=== PATIENT | male | born 1955 | race Caucasian/White ===

== ENCOUNTER 2020-09-08 13:48 | Inpatient (IN) | payer BC, MEDICARE, SELFPAY ==
[2020-09-08] VITALS (8 sets, daily range): BP systolic 134–180; BP diastolic 68–86; PULSE 94–118; RESP 20–22; TEMP 36.4–37; O2SAT 89–92; BMI 37.9
--- NOTE | ~2020-09-08 | CT_ITS ---
EXAMINATION: CTA chest PE protocol DATE: 09/08/2020 15:40 INDICATION: COVID positive presenting with worsening dyspnea and elevated d-dimer. TECHNIQUE: Computed tomography (CT) pulmonary angiogram of the chest was performed with 100 mL Omnipa que-350 intravenous contrast. Additional 3D reconstructions utilizing coronal maximum intensity proje ction (MIP) were performed. Automated exposure control and iterative reconstruction technique were em ployed. The dose-length product was 1908.88 mGy-cm. COMPARISON: None FINDINGS: Excellent contrast opacification of the pulmonary arteries. There is mild streak artifact from dense contrast in the superior vena cava and right atrium. Moderate scattered respiratory motion artifact w hich is most prominent at the lung bases. Overall this mildly decreases sensitivity in the segmental pulmonary arteries and rendered images assessment and many of the smaller subsegmental pulmonary oscar chen nondiagnostic. No evident pulmonary embolism. Scattered bilateral patchy regions of consolidatio n and groundglass opacity throughout both lungs most consistent with COVID pneumonia. There are few s cattered calcified pulmonary nodules along with calcified mediastinal and left hilar lymph nodes cons istent with old granulomatous disease. No pleural effusion or pneumothorax. Heart size is normal. No pericardial effusion. Atherosclerotic coronary artery calcification. Thoracic aorta is normal in christopehr thomas with no dissection. No pathologically enlarged thoracic lymphadenopathy. The visualized upper abd omen is unremarkable. Moderate thoracic spondylosis with multiple Schmorl's nodes in the mid to lower thoracic spine. IMPRESSION: 1. No pulmonary embolism with sensitivity mildly decreased in the segmental pulmonary arteries and no ndiagnostic in many of the smaller subsegmental pulmonary arteries due primarily to respiratory motio n artifact. 2. Extensive bilateral patchy lung disease with appearance most consistent with COVID pneumonia. Reviewed, dictated and finalized at location A. IMPRESSION: 1. No pulmonary embolism with sensitivity mildly decreased in the segmental pul monary arteries and nondiagnostic in many of the smaller subsegmental pulmonary arteries due primarily to respiratory motion artifact. 2. Extensive bilateral patchy lung disease with appearance most consistent with COVID pneumonia.
--- NOTE | 2020-09-08 13:58 | ECG_ITS ---
Measurements Intervals [place] Rate: P: UT: QRS: QRSD: T: QT: QTc: Interpretive Statements SINUS TACHYCARDIA DELAYED PRECORDIAL R/S TRANSITION BASELINE WANDER- I, II, III, AVR, AVF, V1, V4-V6 ABNORMAL ECG Electronically Signed On 09-08-2020 15:15:37 CDT by Brent Pickett D.O.
--- NOTE | 2020-09-08 14:11 | ED.GENADULT ---
HPI - General Adult General Chief complaint: Shortness of Breath/Dyspnea Stated complaint: covid short of breath Source: patient Mode of arrival: ambulatory Limitations: no limitations History of Present Illness HPI narrative: Simone is a 65M with a PMH of DVT, obesity and CAD that came to the emergency department with worsening SOB. He was diagnosed with COVID on August 31. He has had fatigue since then and worsening SOB for a few days. No CP, nausea, vomiting, or lightheadedness reported. Related Data Home Medications Medication Instructions Recorded Confirmed apixaban [Eliquis] 2.5 mg PO DAILY 09/08/20 09/08/20 cyclobenzaprine 10 mg PO PRN 09/08/20 09/08/20 finasteride 5 mg PO DAILY 09/08/20 09/08/20 losartan 100 mg PO DAILY 09/08/20 09/08/20 simvastatin 40 mg PO DAILY 09/08/20 09/08/20 venlafaxine 75 mg PO DAILY 09/08/20 09/08/20 Allergies Allergy/AdvReac Type Severity Reaction Status Date / Time acetaminophen Allergy Severe RESP. Verified 09/08/20 14:43 DIFFICULTY codeine Allergy Severe RESP. Verified 09/08/20 14:43 DIFFICULTY Review of Systems Constitutional: Constitutional: Denies chills, Reports fatigue, Denies fever(s) and Reports weakness Eyes: Eyes: Reports no additional eye complaints ENT: Reports system reviewed and no additional complaints, except as documented Cardiovascular: Cardiovascular: Reports as per HPI Respiratory: Respiratory: Reports as per HPI Gastrointestinal: Gastrointestinal: Reports no additional gastrointestinal complaints Genitourinary: Genitourinary: Reports no additional male genitourinary complaints Musculoskeletal: Musculoskeletal: Reports no additional musculoskeletal complaints Integumentary/Breasts: Skin/Breast: Reports system reviewed and no additional complaints, except as docu Neurologic: Reports system reviewed and no additional complaints, except as documented Psychiatric: Psychiatric: Reports no additional psychiatric complaints Endocrine: Endocrine: Reports no additional endocrine complaints Hematologic/Lymphatic: Hematologic/Lymphatic: Reports no additional hematologic/lymphatic complaints Allergic/Immunologic: Allergic/Immunologic: Reports no additional allergic/immunologic complaints [facility] Social History Social History Gender identity (if verbalized by the patient): Male Exam Const: General: alert and ill appearing Nutritional Appearance: obese Orientation/consciousness: patient oriented x3 Limitations: No altered mental status Other: In mild to moderate distress HENMT: Head: normal to inspection Other: atraumatic Eyes: Conjunctivae: conjunctivae normal Pupils: Equal, round and reactive pupils present Neck: Neck: normal visual inspection Chest: Chest palpation & inspection: normal inspection of the chest Resp: Effort & Inspection: labored, tachypneic and uses accessory muscles Auscultation: clear to auscultation bilaterally Cardio: Rate: tachycardic Rhythm: regular rhythm Heart sounds: no murmurs GI: Inspection: non-distended GI Palp: Yes Soft to palpation, No Tenderness to palpation present (GI) and No Guarding due to palpation present (GI) Skin: General skin exam: normal color Rashes: no rashes Neuro: General: patient oriented x3 and moves all extremities Extrem: General: normal to inspection Psych: Appearance: grossly normal Mental Status: mental status grossly normal Course Course Emergency Course: Upon entering the ER his oxygen saturation was in the low 80's. It came up to the low 90's with 5L via NC. EXAMINATION: CTA chest PE protocol DATE: 09/08/2020 15:40 INDICATION: COVID positive presenting with worsening dyspnea and elevated d-dimer. TECHNIQUE: Computed tomography (CT) pulmonary angiogram of the chest was performed with 100 mL Omnipaque-350 intravenous contrast. Additional 3D reconstructions utilizing coronal maximum intensity projection (M
[2020-09-08 14:27] LABS: Basophils Absolute Auto 0.03 K/mm3 (0.00-0.10); Basophils Percent Auto 0.3 % (0.0-1.0); Eosinophils Absolute Auto 0.03 K/mm3 (0.02-0.50); Eosinophils Percent Auto 0.3 % (1.0-6.0); Hematocrit 40.9 % (37.0-46.0); Hemoglobin 13.8 g/dL (12.4-15.3); Immature Granulocyte Absolute 0.13 K/mm3 (0.00-0.00); Immature Granulocyte Percent A 1.4 % (0.0-0.0); Lymphocytes Absolute Auto 0.98 K/mm3 (1.10-4.50); Lymphocytes Percent Auto 10.4 % (18.0-42.0); Mean Corpuscular HGB Conc 33.7 g/dL (32.0-36.0); Mean Corpuscular Hemoglobin 30.8 pg (27.0-31.0); Mean Corpuscular Volume 91.3 fL (78.0-102.0); Mean Platelet Volume 11.2 fl (8.7-11.0); Monocytes Absolute Auto 0.83 K/mm3 (0.10-0.90); Monocytes Percent Auto 8.8 % (2.0-11.0); Neutrophils Absolute Auto 7.4 K/mm3 (1.7-7.2); Neutrophils Percent Auto 78.8 % (50.0-70.0); Platelet Count Result 279 K/mm3 (150-420); Red Blood Count 4.48 M/mm3 (4.70-6.10); Red Cell Distribution Width 12.4 % (11.6-14.4); White Blood Count 9.4 K/mm3 (4.8-10.8)
[2020-09-08 14:40] LABS: Base Excess ABG 2.2 mmol/L (0-2); Device NASAL CANNULA; Modified Allen's Test Pass; Oxygen Content ABG 18.7 %vol (16.0-22.0); Oxygen Saturation ABG 93.8 % (95-97); PCO2 ABG 29.8 mmHg (35-45); PO2 ABG 68.6 mmHg (75-85); Site Drawn RIGHT RADIAL; Total Hemoglobin 14.3 g/dL; pH ABG 7.52 (7.35-7.45)
[2020-09-08] MEDS: DEXAMETHASONE 2 MG TABLET 6 MG PO (14:51)
[2020-09-08 14:52] LABS: Alanine Aminotransferase 193 U/L (16-63); Albumin Level 2.7 g/dL (3.4-5.0); Alkaline Phosphatase 253 U/L (46-116); Anion Gap 11 mmol/L (8-16); Aspartate Amino Transferase 119 U/L (15-37); Bilirubin,Total 1.7 mg/dL (0.00-1.00); Blood Urea Nitrogen 20 mg/dL (7-18); Calcium 8.9 mg/dL (8.5-10.1); Carbon Dioxide 27 mmol/L (21-32); Chloride 100 mmol/L (98-108); Estimated CRCL calculation 80 ml/min; Estimated Glomerular Filt Rate > 60; Glucose 129 mg/dL (70-99); NT Pro B Type Natriuretic Pept 270 pg/mL (0-125); Osmolality Calculated 290 mOsm/kg (285-295); Potassium 3.7 mmol/L (3.5-5.1); Sodium 138 mmol/L (136-145); Total Protein 7.5 g/dL (6.4-8.2); Troponin I 9.1 ng/L (0.00-60.4)
[2020-09-08 15:11] LABS: CRP 23.1 mg/dL (0.0-0.9)
[2020-09-08] MEDS: REMDESIVIR 200 MG/NS 250 ML 200 MG/250 ML BAG 250 MG IVPB (15:45)
--- NOTE | 2020-09-08 18:35 | ADMGEN ---
This patient, Arsh Guerrero, was admitted to 2nd Floor Room 210-2. Patient to hospital policies and general routines including ID bracelet, bed and alarms, visiting hours, pain management, procedures, bathroom and other care routines, personal items, smoking policy, room service/diet, and visiting hours. Information on how to activate the Rapid Response Team has been discussed. Patient are encouraged to report perceived risks to care and to ask questions if they do not understand what they are told or what they should do. placed in droplet d/t dx covid positive. st on tele with spo2 @ 5 l is 88-90%. sits on side of bed and eats supper. claims he has just been feeling tired and laying around is starting to feel week and sob.
[2020-09-09] VITALS (11 sets, daily range): BP systolic 129–155; BP diastolic 50–89; PULSE 75–107; RESP 18–24; TEMP 35.8–36.4; O2SAT 89–96
[2020-09-09] MEDS: SIMVASTATIN 10 MG TABLET 40 MG PO (08:04)
[2020-09-09] MEDS: VENLAFAXINE HCL XR 75 MG CAP.ER.24H PO (08:05)
[2020-09-09] MEDS: LOSARTAN POTASSIUM 50 MG TABLET 100 MG PO (08:05)
[2020-09-09] MEDS: APIXABAN 2.5 MG TABLET PO (08:05)
[2020-09-09] MEDS: FINASTERIDE 5 MG TABLET PO (08:05)
[2020-09-09] MEDS: guaiFENesin/DEXTROMETHORPHAN 5 ML UDC 10 ML PO (08:51)
--- NOTE | 2020-09-09 11:28 | PM.IMHP ---
H&P: HPI History of Present Illness Date/Time: 09/09/20 11:28 Arsh Guerrero is a 65 year old male who comes in with SOB for a couple days which had been worsening. Pt was tested Positive for COVID on August 31, 2020. Chief Complaint: COVID Positive, SOB Review of Systems Constitutional: Constitutional: Reports no additional constitutional complaints, Denies chills, Denies fever(s), Reports malaise and Reports weakness Cardiovascular: Cardiovascular: Reports no additional cardiovascular complaints, Denies chest pain and Denies chest pain at rest Respiratory: Respiratory: Reports no additional respiratory complaints, Reports cough and Reports dyspnea on exertion Gastrointestinal: Gastrointestinal: Reports no additional gastrointestinal complaints and Denies abdominal pain Musculoskeletal: Musculoskeletal: Reports no additional musculoskeletal complaints Neurologic: Reports system reviewed and no additional complaints, except as documented, Denies dizziness and Denies headache(s) Psychiatric: Psychiatric: Reports no additional psychiatric complaints [facility] Past Medical History Medical History (Updated 09/09/20 @ 11:47 by BHASKAR Villeda) BPH (benign prostatic hyperplasia) CAD (coronary artery disease) History of DVT (deep vein thrombosis) Hyperlipidemia Hypertension Mood disorder Surgical History Surgical History (Updated 09/09/20 @ 12:19 by BHASKAR Villeda) Hx of cardiac cath Family History Family History (Updated 09/09/20 @ 12:22 by BHASKAR Villeda) Mother Breast cancer Alzheimer disease Father Throat cancer Malignant neoplasm of prostate Bone cancer Lymph node cancer Social History Social History (Updated 09/09/20 @ 12:22 by BHASKAR Villeda) Smoking status: Never smoker Alcohol intake: former Substance use: never Substance use type: does not use Gender identity (if verbalized by the patient): Male Sexual Orientation (if Verbalized by the Patient): Straight or Heterosexual Spiritual care concerns: No Meds Home Medications and Allergies Home Medications Medication Instructions Recorded Confirmed Type apixaban [Eliquis] 2.5 mg PO DAILY 09/08/20 09/08/20 History cyclobenzaprine 10 mg PO PRN 09/08/20 09/08/20 History finasteride 5 mg PO DAILY 09/08/20 09/08/20 History losartan 100 mg PO DAILY 09/08/20 09/08/20 History simvastatin 40 mg PO DAILY 09/08/20 09/08/20 History venlafaxine 75 mg PO DAILY 09/08/20 09/08/20 History Allergies Allergy/AdvReac Type Severity Reaction Status Date / Time acetaminophen Allergy Severe RESP. Verified 09/08/20 14:43 DIFFICULTY codeine Allergy Severe RESP. Verified 09/08/20 14:43 DIFFICULTY Vital Signs Vital Signs - 24 hr 09/08/20 14:05 09/08/20 14:10 09/08/20 15:45 Temperature 98.6 F Pulse Rate 114 H 105 H Respiratory Rate 20 20 Blood Pressure 151/86 H 169/80 H Pulse Oximetry 89 L 89 L 90 09/08/20 16:00 09/08/20 17:00 09/08/20 17:30 Temperature Pulse Rate 101 H 94 118 H Respiratory Rate 20 20 Blood Pressure 134/83 180/79 H Pulse Oximetry 92 92 09/08/20 18:27 09/08/20 20:00 09/09/20 00:00 Temperature 97.6 F 96.4 F L Pulse Rate 118 H 94 75 Respiratory Rate 22 H 20 Blood Pressure 144/68 H 129/50 L Pulse Oximetry 90 91 90 09/09/20 04:00 09/09/20 08:00 09/09/20 08:20 Temperature 97.6 F 97.4 F L Pulse Rate 95 100 101 H Respiratory Rate 20 22 H Blood Pressure 147/89 H 155/85 H Pulse Oximetry 90 89 L Exam Const: General: cooperative, comfortable, no acute distress, alert, awake and tired appearing Nutritional Appearance: obese HENMT: Head: normal to inspection and normocephalic Ears: hearing grossly normal bilaterally Neck: Neck: normal visual inspection, no lymphadenopathy and no JVD Resp: Effort & Inspection: not able to speak in complete sentences, labored, no nasal flaring, no retractions and tachypneic Auscultation: clear to auscultation bilatera
[2020-09-09] MEDS: guaiFENesin/DEXTROMETHORPHAN 5 ML UDC PO ×2 (12:07→18:36)
[2020-09-09] MEDS: REMDESIVIR 100 MG/NS 250 ML 100 MG/250 ML BAG 250 MG IVPB (15:45)
--- NOTE | 2020-09-09 18:36 | PC.NURSE ---
Patient given cough syrup for dry non-productive cough. Patient resting in bed with hob elevated, hi martha therapy cont. Call light and belongings at side.
--- NOTE | 2020-09-09 20:36 | PC.NURSE ---
Patient requested to use bathroom. Provided bedside commode due to hi-flow O2 use. transferred with SBA only. Denied dizziness or SOB. No result.
[2020-09-10] VITALS (7 sets, daily range): BP systolic 135–153; BP diastolic 55–77; PULSE 80–98; RESP 18–20; TEMP 36.1–36.8; O2SAT 90–94
--- NOTE | 2020-09-10 03:03 | PC.NURSE ---
Patient removed high flow O2-stated he couldn't stand it anymore. Place on simple nasal cannula at 5 liters.
[2020-09-10] MEDS: SIMVASTATIN 10 MG TABLET 40 MG PO (08:19)
[2020-09-10] MEDS: LOSARTAN POTASSIUM 50 MG TABLET 100 MG PO (08:19)
[2020-09-10] MEDS: FINASTERIDE 5 MG TABLET PO (08:19)
[2020-09-10] MEDS: VENLAFAXINE HCL XR 75 MG CAP.ER.24H PO (08:20)
[2020-09-10] MEDS: APIXABAN 2.5 MG TABLET PO (08:20)
[2020-09-10] MEDS: guaiFENesin/DEXTROMETHORPHAN 5 ML UDC PO (09:13)
--- NOTE | 2020-09-10 09:20 | PM.IMPN ---
Progress Note: A&P Assessment and Plan (1) 2019 novel coronavirus–infected pneumonia (NCIP)#8211;infected pneumonia (NCI): Code(s): U07.1 - COVID-19; J12.82 - Pneumonia due to coronavirus disease 2019 <Breezy WallaceNICOLE-C - Last Filed: 09/10/20 13:12> Status: Acute <Breezy WallaceNICOLE-C - Last Filed: 09/10/20 13:12> Assessment and Plan: Started on Dexamethasone 6 mg QD, Remdesivir, continue Eliquis for DVT prophylaxis, Supplemental oxygen for SpO2 > 90%, currently at 92%, Cardiac monitoring with SpO2 monitoring, Robitussin DM added for Pt's cough, Neuro checks, VS Q4H; 1430 hours: Pt SpO2 was dropping to upper 80s, ordered for HFNC at 50FiO2 for SpO2 > 90%, Pt now at 92-93%. 09/10/2020 Unable to tolerate HFNC throughout the night, currently 90% with 5L NC but on occasion drops to upper 80s, Pt encouraged to wear HFNC <Breezy WallaceNICOLE-C - Last Filed: 09/10/20 13:12> (2) History of DVT (deep vein thrombosis): Code(s): Z86.718 - Personal history of other venous thrombosis and embolism <Breezy WallaceNICOLE-C - Last Filed: 09/10/20 13:12> Status: Acute <Breezy PhilippeNICOLE mukherjee-C - Last Filed: 09/10/20 13:12> Assessment and Plan: Continue Eliquis <Breezy PhilippeNICOLE mukherjee-C - Last Filed: 09/10/20 13:12> (3) Hypertension: Code(s): I10 - Essential (primary) hypertension <Breezy PhilippeNICOLE mukherjee-C - Last Filed: 09/10/20 13:12> Status: Acute <Breezy PhilippeNICOLE mukherjee-C - Last Filed: 09/10/20 13:12> Assessment and Plan: Continue Losartan <Breezy PhilippeNICOLE mukherjee-C - Last Filed: 09/10/20 13:12> (4) Hyperlipidemia: Code(s): E78.5 - Hyperlipidemia, unspecified <Breezy Wallace GLAZE HANDLER-C - Last Filed: 09/10/20 13:12> Status: Acute <Breezy Wallace GLAZE HANDLER-C - Last Filed: 09/10/20 13:12> Assessment and Plan: Continue Simvastatin <Breezy Wallace GLAZE HANDLER-C - Last Filed: 09/10/20 13:12> (5) CAD (coronary artery disease): Code(s): I25.10 - Atherosclerotic heart disease of [place] coronary artery without angina pectoris <Breezy Wallace GLAZE HANDLER-C - Last Filed: 09/10/20 13:12> Status: Acute <Breezy Wallace GLAZE HANDLER-C - Last Filed: 09/10/20 13:12> Assessment and Plan: Continue Simastatin <Breezy Wallace GLAZE HANDLER-C - Last Filed: 09/10/20 13:12> (6) Mood disorder: Code(s): F39 - Unspecified mood [affective] disorder <Breezy Wallace GLAZE HANDLER-C - Last Filed: 09/10/20 13:12> Status: Acute <Breezy Wallace GLAZE HANDLER-C - Last Filed: 09/10/20 13:12> Assessment and Plan: Continue Venlafaxine <Breezy Wallace GLAZE HANDLER-C - Last Filed: 09/10/20 13:12> (7) BPH (benign prostatic hyperplasia): Code(s): N40.0 - Benign prostatic hyperplasia without lower urinary tract symptoms <Berezy Wallace GLAZE HANDLER-C - Last Filed: 09/10/20 13:12> Status: Acute <Breezy Wallace GLAZE HANDLER-C - Last Filed: 09/10/20 13:12> Assessment and Plan: Continue Finasteride <Breezy Wallace GLAZE HANDLER-C - Last Filed: 09/10/20 13:12> Subjective Date/time seen: 09/10/20 09:20 Pt states his breathing is better today. However, he was not able to keep his high flow NC on throughout the night stating it felt like he was drowning from all the humidity. Pt also states that he has a cough and when he eats or drinks it tickles his throat and causes him to cough. He does have Robitussin DM and he was reminded of this. Pt denies CP, abdominal pain, SOB at this time, fevers and chills. Pt did have questions as to how long he would be in the hospital. The duration of medications was explained as well as the need to monitor him closely with respect to his oxygen demand and being on IV medications. <BHASKAR Villeda - Last Filed: 09/10/20 13:12> Review of Systems Review of Systems: All systems reviewed & are unremarkable except as noted in HPI and below <BHASKAR Villeda - Last Filed: 0
[2020-09-10] MEDS: ALBUTEROL SULFATE (*SP) INHALER 2 PUFF INHALATION ×3 (10:37→19:40)
[2020-09-10] MEDS: DEXAMETHASONE SOD PHOS INJ 4 MG/ML VIAL 6 MG IV PUSH (11:43)
[2020-09-10] MEDS: REMDESIVIR 100 MG/NS 250 ML 100 MG/250 ML BAG 250 MG IVPB (14:37)
[2020-09-11] VITALS (9 sets, daily range): BP systolic 134–149; BP diastolic 55–84; PULSE 64–91; RESP 16–20; TEMP 36.1–36.8; O2SAT 91–94
[2020-09-11] MEDS: guaiFENesin/DEXTROMETHORPHAN 5 ML UDC PO (04:43)
[2020-09-11 05:39] LABS: Hematocrit 40.6 % (37.0-46.0); Hemoglobin 13.1 g/dL (12.4-15.3); Mean Corpuscular HGB Conc 32.3 g/dL (32.0-36.0); Mean Corpuscular Hemoglobin 30.1 pg (27.0-31.0); Mean Corpuscular Volume 93.3 fL (78.0-102.0); Mean Platelet Volume 11.1 fl (8.7-11.0); Platelet Count Result 327 K/mm3 (150-420); Red Blood Count 4.35 M/mm3 (4.70-6.10); Red Cell Distribution Width 12.3 % (11.6-14.4); White Blood Count 10.4 K/mm3 (4.8-10.8)
[2020-09-11 05:50] LABS: Alanine Aminotransferase 234 U/L (16-63); Anion Gap 9 mmol/L (8-16); Blood Urea Nitrogen 20 mg/dL (7-18); Calcium 8.7 mg/dL (8.5-10.1); Carbon Dioxide 27 mmol/L (21-32); Chloride 106 mmol/L (98-108); Estimated CRCL calculation 91 ml/min; Estimated Glomerular Filt Rate > 60; Glucose 113 mg/dL (70-99); INR 1.1; Osmolality Calculated 297 mOsm/kg (285-295); Prothrombin Time 11.2 Seconds (9.50-12.10); Sodium 142 mmol/L (136-145)
[2020-09-11] MEDS: ALBUTEROL SULFATE (*SP) INHALER 2 PUFF INHALATION ×4 (05:50→20:31)
[2020-09-11] MEDS: SIMVASTATIN 10 MG TABLET 40 MG PO (08:24)
[2020-09-11] MEDS: APIXABAN 2.5 MG TABLET PO (08:24)
[2020-09-11] MEDS: LOSARTAN POTASSIUM 50 MG TABLET 100 MG PO (08:24)
[2020-09-11] MEDS: FINASTERIDE 5 MG TABLET PO (08:24)
[2020-09-11] MEDS: VENLAFAXINE HCL XR 75 MG CAP.ER.24H PO (08:24)
--- NOTE | 2020-09-11 08:46 | PM.IMPN ---
Progress Note: A&P Assessment and Plan (1) 2019 novel coronavirus–infected pneumonia (NCIP)#8211;infected pneumonia (NCIP): Code(s): U07.1 - COVID-19; J12.82 - Pneumonia due to coronavirus disease 2019 Status: Acute Assessment and Plan: Started on Dexamethasone 6 mg QD, Remdesivir, continue Eliquis for DVT prophylaxis, Supplemental oxygen for SpO2 > 90%, currently at 92%, Cardiac monitoring with SpO2 monitoring, Robitussin DM added for Pt's cough, Neuro checks, VS Q4H; 1430 hours: Pt SpO2 was dropping to upper 80s, ordered for HFNC at 50FiO2 for SpO2 > 90%, Pt now at 92-93%. 09/10/2020 Unable to tolerate HFNC throughout the night, currently 90% with 5L NC but on occasion drops to upper 80s, Pt encouraged to wear HFNC 09/11/2020 Pt SpO2 is currently 93% on 3L NC, lung sound similar to yesterday, no cough (2) Paroxysmal SVT (supraventricular tachycardia): Code(s): I47.1 - Supraventricular tachycardia Status: Acute Assessment and Plan: 09/11/2020 Pt had a rhythm change on telemetry, EKG was obtained but did not capture the changes seen on telemetry showing SR with short TN interval, about 15 minutes later telemetry captured a 7.7 second SVT at 180 BPM, Pt was asymptomatic, no other changes in VS, I called Dr. Buck, journalists and other writers, as requested by the mandeep TONY, it was not recommended to transfer this Pt however some lab work was recommended by Dr. Buck to include Electrolytes (which were normal this AM), Magnesium, and T4 since TSH was 0.2 on admission. Discussed results with Dr. Schmitt and will continue to observe the Pt and monitor Lab workup. (3) History of DVT (deep vein thrombosis): Code(s): Z86.718 - Personal history of other venous thrombosis and embolism Status: Acute Assessment and Plan: Continue Eliquis (4) Hypertension: Code(s): I10 - Essential (primary) hypertension Status: Acute Assessment and Plan: Continue Losartan (5) Hyperlipidemia: Code(s): E78.5 - Hyperlipidemia, unspecified Status: Acute Assessment and Plan: Continue Simvastatin (6) CAD (coronary artery disease): Code(s): I25.10 - Atherosclerotic heart disease of [place] coronary artery without angina pectoris Status: Acute Assessment and Plan: Continue Simastatin (7) Mood disorder: Code(s): F39 - Unspecified mood [affective] disorder Status: Acute Assessment and Plan: Continue Venlafaxine (8) BPH (benign prostatic hyperplasia): Code(s): N40.0 - Benign prostatic hyperplasia without lower urinary tract symptoms Status: Acute Assessment and Plan: Continue Finasteride Subjective Date/time seen: 09/11/20 08:46 Pt had taken his supplemental oxygen off this AM. I placed him back on the SpO2 monitor and this showed 87%. I reminded the Pt that he still has increased oxygen demand and needs to wear his NC. Pt states his breathing is good. He states he is going home Sunday however he and I spoke about how his condition would guide when he would go home not when the Remdesivir was finished. Pt will need a 6 minute walk test prior to DC home. This AM he is on 3 L NC with SpO2 of 93%. Pt denies CP, SOB, abdominal issues, increased WOB. Review of Systems Constitutional: Constitutional: Reports no additional constitutional complaints, Denies body ache(s), Denies chills, Denies fever(s) and Denies headache(s) Cardiovascular: Cardiovascular: Reports no additional cardiovascular complaints, Denies chest pain and Denies chest pain at rest Respiratory: Respiratory: Reports no additional respiratory complaints and Denies dyspnea Gastrointestinal: Gastrointestinal: Reports no additional gastrointestinal complaints and Denies abdominal pain Musculoskeletal: Musculoskeletal: Reports no additional musculoskeletal complaints Neurologic: Reports system reviewed and no additional complaints, except as documented, Denies vertigo and D
--- NOTE | 2020-09-11 10:51 | ECG_ITS ---
Measurements Intervals [place] Rate: 75 P: 27 [place]: 85 QRS: 5 QRSD: 86 T: 51 QT: 386 QTc: 431 Interpretive Statements SINUS RHYTHM WITH SHORT [place] INTERVAL NON-CONDUCTED SUPRAVENTRICULAR BIGEMINY EARLY PRECORDIAL R/S TRANSITION BASELINE ARTIFACT- I, II, III, AVL, AVR, AVL,A VF, V3 ABNORMAL ECG Electronically Signed On 09-12-2020 10:23:10 CDT by Brent Pickett D.O.
[2020-09-11 12:55] LABS: Magnesium 2.5 mg/dL (1.8-2.4)
[2020-09-11 12:57] LABS: Alanine Aminotransferase 254 U/L (16-63); Albumin Level 2.7 g/dL (3.4-5.0); Alkaline Phosphatase 247 U/L (46-116); Aspartate Amino Transferase 108 U/L (15-37); Bilirubin Direct 0.3 mg/dL (0-0.2); Bilirubin,Total 0.7 mg/dL (0.00-1.00); CRP 8.5 mg/dL (0.0-0.9); Lactate Dehydrogenase 247 U/L (85-227); Total Protein 7.6 g/dL (6.4-8.2)
[2020-09-11 12:58] LABS: Free T4 Free Thyroxine 1.45 ng/dL (0.76-1.46)
[2020-09-11 12:59] LABS: Troponin I 5.2 ng/L (0.00-60.4)
[2020-09-11] MEDS: REMDESIVIR 100 MG/NS 250 ML 100 MG/250 ML BAG 250 MG IVPB (14:44)
--- NOTE | 2020-09-11 23:34 | PC.NURSE ---
Patient has removed oxygen, states no SOB at this time, continuous pulse ox noted 92-94%
[2020-09-12] VITALS (8 sets, daily range): BP systolic 125–167; BP diastolic 72–84; PULSE 59–110; RESP 18–20; TEMP 35.7–36.7; O2SAT 92–96
--- NOTE | 2020-09-12 01:33 | PC.NURSE ---
Resting quietly, no needs voiced, telemetry SR
--- NOTE | 2020-09-12 02:52 | PC.NURSE ---
O2 saturation dipped to 87 % sustained, oxygen re applied at 2 L NC and noted sats 92-94%
--- NOTE | 2020-09-12 04:45 | PC.NURSE ---
Resting quietly, no distress, oxygen remains at 2 L NC at this time, sats 93%,
[2020-09-12] MEDS: ALBUTEROL SULFATE (*SP) INHALER 2 PUFF INHALATION ×4 (05:43→20:30)
[2020-09-12 05:56] LABS: Hematocrit 41.8 % (37.0-46.0); Hemoglobin 13.5 g/dL (12.4-15.3); Mean Corpuscular HGB Conc 32.3 g/dL (32.0-36.0); Mean Corpuscular Hemoglobin 30.7 pg (27.0-31.0); Platelet Count Result 344 K/mm3 (150-420); Red Cell Distribution Width 12.5 % (11.6-14.4); White Blood Count 8.4 K/mm3 (4.8-10.8)
[2020-09-12 06:07] LABS: Anion Gap 8 mmol/L (8-16); Blood Urea Nitrogen 20 mg/dL (7-18); Calcium 8.5 mg/dL (8.5-10.1); Carbon Dioxide 28 mmol/L (21-32); Chloride 105 mmol/L (98-108); Estimated CRCL calculation 78 ml/min; Estimated Glomerular Filt Rate > 60; Glucose 105 mg/dL (70-99); Magnesium 2.5 mg/dL (1.8-2.4); Osmolality Calculated 294 mOsm/kg (285-295); Potassium 4.3 mmol/L (3.5-5.1); Sodium 141 mmol/L (136-145)
[2020-09-12 06:10] LABS: INR 1.1; Prothrombin Time 11.3 Seconds (9.50-12.10)
[2020-09-12 06:20] LABS: Alanine Aminotransferase 211 U/L (16-63)
--- NOTE | 2020-09-12 07:50 | PC.NURSE ---
Pt. sitting in chair this morning, watching TV, No c/o at this time. Reports breathing easier, Noted 2L NC O2 in place. Pt. up in room per self c call light in reach. Lungs noted diminished bilat. Pt. awaiting breakfast.
[2020-09-12] MEDS: VENLAFAXINE HCL XR 75 MG CAP.ER.24H PO (08:28)
[2020-09-12] MEDS: APIXABAN 2.5 MG TABLET PO (08:28)
[2020-09-12] MEDS: FINASTERIDE 5 MG TABLET PO (08:28)
[2020-09-12] MEDS: SIMVASTATIN 10 MG TABLET 40 MG PO (08:29)
[2020-09-12] MEDS: LOSARTAN POTASSIUM 50 MG TABLET 100 MG PO (08:29)
--- NOTE | 2020-09-12 10:15 | PM.IMPN ---
Progress Note: A&P Assessment and Plan (1) 2019 novel coronavirus–infected pneumonia (NCIP)#8211;infected pneumonia (NCIP): Code(s): U07.1 - COVID-19; J12.82 - Pneumonia due to coronavirus disease 2019 Status: Acute Assessment and Plan: Started on Dexamethasone 6 mg QD, Remdesivir, continue Eliquis for DVT prophylaxis, Supplemental oxygen for SpO2 > 90%, currently at 92%, Cardiac monitoring with SpO2 monitoring, Robitussin DM added for Pt's cough, Neuro checks, VS Q4H; 1430 hours: Pt SpO2 was dropping to upper 80s, ordered for HFNC at 50FiO2 for SpO2 > 90%, Pt now at 92-93%. 09/10/2020 Unable to tolerate HFNC throughout the night, currently 90% with 5L NC but on occasion drops to upper 80s, Pt encouraged to wear HFNC 09/11/2020 Pt SpO2 is currently 93% on 3L NC, lung sound similar to yesterday, no cough 09/12/2020 92% with 2L NC, improved lung sounds today, inadvertently ordered a 1 time dose of Decadron without the continuation for 9 more days, This was fixed today, (2) Paroxysmal SVT (supraventricular tachycardia): Code(s): I47.1 - Supraventricular tachycardia Status: Acute Assessment and Plan: 09/11/2020 Pt had a rhythm change on telemetry, EKG was obtained but did not capture the changes seen on telemetry showing SR with short UT interval, about 15 minutes later telemetry captured a 7.7 second SVT at 180 BPM, Pt was asymptomatic, no other changes in VS, I called Dr. Buck, instrument mechanic, as requested by the mandeep TONY, it was not recommended to transfer this Pt however some lab work was recommended by Dr. Buck to include Electrolytes (which were normal this AM), Magnesium, and T4 since TSH was 0.2 on admission. Discussed results with Dr. Schmitt and will continue to observe the Pt and monitor Lab workup. 09/12/2020 No reported episodes of SVT throughout the night, Pt has not had CP, continue with cardiac monitoring and SpO2 monitoring (3) History of DVT (deep vein thrombosis): Code(s): Z86.718 - Personal history of other venous thrombosis and embolism Status: Acute Assessment and Plan: Continue Eliquis (4) Hypertension: Code(s): I10 - Essential (primary) hypertension Status: Acute Assessment and Plan: Continue Losartan (5) Hyperlipidemia: Code(s): E78.5 - Hyperlipidemia, unspecified Status: Acute Assessment and Plan: Continue Simvastatin (6) CAD (coronary artery disease): Code(s): I25.10 - Atherosclerotic heart disease of [place] coronary artery without angina pectoris Status: Acute Assessment and Plan: Continue Simastatin (7) Mood disorder: Code(s): F39 - Unspecified mood [affective] disorder Status: Acute Assessment and Plan: Continue Venlafaxine (8) BPH (benign prostatic hyperplasia): Code(s): N40.0 - Benign prostatic hyperplasia without lower urinary tract symptoms Status: Acute Assessment and Plan: Continue Finasteride Subjective Date/time seen: 09/12/20 10:15 Pt states his breathing is good. He takes his O2 off at night and his SpO2 did decrease. Now his SpO2 is 93% with 2L/min and no SOB. Pt states he walks to the restroom and feels that he does good with this and no SOB. Pt denies any chest pain, abdominal pain. Informed Pt of 6 minute walk test tomorrow and he understood. Review of Systems Review of Systems: All systems reviewed & are unremarkable except as noted in HPI and below Exam Const: General: cooperative, comfortable, no acute distress, alert, awake and Physically active Nutritional Appearance: obese morbidly obese HENMT: Head: normal to inspection and normocephalic Ears: hearing grossly normal bilaterally Neck: Neck: normal visual inspection, trachea midline and no JVD Resp: Effort & Inspection: normal respiratory effort Auscultation: diminished lung sounds (throughout, no rales auscultated today) Cardio: Rate: regular rate Heart sounds: S1 normal
[2020-09-12] MEDS: DEXAMETHASONE SOD PHOS INJ 4 MG/ML VIAL 6 MG IV PUSH (10:16)
[2020-09-12] MEDS: REMDESIVIR 100 MG/NS 250 ML 100 MG/250 ML BAG 250 MG IVPB (14:45)
[2020-09-13] VITALS (9 sets, daily range): BP systolic 130–145; BP diastolic 63–77; PULSE 69–126; RESP 18–20; TEMP 36.2–36.3; O2SAT 87–96
[2020-09-13 05:31] LABS: Hematocrit 40.3 % (37.0-46.0); Hemoglobin 13.2 g/dL (12.4-15.3); Mean Corpuscular HGB Conc 32.8 g/dL (32.0-36.0); Mean Corpuscular Hemoglobin 30.8 pg (27.0-31.0); Mean Corpuscular Volume 94.2 fL (78.0-102.0); Mean Platelet Volume 10.8 fl (8.7-11.0); Platelet Count Result 299 K/mm3 (150-420); Red Blood Count 4.28 M/mm3 (4.70-6.10); Red Cell Distribution Width 12.2 % (11.6-14.4)
[2020-09-13 05:42] LABS: Blood Urea Nitrogen 21 mg/dL (7-18); Calcium 8.6 mg/dL (8.5-10.1); Carbon Dioxide 27 mmol/L (21-32); Estimated CRCL calculation 82 ml/min; Estimated Glomerular Filt Rate > 60; Glucose 105 mg/dL (70-99)
[2020-09-13 05:44] LABS: INR 1.1; Prothrombin Time 11.4 Seconds (9.50-12.10)
[2020-09-13 05:51] LABS: Alanine Aminotransferase 185 U/L (16-63)
[2020-09-13] MEDS: ALBUTEROL SULFATE (*SP) INHALER 2 PUFF INHALATION ×3 (05:51→15:35)
[2020-09-13 05:56] LABS: Anion Gap 8 mmol/L (8-16); Chloride 105 mmol/L (98-108); Osmolality Calculated 293 mOsm/kg (285-295); Potassium 4.7 mmol/L (3.5-5.1); Sodium 140 mmol/L (136-145)
[2020-09-13] MEDS: guaiFENesin/DEXTROMETHORPHAN 5 ML UDC PO (08:05)
[2020-09-13] MEDS: VENLAFAXINE HCL XR 75 MG CAP.ER.24H PO (09:02)
[2020-09-13] MEDS: DEXAMETHASONE SOD PHOS INJ 4 MG/ML VIAL 6 MG IV PUSH (09:03)
[2020-09-13] MEDS: LOSARTAN POTASSIUM 50 MG TABLET 100 MG PO (09:04)
[2020-09-13] MEDS: SIMVASTATIN 10 MG TABLET 40 MG PO (09:04)
[2020-09-13] MEDS: APIXABAN 2.5 MG TABLET PO (09:04)
[2020-09-13] MEDS: FINASTERIDE 5 MG TABLET PO (09:05)
--- NOTE | 2020-09-13 10:34 | PM.DS ---
DS: Admitting Diagnosis Admitting Diagnosis Admitting Diagnosis: COVID positive, SOB DS: Discharge Diagnosis Discharge Diagnosis (1) 2019 novel coronavirus–infected pneumonia (NCIP)#8211;infected pneumonia (NCIP): Code(s): U07.1 - COVID-19; J12.82 - Pneumonia due to coronavirus disease 2019 Status: Acute Assessment and Plan: Started on Dexamethasone 6 mg QD, Remdesivir, continue Eliquis for DVT prophylaxis, Supplemental oxygen for SpO2 > 90%, currently at 92%, Cardiac monitoring with SpO2 monitoring, Robitussin DM added for Pt's cough, Neuro checks, VS Q4H; 1430 hours: Pt SpO2 was dropping to upper 80s, ordered for HFNC at 50FiO2 for SpO2 > 90%, Pt now at 92-93%. 09/10/2020 Unable to tolerate HFNC throughout the night, currently 90% with 5L NC but on occasion drops to upper 80s, Pt encouraged to wear HFNC 09/11/2020 Pt SpO2 is currently 93% on 3L NC, lung sound similar to yesterday, no cough 09/12/2020 92% with 2L NC, improved lung sounds today, inadvertently ordered a 1 time dose of Decadron without the continuation for 9 more days, This was fixed today 09/13/2020 Lung sounds improved today, 6 minute walk test for Home O2 complete, Pt will need 2 L/min at rest and 3 L/min while up and walking, will continue Decadron for 5 more days PO, informed that Home oxygen is on its way to the Pt's home. (2) Paroxysmal SVT (supraventricular tachycardia): Code(s): I47.1 - Supraventricular tachycardia Status: Acute Assessment and Plan: 09/11/2020 Pt had a rhythm change on telemetry, EKG was obtained but did not capture the changes seen on telemetry showing SR with short MN interval, about 15 minutes later telemetry captured a 7.7 second SVT at 180 BPM, Pt was asymptomatic, no other changes in VS, I called Dr. Buck, potato chip fryer, as requested by the mandeep TONY, it was not recommended to transfer this Pt however some lab work was recommended by Dr. Buck to include Electrolytes (which were normal this AM), Magnesium, and T4 since TSH was 0.2 on admission. Discussed results with Dr. Schmitt and will continue to observe the Pt and monitor Lab workup. 09/12/2020 No reported episodes of SVT throughout the night, Pt has not had CP, continue with cardiac monitoring and SpO2 monitoring 09/13/2020 No reported episodes of SVT from staff, Pt without CP or SOB, Pt will need to f/u with PCP and cardiology (3) History of DVT (deep vein thrombosis): Code(s): Z86.718 - Personal history of other venous thrombosis and embolism Status: Acute Assessment and Plan: Continue Eliquis (4) Hypertension: Code(s): I10 - Essential (primary) hypertension Status: Acute Assessment and Plan: Continue Losartan (5) Hyperlipidemia: Code(s): E78.5 - Hyperlipidemia, unspecified Status: Acute Assessment and Plan: Continue Simvastatin (6) CAD (coronary artery disease): Code(s): I25.10 - Atherosclerotic heart disease of [place] coronary artery without angina pectoris Status: Acute Assessment and Plan: Continue Simastatin (7) Mood disorder: Code(s): F39 - Unspecified mood [affective] disorder Status: Acute Assessment and Plan: Continue Venlafaxine (8) BPH (benign prostatic hyperplasia): Code(s): N40.0 - Benign prostatic hyperplasia without lower urinary tract symptoms Status: Acute Assessment and Plan: Continue Finasteride DS: Summary Hospital Course Hospital Course: Pt has done well with treatment, lung function improved, Pt wants to return home, He has been advised if SOB starts up again to return to the hospital Time Spent with Patient Time attestation: Total time spent providing and/or coordinating discharge services: < 30 minutes Exam Const: General: cooperative, comfortable, no acute distress, alert, awake and Physically active Nutritional Appearance: obese morbidly obese Neck: Neck: normal visual inspection, full ROM and no JVD
--- NOTE | 2020-09-13 11:27 | HOMEO2EVAL ---
Evaluation was performed at [facility] [place] Home Oxygen Evaluation RC: Home Oxygen (O2) Evaluation Start: 09/13/20 07:46 Freq: ONCE Status: Active Protocol: RPE Activity Type Activity Date Activity User E-Sign Co-Sign Detail Recorded Client Recorded Date Recorded By Document 09/13/20 09:45 JON [id number] 09/13/20 11:27 JON Document 09/13/20 09:47 JON [id number] 09/13/20 11:27 JON Document 09/13/20 09:50 JON [id number] 09/13/20 11:27 JON Document 09/13/20 09:52 JON [id number] 09/13/20 11:27 JON 09/13/20 09/13/20 09/13/20 09:45 09:47 09:50 Home O2 Evaluation Test Phase Resting Resting Exercise Oxygen Delivery Room Air Nasal Cannula Nasal Cannula Oxygen Flow Rate (L/min) 2 2 Pulse Oximetry (90-100 %) 87 L 92 88 L Pulse Rate (60-100 beats/min) 110 H 112 H 126 H Activity Tolerance Good Rating of Perceived Dyspnea (PD) +2 Mild, Some +3 Moderate Difficulty, Difficulty, But Noticeable to Can Continue the Observer Rate of Perceived Exertion (PE) 11 Fairly light 12 Ambulation Distance (feet) 50 Home Oxygen Evaluation Comments Desats on room Will begin ambulated in air at rest to exercise/ room on 2lpm n/ 87%.Will re- ambulation in c with desat to apply 2lpm n/c room due to + 88%. will as is currently COVID results increase to using as 3lpm inpatient. Treatment Charges O2 Evaluation - Inpatient 09/13/20 09:52 Home O2 Evaluation Test Phase Exercise Oxygen Delivery Nasal Cannula Oxygen Flow Rate (L/min) 3 Pulse Oximetry (90-100 %) 92 Pulse Rate (60-100 beats/min) 126 H Activity Tolerance Good Rating of Perceived Dyspnea (PD) +3 Moderate Difficulty, But Can Continue Rate of Perceived Exertion (PE) 13 Somewhat Hard Ambulation Distance (feet) 50 Home Oxygen Evaluation Comments ambulating in room. total 100 ft. Sp02 92% on n/c 3lpm. denies SOB. Dry NPC after. RR20 Treatment Charges
--- NOTE | 2020-09-13 18:29 | PC.NURSE ---
Patient up in chair. Nurse assisted patient into wheelchair. Belongings, beavers, portable O2 tank delivered by [employer] sent with patient. Patient alert and oriented, answers questions readily. Skin warm and dry, no resp distress observed. here to pick patient up.
--- NOTE | 2020-09-15 09:35 | PC.NURSE ---
Invalid phone number for discharge call back.
== END 2020-09-13 18:25 | disposition home or self-care (01) | DRG 177 ==
LOC: CHSED 16:29 → CHS2ND 17:10
PROVIDERS: Nurse Practitioner Family; Admitting Provider Family Medicine; Emergency Provider Family Medicine; PCP Family Medicine; Visit Provider Family Medicine
DX: U07.1 COVID-19 (principal); J12.82 Pneumonia due to coronavirus disease 2019; I25.10 Atherosclerotic heart disease of native coronary artery without angina pectoris; I10 Essential (primary) hypertension; E66.9 Obesity, unspecified; E78.5 Hyperlipidemia, unspecified; N40.0 Benign prostatic hyperplasia without lower urinary tract symptoms; Z79.01 Long term (current) use of anticoagulants; Z86.718 Personal history of other venous thrombosis and embolism; I47.1 Supraventricular tachycardia; F39 Unspecified mood [affective] disorder
CPT/HCPCS: 36415; 36600; 71275; 80048; 80053; 80076; 82565; 82805; 83615; 83735; 83880; 84439; 84443; 84460; 84484; 85025; 85027; 85610; 86140; 86850; 86900; 86901; 93005; 94618; 96365; 99285; A9270; J1100; J8540; Q9967

== ENCOUNTER 2020-11-05 10:04 | Outpatient (CLI) | payer BC, SELFPAY ==
--- NOTE | ~2020-11-05 | XR_ITS ---
EXAMINATION: XR abdomen/kub 1V INDICATION: Left ureteral stone TECHNIQUE: Supine views of the abdomen were obtained on 2 radiographs. COMPARISON: No recent examination is available for comparison. FINDINGS: There is a questionable 5 mm stone in the distal left ureter. No additional urolithiasis is seen. There is severe lumbar spondylosis. The bowel gas pattern is normal. IMPRESSION: 1. Possible 5 mm stone in the distal left ureter. Reviewed, dictated and finalized at location A.
== END 2020-11-05 10:05 | disposition home or self-care (01) ==
PROVIDERS: PCP Family Medicine; Visit Provider Nurse Practitioner Adult Health
DX: N20.1 Calculus of ureter (principal)
CPT/HCPCS: 74018

== ENCOUNTER 2020-11-09 01:11 | Day surgery (SDC) | payer BC, SELFPAY ==
[2020-11-08 15:58] VITALS: BMI 37.6
[2020-11-09] VITALS (8 sets, daily range): BP systolic 118–164; BP diastolic 65–98; PULSE 70–91; RESP 12–20; TEMP 36.2–36.8; O2SAT 93–98
--- NOTE | ~2020-11-09 | XR_ITS ---
EXAMINATION: XR retrograde pyelo w/stent LT DATE: 11/09/2020 12:06 INDICATION: Left ureteral stone. TECHNIQUE: 7 intraoperative fluoroscopic views of the abdomen and pelvis were obtained. I was not pre sent. Fluoroscopy exposure time was 16 seconds. COMPARISON: Abdomen radiographs 11/05/2020 FINDINGS: The left-sided retrograde pyelogram is unremarkable. The final images demonstrate a left in ternal ureteral stent in expected position. IMPRESSION: 1. Left internal ureteral stent in expected position. Reviewed, dictated and finalized at location A.
--- NOTE | 2020-11-09 10:31 | WPDHPUPDATE1 ---
History and Physical Update Update Date/Time: 11/09/20 10:31 History and Physical has been reviewed, including an updated exam of the patient. There are NO changes in the patient's condition. Risks, benefits, and alternatives have been discussed and questions answered. Patient agrees to proceed with procedure. Proceed with cystoscopy, left retrograde pyelogram, left ureteroscopy with stone extraction, possible holmium laser, stent placement
--- NOTE | 2020-11-09 11:21 | P.PNAN_ITS ---
Anes - Initial Pre Proc Eval Procedure: Operation Date: 11/09/20 12:15 Proposed Procedures p Cystoscopy, Left Ureteroscopy, Left Retrograde Pyelogram, Left Stone Extraction, Possible Left Stent Placement, - Harrison Roman MD s Possible Holmium Laser Procedure - Harrison Roman MD Date/Time: 11/09/20 11:21 Surgeon: Harrison Roman MD Pre Op Diagnosis: left ureteral stone Patient Data Age: 65 Gender: M Height: 1.8 m Weight: 122.5 kg Allergies Allergy/AdvReac Type Severity Reaction Status Date / Time acetaminophen Allergy Severe RESP. Verified 11/09/20 11:14 DIFFICULTY codeine Allergy Severe RESP. Verified 11/09/20 11:14 DIFFICULTY Home Medications Medication Instructions Recorded Confirmed Type Eliquis 2.5 mg PO BID 09/08/20 11/08/20 History cyclobenzaprine 10 mg PO PRN 09/08/20 11/08/20 History finasteride 5 mg PO DAILY 09/08/20 11/08/20 History losartan 50 mg PO DAILY 09/08/20 11/08/20 History simvastatin 40 mg PO DAILY 09/08/20 11/08/20 History venlafaxine 75 mg PO DAILY 09/08/20 11/08/20 History Patient hx anesthesia problems: none Family hx anesthesia problems: none [facility] Past Medical History Medical History (Updated 09/11/20 @ 12:34 by BHASKAR Villeda) BPH (benign prostatic hyperplasia) CAD (coronary artery disease) History of DVT (deep vein thrombosis) Hyperlipidemia Hypertension Mood disorder Surgical History Surgical History (Updated 09/09/20 @ 12:19 by BHASKAR Villeda) Hx of cardiac cath Family History Family History (Updated 09/09/20 @ 12:22 by BHASKAR Villeda) Mother Breast cancer Alzheimer disease Father Throat cancer Malignant neoplasm of prostate Bone cancer Lymph node cancer Social History Social History (Updated 09/09/20 @ 12:22 by BHASKAR Villeda) Smoking status: Never smoker Alcohol intake: former Substance use: never Substance use type: does not use Gender identity (if verbalized by the patient): Male Spiritual care concerns: No Anes - Eval Final PreProcedure Day of Procedure 11/09/20 11:21 Patient weight: obese Heart: regular rate and rhythm Lungs: clear to auscultation Airway: Mallampati scale class III Neurological: alert and oriented and dysarthria Last oral intake: >/= 8 hours ASA classification: III Emergent: no Anesthetic plan: proceed Anesthesia type and monitoring: general LMA and standard monitoring Informed Consent: The patient's anesthetic plan and its attendant risks and benefits were discussed with the patient/family/POA. Questions were solicited and answers provided to the satisfaction of the patient/family/POA.
[2020-11-09] MEDS: LACTATED RINGERS 1,000 ML 30 ML IV CONT (11:30)
[2020-11-09] MEDS: ceFAZolin 3 GM/D5W 100 ML 100 ML IVPB (11:35)
[2020-11-09] MEDS: LIDOCAINE HCL 2% GEL UROJET 10 ML PKG MUCOUS MEM (11:55)
--- NOTE | 2020-11-09 12:03 | P.OP_ITS ---
Procedure Note - Detailed Date of Procedure 11/09/20 Pre-op Diagnosis left ureteral stone Post-op Diagnosis same Procedure Performed Cystoscopy, left retrograde pyelogram, left ureteroscopy, left stent placement, extraction of recently passed stone Surgeon Harrison Roman MD Anesthesia general Description of Procedure Patient is taken the operative suite and correctly identified. Once anesthesia was obtained was placed in dorsal lithotomy position and prepped and draped usual sterile fashion. Twenty-two Turkish scope inserted the bladder there is no tumors noted. Small calcifications noted in the bladder which we then retrieved and sent for analysis. There was quite a bit of erythema around the left ureteral orifice. A guidewire was inserted into the orifice. We dilated with an 8/10 dilator. Rigid ureteral scope was inserted there was quite a bit of edema in the left intramural ureter no stone was visualized all the way up to the UPJ area. It is apparent that the patient just recently passed a stone. Given the amount of swelling we did go ahead and do a pyelogram to confirm placement of the stent. 4.8 Turkish contour stent was then placed with the proximal end coiled in the renal pelvis and the distal in the bladder. Bladder was drained 2% viscous lidocaine was inserted into the urethra patient was taken recovery stable condition. Patient will follow up in a week's time for stent removal. Drains Yes Packing No Pathology yes Complications No immediate complications Condition stable Disposition PACU
== END 2020-11-09 13:49 | disposition home or self-care (01) ==
PROVIDERS: PCP Family Medicine; Visit Provider Urology
PROC: (CPT 52352; principal; 2020-11-09 12:15)
DX: N20.1 Calculus of ureter (principal); Z79.01 Long term (current) use of anticoagulants; N40.0 Benign prostatic hyperplasia without lower urinary tract symptoms; I25.10 Atherosclerotic heart disease of native coronary artery without angina pectoris; Z86.718 Personal history of other venous thrombosis and embolism; I10 Essential (primary) hypertension; E78.5 Hyperlipidemia, unspecified; F39 Unspecified mood [affective] disorder; E66.9 Obesity, unspecified; Z68.39 Body mass index [BMI] 39.0-39.9, adult; Z79.82 Long term (current) use of aspirin
CPT/HCPCS: 52332; 74420; 82365; 88300; A9270; C1769; C2617; J0690; J1100; J2250; J2405; J2704; J3010; J7120; Q9966

== ENCOUNTER 2020-11-09 09:37 | Outpatient (CLI) | payer BC, SELFPAY ==
[2020-11-09 10:28] LABS: EDCOVIDSCREEN Negative (Negative)
== END 2020-11-09 09:38 | disposition home or self-care (01) ==
PROVIDERS: PCP Family Medicine; Visit Provider Urology
DX: Z01.812 Encounter for preprocedural laboratory examination (principal); Z20.822 Contact with and (suspected) exposure to COVID-19
CPT/HCPCS: 87426; C9803

== ENCOUNTER 2021-04-03 11:07 | Emergency (ER) | payer BC, SELFPAY ==
--- NOTE | ~2021-04-03 | XR_ITS ---
EXAMINATION: XR chest 2V EXAM DATE: 04/03/2021 13:11 INDICATION: Cough for 3 days. TECHNIQUE: Frontal and lateral projections of the chest obtained and reviewed. There is no prior deejay dy for comparison. FINDINGS: The lungs are clear. There are no pleural effusions. The cardiomediastinal silhouette is within normal limits. There is no pneumothorax suspected. The bones and soft tissues are unremarkab le. IMPRESSION: No acute cardiopulmonary findings. Reviewed, dictated and finalized at location A. MBLY SUPERVISOR
[2021-04-03 11:10] VITALS: BP 161/84; PULSE 87; RESP 18; TEMP 36.4; O2SAT 93
--- NOTE | 2021-04-03 11:23 | ED.URI ---
HPI - URI/Sore Throat General Chief Complaint: Upper Respiratory Infection Stated Complaint: bad cold Source: patient and RN notes reviewed Mode of arrival: ambulatory Limitations: no limitations History of Present Illness HPI Narrative: patient has been having a cough and sinus congestion for 3-4 days. He said he was working and some coworkers thought he was wheezing when he was exerting himself. He had COVID twice last year but has not been vaccinated. He denies any other symptoms at this time. He has no history of COPD or asthma Pertinent past history: sinusitis Severity: moderate Exacerbating factors: exertion Relieving factors: nothing Associated symptoms: nasal congestion Treatments prior to arrival: none Related Data Home Medications Medication Instructions Recorded Confirmed Eliquis 2.5 mg PO BID 09/08/20 04/03/21 cyclobenzaprine 10 mg PO PRN 09/08/20 04/03/21 finasteride 5 mg PO DAILY 09/08/20 04/03/21 losartan 50 mg PO DAILY 09/08/20 04/03/21 simvastatin 40 mg PO DAILY 09/08/20 04/03/21 venlafaxine 75 mg PO DAILY 09/08/20 04/03/21 Allergies Allergy/AdvReac Type Severity Reaction Status Date / Time acetaminophen Allergy Severe RESP. Verified 11/09/20 11:14 DIFFICULTY codeine Allergy Severe RESP. Verified 11/09/20 11:14 DIFFICULTY Review of Systems Review of Systems: All systems reviewed & are unremarkable except as noted in HPI and below Constitutional: Constitutional: Denies chills and Denies fever(s) Respiratory: Respiratory: Reports cough and Reports wheezing Gastrointestinal: Gastrointestinal: Denies nausea and Denies vomiting PMF Past Medical History Medical History BPH (benign prostatic hyperplasia) CAD (coronary artery disease) History of DVT (deep vein thrombosis) Hyperlipidemia Hypertension Mood disorder Surgical History Surgical History Hx of cardiac cath Family History Family History Mother Breast cancer Alzheimer disease Father Throat cancer Malignant neoplasm of prostate Bone cancer Lymph node cancer Social History Social History Smoking status: Never smoker Alcohol intake: former Substance use: never Substance use type: does not use Gender identity (if verbalized by the patient): Male Sexual Orientation (if Verbalized by the Patient): Straight or Heterosexual Spiritual care concerns: No Exam Const: General: healthy appearing, no acute distress and alert Nutritional Appearance: well nourished and obese morbidly obese Orientation/consciousness: patient oriented x3 HENMT: Head: normal to inspection Ears: external ears normal Eyes: Conjunctivae: conjunctivae normal Pupils: Equal, round and reactive pupils present EOM: EOMs intact bilaterally Neck: Neck: normal visual inspection and no lymphadenopathy Resp: Effort & Inspection: normal respiratory effort Auscultation: wheezes expiratory wheezes and right upper (only once) Cardio: Rate: regular rate Rhythm: regular rhythm GI: GI Palp: Yes Soft to palpation, Yes Tenderness to palpation present (GI) and No Guarding due to palpation present (GI) Auscultation: normal bowel sounds Back/Spine/Pelvis: Cervical Spine: cervical ROM normal Thoracic/Lumbar Spine: thoraco-lumbar ROM normal Skin: General skin exam: normal color Rashes: no rashes Neuro: General: patient oriented x3, moves all extremities, no meningeal signs, no focal motor deficits and CN's II-XI intact bilaterally Speech: normal speech Gait exam (Neuro): Normal gait present Extrem: General: normal to inspection and no clubbing, cyanosis or edema Psych: Appearance: grossly normal and well kempt Mental Status: mental status grossly normal Affect: normal affect Attitude: cooperative Thought content: Yes Brandy
[2021-04-03 12:18] LABS: Influenza A QL RT-PCR Negative (Negative); Influenza B QL RT-PCR Negative (Negative); SARS-CoV-2 RNA PCR Negative (Negative)
[2021-04-03 12:19] VITALS: BP 161/84; PULSE 87; RESP 18; TEMP 36.4; O2SAT 93
[2021-04-03 13:44] VITALS: BP 161/97; PULSE 104; RESP 20; TEMP 37.1; O2SAT 96
--- NOTE | 2021-04-03 13:56 | PC.NURSE ---
positive RSV. pt notified. at discharge pt stated has 3 grandchildren at home with RSV. swab collected tests for rsv also.
== END 2021-04-03 13:45 | disposition home or self-care (01) ==
PROVIDERS: Emergency Provider Emergency Medicine; PCP Family Medicine
DX: J00 Acute nasopharyngitis [common cold] (principal); Z20.822 Contact with and (suspected) exposure to COVID-19
CPT/HCPCS: 71046; 87502; 99282; 99283; C9803; U0003; U0005

== ENCOUNTER 2021-10-16 07:22 | Emergency (ER) | payer BC, SELFPAY ==
[2021-10-16 07:25] VITALS: BP 144/88; PULSE 93; RESP 20; TEMP 36.4; O2SAT 96
--- NOTE | 2021-10-16 07:44 | ED.GENADULT ---
HPI - General Adult General Chief complaint: Upper Respiratory Infection Stated complaint: sore throat and ears are hurting Time Seen by Provider: 10/16/21 07:25 History of Present Illness HPI narrative: This is a 66-year-old male with a history of hypertension and DVT on Eliquis presented to ED with sore throat and ear pain. Patient said it will come up at approximately 2:00 a.m. this morning. He has a sore throat pain with swallowing. He denies inability to swallow secretions. He denies any feeling of throat closure.He also has a frontal sinus headache and some ear fullness with pain. He denies fever chills. He denies nausea vomiting diarrhea. He denies chest pain, difficulty breathing, abdominal pain, urinary symptoms or diarrhea. Patient is looking for symptom relief today. He is not vaccinated against COVID-19. He has no sick contacts at home. Related Data Home Medications Medication Instructions Recorded Confirmed apixaban 2.5 mg tablet (Eliquis) 2.5 mg PO BID 09/08/20 10/16/21 finasteride 5 mg tablet 5 mg PO DAILY 09/08/20 10/16/21 losartan 100 mg tablet 50 mg PO DAILY 09/08/20 10/16/21 simvastatin 40 mg tablet 40 mg PO DAILY 09/08/20 10/16/21 venlafaxine 75 mg tablet 75 mg PO DAILY 09/08/20 10/16/21 Allergies Allergy/AdvReac Type Severity Reaction Status Date / Time acetaminophen Allergy Severe RESP. Verified 10/16/21 07:36 DIFFICULTY codeine Allergy Severe RESP. Verified 10/16/21 07:36 DIFFICULTY Review of Systems Constitutional: Constitutional: Denies fever(s) Eyes: Eyes: Reports no additional eye complaints ENT: Reports dysphagia and Reports sore throat Cardiovascular: Cardiovascular: Denies chest pain Respiratory: Respiratory: Denies chest congestion, Reports cough and Denies dyspnea Gastrointestinal: Gastrointestinal: Denies abdominal pain Genitourinary: Genitourinary: Denies hematuria Musculoskeletal: Musculoskeletal: Denies back pain Integumentary/Breasts: Skin/Breast: Denies rash Neurologic: Denies confusion Psychiatric: Psychiatric: Denies anxiety Endocrine: Endocrine: Denies excessive sweating Hematologic/Lymphatic: Hematologic/Lymphatic: Denies easy bleeding Allergic/Immunologic: Allergic/Immunologic: Denies lip swelling PMFSH Past Medical History Medical History BPH (benign prostatic hyperplasia) CAD (coronary artery disease) History of DVT (deep vein thrombosis) Hyperlipidemia Hypertension Mood disorder Surgical History Surgical History Hx of cardiac cath Family History Family History Mother Breast cancer Alzheimer disease Father Throat cancer Malignant neoplasm of prostate Bone cancer Lymph node cancer Social History Social History Smoking status: Never smoker Alcohol intake: former Substance use: never Substance use type: does not use Gender identity (if verbalized by the patient): Male Sexual Orientation (if Verbalized by the Patient): Straight or Heterosexual Spiritual care concerns: No Exam Const: General: healthy appearing, no acute distress and alert Nutritional Appearance: well nourished and obese Orientation/consciousness: patient oriented x3 Limitations: no limitations HENMT: Head: normal to inspection Ears: TM abnormal with fluid behind the TM; not erythematous General nose exam: Normal external nose present Face and sinus: sinus tenderness Mouth: Yes Abnormal oral and palatal mucosa present erythematous; Negative for pustules, ulceration, vesicles and petechiae Eyes: Conjunctivae: conjunctivae normal Neck: Neck: normal visual inspection Chest: Chest palpation & inspection: normal inspection of the chest Resp: Effort & Inspection: normal respiratory effort, not labored, no retractions a
[2021-10-16] MEDS: ACETAMINOPHEN 500 MG TABLET 1000 MG PO (07:54)
[2021-10-16] MEDS: DEXAMETHASONE 2 MG TABLET 12 MG PO (08:12)
[2021-10-16] MEDS: LORATADINE/PSEUDOEPHEDRINE (*CRX) 10/240 MG TABLET ER 24 HR 1 TAB PO (08:13)
[2021-10-16 08:19] LABS: SARS-CoV-2 Ag Negative (Negative)
[2021-10-16 08:32] VITALS: BP 145/75; PULSE 87; RESP 18; O2SAT 97
== END 2021-10-16 08:30 | disposition home or self-care (01) ==
PROVIDERS: Emergency Provider Emergency Medicine; PCP Family Medicine
DX: J06.9 Acute upper respiratory infection, unspecified (principal); Z20.822 Contact with and (suspected) exposure to COVID-19
CPT/HCPCS: 87081; 87426; 87880; 99283; A9270; C9803; J8540

== ENCOUNTER 2021-12-14 08:44 | Outpatient (CLI) | payer BC, SELFPAY | END 2021-12-14 08:45 | disposition home or self-care (01) | LOC: CHSAUDIO 08:47 | PROVIDERS: PCP Family Medicine; Visit Provider Physician Assistant | DX: H91.93 Unspecified hearing loss, bilateral (principal) | CPT/HCPCS: 92557; 92567 ==

== ENCOUNTER 2022-06-15 06:31 | Emergency (ER) | payer BC, SELFPAY ==
[2022-06-15 06:33] VITALS: BP 155/99; PULSE 88; RESP 20; TEMP 36.5; O2SAT 100
--- NOTE | 2022-06-15 06:37 | ED.GENADULT ---
HPI - General Adult General Chief complaint: Unspecified Stated complaint: Sore Throat Related Data Home Medications Medication Instructions Recorded Confirmed apixaban 2.5 mg tablet (Eliquis) 2.5 mg PO BID 09/08/20 11/16/21 finasteride 5 mg tablet 5 mg PO DAILY 09/08/20 11/16/21 losartan 100 mg tablet 50 mg PO DAILY 09/08/20 11/16/21 simvastatin 40 mg tablet 40 mg PO DAILY 09/08/20 11/16/21 venlafaxine 75 mg tablet 75 mg PO DAILY 09/08/20 11/16/21 amlodipine 10 mg tablet (Norvasc) 10 mg PO DAILY 11/16/21 11/16/21 aspirin 81 mg tablet,delayed 81 mg PO DAILY 11/16/21 11/16/21 release (Adult Aspirin Regimen) tamsulosin 0.4 mg capsule (Flomax) 0.4 mg PO DAILY 11/16/21 11/16/21 Allergies Allergy/AdvReac Type Severity Reaction Status Date / Time acetaminophen Allergy Severe RESP. Verified 06/15/22 06:36 DIFFICULTY codeine Allergy Severe RESP. Verified 06/15/22 06:36 DIFFICULTY PMFSH Past Medical History Medical History BPH (benign prostatic hyperplasia) CAD (coronary artery disease) History of DVT (deep vein thrombosis) Hyperlipidemia Hypertension Mood disorder Surgical History Surgical History Hx of cardiac cath Family History Family History Mother Breast cancer Alzheimer disease Father Throat cancer Malignant neoplasm of prostate Bone cancer Lymph node cancer Social History Social History Smoking status: Never smoker Alcohol intake: former Substance use: never Substance use type: does not use Living arrangements: with family Gender identity (if verbalized by the patient): Male Sexual Orientation (if Verbalized by the Patient): Straight or Heterosexual Spiritual care concerns: No Discharge Plan Discharge Prescriptions: No Action venlafaxine 75 mg tablet 75 mg PO DAILY simvastatin 40 mg tablet 40 mg PO DAILY losartan 100 mg tablet 50 mg PO DAILY finasteride 5 mg tablet 5 mg PO DAILY Eliquis 2.5 mg tablet 2.5 mg PO BID loratadine-pseudoephedrine [Claritin-D 24 Hour] 10-240 mg tablet extended release 24 hr 1 tablet PO DAILY PRN (Reason: cold symptoms) Qty: 14 0RF fluticasone propionate [Flonase Allergy Relief] 50 mcg/actuation spray,suspension 1 spray intranasal DAILY Qty: 16 0RF Rx Instructions: administer into each nostril aspirin [Adult Aspirin Regimen] 81 mg tablet,delayed release (DR/EC) 81 mg PO DAILY amlodipine [Norvasc] 10 mg tablet 10 mg PO DAILY tamsulosin [Flomax] 0.4 mg capsule 0.4 mg PO DAILY Follow-up/Referrals: Doug,MD Crescencio [Primary Care Provider] -
--- NOTE | 2022-06-15 06:46 | ED.URI ---
HPI - URI/Sore Throat General Chief Complaint: Unspecified <Mateus Evans MD - Last Filed: 06/28/22 16:23> Stated Complaint: Sore Throat <Mateus Evans MD - Last Filed: 06/28/22 16:23> Time Seen by Provider: 06/15/22 07:12 <Mateus Evans MD - Last Filed: 06/28/22 16:23> Source: patient <Mateus Evans MD - Last Filed: 06/28/22 16:23> Mode of arrival: ambulatory <Mateus Evans MD - Last Filed: 06/28/22 16:23> Limitations: no limitations <Mateus Evans MD - Last Filed: 06/28/22 16:23> History of Present Illness HPI Narrative: 66-year-old male hypertension, dyslipidemia, DVT on Eliquis, paroxysmal SVT, BPH, WIN not on anticoagulation presents to the ER with acute onset -- sore throat -- choking sensation with inability to swallow. His speech appeared to be different and is was not able to understand what he was saying. The patient then took some [place] and lemonade following which his choking decreased. no shortness of breath. No stridor. No fever or chills. No nasal congestion. <Mateus Evans MD - Last Filed: 06/28/22 16:23> MD elicited complaint: sore throat <Mateus Evans MD - Last Filed: 06/28/22 16:23> Pertinent past history: other ( Obstructive sleep apnea) <Mateus Evans MD - Last Filed: 06/28/22 16:23> Onset (ago): hour(s) ( started an hour ago.) <Mateus Evans MD - Last Filed: 06/28/22 16:23> Consistency: constant <Mateus Evans MD - Last Filed: 06/28/22 16:23> Severity: mild <Mateus Evans MD - Last Filed: 06/28/22 16:23> Able to tolerate fluids by mouth: Yes <Mateus Evans MD - Last Filed: 06/28/22 16:23> Exacerbating factors: nothing <Mateus Evans MD - Last Filed: 06/28/22 16:23> Relieving factors: nothing <Mateus Evans MD - Last Filed: 06/28/22 16:23> Related Data Home Medications: Home Medications Medication Instructions Recorded Confirmed apixaban 2.5 mg tablet (Eliquis) 2.5 mg PO BID 09/08/20 06/15/22 finasteride 5 mg tablet 5 mg PO DAILY 09/08/20 06/15/22 losartan 100 mg tablet 50 mg PO DAILY 09/08/20 06/15/22 simvastatin 40 mg tablet 40 mg PO DAILY 09/08/20 06/15/22 venlafaxine 75 mg tablet 75 mg PO DAILY 09/08/20 06/15/22 amlodipine 10 mg tablet (Norvasc) 10 mg PO DAILY 11/16/21 06/15/22 aspirin 81 mg tablet,delayed 81 mg PO DAILY 11/16/21 06/15/22 release (Adult Aspirin Regimen) tamsulosin 0.4 mg capsule (Flomax) 0.4 mg PO DAILY 11/16/21 06/15/22 <Mateus Evans MD - Last Filed: 06/28/22 16:23> Allergies/Adverse Reactions: Allergies Allergy/AdvReac Type Severity Reaction Status Date / Time acetaminophen Allergy Severe RESP. Verified 06/15/22 06:36 DIFFICULTY codeine Allergy Severe RESP. Verified 06/15/22 06:36 DIFFICULTY <Mateus Evans MD - Last Filed: 06/28/22 16:23> Review of Systems Review of Systems: All systems reviewed & are unremarkable except as noted in HPI and below <Mateus Evans MD - Last Filed: 06/28/22 16:23> Constitutional: Constitutional: Reports as per HPI and Reports no additional constitutional complaints <Mateus Evans MD - Last Filed: 06/28/22 16:23> Eyes: Eyes: Reports as per HPI and Reports no additional eye complaints <Mateus Evans MD - Last Filed: 06/28/22 16:23> ENT: Reports system reviewed and no additional complaints, except as documented, Reports as per HPI, Reports sore throat and Reports throat swelling <Mateus Evans MD - Last Filed: 06/28/22 16:23> Cardiovascular: Cardiovascular: Reports as per HPI and Reports no additional cardiovascular complaints <Mateus Evans MD - Last Filed: 06/28/22 16:23> Respiratory: Respiratory: Reports as per HPI and Reports no additional respiratory complaints <Mateus Evans MD - Last Filed: 06/28/22 16:23> Gastrointestinal: Gastrointestinal: Reports as per HPI and Reports no addit
[2022-06-15 07:35] LABS: RSV RNA, RT-PCR Negative (Negative)
[2022-06-15 07:40] VITALS: BP 156/76; PULSE 76; RESP 18; TEMP 36.7; O2SAT 97
[2022-06-15] MEDS: methylPREDNISolone ACETATE 40 MG/ML VIAL 80 MG IM (07:43)
[2022-06-15 07:48] LABS: Strep Group A RT-PCR NOT DETECTED (Negative)
[2022-06-15] MEDS: cefTRIAXone 1 GM, LIDOCAINE HCL 1% LOCAL INJ 2.1 ML IM (08:02)
== END 2022-06-15 08:08 | disposition home or self-care (01) ==
PROVIDERS: Internal Medicine Critical Care Medicine; Emergency Provider Emergency Medicine; PCP Family Medicine
DX: K12.2 Cellulitis and abscess of mouth (principal); I10 Essential (primary) hypertension; E78.5 Hyperlipidemia, unspecified; I25.10 Atherosclerotic heart disease of native coronary artery without angina pectoris; Z79.01 Long term (current) use of anticoagulants; Z86.718 Personal history of other venous thrombosis and embolism
CPT/HCPCS: 87634; 87651; 96372; 99284; J0696; J1030

== ENCOUNTER 2024-01-20 00:22 | Emergency (ER) | payer MEDICARE, MEDICAID, SELFPAY ==
--- NOTE | ~2024-01-20 | XR_ITS ---
Left Hand Technique: PA, oblique, and lateral views were obtained. Clinical History: Status post fall Findings: No acute fracture or dislocation is seen. Osseous alignment is anatomic. There is mild dege nerative change at the first CMC joint and the DIP joints. Soft tissues are unremarkable. Impression: Degenerative changes, as above. Reviewed, dictated and finalized at location . Impression: Degenerative changes, as above.
--- NOTE | ~2024-01-20 | XR_ITS ---
Left wrist Technique: PA, oblique, lateral, and ulnar deviation views were obtained. Clinical History: Pain Findings: No acute fracture or dislocation is seen. Small chronic triquetral fracture fragment noted. Osseous alignment is anatomic. There is minimal degenerative change of the first CMC joint and trisc aphe joint. Soft tissues are unremarkable. Impression: Minimal degenerative changes, as above. Small chronic triquetral fracture noted dorsally. Reviewed, dictated and finalized at location M. Impression: Minimal degenerative changes, as above. Small chronic triquetral fracture noted dorsally.
[2024-01-20 00:23] VITALS: BP 169/77; PULSE 98; RESP 19; TEMP 36.3; O2SAT 99
[2024-01-20] MEDS: HYDROcodone/acetaminophen (*CRX) 10-325 MG TABLET 1 TAB PO (01:27)
--- NOTE | 2024-01-20 01:44 | ED.GENADULT ---
HPI - General Adult General Chief complaint: Extremity Injury, Upper Stated complaint: wrist pain Time Seen by Provider: 01/20/24 00:59 History of Present Illness HPI narrative: patient was at home this evening when he suffered a fall from standing after tripping on a chair onto his outstretched left hand. He presents with pain in his left hand and wrist. He is adamant that it was a mechanical fall and that he tripped on a chair. He remembers events both before and after the fall. He denies feeling weak or faint having anything like syncope or seizure prior to the event. He denies any other injuries in the event denies any other pain besides that his left wrist. Related Data Home Medications Medication Instructions Recorded Confirmed apixaban 2.5 mg tablet (Eliquis) 2.5 mg PO BID 09/08/20 06/15/22 finasteride 5 mg tablet 5 mg PO DAILY 09/08/20 06/15/22 losartan 100 mg tablet 50 mg PO DAILY 09/08/20 06/15/22 simvastatin 40 mg tablet 40 mg PO DAILY 09/08/20 06/15/22 venlafaxine 75 mg tablet 75 mg PO DAILY 09/08/20 06/15/22 amlodipine 10 mg tablet (Norvasc) 10 mg PO DAILY 11/16/21 06/15/22 aspirin 81 mg tablet,delayed 81 mg PO DAILY 11/16/21 06/15/22 release (Adult Aspirin Regimen) tamsulosin 0.4 mg capsule (Flomax) 0.4 mg PO DAILY 11/16/21 06/15/22 Allergies Allergy/AdvReac Type Severity Reaction Status Date / Time acetaminophen Allergy Severe RESP. Verified 06/15/22 06:36 DIFFICULTY codeine Allergy Severe RESP. Verified 06/15/22 06:36 DIFFICULTY PMFSH Past Medical History Medical History BPH (benign prostatic hyperplasia) CAD (coronary artery disease) History of DVT (deep vein thrombosis) Hyperlipidemia Hypertension Mood disorder Surgical History Surgical History Hx of cardiac cath Family History Family History Mother Breast cancer Alzheimer disease Father Throat cancer Malignant neoplasm of prostate Bone cancer Lymph node cancer Social History Social History Smoking status: Never smoker Alcohol intake: former Substance use: never Substance use type: does not use Living arrangements: with family Gender identity (if verbalized by the patient): Male Sexual Orientation (if Verbalized by the Patient): Straight or Heterosexual Spiritual care concerns: No Exam Narrative: left wrist shows swelling the base of the left thumb. No obvious deformity. No erythema. The area is quite tender to the touch. Range of motion is limited by pain. Does not have pain over the anatomic snuffbox however. Strength is also limited by pain. Distal circulation grossly intact. GEN: Awake, alert, and appropriate to situation. Well appearing, well nourished, nontoxic, NAD. HEENT: No rhinorrhea noted, mucous membranes moist. No scleral icterus or conjunctival injection. CV: Normal rate, regular rhythm, S1S2 no M/G/R. 2+ distal pulses all extremities. No peripheral edema noted. PULM: Non-labored respiration. Clear to auscultation bilaterally. No wheezes, rales, rhonchi. GI: Abdomen soft, non -tender to palpation. No rigidity, distention or guarding.? NEURO: Normal speech. No lateralizing or focal deficits noted. Head, neck, back, chest, abdomen, pelvis, extremities all grossly atraumatic without any sign of injury or deformity. Course Vital Signs Vital signs: Vital Signs Temperature 36.3 C L 01/20/24 00:23 Pulse Rate 98 01/20/24 00:23 Respiratory Rate 19 01/20/24 00:23 Blood Pressure 169/77 H 01/20/24 00:23 Pulse Oximetry 99 01/20/24 00:23 Temperature 36.3 C L 01/20/24 00:23 Pulse Rate 98 01/20/24 00:23 Respiratory Rate 19 01/20/24 00:23 Blood Pressure 169/77 H 01/20/24 00:23 Pulse Oximetry 99 01/20/24 00:23 [facility]
[2024-01-20 02:00] VITALS: BP 151/74; PULSE 98; RESP 18; O2SAT 95
== END 2024-01-20 02:00 | disposition home or self-care (01) ==
PROVIDERS: Emergency Provider Family Medicine; PCP Family Medicine
DX: S63.502A Unspecified sprain of left wrist, initial encounter (principal); S66.912A Strain of unspecified muscle, fascia and tendon at wrist and hand level, left hand, initial encounter; I25.10 Atherosclerotic heart disease of native coronary artery without angina pectoris; E78.5 Hyperlipidemia, unspecified; I10 Essential (primary) hypertension; Z86.718 Personal history of other venous thrombosis and embolism; W18.09XA Striking against other object with subsequent fall, initial encounter
CPT/HCPCS: 29125; 73110; 73130; 99283; A9270

== ENCOUNTER 2024-03-15 12:06 | Emergency (ER) | payer MEDICARE, MEDICAID, SELFPAY ==
[2024-03-15 12:07] VITALS: BP 144/88; PULSE 102; RESP 20; TEMP 36.3; O2SAT 94
--- NOTE | 2024-03-15 12:08 | ED_ITS ---
HPI - URI/Sore Throat General Chief Complaint: Upper Respiratory Infection Stated Complaint: sore throat Time Seen by Provider: 03/15/24 12:08 Source: patient Mode of arrival: ambulatory Limitations: no limitations History of Present Illness HPI Narrative: 68-year-old male with a history hypertension, dyslipidemia nonocclusive coronary artery disease, DVT on Eliquis presents to the ED with a 1 day history of -- sore throat -- odynophagia no fever or chills no nasal congestion or ear pain no chest pain or shortness of breath MD elicited complaint: sore throat Onset (ago): day(s) ( 1 day) Consistency: constant Severity: moderate Able to tolerate fluids by mouth: Yes Exacerbating factors: nothing Relieving factors: nothing Associated symptoms: denies other symptoms and sore throat Treatments prior to arrival: none Related Data Home Medications ?Medication ?Instructions ?Recorded ?Confirmed ?Last Taken ?Type apixaban 2.5 mg tablet (Eliquis) 2.5 mg PO BID 09/08/20 03/15/24 Unknown History finasteride 5 mg tablet 5 mg PO DAILY 09/08/20 03/15/24 Unknown History losartan 100 mg tablet 50 mg PO DAILY 09/08/20 03/15/24 Unknown History simvastatin 40 mg tablet 40 mg PO DAILY 09/08/20 03/15/24 Unknown History venlafaxine 75 mg tablet 75 mg PO DAILY 09/08/20 03/15/24 11/09/20 History amlodipine 10 mg tablet (Norvasc) 10 mg PO DAILY 11/16/21 03/15/24 Unknown History aspirin 81 mg tablet,delayed 81 mg PO DAILY 11/16/21 03/15/24 Unknown History release (Adult Aspirin Regimen) tamsulosin 0.4 mg capsule (Flomax) 0.4 mg PO DAILY 11/16/21 03/15/24 Unknown History Allergies Allergy/AdvReac Type Severity Reaction Status Date / Time acetaminophen Allergy Severe RESP. Verified 03/15/24 12:07 DIFFICULTY codeine Allergy Severe RESP. Verified 03/15/24 12:07 DIFFICULTY Review of Systems Review of Systems: All systems reviewed & are unremarkable except as noted in HPI and below Constitutional: Constitutional: Reports as per HPI and Reports no additional constitutional complaints Eyes: Eyes: Reports as per HPI and Reports no additional eye complaints ENT: Reports system reviewed and no additional complaints, except as documented, Reports as per HPI and Reports sore throat Cardiovascular: Cardiovascular: Reports as per HPI and Reports no additional cardiovascular complaints Respiratory: Respiratory: Reports as per HPI and Reports no additional respiratory complaints Gastrointestinal: Gastrointestinal: Reports as per HPI and Reports no additional gastrointestinal complaints Genitourinary: Genitourinary: Reports no additional male genitourinary complaints and Reports as per HPI Musculoskeletal: Musculoskeletal: Reports no additional musculoskeletal complaints and Reports as per HPI Integumentary/Breasts: Skin/Breast: Reports system reviewed and no additional complaints, except as docu and Reports as per HPI Neurologic: Reports system reviewed and no additional complaints, except as documented and Reports as per HPI Psychiatric: Psychiatric: Reports no additional psychiatric complaints and Reports as per HPI Endocrine: Endocrine: Reports no additional endocrine complaints and Reports as per HPI Hematologic/Lymphatic: Hematologic/Lymphatic: Reports no additional hematologic/lymphatic complaints and Reports as per HPI Allergic/Immunologic: Allergic/Immunologic: Reports no additional allergic/immunologic complaints and Reports as per HPI PMFSH Past Medical History Medical History BPH (benign prostatic hyperplasia) Mood disorder CAD (coronary artery disease) Hyperlipidemia Hypertension History of DVT (deep vein thrombosis) Surgical History Surgical History Hx of cardiac cath Family History Family History Mother Breast cancer Alzheimer disease Father Throat cancer Malignant neoplasm of prostate Bone cancer Lymph node cancer Social History Social History Smoking status: Never smoker Alcohol intake: former Substance use: never Substance use type: does not use Living arrangements: with family Gender identity (if verbalized by the patient): Male Sexual Orientation (if Verbalized by the Patient): Straight or Heterosexual Spiritual care concerns: No Exam Narrative: blood pressure 144/88. Afebrile oxygen saturation of 94% on room air Const: General: no acute distress Nutritional Appearance: well nourished Orientation/consciousness: patient oriented x3 Limitations: no limitations HENMT: Head: normal to inspection Ears: external ears normal and TM's normal bilaterally Face/Nose/Sinus: Normal external nose present Face and sinus: normal facial exam Mouth: Yes Normal oral and palatal mucosa present Throat: posterior oropharynx normal ( pharyngeal erythema/ Enlargement. Enlargement of the uvula) Eyes: Conjunctivae: conjunctivae normal Pupils: Equal, round and reactive pupils present EOM: EOMs intact bilaterally Direct Ophthalmoscopy: no photophobia Neck: Neck: normal visual inspection and lymphadenopathy Other: tender bilateral upper cervical lymphadenopathy Chest: Chest palpation & inspection: normal inspection of the chest Resp: Effort & Inspection: normal respiratory effort Auscultation: clear to auscultation bilaterally Cardio: Rate: regular rate Rhythm: regular rhythm GI: GI Palp: Yes Soft to palpation Auscultation: normal bowel sounds Other: no tenderness/rigidity/rebound. : General: Yes no CVA tenderness Back/Spine/Pelvis: Back: no CVA tenderness Skin: General skin exam: normal color Rashes: no rashes Wounds: no wounds Neuro: General: patient oriented x3, moves all extremities, no meningeal signs, no focal motor deficits and CN's II-XI intact bilaterally Cranial nerves: Yes Nystagmus not present Speech: normal speech Gait exam (Neuro): Normal gait present Extrem: General: normal to inspection and no clubbing, cyanosis or edema Psych: Mental Status: mental status grossly normal Affect: normal affect Attitude: cooperative Course Course Emergency Course: Pharyngeal erythema with swelling / uvular enlargement-- will gives a dose of Solu-Medrol 40 mg to decrease the inflammation in the pharynx. The patient is noted to have a crowded oropharynx. Will check for influenza/ RSV / COVID/strep Tested negative for influenza/ RSV / COVID/strep will treat with Augmentin Vital Signs Vital signs: Vital Signs Temperature 36.3 C L 03/15/24 12:07 Pulse Rate 102 H 03/15/24 12:07 Respiratory Rate 20 03/15/24 12:07 Blood Pressure 144/88 H 03/15/24 12:07 Pulse Oximetry 94 03/15/24 12:07 Oxygen Delivery Room Air 03/15/24 12:07 Temperature 36.3 C L 03/15/24 12:07 Pulse Rate 102 H 03/15/24 12:07 Respiratory Rate 20 03/15/24 12:07 Blood Pressure 144/88 H 03/15/24 12:07 Pulse Oximetry 94 03/15/24 12:07 Oxygen Delivery Room Air 03/15/24 12:07 MDM - URI/Sore Throat MDM Narrative Medical decision making narrative: pharyngitis uvulitis Differential Diagnosis Differential diagnosis: Likely upper respiratory infection and viral infection Lab Data Attestation: I reviewed the patient's lab results. Labs: Lab Results 03/15/24 Range/Units 12:23 Influenza A (RT-PCR) Negative (Negative) Influenza B (RT-PCR) Negative (Negative) RSV (RT-PCR) Negative (Negative) SARS-CoV-2 RNA (RT-PCR) Negative (Negative) Group A Strep (PCR) Not detected (Negative) Discharge Plan Discharge Clinical Impression: Uvulitis Pharyngitis Qualifiers: Pharyngitis/tonsillitis etiology: other specified organisms Qualified Code(s): J02.8 - Acute pharyngitis due to other specified organisms Patient Disposition: Home, Self-Care Condition: Stable Instructions: Antibiotic Form, Pharyngitis (ED), Uvulitis (ED) Patient Language: [place] Prescriptions: New amoxicillin-pot clavulanate 875-125 mg tablet 1 tablet PO Q12H Qty: 14 0RF No Action venlafaxine 75 mg tablet 75 mg PO DAILY simvastatin 40 mg tablet 40 mg PO DAILY losartan 100 mg tablet 50 mg PO DAILY finasteride 5 mg tablet 5 mg PO DAILY Eliquis 2.5 mg tablet 2.5 mg PO BID Claritin-D 24 Hour 10-240 mg tablet extended release 24 hr 1 tablet PO DAILY PRN (Reason: cold symptoms) Qty: 14 0RF fluticasone propionate [Flonase Allergy Relief] 50 mcg/actuation spray,suspension 1 spray intranasal DAILY Qty: 16 0RF Rx Instructions: administer into each nostril amoxicillin-pot clavulanate [Augmentin] 500-125 mg tablet 1 tablet PO TID Qty: 20 0RF prednisone 20 mg tablet 20 mg PO DAILY 5 Days Qty: 5 0RF aspirin [Adult Aspirin Regimen] 81 mg tablet,delayed release (DR/EC) 81 mg PO DAILY amlodipine [Norvasc] 10 mg tablet 10 mg PO DAILY tamsulosin [Flomax] 0.4 mg capsule 0.4 mg PO DAILY Follow-up/Referrals: Doug,MD Crescencio [Primary Care Provider] - Time of Disposition: 13:22
--- NOTE | 2024-03-15 12:15 | PC.NURSE ---
COVID PCR test administered & sent to lab w/ Strep test
[2024-03-15] MEDS: methylPREDNISolone SOD SUCC 125 MG VIAL 40 MG IM (12:40)
[2024-03-15 12:48] LABS: Strep Group A RT-PCR NOT DETECTED (Negative)
[2024-03-15 13:05] LABS: SARS-CoV-2 RNA PCR Negative (Negative)
[2024-03-15 13:06] LABS: Influenza A QL RT-PCR Negative (Negative); Influenza B QL RT-PCR Negative (Negative); RSV RNA, RT-PCR Negative (Negative)
[2024-03-15 13:29] VITALS: BP 148/90; PULSE 72; RESP 20; TEMP 36.4; O2SAT 95
--- OUTSIDE RECORDS SUMMARY | 2024-03-19 13:06 | XMS_ITS | Encounter Summary ---
Author Organization [facility] Address Formerly [facility] [place] [address] [place] [address] Care Team Providers Care Compliance Reviewer Name Role Phone Fercho Simon MD Unavailable Crescencio Camacho MD Primary Care Provider [phone] Reason for Referral * Imaging (Emergency) - Closed Specialty Diagnoses / Procedures Referred By Contac t Referred To Contact RADIOLOGY Diagnoses Closed nondisplaced fracture of distal pole of scaphoid bone of left wrist, initial encounter Procedures CT WRIST LT WO CON Cory Meng FNP-BC [address] [place] [address] Phone: tel: fax: Referral ID Status Reason Start Date Expiration Date Visits Re quested Visits Authorized [id number] Closed 01/29/2024 01/28/2025 1 1 Reason for Visit * Imaging (Emergency) - Closed Specialty Diagnoses / Procedures Referred By Contlynne t Referred To Contact RADIOLOGY Diagnoses Closed nondisplaced fracture of distal pole of scaphoid bone of left wrist, initial encounter Procedures CT WRIST LT WO CON Cory Meng FNP-BC [address] [place] [address] Phone: tel: fax: Referral ID Status Reason Start Date Expiration Date Visits Re quested Visits Authorized [id number] Closed 01/29/2024 01/28/2025 1 1 Encounter Details Date Type Department Care Team (Late st Contact Info) Description 01/29/2024 12:38 PM CDT - 01/29/2024 11:59 PM CDT Hospital Encounter [facility] [address] [place] [address] YusraEmily fountainjacinda Win, [facility] [address] [place] [address] Discharge Disposition: Home or Self Care (Routine Discharge) Social History Tobacco Use Types Packs/Day Years Used Date Smoking Tobacco: Never Smokeless Tobacco: Never Alcohol Use Standard Drinks/Week Comments No 0 (1 standard drink = 0.6 oz pur e alcohol) Sex and Gender Information Value Date Recorded Sex Assigned at Not on file Legal Sex Male 8:01 PM CDT Gender Identity Not on file Sexual Orientation Not on file Occupation Industry Job Start Date Job End Date Retired Not on file Not on file Not on file documented as of this encounter Medications at Time of Discharge aspirin 81 MG tablet Take 1 tablet by mouth daily. 05/28/2009 ELIQUIS 2.5 MG tablet TAKE 1 TABLET BY MOUTH TWICE A DAY 180 tablet 3 10/14/2020 HYDROcodone-acetamin ophen 5-325 MG tablet Take 1 tablet by mouth every 6 (six) hours as needed. 11/05/2020 HYDROcodone-acetamin ophen 5-325 MG tabletIndications:Ac ji Pain < 7 Day Supply Take 1 tablet by mouth every 6 (six) hours as needed for Pain. Indications: Acute Pain < 7 Day Supply 20 tablet 05/21/2021 losartan 50 MG tablet Take 1 tablet by mouth daily. 06/04/2015 methylPREDNISolone, LOU, (MEDROL) 4 MG tabletIndications:Os teoarthritis of left index finger,Osteoarthriti s of left middle finger Follow package directions 1 each 06/22/2021 methylPREDNISolone, LOU, (MEDROL) 4 MG tabletIndications:Pr imary osteoarthritis of first carpometacarpal joint of left hand Follow package directions 1 each 05/18/2022 simvastatin 40 MG tablet Take 1 tablet by mouth daily. 06/04/2015 tamsulosin 0.4 MG Cap Take 1 capsule (0.4 mg total) by mouth daily. 15 capsule 10/17/2020 venlafaxine 24 hr 75 MG 24 hr capsule Take 1 tablet by mouth daily. 06/04/2015 documented as of this encounter Plan of Treatment Not on file documented as of this encounter Procedures Procedure Name Priority Date/Time Associated Diagnosis Comments CT WRIST LT WO CON STAT 01/29/2024 1: 08 PM CDT Closed nondisplaced fracture of distal pole of scaphoid bone of left wrist, initial encounter documented in this encounter Results * CT WRIST LT WO CON (01/29/2024 1:08 PM CDT) Anatomical Region Laterality Modality Wrist Computed Tomogra phy 01/29/2024 1:24 PM CDT Impressions 01/29/2024 1:49 PM CDT IMPRESSION: 1. ??No CT evidence of scaphoid fracture. 2. ??Arthritic changes of the first carpometacarpal joint. Ordered By: CORY MENG Interpreted By: Kevin Redd MD, 01/29/2024 1:24 PM Narrative 01/29/2024 1:49 PM CDT [address] [place] [address] Examination: CT WRIST LT WO CON Exam time: 01/29/2024 1:02 PM Clinical history: Evaluate for scaphoid fracture. Comparison: Radiographs same day 01/29/2024. Technique: Axial, coronal and sagittal CT images of the left wrist were obtained without contrast. Findings: No CT evidence of scaphoid fracture. No other distinct underlying fractures are noted. Carpal alignment is preserved. The scapholunate interval is intact. The lunotriquetral interval is normal. No destructive bone lesion is identified. Arthritic changes of the first carpometacarpal joint noted with area of qklx-wy-tkph articulation. No soft tissue abnormality is identified. Vascular calcifications are present. Procedure Note Kevin Redd MD - 01/29/[address] [place] [address] Examination: CT WRIST LT WO CON Exam time: 01/29/2024 1:02 PM Clinical history: Evaluate for scaphoid fracture. Comparison: Radiographs same day 01/29/2024. Technique: Axial, coronal and sagittal CT images of the left wrist wereobtained without contrast. Findings: No CT evidence of scaphoid fracture. No other distinct underlyingfractures are noted. Carpal alignment is preserved. The scapholunateinterval is intact. The lunotriquetral interval is normal. No destructivebone lesion is identified. Arthritic changes of the first carpometacarpaljoint noted with area of delo-vs-wcek articulation. No soft tissueabnormality is identified. Vascular calcifications are present. IMPRESSION: 1. No CT evidence of scaphoid fracture. 2. Arthritic changes of the first carpometacarpal joint. Ordered By: CORY MENG Interpreted By: Kevin Redd MD, 01/29/2024 1:24 PM Cory Meng SALES AND MERCHANDISING ASSOCIATE-BC CT Final Resu lt documented in this encounter Visit Diagnoses Diagnosis Closed nondisplaced fracture of distal pole of scaphoid bone of left wrist, initial encounter documented in this encounter Care Teams Compliance Reviewer Relationship Specialty Start Date End Date Crescencio Camacho MD [address] [place] [phone] PCP - General FAMILY PRACTICE 08/25/16 Fercho Simon MD Vascular/Gas Fitter Helper INTERNAL MEDICINE 11/01/15 documented as of this encounter
--- OUTSIDE RECORDS SUMMARY | 2024-03-19 13:06 | XMS_ITS | Encounter Summary ---
Author Organization [facility] Address [facility] [place] [address] [place] [address] Care Team Providers Care Surveyor Geophysical Prospecting Name Role Phone Fercho Simon MD Unavailable Crescencio Camacho MD Primary Care Provider Reason for Referral * Imaging (Emergency) - Closed Specialty Diagnoses / Procedures Referred By Contlynne horne Referred To Contact RADIOLOGY Diagnoses Closed nondisplaced fracture of distal pole of scaphoid bone of left wrist, initial encounter Procedures CT WRIST LT WO CON Cory Meng FNP-BC [address] [place] [address] Phone: tel: fax: Referral ID Status Reason Start Date Expiration Date Visits Re quested Visits Authorized [id number] Closed 01/29/2024 01/28/2025 1 1 Reason for Visit * Reason Comments Wrist Pain LEFT Encounter Details Date Type Department Care Team (Late st Contact Info) Description 01/29/2024 10:30 AM CDT Office Visit [facility] [address], [facility] [address] [place] [address] Cory Meng FNP-BC [address] [place] [address] Wrist Pain (LEFT) Social History Tobacco Use Types Packs/Day Years [...] on file documented as of this encounter Last Filed Vital Signs Vital Sign Reading Time Taken Comments Blood Pressure - - Pulse - - Temperature - - Respiratory Rate - - Oxygen Saturation - - Inhaled Oxygen Concentration - - Weight 129.7 kg (286 lb) 01/29/2024 9:58 AM CDT Height 180.3 cm (5' 11 ) 01/29/2024 9:58 AM CDT Body Mass Index 39.89 01/29/2024 9:58 AM CDT documented in this encounter Progress Notes * Arabella Vega MA - 01/29/2024 10:30 AM CDT Arsh is a 68-year-old male who presents for Wrist Pain (LEFT) Patient in clinic today for LEFT wrist pain. Patient reports a fall at home last week. Patient wentto [facility] Patient reports pain anterior aspect LEFT wrist. Patient reports swelling and numbness of LEFT wrist. He states he is unable to lift anything heavy. He is having pain at night. He was wearing a wrist splint given to him by [facility] and he saw Dr. Camacho last Sunday and was told to stop wearing it. He is not taking medication for pain. He uses ice PRN. Patient is RIGHT handdominant. Patient is retired. 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 ELIQUIS 2.5 MG tablet TAKE 1 TABLET BY MOUTH TWICE A DAY HYDROcodone-acetaminophen 5-325 MG tablet Take 1 tablet by mouth every 6 (six) hours as needed. HYDROcodone-acetaminophen 5-325 MG tablet Take 1 tablet by mouth every 6 (six) hours as needed for Pain. Indications: Acute Pain < 7 Day Supply losartan 50 MG tablet Take 1 tablet by mouth daily. methylPREDNISolone, LOU, (MEDROL) 4 MG tablet Follow package directions methylPREDNISolone, LOU, (MEDROL) 4 MG tablet Follow package directions simvastatin 40 MG tablet Take 1 tablet by mouth daily. tamsulosin 0.4 MG Cap Take 1 capsule (0.4 mg total) by mouth daily. venlafaxine 24 hr 75 MG 24 hr capsule Take 1 tablet by mouth daily. Past Surgical History: Procedure Laterality Date CORONARY ARTERY BYPASS GRAFT HEART CATH 05/28/2009 Left coronary angiography. Right coronary angiography.Left heart catheterization with ventriculography. REPAIR HEART WOUND Allergies Codeine [x] Total Bcst-lp-Dcxr Assessment Time: 0-15 minutes Additional Contributory Factors NONE * Cory Meng, CALENDER ROLL OPERATOR-BC - 01/29/2024 10:30 AM CDT Images from the original note were not included. Chief Complaint: Wrist Pain (LEFT) History of Present Illness: Arsh Guerrero is a 68-year-old male who presents to the office for Wrist Pain (LEFT) Patient in clinic today for LEFT wrist pain. Patient reports a fall at home last week. Patient wentto [facility] Patient reports pain anterior aspect LEFT wrist. Patient reports swelling and numbness of LEFT wrist. He states he is unable to lift anything heavy. He is having pain at night. He was wearing a wrist splint given to him by [facility] and he saw Dr. Camacho last Sunday and was told to stop wearing it. He is not taking medication for pain. He uses ice PRN. Patient is RIGHT handdominant. Patient is retired. ROS: See HPI for pertinent positives Problem List: Patient Active Problem List Diagnosis DVT (deep venous thrombosis) ([facility]/HCC [facility]) Hx of CABG CAD (coronary artery disease) Localized edema History of DVT (deep vein thrombosis) Essential hypertension Hyperlipidemia, unspecified hyperlipidemia type Lower extremity edema jail current use of anticoagulant therapy Monitoring for anticoagulant use Artemio lipomatous neoplm of skin, subcu of head, face and neck Left shoulder pain Lump of skin of back Rupture of biceps tendon Primary osteoarthritis of left hip 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 Right coronary angiography.Left heart catheterization with ventriculography. REPAIR HEART WOUND Family History Problem Relation Name Age of Onset Cancer Mother Hypertension Mother Cancer Father Arthritis Maternal Grandmother No Known Problems Maternal Grandfather No Known Problems Paternal Grandmother No Known Problems Paternal Grandfather No Known Problems Sister No Known Problems Brother No Known Problems Maternal Aunt No Known Problems Maternal Uncle No Known Problems Paternal Aunt No Known Problems Paternal Uncle No Known Problems Sister No Known Problems Sister Cancer Brother No Known Problems Maternal Aunt Coronary artery disease Neg Hx Family Status Relation Name Status Mother Father MGM MGF PGM PGF Sister Alive Brother Alive MAunt MUncle PAunt PUncle Sister Alive Sister Alive Brother Alive MAunt Neg Hx (Not Specified) No partnership data on file Social History Socioeconomic History Marital status: Number of children: 4 Occupational History Occupation: Retired Tobacco Use Smoking status: Never Smokeless tobacco: Never Vaping Use Vaping status: Never Used Substance and Sexual Activity Alcohol use: No Drug use: No Other Topics Concern Exercise No Special Diet No Caffeine Concern No Service No Blood Transfusions Yes Occupational Exposure No Hobby Hazards No Sleep Concern No Stress Concern No Weight Concern No Back Care No Bike Helmet No Seat Belt Yes Self-Exams Yes Medications: Current Outpatient Medications: aspirin 81 MG tablet, Take 1 tablet by mouth daily., Disp: , Rfl: ELIQUIS 2.5 MG tablet, TAKE 1 TABLET BY MOUTH TWICE A DAY, Disp: 180 tablet, Rfl: 3 HYDROcodone-acetaminophen 5-325 MG tablet, Take 1 tablet by mouth every 6 (six) hours as needed., Disp: , Rfl: HYDROcodone-acetaminophen 5-325 MG tablet, Take 1 tablet by mouth every 6 (six) hours as needed forPain. Indications: Acute Pain < 7 Day Supply, Disp: 20 tablet, Rfl: 0 losartan 50 MG tablet, Take 1 tablet by mouth daily., Disp: , Rfl: methylPREDNISolone, LOU, (MEDROL) 4 MG tablet, Follow package directions, Disp: 1 each, Rfl: 0 methylPREDNISolone, LOU, (MEDROL) 4 MG tablet, Follow package directions, Disp: 1 each, Rfl: 0 simvastatin 40 MG tablet, Take 1 tablet by mouth daily., Disp: , Rfl: tamsulosin 0.4 MG Cap, Take 1 capsule (0.4 mg total) by mouth daily., Disp: 15 capsule, Rfl: 0 venlafaxine 24 hr 75 MG 24 hr capsule, Take 1 tablet by mouth daily., Disp: , Rfl: Allergies: Review of patient's allergies indicates: Allergen Reactions Codeine Shortness of Breath Objective: There were no vitals filed for this visit. Vitals Height: 180.3 cm (5' 11 ) Weight: 129.7 kg (286 lb) BMI (Calculated): (!) 39.91 Physical exam: Constitutional: Alert and in no acute distress. Neurological: The patient was oriented to person, place, and time. Eyes: The sclera and conjunctiva were normal ENT: Hearing was normal. Neck: The appearance of the neck was normal. Cardiovascular: Normal pulses. Pulmonary: No respiratory distress. Skin: No injuries or skin lesion. Musculoskeletal: EXAM of LEFT wrist today reveals tenderness over the snuff box with palpation, mild swelling, no redness or warmth, stiff range of motion, pain with thumb range of motion, good capillary refill, unable to perform thumb to 5th finger opposition, palpable radial pulse. Diagnostic Imaging: XRAY of LEFT wrist today reviewed and revealed moderate 1st CMC osteoarthritis which has significantly increased since last year. There is a slight irregularity at the scaphoid on imaging today but no signs of triquetral fracture present that was noted on imaging on 01-20-2024. Labs: ESR Date Value Ref Range Status 01/09/2024 18 (H) 0 - 15 MM/HR Final C-REACTIVE PROTEIN Date Value Ref Range Status 01/09/2024 0.19 <0.30 mg/dL Final No results found for: MRSPCR No data to display Cell Count W Diff Body Fluid: No results found for: SOURCEFLD , FLWC , FLRBC , SEGSFLD , LYMPHSFL , MONOFL Assessment: Encounter Diagnose(s) ICD-10-CM SNOMED CT(R) 1. Closed nondisplaced fracture of distal pole of scaphoid bone of left wrist, initial encounter S62.015A CLOSED FRACTURE OF SCAPHOID BONE OF WRIST XR WRIST LT 1V CT WRIST LT WO CON 2. Primary osteoarthritis of first carpometacarpal joint of left hand M18.12 OSTEOARTHROSIS OF THE CARPOMETACARPAL JOINT OF THE THUMB Plan: Reviewed imaging with patient in the office today. He is continuing to have pain primarily located over the scaphoid on examination. He does have underlying osteoarthritis but given the swelling, tenderness and injury I have recommended proceeding with a CT scan to ensure no scaphoid fracture is present. He was fitted and applied with a thumb spica brace in the office today and tolerated well. Hewill wear the brace throughout the day but may remove for showers and dressing. We will send him over to have the CT scan and once the results have been obtained I will reach out to him and discuss options. ADDENDUM: Patient's CT scan was completed and I did reach out to the patient and discussed with patient that no fracture was present. He will continue with the thumb spica brace and he was agreeable to follow up tomorrow to receive a 1st CMC joint injection. Follow up: Return in about 1 day (around 01/30/2024) for Injection (LEFT 1st CMC joint). JORGE DANIEL documented in this encounter Plan of Treatment Not on file documented as of this encounter Results * CT WRIST LT WO CON (01/29/2024 1:08 PM CDT) Anatomical Region Laterality Modality Wrist Computed Tomogra phy 01/29/2024 1:24 PM CDT Impressions 01/29/2024 1:49 PM CDT IMPRESSION: 1. ??No CT evidence of scaphoid fracture. 2. ??Arthritic changes of the first carpometacarpal joint. Ordered By: CORY MENG Interpreted By: Kevin Redd MD, 01/29/2024 1:24 PM Narrative 01/29/2024 1:[address] PM [address] [place] [address] Examination: CT WRIST LT WO CON Exam [...] first carpometacarpal joint noted with area of lnqg-eg-kyep articulation. No soft tissue abnormality is identified. Vascular calcifications are present. Procedure Note Kevin Redd MD - 01/29/[address] [place] [address] Examination: CT WRIST LT WO CON Exam [...] the first carpometacarpaljoint noted with area of hytk-ld-qurm articulation. No soft tissueabnormality is identified. Vascular calcifications are present. IMPRESSION: 1. No CT evidence of scaphoid fracture. 2. Arthritic changes of the first carpometacarpal joint. Ordered By: CORY MENG Interpreted By: Kevin Redd MD, 01/29/2024 1:24 PM Cory Meng CALENDER ROLL OPERATOR-BC CT Final Resu lt * XR WRIST LT 1V (01/29/2024 10:52 AM CDT) Anatomical Region Laterality Modality Wrist Radiographic Kristina ging 01/29/2024 10:5 6 AM CDT Impressions 01/29/2024 10:58 AM CDT IMPRESSION: No acute osseous abnormality identified on this single view of the left wrist. If there is further clinical concern for osseous or soft tissue injury consider assessment with MRI. Ordered By: CORY MENG Interpreted By: Kevin Redd MD, 01/29/2024 10:56 AM Narrative 01/29/2024 10:58 AM CDT [address] [place] [address] Examination: XR WRIST LT 1V Exam time: 01/29/2024 10:48 AM Clinical history: Left wrist pain. Comparison: Radiographs same day January 29, 2024. Technique: PA navicular view of the left wrist. Findings: No widening of the scapholunate interval. Carpal alignment appears preserved. No distinct acute fracture or dislocation. No destructive bone lesion. Vascular calcifications noted. Arthritic changes of the first carpometacarpal joint. Procedure Note Kevin Redd MD - 01/29/[address] [place] [address] Examination: XR WRIST LT 1V Exam time: 01/29/2024 10:48 AM Clinical history: Left wrist pain. Comparison: Radiographs same day January 29, 2024. Technique: PA navicular view of the left wrist. Findings: No widening of the scapholunate interval. Carpal alignment appearspreserved. No distinct acute fracture or dislocation. No destructive bonelesion. Vascular calcifications noted. Arthritic changes of the firstcarpometacarpal joint. IMPRESSION: No acute osseous abnormality identified on this single view of the leftwrist. If there is further clinical concern for osseous or soft tissueinjury consider assessment with MRI. Ordered By: CORY M JUANITO Interpreted By: Kevin Redd MD, 01/29/2024 10:56 AM us Cory Meng CALENDER ROLL OPERATOR-BC GENERAL IMAGING Final Resu lt documented in this encounter Visit Diagnoses Diagnosis Closed nondisplaced fracture of distal pole of scaphoid bone of left wrist, initial encounter- Primary Primary osteoarthritis of first carpometacarpal joint of left hand Primary localized osteoarthrosis, hand Closed nondisplaced fracture of distal pole of scaphoid bone of left wrist, initial encounter documented in this encounter Care Teams Surveyor Geophysical Prospecting Relationship Specialty Start Date End Date Crescencio Camacho MD [address] [place] [phone] PCP - General FAMILY PRACTICE 08/25/16 Fercho Simon MD Vascular/Dividend Deposit Entry Clerk INTERNAL MEDICINE 11/01/15 documented as of this encounter
--- OUTSIDE RECORDS SUMMARY | 2024-03-19 13:06 | XMS_ITS | Encounter Summary ---
Author Organization [facility] Address [facility] [facility] [place] [address] [place] [address] Care Team Providers Care Position Clerk Name Role Phone Fercho Simon MD Unavailable Crescencio Camacho MD Primary Care Provider Reason for Visit * Reason Comments Thumb Pain LEFT Injection Encounter Details Date Type Department Care Team (Late st Contact Info) Description 01/30/2024 8:30 AM CDT Office Visit [facility] [address] [place] [address] Claire Meng, [facility] [address] [facility] [place] [address] Thumb Pain (LEFT); Injection Social History Tobacco Use Types Packs/Day Years [...] - - Weight 129.7 kg (286 lb) 01/30/2024 8:32 AM CDT Height 180.3 cm (5' 11 ) 01/30/2024 8:32 AM CDT Body Mass Index 39.89 01/30/2024 8:32 AM CDT documented in this encounter Progress Notes * Arabella Vega MA - 01/30/2024 8:30 AM CDT Arsh is a 68-year-old male who presents for Thumb Pain (LEFT) Patient here in clinic today for LEFT thumb pain and injection LEFT 1st CMC joint. He states the brace given in office yesterday is helping. He states no change from 01/29/2024 visit. No additional nursing task documentation needed. Vitals: 01/30/24 0832 Weight: 129.7 kg (286 lb) Height: 1.803 [...] REPAIR HEART WOUND Allergies Codeine [x] Total Ucmj-ll-Frmo Assessment Time: 0-15 minutes Additional Contributory Factors NONE * Claire Meng BOGGER OPERATOR-BC - 01/30/2024 8:30 AM CDT Images from the original note were not included. Chief Complaint: Thumb Pain (LEFT) History of Present Illness: Arsh Guerrero is a 68-year-old male who presents to the office for Thumb Pain (LEFT) Patient here in clinic today for LEFT thumb pain and injection LEFT 1st CMC joint. He states the brace given in office yesterday is helping. He states no change from 01/29/2024 visit. ROS: See HPI for pertinent positives Problem List: Patient Active Problem List Diagnosis DVT (deep venous thrombosis) ([facility]) Hx of CABG CAD (coronary artery disease) Localized edema History of DVT (deep vein thrombosis) Essential hypertension Hyperlipidemia, unspecified hyperlipidemia type Lower extremity edema half-way current use of anticoagulant therapy Monitoring for [...] of first carpometacarpal joint of left hand History: Past Medical History: Diagnosis Date Benign hypertension Bulging lumbar disc CAD (coronary artery disease) CABG COVID-19 2020 DVT (deep venous thrombosis) ([facility]) Right femoral vein and left popliteal Hx [...] was oriented to person, place, and time. Skin: No injuries or skin lesion. Musculoskeletal: EXAM of LEFT thumb today is relatively unchanged just slightly less tender than yesterday. Diagnostic Imaging: CT scan from yesterday demonstrated no acute or healing bony injury or dislocation appreciated but continued severe CMC osteoarthritis as seen on plain films. Labs: ESR Date Value Ref Range Status [...] Assessment: Encounter Diagnose(s) ICD-10-CM SNOMED CT(R) 1. Primary osteoarthritis of first carpometacarpal joint of left hand M18.12 OSTEOARTHROSIS OF THE CARPOMETACARPAL JOINT OF THE THUMB methylPREDNISolone acetate (DEPO-Medrol) injection 40 mg lidocaine (XYLOCAINE) 1 % injection SOLN 0.5 mL Procedure: Procedure: Injection of the 1st CMC joint on the left. Indications for the procedure include Osteoarthritis and Joint Pain. The procedure's were discussed with the patient. Verbal consent was obtained prior to the procedure. Procedure Note: Arsh was prepped and draped in the usual sterile fashion using alcohol and usingbetadine. Anesthesia: Ethyl chloride spray was used as a topical anesthetic. A 25 gauge and 1.5 Inch needle was used to inject 0.5 mL lidocaine 1% and 1 mL methylprednisolone 40 mg/mL. Dressing: A bandage was applied. Post-Procedure: the patient tolerated the procedure well. Complications: there were no complications. Follow-up: in the office prn. Plan: Patient has been wearing a brace and seeing some improvement with his symptoms but not complete resolution. I have recommended proceeding with a 1st CMC joint injection that was given in the office today and tolerated well. Activity as tolerated. He is aware that he may have injections every 3 months as needed for pain. He will follow up as needed. I did encourage him to wear the brace at night in hopes to provide him some relief with his osteoarthritis pain. Follow up: Return if symptoms worsen or fail to improve. JORGE DANIEL documented in this encounter Plan of Treatment Not on file documented as of this encounter Visit Diagnoses Diagnosis Primary osteoarthritis of first carpometacarpal joint of left hand- Primary Primary localized osteoarthrosis, hand documented in this encounter Administered Medications Inactive Administered Medications - up to 3 most recent administrations Medication Order MAR Action Action Date Dose Rate Site lidocaine (XYLOCAINE) 1 % injection SOLN 0.5 mL 0.5 mL, Other, Once, 1 dose, On Sun01/30/24 at 0900Indications:Primary osteoarthritis of first carpometacarpal joint of left hand Given 01/30/2024 8:34 AM CDT 0.5 mLs Other methylPREDNISolone acetate (DEPO-Medrol) injection 40 mg 40 mg, Intramuscular, Once, 1 dose, On Sun01/30/24 at 0900, Shake WellIndications:Primary osteoarthritis of first carpometacarpal joint of left hand Given 01/30/2024 8:34 AM CDT 40 mg Other documented in this encounter Care Teams Position Clerk Relationship Specialty Start Date End Date Crescencio Camacho MD [address] [place] [phone] PCP - General FAMILY PRACTICE 08/25/16 Fercho Simon MD Vascular/Diesel Motor Mechanic INTERNAL MEDICINE 11/01/15 documented as of this encounter
--- OUTSIDE RECORDS SUMMARY | 2024-03-19 13:06 | XMS_ITS | Encounter Summary ---
Author Organization [facility] Address [address] [facility] [address] [place] [address] Care Team Providers Care Mount Loader Name Role Phone Fercho Simon MD Unavailable Crescencio Camacho MD Primary Care Provider Encounter Details Date Type Department Care Team (Latest Contact Info) Description 01/09/2024 10:13 AM CDT - 01/09/2024 10:15 AM CDT Hospital Encounter [facility] [address] [place] [address] Crescencio Camacho MD [address] [place] [phone] Discharge Disposition: Home or Self Care (Routine [...] Take 1 tablet by mouth daily. 06/04/2015 traMADol 50 MG tablet Take 50 mg by mouth every 6 (six) hours as needed. 11/09/2020 01/29/20 24 documented as of this encounter Plan of Treatment Not on file documented as of this encounter Procedures Procedure Name Priority Date/Time Associated Diagnosis Comments ANTINUCLEAR ANTIBODY WI RFX Routine 01/09/2024 10:40 AM CDT Arthritis RHEUMATOID FACTOR, QUANT Routine 01/09/2024 10:40 AM CDT Arthritis CYCLIC CITRULLINATED PEPTIDE (CCP)ANTIBODY(IGG) Routine 01/09/2024 10:40 AM CDT Arthritis SED RATE, ERYTHROCYTE (ESR) Routine 01/09/2024 10:40 AM CDT Arthritis COMPREHENSIVE METABOLIC PANEL Routine 01/09/2024 10:40 AM CDT Arthritis C-REACTIVE PROTEIN Routine 01/09/2024 10 :40 AM CDT Arthritis CBC W/DIFF AUTOMATED Routine 01/09/2024 10:40 AM CDT Arthritis Hyperlipemia, mixed documented in this encounter Results * (ABNORMAL) CBC W/DIFF AUTOMATED (01/09/2024 10:40 AM CDT) WBC 7.21 4.00 - 10.80 x10'3/uL 01/09/2024 10:52 AM CDT [facility] RBC 4.73 4.50 - 6.10 x10'6/uL 01/09/2024 10:52 AM CDT [facility] HGB 14.5 13.0 - 18.0 G/DL 01/09/2024 10:52 AM CDT [facility] HCT 43.5 37.0 - 52.0 % 01/09/2024 10:52 AM CDT [facility] MCV 92.0 78.0 - 100.0 FL 01/09/2024 10:52 AM CDT [facility] MCH 30.7 27.0 - 31.0 PG 01/09/2024 10:52 AM CDT [facility] MCHC 33.3 33.0 - 36.0 G/DL 01/09/2024 10:52 AM CDT [facility] RDW 13.1 11.5 - 14.5 % 01/09/2024 10:52 AM CDT [facility] PLT 227 150 - 350 x10'3/uL 01/09/2024 10:52 AM CDT [facility] MPV 10.2 7.4 - 10.4 FL 01/09/2024 10:52 AM CDT [facility] CBC COMMENT NORMAL REFERENCE RANGE NOT ESTABLISHED FOR THE PROPORTIONAL LEUKOCYTE DIFFERENTIAL. 01/09/2024 10:52 AM CDT [facility] NEUTROPHILS % 61.9 % 01/09/2024 10:52 AM CDT [facility] LYMPHOCYTES % 29.5 % 01/09/2024 10:52 AM CDT [facility] MONOCYTES % 5.8 % 01/09/2024 10:52 AM CDT [facility] EOSINOPHILS % 1.1 % 01/09/2024 10:52 AM CDT [facility] BASOPHILS % 0.7 % 01/09/2024 10:52 AM CDT [facility] IMMATURE GRANS % 1.0 % 01/09/20 10:52 AM CDT [facility] NRBC % 0.0 % 01/09/2024 10:52 AM CDT [facility] ABS. NEUTROPHILS 4.46 1.60 - 8.30 x10'3/uL 01/09/2024 10:52 AM CDT [facility] ABS. LYMPHOCYTES 2.13 0.80 - 4.70 x10'3/uL 01/09/2024 10:52 AM CDT [facility] ABS. MONOCYTES 0.42 0.00 - 1.50 x10'3/uL 01/09/2024 10:52 AM CDT [facility] ABS. EOSINOPHILS 0.08 0.00 - 0.40 x10'3/uL 01/09/2024 10:52 AM CDT [facility] ABS. BASOPHILS 0.05 0.00 - 0.20 x10'3/uL 01/09/2024 10:52 AM CDT [facility] ABS. IMMATURE GRANULOCYTES 0.07(H) 0.00 - 0.03 x10'3/uL 01/09/2024 10:52 AM CDT [facility] ABS. NUCLEATED RBC'S 0.00 0.00 - 0.01 x10'3/uL 01/09/2024 10:52 AM CDT [facility] 01/09/2024 10:4 0 AM CDT us Crescencio Camacho MD LABORATORY Final Resul t [facility] [address] [place] [address], * (ABNORMAL) COMPREHENSIVE METABOLIC PANEL (01/09/2024 10:40 AM CDT) Pathologist [facility] SODIUM S/P/B 142 136 - 145 MMOL/L 01/09/2024 11:02 AM [facility] POTASSIUM S/P/B 4.1 3.5 - 5.1 MMOL/L 01/09/2024 11:02 AM [facility] CHLORIDE S/P/B 105 98 - 107 MMOL/L 01/09/2024 11:02 AM [facility] CO2 29.3 21.0 - 32.0 MMOL/L 01/09/2024 11:02 AM [facility] GLUCOSE 103(H) 70 - 99 MG/DL 01/09/2024 11:02 AM [facility] Comment: FASTING GLUCOSE 100 TO 125 MG/DL IS CONSISTENT WITH IMPAIRED FASTING GLUCOSE. FASTING GLUCOSE >125 MG/DL IS CONSISTENT WITH DIABETES. RANDOM GLUCOSE >200 MG/DL WITH HYPERGLYCEMIC SYMPTOMS IS CONSISTENT WITH DIABETES. PER ADA GUIDELINES BUN 12 6 - 24 MG/DL 01/09/2024 11:02 AM [facility] CREATININE S/P/B 1.02 0.70 - 1.30 MG/DL 01/09/2024 11:02 AM [facility] CALCIUM S/P/B 8.7 8.4 - 10.5 MG/DL 01/09/2024 11:02 AM [facility] BILIRUBIN TOTAL S/P/B 0.8 0.2 - 1.0 MG/DL 01/09/2024 11:02 AM [facility] Comment: THIS ASSAY IS NOT RECOMMENDED FOR PATIENTS UNDERGOING TREATMENT WITH ELTROMBOPAG DUE TO THE POTENTIAL FOR FALSELY ELEVATED RESULTS. ALKALINE PHOSPHATASE S/P/B 171(H) 45 - 115 U/L 01/09/2024 11:02 AM [facility] AST 18 15 - 37 U/L 01/09/2024 11:02 AM [facility] ALT 39 16 - 63 U/L 01/09/2024 11:02 AM [facility] TOTAL PROTEIN S/P/B 7.4 6.4 - 8.2 G/DL 01/09/2024 11:02 AM [facility] ALBUMIN S/P/B 4.0 3.4 - 5.0 G/DL 01/09/2024 11:02 AM CDT [facility] ANION GAP 7.7 5.0 - 15.0 MMOL/L 01/09/2024 11:02 AM CDT [facility] OSMOLALITY (CALC) 294 MOSM/KG 024 11:02 AM CDT [facility] Comment:REFERENCE RANGE NOT ESTABLISHED GFR ESTIMATE 79(L) >89 ML/MIN/1. 73 M2 01/09/2024 11:02 AM CDT [facility] GFR NOTES GFR REFERENCE S: 01/09/2024 11:02 AM T [facility] Comment: THE ESTIMATED GFR IS CALCULATED USING THE 2020 CKD-EPI EQUATION. THE FOLLOWING CATEGORIES FOR GRADING RENAL FUNCTION ARE RECOMMENDED BY THE INTERNATIONAL SOCIETY OF NEPHROLOGY (KDIGO 2012 CLINICAL PRACTICE GUIDELINE). G1,NORMAL OR HIGH: >89 ml/min/1.73 m2 G2,MILDLY DECREASED: 60-89 ml/min/1.73 m2 G3A,MILDLY TO MODERATELY DECREASED: 45-59 ml/min/1.73 m2 G3B,MODERATELY TO SEVERELY DECREASED: 30-44 ml/min/1.73 m2 G4,SEVERELY DECREASED: 15-29 ml/min/1.73 m2 G5,KIDNEY FAILURE: <15 ml/min/1.73 m2 01/09/2024 10:4 0 AM CDT Crescencio Camacho MD LABORATORY Final Resul t [facility] [address] [place] [address], * RHEUMATOID FACTOR, QUANT (01/09/2024 10:40 AM CDT) RHEUMATOID FACTOR <10 <15 IU/ML 01/10/2024 12:57 PM CDT [facility] 01/09/2024 10:4 0 AM CDT us Crescencio Camacho MD LABORATORY Final Resul t Performing Organization Address [facility] Co de Phone Number [facility] [address] [place] [address], [phone] * (ABNORMAL) SED RATE, ERYTHROCYTE (ESR) (01/09/2024 10:40 AM CDT) ESR 18(H) 0 - 15 MM/HR 01/09/2024 10:59 AM CDT [facility] 01/09/2024 10:4 0 AM CDT Crescencio Camacho MD LABORATORY Final Resul t Performing Organization Address [facility] de Phone Number [facility] [address] [place] [id number], * C-REACTIVE PROTEIN (01/09/2024 10:40 AM CDT) C-REACTIVE PROTEIN 0.19 <0.30 mg/dL 01/09/2024 11:02 AM CDT [facility] 01/09/2024 10:4 0 AM CDT Crescencio Camacho MD LABORATORY Final Resul t Performing Organization Address [facility] de Phone Number [facility] [address] [place] [address], * CYCLIC CITRULLINATED PEPTIDE (CCP)ANTIBODY(IGG) (01/09/2024 10:40 AM CDT) CITRULLINE PEPTIDE ANTIBODY <16 <20 Units 01/11/2024 9:26 PM CDT FAD ? IO ONIEL SEE Comment: Negative: ? <20 Weak Positive: ?20 - 39 Moderate Positive: ?40 - 59 Strong Positive: ?>59 Test Performed by Nanci Guerra, [employer] [facility], [address] [place], [place] Rosendo Rocha M.D., Ph.D., Director of Laboratories , [place] [id number] 01/09/2024 10:4 0 AM CDT Crescencio Camacho MD LABORATORY Final Resul t Performing Organization Address City/[facility]/ZIP Co de Phone Number [employer] [address] [address], [place] [phone] * ANTINUCLEAR ANTIBODY WI RFX (01/09/2024 10:40 AM CDT) MARIELLE 0.3 01/14/2024 12:40 PM CDT [facility] Comment: NEGATIVE: <0.7 RATIO MARIELLE PROFILE AND TITER NOT PERFORMED THE MARIELLE SCREEN TESTS FOR THE FOLLOWING ANTIBODIES BY EIA: SSA1 (RO), SSB1 (LA), HERNÁNDEZ, SCL70, JO1, CENTROMERE, FABRIC CUTTER HISTONE MUST BE ORDERED SEPARATELY DNA (DS) ANTIBODY 6.3 IU/ML 024 12:40 PM CDT [facility] Comment: NEGATIVE: <10 IU/mL EQUIVOCAL: 10 to 15 IU/mL POSITIVE: >15 IU/mL THIS QUANTITATIVE ASSAY IS CALIBRATED TO THE [employer]'S WO/80 STANDARD. THE LEVEL OF dsDNA AUTOANTIBODY GERERALLY CORRELATES WITH THE LEVEL OF DISEASE ACTIVITY IN SYSTEMIC LUPUS ERYTHMATOSUS 01/09/2024 10:4 0 AM CDT Crescencio Camacho MD LABORATORY Final Resul t [facility] [address] [place] [address], [place] [phone] documented in this encounter Visit Diagnoses Diagnosis Arthritis Arthropathy, unspecified, site unspecified Hyperlipemia, mixed Mixed hyperlipidemia documented in this encounter Care Teams Mount Loader Relationship Specialty Start Date End Date Crescencio Camacho MD [address] [place] [phone] PCP - General FAMILY PRACTICE 08/25/16 Fercho Simon MD Vascular/Direct Care Worker INTERNAL MEDICINE 11/01/15 documented as of this encounter
--- OUTSIDE RECORDS SUMMARY | 2024-03-19 13:06 | XMS_ITS | Encounter Summary ---
Author Organization [facility] Address [facility] [place] [address] [place] [address] Care Team Providers Care Field Attendant Name Role Phone Fercho Simon MD Unavailable Crescencio Camacho MD Primary Care Provider Encounter Details Date Type Department Care Team (Late st Contact Info) Description 01/09/2024 Orders Only [facility] [address] [place] [address] Crescencio Camacho MD [address] [place] [phone] Social History Tobacco Use Types Packs/Day Years [...] on file documented as of this encounter Plan of Treatment Not on file documented as of this encounter Results * (ABNORMAL) CBC W/DIFF AUTOMATED (01/09/2024 10:40 AM CDT) WBC 7.21 4.00 - 10.80 x10'3/uL 01/09/2024 10:52 AM CDT [facility] RBC 4.73 4.50 - 6.10 x10'6/uL 01/09/2024 10:52 AM CDT [facility] HGB 14.5 13.0 - 18.0 G/DL 01/09/2024 10:52 AM CDT [facility] HCT 43.5 37.0 - 52.0 % 01/09/2024 10:52 AM CDT [facility] MCV 92.0 78.0 - 100.0 FL 01/09/2024 10:52 AM CDT [facility] MCH 30.7 27.0 - 31.0 PG 01/09/2024 10:52 AM CDT [facility] MCHC 33.3 33.0 - 36.0 G/DL 01/09/2024 10:52 AM CDT [facility] RDW 13.1 11.5 - 14.5 % 01/09/2024 10:52 AM CDT [facility] PLT 227 150 - 350 x10'3/uL 01/09/2024 10:52 AM CDT [facility] MPV 10.2 7.4 - 10.4 FL 01/09/2024 10:52 AM CDT [facility] CBC COMMENT NORMAL REFERENCE RANGE NOT ESTABLISHED FOR THE PROPORTIONAL LEUKOCYTE DIFFERENTIAL. 01/09/2024 10:52 AM CDT [facility] NEUTROPHILS % 61.9 % 01/09/2024 10:52 AM CDT [facility] LYMPHOCYTES % 29.5 % 01/09/2024 10:52 AM CDT [facility] MONOCYTES % 5.8 % 01/09/2024 10:52 AM CDT [facility] EOSINOPHILS % 1.1 % 01/09/2024 10:52 AM CDT [facility] BASOPHILS % 0.7 % 01/09/2024 10:52 AM CDT [facility] IMMATURE GRANS % 1.0 % 01/09/20 10:52 AM CDT [facility] NRBC % 0.0 % 01/09/2024 10:52 AM CDT [facility] ABS. NEUTROPHILS 4.46 1.60 - 8.30 x10'3/uL 01/09/2024 10:52 AM CDT [facility] ABS. LYMPHOCYTES 2.13 0.80 - 4.70 x10'3/uL 01/09/2024 10:52 AM CDT [facility] ABS. MONOCYTES 0.42 0.00 - 1.50 x10'3/uL 01/09/2024 10:52 AM CDT [facility] ABS. EOSINOPHILS 0.08 0.00 - 0.40 x10'3/uL 01/09/2024 10:52 AM CDT [facility] ABS. BASOPHILS 0.05 0.00 - 0.20 x10'3/uL 01/09/2024 10:52 AM CDT [facility] ABS. IMMATURE GRANULOCYTES 0.07(H) 0.00 - 0.03 x10'3/uL 01/09/2024 10:52 AM CDT [facility] ABS. NUCLEATED RBC'S 0.00 0.00 - 0.01 x10'3/uL 01/09/2024 10:52 AM CDT [facility] 01/09/2024 10:4 0 AM CDT us Crescencio Camacho MD LABORATORY Final Resul t [facility] [address] [place] [address], * (ABNORMAL) COMPREHENSIVE METABOLIC PANEL (01/09/2024 10:40 AM CDT) SODIUM S/P/B 142 136 - 145 MMOL/L 01/09/2024 11:02 AM CDT [facility] POTASSIUM S/P/B 4.1 3.5 - 5.1 MMOL/L 01/09/2024 11:02 AM CDT [facility] CHLORIDE S/P/B 105 98 - 107 MMOL/L 01/09/2024 11:02 AM CDT [facility] CO2 29.3 21.0 - 32.0 MMOL/L 01/09/2024 11:02 AM [facility] GLUCOSE 103(H) 70 - 99 MG/DL 01/09/2024 11:02 AM [facility] Comment: FASTING GLUCOSE 100 TO 125 MG/DL IS CONSISTENT WITH IMPAIRED FASTING GLUCOSE. FASTING GLUCOSE >125 MG/DL IS CONSISTENT WITH DIABETES. RANDOM GLUCOSE >200 MG/DL WITH HYPERGLYCEMIC SYMPTOMS IS CONSISTENT WITH DIABETES. PER ADA GUIDELINES BUN 12 6 - 24 MG/DL 01/09/2024 11:02 AM [facility] CREATININE S/P/B 1.02 0.70 - 1.30 MG/DL 01/09/2024 11:02 AM [facility] CALCIUM S/P/B 8.7 8.4 - 10.5 MG/DL 01/09/2024 11:02 AM [facility] BILIRUBIN TOTAL S/P/B 0.8 0.2 - 1.0 MG/DL 01/09/2024 11:02 AM [facility] Comment: THIS ASSAY IS NOT RECOMMENDED FOR PATIENTS UNDERGOING TREATMENT WITH ELTROMBOPAG DUE TO THE POTENTIAL FOR FALSELY ELEVATED RESULTS. ALKALINE PHOSPHATASE S/P/B 171(H) 45 - 115 U/L 01/09/2024 11:02 AM [facility] AST 18 15 - 37 U/L 01/09/2024 11:02 AM [facility] ALT 39 16 - 63 U/L 01/09/2024 11:02 AM [facility] TOTAL PROTEIN S/P/B 7.4 6.4 - 8.2 G/DL 01/09/2024 11:02 AM [facility] ALBUMIN S/P/B 4.0 3.4 - 5.0 G/DL 01/09/2024 11:02 AM [facility] ANION GAP 7.7 5.0 - 15.0 MMOL/L 01/09/2024 11:02 AM [facility] OSMOLALITY (CALC) 294 MOSM/KG 024 11:02 AM [facility] Comment:REFERENCE RANGE NOT ESTABLISHED GFR ESTIMATE 79(L) >89 ML/MIN/1. 73 M2 01/09/2024 11:02 AM CDT [facility] GFR NOTES GFR REFERENCE S: 01/09/2024 11:02 AM CDT [facility] Comment: THE ESTIMATED GFR IS CALCULATED [...] LABORATORY Final Resul t Performing Organization Address City/[facility]/ZIP Co de Phone Number [facility] [address] [place] [address], * RHEUMATOID FACTOR, QUANT (01/09/2024 10:40 AM CDT) RHEUMATOID FACTOR <10 <15 IU/ML 01/10/2024 12:57 PM CDT [facility] 01/09/2024 10:4 0 AM CDT Crescencio Camacho MD LABORATORY Final Resul t [facility] [address] [place] [address], [place] [phone] [id number] * (ABNORMAL) SED RATE, ERYTHROCYTE (ESR) (01/09/2024 10:40 AM CDT) ESR 18(H) 0 - 15 MM/HR 01/09/2024 10:59 AM CDT [facility] 01/09/2024 10:4 0 AM CDT Crescencio Camacho MD LABORATORY Final Resul t Performing Organization Address [facility] de Phone Number [facility] [address] [place] [address], * C-REACTIVE PROTEIN (01/09/2024 10:40 AM CDT) C-REACTIVE PROTEIN 0.19 <0.30 mg/dL 01/09/2024 11:02 AM CDT [facility] 01/09/2024 10:4 0 AM CDT Crescencio Camacho MD LABORATORY Final Resul t Performing Organization Address [facility] de Phone Number [facility] [address] [place] [address], * CYCLIC CITRULLINATED PEPTIDE (CCP)ANTIBODY(IGG) (01/09/2024 10:40 AM CDT) CITRULLINE PEPTIDE ANTIBODY <16 <20 Units 01/11/2024 9:26 PM CDT [facility] Comment: Negative: ? <20 Weak Positive: ?20 - 39 Moderate Positive: ?40 - 59 Strong Positive: ?>59 Test Performed by Nanci Guerra, Sherpany Flavia [facility], [address] [place] [address] Rosendo Rocha M.D., Ph.D., Director of Laboratories , [facility] [id number] 01/09/2024 10:4 0 AM CDT Crescencio Camacho MD LABORATORY Final Resul t Performing Organization Address [facility]/State/ZIP Co de Phone Number [facility] [address] [place] [address], [place] [phone] * ANTINUCLEAR ANTIBODY WI RFX (01/09/2024 10:40 AM CDT) MARIELLE 0.3 01/14/2024 12:40 PM CDT [facility] Comment: NEGATIVE: <0.7 RATIO MARIELLE PROFILE AND TITER NOT PERFORMED THE MARIELLE SCREEN TESTS FOR THE FOLLOWING ANTIBODIES BY EIA: SSA1 (RO), SSB1 (LA), HERNÁNDEZ, SCL70, JO1, CENTROMERE, DISABILITY ATTORNEY HISTONE MUST BE ORDERED SEPARATELY DNA (DS) ANTIBODY 6.3 IU/ML 024 12:40 PM CDT [facility] Comment: NEGATIVE: <10 IU/mL EQUIVOCAL: 10 to 15 IU/mL POSITIVE: >15 IU/mL THIS QUANTITATIVE ASSAY IS CALIBRATED TO THE [employer]'S WO/80 STANDARD. THE LEVEL OF dsDNA AUTOANTIBODY GERERALLY CORRELATES WITH THE LEVEL OF DISEASE ACTIVITY IN SYSTEMIC LUPUS ERYTHMATOSUS 01/09/2024 10:4 0 AM CDT us Crescencio Camacho MD LABORATORY Final Resul t [facility] [address] [place] [address], [place] [phone] documented in this encounter Visit Diagnoses Diagnosis Arthritis- Primary Arthropathy, unspecified, site unspecified Hyperlipemia, mixed Mixed hyperlipidemia documented in this encounter Care Teams Field Attendant Relationship Specialty Start Date End Date Crescencio Camacho MD [address] [place] [phone] PCP - General FAMILY PRACTICE 08/25/16 Fercho Simon MD Vascular/Boat Builder And Repairer INTERNAL MEDICINE 11/01/15 documented as of this encounter
--- OUTSIDE RECORDS SUMMARY | 2024-03-19 13:06 | XMS_ITS | Encounter Summary ---
Author Organization [facility] Address [facility] [place] [address] [place] [address] Care Team Providers Care Heater Mechanic Name Role Phone Fercho Simon MD Unavailable Crescencio Ware MD Primary Care Provider Encounter Details Date Type Department Care Team (Latest Contact Info) Description 01/09/2024 10:16 AM CDT - 01/09/2024 11:59 PM CDT Hospital Encounter [facility] [address] [place] [address] Crescencio Ware MD [address] [place] [phone] Discharge Disposition: Home or Self Care [...] needed. 11/05/2020 HYDROcodone-acetamin ophen 5-325 MG tabletIndications:Ac pechanga Pain < 7 Day Supply Take 1 [...] Procedure Name Priority Date/Time Associated Diagnosis Comments XR WRIST JOHN M3V Routine 01/09/2024 10:5 4 AM CDT Arthritis XR HAND JOHN 3V Routine 01/09/2024 10:54 AM CDT Arthritis documented in this encounter Results * XR HAND JOHN 3V (01/09/2024 10:54 AM CDT) Anatomical Region Laterality Modality Hand Radiographic Kristina ging 01/10/2024 3:56 PM CDT Impressions 01/10/2024 3:58 PM CDT IMPRESSION: No acute findings. Stable mild osteoarthritis. Ordered By: CRESCENCIO WARE Interpreted By: Tereso Childers MD, 01/10/2024 3:56 PM Narrative 01/10/2024 3:[address] [place] [address] Examination: Right and left hand. Exam time: 1030 hours. Clinical history: Bilateral pain, right greater than left. No known injury. Comparison: Left hand, 05/18/2022, right hand, 08/24/2020. Technique: Three views each. Findings: Minor deformity of the distal right fifth metacarpal is again evident, suggesting old healed fracture. No acute fracture or dislocation is identified. There are stable mild osteoarthritic changes, greater on the left. There are no findings to suggest an inflammatory arthritis. No other significant bone or joint abnormality is noted. Atherosclerotic calcification is noted. The soft tissues are otherwise unremarkable. Procedure Note Tereso Childers MD - 01/10/[address] [place] [address] Examination: Right and left hand. Exam time: 1030 hours. Clinical history: Bilateral pain, right greater than left. No knowninjury. Comparison: Left hand, 05/18/2022, right hand, 08/24/2020. Technique: Three views each. Findings: Minor deformity of the distal right fifth metacarpal is againevident, suggesting old healed fracture. No acute fracture or dislocationis identified. There are stable mild osteoarthritic changes, greater onthe left. There are no findings to suggest an inflammatory arthritis. Noother significant bone or joint abnormality is noted. Atheroscleroticcalcification is noted. The soft tissues are otherwise unremarkable. IMPRESSION: No acute findings. Stable mild osteoarthritis. Ordered By: CRESCENCIO WARE Interpreted By: Tereso Childers MD, 01/10/2024 3:56 PM us Crescencio Ware MD GENERAL IMAGING Final Resul t * XR WRIST JOHN M3V (01/09/2024 10:54 AM CDT) Anatomical Region Laterality Modality Wrist Radiographic Kristina ging 01/10/2024 3:53 PM CDT Impressions 01/10/2024 3:53 PM CDT IMPRESSION: No acute or significant findings. Ordered By: CRESCENCIO WARE Interpreted By: Tereso Childers MD, 01/10/2024 3:53 PM Narrative 01/10/2024 3:[address] [place] [address] Examination: Right and left wrist. Exam time: 1031 hours. Clinical history: Bilateral pain, right greater than left. No known injury. Comparison: None. Technique: Three views each. Findings: No fracture, dislocation or other acute bony abnormality is identified. No other significant bone or joint abnormality is noted.Atherosclerotic calcification is noted. The soft tissues are otherwise unremarkable. Procedure Note Tereso Childers MD - 01/10/[address] [place] [address] Examination: Right and left wrist. Exam time: 1031 hours. Clinical history: Bilateral pain, right greater than left. No knowninjury. Comparison: None. Technique: Three views each. Findings: No fracture, dislocation or other acute bony abnormality isidentified. No other significant bone or joint abnormality isnoted.Atherosclerotic calcification is noted. The soft tissues areotherwise unremarkable. IMPRESSION: No acute or significant findings. Ordered By: CRESCENCIO WARE Interpreted By: Tereso Childers MD, 01/10/2024 3:53 PM Crescencio Ware MD GENERAL IMAGING Final Resul t documented in this encounter Visit Diagnoses Diagnosis Arthritis Arthropathy, unspecified, site unspecified documented in this encounter Care Teams Heater Mechanic Relationship Specialty Start Date End Date Crescencio Ware MD [address] [place] [phone] PCP - General FAMILY PRACTICE 08/25/16 Fercho Simon MD Vascular/Whiting Machine Operator INTERNAL MEDICINE 11/01/15 documented as of this encounter
--- OUTSIDE RECORDS SUMMARY | 2024-03-19 13:06 | XMS_ITS | Encounter Summary ---
Author Organization [facility] Address [facility] [place] [address] [place] [address] Care Team Providers Care Photo Technologist Name Role Phone Fercho Simon MD Unavailable Crescencio Camacho MD Primary Care Provider Encounter Details Date Type Department Care Team (Late st Contact Info) Description 01/29/2024 9:52 AM CDT - 01/29/2024 12:37 PM T Hospital Encounter [facility] [address] [place] [address] Cory Meng, [facility]- [address] [facility] [place] [address] Discharge Disposition: Home or Self Care (Routine [...] needed. 11/05/2020 HYDROcodone-acetamin ophen 5-325 MG tabletIndications:Ac [facility] ge[place] Pain < 7 Day Supply Take 1 [...] Priority Date/Time Associated Diagnosis Comments XR WRIST LT 1V Routine 01/29/2024 10:52 AM CDT Left wrist pain XR WRIST LT MIN 3V Routine 01/29/2024 10 :00 AM CDT Left wrist pain documented in this encounter Results * XR WRIST LT 1V (01/29/2024 10:52 [...] 10:56 AM Narrative 01/29/2024 10:58 AM CDT [address] [place] [address] Examination: XR WRIST LT 1V Exam time: [...] Procedure Note Kevin Redd MD - 01/29/[address] [place] [address] Examination: XR WRIST LT 1V Exam time: [...] By: Kevin Redd MD, 01/29/2024 10:56 AM Cory Meng ENTRY LEVEL AUTOMOTIVE TECHNICIAN-BC GENERAL IMAGING Final Resu lt * XR WRIST LT MIN 3V (01/29/2024 10:00 AM CDT) Anatomical Region Laterality Modality Wrist Radiographic Kristina ging 01/29/2024 10:3 1 AM CDT Impressions 01/29/2024 10:34 AM CDT IMPRESSION: 1. ??No acute osseous abnormality identified. 2. ??Degenerative changes of the first carpometacarpal joint. Ordered By: CORY MENG Interpreted By: Kevin Redd MD, 01/29/2024 10:31 AM Narrative 01/29/2024 10:34 AM CDT [address] [place] [address] Examination: XR WRIST LT MIN 3V Exam time: 01/29/2024 10:00 AM Clinical history: Left wrist pain. History of fall one week ago. Comparison: Radiographs January 20, 2024. Technique: 3 views of the left wrist. Findings: No acute fracture or dislocation. Carpal alignment is preserved. Degenerative arthritic changes of the first carpometacarpal joint. No destructive bone lesions are seen. Vascular calcifications noted. Procedure Note Kevin Redd MD - 01/29/[address] [place] [address] Examination: XR WRIST LT MIN 3V Exam time: 01/29/2024 10:00 AM Clinical history: Left wrist pain. History of fall one week ago. Comparison: Radiographs January 20, 2024. Technique: 3 views of the left wrist. Findings: No acute fracture or dislocation. Carpal alignment is preserved.Degenerative arthritic changes of the first carpometacarpal joint. Nodestructive bone lesions are seen. Vascular calcifications noted. IMPRESSION: 1. No acute osseous abnormality identified. 2. Degenerative changes of the first carpometacarpal joint. Ordered By: CORY MENG Interpreted By: Kevin Redd MD, 01/29/2024 10:31 AM us Cory Meng ENTRY LEVEL AUTOMOTIVE TECHNICIAN-BC GENERAL IMAGING Final Resu lt documented in this encounter Visit Diagnoses Diagnosis Left wrist pain Pain in joint, forearm documented in this encounter Care Teams Photo Technologist Relationship Specialty Start Date End Date Crescencio Camacho MD [address] [place] [phone] PCP - General FAMILY PRACTICE 08/25/16 Fercho Simon MD Vascular/Toilet And Laundry Soap Supervisor INTERNAL MEDICINE 11/01/15 documented as of this encounter
--- OUTSIDE RECORDS SUMMARY | 2024-03-19 13:06 | XMS_ITS | Clinical Summary ---
Author Organization [facility] Address Formerly [facility], [id number] [place] [address] [place] [address] Care Team Providers Care Founder And Ceo Name Role Phone Fercho Simon MD Unavailable Crescencio Ware MD Primary Care Provider [phone] Allergies Active Allergy Reactions Criticality Noted Date Comments Codeine Shortness of Breath High 10/18/2015 Medications aspirin 81 MG tablet Take 1 tablet by mouth daily. 05/28/19 10 Active venlafaxine 24 hr 75 MG 24 hr capsule Take 1 tablet by mouth daily. 06/04/19 16 Active losartan 50 MG tablet Take 1 tablet by mouth daily. 06/04/19 16 Active simvastatin 40 MG tablet Take 1 tablet by mouth daily. 06/04/19 16 Active ELIQUIS 2.5 MG tablet TAKE 1 TABLET BY MOUTH TWICE A DAY 180 tablet 3 10/15/19 21 Active tamsulosin 0.4 MG Cap Take 1 capsule (0.4 mg total) by mouth daily. 15 capsule 10/18/19 21 Active HYDROcodone-acetami nophen 5-325 MG tablet Take 1 tablet by mouth every 6 (six) hours as needed. 11/06/19 21 Active HYDROcodone-acetami nophen 5-325 MG tabletIndications:A cute Pain < 7 Day Supply Take 1 tablet by mouth every 6 (six) hours as needed for Pain. 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 10/07/2020 Enchondroma of right humerus 10/07/2020 Osteoarthritis of left index finger 03/18/2020 Osteoarthritis of left middle finger 03/18/2020 Primary osteoarthritis of left hip 11/07/2019 Monitoring for anticoagulant use 04/08/2018 roasterman current use of anticoagulant therapy 0 05/08/2017 Artemio lipomatous neoplm of skin, subcu of head, fa ce and neck 04/10/2017 Lump of skin of back 01/02/2017 History of DVT (deep vein thrombosis) 10/17/2016 Essential hypertension 10/17/2016 Hyperlipidemia, unspecified hyperlipidemia type 10/17/2016 Localized edema 04/13/2016 Rupture of biceps tendon 01/18/2016 Left shoulder pain 01/17/2016 DVT (deep venous thrombosis) ([facility]) Overview (10/18/2015): Right femoral vein and left popliteal Hx of CABG CAD (coronary artery disease) Lower extremity edema Encounters Date Type Department Care Team Description 01/30/2024 8:30 AM CDT Office Visit [address] [address] Cory Meng FNP-BC Thumb Pain (LEFT); Injection 01/29/2024 12:38 PM CDT - 01/29/2024 11:59 PM CDT Hospital Encounter [facility] [address] [facility] [address] Cory Meng FNP-BC Discharge Disposition: Home or Self Care (Routine Discharge) 01/29/2024 10:30 AM CDT Office Visit [address] [address] Cory Meng FNP-BC Wrist Pain (LEFT) 01/29/2024 9:52 AM CDT - 01/29/2024 12:37 PM CDT Hospital Encounter [facility] [address] [place] [address] Cory Meng FNP-BC Discharge Disposition: Home or Self Care (Routine Discharge) 01/29/2024 Travel 01/29/2024 Orders Only [facility] [address] [address] Cory Meng FNP-BC 01/24/2024 Telephone [facility] [address] [address] Cory Meng FNP-BC Appointment Request 01/09/2024 10:16 AM CDT - 01/09/2024 11:59 PM CDT Hospital Encounter [facility] [address] [place] [address] Crescencio Ware MD Discharge Disposition: Home or Self Care (Routine Discharge) 01/09/2024 10:13 AM CDT - 01/09/2024 10:15 AM CDT Hospital Encounter [facility] [address] [place] [address] Crescencio Ware MD Discharge Disposition: Home or Self Care (Routine Discharge) 01/09/2024 Orders Only [facility] [address] [place] [address] Crescencio Ware MD 01/09/2024 Travel from Last 3 Months Family History Medical History Relation Comments No Known Problems Brother 1 Cancer Brother 2 Cancer Father No Known Problems Maternal Aunt 1 No Known Problems Maternal Aunt 2 No Known Problems Maternal Grandfather Arthritis Maternal Grandmother No Known Problems Maternal Uncle Cancer Mother Hypertension Mother No Known Problems Paternal Aunt No Known Problems Paternal Grandfather No Known Problems Paternal Grandmother No Known Problems Paternal Uncle No Known Problems Sister 1 No Known Problems Sister 2 No Known Problems Sister 3 Coronary artery disease Neg Hx Relation Status Comments Brother 1 Alive Brother 2 Alive Father Maternal Aunt 1 Maternal Aunt 2 Maternal Grandfather Maternal Grandmother Maternal Uncle Mother Paternal Aunt Paternal Grandfather Paternal Grandmother Paternal Uncle Sister 1 Alive Sister 2 Alive Sister 3 Alive Social History Tobacco Use Types Packs/Day Years [...] file Not on file Not on file Last Filed Vital Signs Vital Sign Reading Time Taken Comments Blood Pressure 160/87 05/21/2021 3:27 AM CAVALRY SCOUT Pulse 85 05/21/2021 3:27 AM CAVALRY SCOUT Temperature 36.2 ??C (97.1 ??F) 05/21/2021 3:27 AM CS T Respiratory Rate 20 05/21/2021 3:27 AM CAVALRY SCOUT Oxygen Saturation 98% 05/21/2021 3:27 AM CAVALRY SCOUT Inhaled Oxygen Concentration - - Weight 129.7 kg (286 lb) 01/30/2024 8:32 AM CDT Height 180.3 cm (5' 11 ) 01/30/2024 8:32 AM CDT Body Mass Index 39.89 01/30/2024 8:32 AM CDT Plan of Treatment Health Maintenance Due Date Last Done Comments ASCVD LDL 1955 ASCVD Statin 1955 Colorectal Cancer Screening Colonoscopy (10 Years) 1955 Pneumococcal Vaccine: 65+ Ye ars (1 of 2 - PCV) 08/28/1959 Hepatitis C 08/28/1971 DTaP, Tdap and Td Vaccines ( 1 - Tdap) 1972 Zoster Vaccines (1 of 2) 08/28/2003 RSV Immunization or 60+ Years (1 - Risk 60-74 years 1-dose series) 2013 Annual Medicare Wellness Visit 2018 COVID-19 Vaccine (1 - 2023-2 5 season) 2023 Influenza Adult (#1) 2024 12/09/2019 Meningococcal Vaccine Aged Out No kishor mitch eligible based on patient's age to complete this topic RSV Immunizations Under 20 Months Aged Out No longer eligible based on patient's age to complete this topic Procedures Procedure Name Priority Date/Time Associated Diagnosis Comments CT WRIST LT WO CON STAT 01/29/2024 1: 08 PM CDT Closed nondisplaced fracture of distal pole of scaphoid bone of left wrist, initial encounter XR WRIST LT 1V Routine 01/29/2024 10:52 AM CDT Left wrist pain XR WRIST LT MIN 3V Routine 01/29/2024 10 :00 AM CDT Left wrist pain XR HAND JOHN 3V Routine 01/09/2024 10:54 AM CDT Arthritis XR WRIST JOHN M3V Routine 01/09/2024 10:5 4 AM CDT Arthritis CBC W/DIFF AUTOMATED Routine 01/09/2024 10:40 AM CDT Arthritis Hyperlipemia, mixed COMPREHENSIVE METABOLIC PANEL Routine 01/09/2024 10:40 AM CDT Arthritis RHEUMATOID FACTOR, QUANT Routine 01/09/2024 10:40 AM CDT Arthritis SED RATE, ERYTHROCYTE (ESR) Routine 01/09/2024 10:40 AM CDT Arthritis C-REACTIVE PROTEIN Routine 01/09/2024 10 :40 AM CDT Arthritis CYCLIC CITRULLINATED PEPTIDE (CCP)ANTIBODY(IGG) Routine 01/09/2024 10:40 AM CDT Arthritis ANTINUCLEAR ANTIBODY WI RFX Routine 01/09/2024 10:40 AM CDT Arthritis from Last 3 Months Results * CT WRIST LT WO CON (01/29/2024 1:08 PM CDT) Anatomical Region Laterality Modality Wrist Computed Tomogra phy 01/29/2024 1:24 PM CDT Impressions 01/29/2024 1:49 PM CDT IMPRESSION: 1. ??No CT evidence of scaphoid fracture. 2. ??Arthritic changes of the first carpometacarpal joint. Ordered By: CORY MENG Interpreted By: Kevin Redd MD, 01/29/2024 1:24 PM Narrative 01/29/2024 1:[address] PM [address]T [address] [place] [address] Examination: CT WRIST LT WO CON Exam [...] first carpometacarpal joint noted with area of gubp-[id number] articulation. No soft tissue abnormality is identified. Vascular calcifications are present. Procedure Note Kevin Redd MD - 01/29/[address] [place] [address] Examination: CT WRIST LT WO CON Exam [...] the first carpometacarpaljoint noted with area of qikx-xf-bpvw articulation. No soft tissueabnormality is identified. Vascular calcifications are present. IMPRESSION: 1. No CT evidence of scaphoid fracture. 2. Arthritic changes of the first carpometacarpal joint. Ordered By: CORY MENG Interpreted By: Kevin Redd MD, 01/29/2024 1:24 PM Cory Meng GASTROENTEROLOGIST-BC CT Final Resu lt * XR WRIST [...] 10:56 AM Narrative 01/29/2024 10:58 AM CDT [address] [place] [address] Examination: XR WRIST LT 1V Exam time: [...] Procedure Note Kevin Redd MD - 01/29/[address] [place] [address] Examination: XR WRIST LT 1V Exam time: [...] Redd MD, 01/29/2024 10:56 AM Cory Meng GASTROENTEROLOGIST-BC GENERAL IMAGING Final Resu lt * XR [...] 10:31 AM Narrative 01/29/2024 10:34 AM CDT [address] [place] [address] Examination: XR WRIST LT MIN 3V Exam [...] Procedure Note Kevin Redd MD - 01/29/[address] [place] [address] Examination: XR WRIST LT MIN 3V Exam [...] MD, 01/29/2024 10:31 AM us Cory Meng GASTROENTEROLOGIST-BC GENERAL IMAGING Final Resu lt * XR WRIST JOHN M3V (01/09/2024 10:54 AM CDT) Anatomical Region Laterality Modality Wrist Radiographic Kristina ging 01/10/2024 3:53 PM CDT Impressions 01/10/2024 3:53 PM CDT IMPRESSION: No acute or significant findings. Ordered By: CRESCENCIO WARE Interpreted By: Tereso Childers MD, 01/10/2024 3:53 PM Narrative 01/10/2024 3:53 PM CDT [address] [place] [address] Examination: Right and left wrist. Exam time: 1031 hours. Clinical history: Bilateral pain, right greater than left. No known injury. Comparison: None. Technique: Three views each. Findings: No fracture, dislocation or other acute bony abnormality is identified. No other significant bone or joint abnormality is noted.Atherosclerotic calcification is noted. The soft tissues are otherwise unremarkable. Procedure Note Tereso Childers MD - 01/10/[address] [place] [address] Examination: Right and left wrist. Exam time: [...] By: Tereso Childers MD, 01/10/2024 3:53 PM us Crescencio Ware MD GENERAL IMAGING Final Resul t * XR HAND JOHN 3V (01/09/2024 10:54 AM CDT) Anatomical Region Laterality Modality Hand Radiographic Kristina ging 01/10/2024 3:56 PM CDT Impressions 01/10/2024 3:58 PM CDT IMPRESSION: No acute findings. Stable mild osteoarthritis. Ordered By: CRESCENCIO WARE Interpreted By: Tereso Childers MD, 01/10/2024 3:56 PM Narrative 01/10/2024 3:58 PM CDT [address] [place] [address] Examination: Right and left hand. Exam time: [...] Procedure Note Tereso Childers MD - 01/10/[address] [place] [address] Examination: Right and left hand. Exam time: [...] By: Tereso Childers MD, 01/10/2024 3:56 PM Crescencio Ware MD GENERAL IMAGING Final Resul t * ANTINUCLEAR ANTIBODY WI RFX (01/09/2024 10:40 AM CDT) MARIELLE 0.3 01/14/2024 12:40 PM CDT [facility] Comment: NEGATIVE: <0.7 RATIO MARIELLE PROFILE AND TITER NOT PERFORMED THE MARIELLE SCREEN TESTS FOR THE FOLLOWING ANTIBODIES BY EIA: SSA1 (RO), SSB1 (LA), HERNÁNDEZ, SCL70, JO1, CENTROMERE, IVORY POLISHER HISTONE MUST BE ORDERED SEPARATELY DNA (DS) ANTIBODY 6.3 IU/ML 024 12:40 PM CDT [facility] Comment: NEGATIVE: <10 IU/mL EQUIVOCAL: 10 to 15 IU/mL POSITIVE: >15 IU/mL THIS QUANTITATIVE ASSAY IS CALIBRATED TO THE [employer]'S WO/80 STANDARD. THE LEVEL OF dsDNA AUTOANTIBODY GERERALLY CORRELATES WITH THE LEVEL OF DISEASE ACTIVITY IN SYSTEMIC LUPUS ERYTHMATOSUS 01/09/2024 10:4 0 AM CDT Crescencio Ware MD LABORATORY Final Resul t [facility] [address] [place] [address], [id number] * RHEUMATOID FACTOR, QUANT (01/09/2024 10:40 AM CDT) RHEUMATOID FACTOR <10 <15 IU/ML 01/10/2024 12:57 PM CDT [facility] 01/09/2024 10:4 0 AM CDT Crescencio Ware MD LABORATORY Final Resul t Performing Organization Address City/State/[facility] Co de Phone Number [facility] [address] [place] [address], [place] [phone] * CYCLIC CITRULLINATED PEPTIDE (CCP)ANTIBODY(IGG) (01/09/2024 10:40 AM CDT) CITRULLINE PEPTIDE ANTIBODY <16 <20 Units 01/11/2024 9:26 PM CDT [employer] ANISHA SEE Comment: Negative: ? <20 Weak Positive: ?20 - 39 Moderate Positive: ?40 - 59 Strong Positive: ?>59 Test Performed by [facility], [employer] [facility], [address] [place] [address] Rosendo Rocha M.D., Ph.D., Director of Laboratories , [facility] [id number] 01/09/2024 10:4 0 AM CDT Crescencio Ware MD LABORATORY Final Resul t Performing Organization Address [facility] de Phone Number [employer] [address] [address], [place] [phone] * (ABNORMAL) SED RATE, ERYTHROCYTE (ESR) (01/09/2024 10:40 AM CDT) ESR 18(H) 0 - 15 MM/HR 01/09/2024 10:59 AM CDT [facility] 01/09/2024 10:4 0 AM CDT Crescencio Ware MD LABORATORY Final Resul t Performing Organization Address City/[facility]/ZIP Co de Phone Number [facility] [address] [place] [address], [place] [phone] * (ABNORMAL) COMPREHENSIVE METABOLIC PANEL (01/09/2024 10:40 AM CDT) [facility] Signature SODIUM S/P/B 142 136 - 145 MMOL/L 01/09/2024 11:02 AM T [facility] POTASSIUM S/P/B 4.1 3.5 - 5.1 MMOL/L 01/09/2024 11:02 AM T [facility] CHLORIDE S/P/B 105 98 - 107 MMOL/L 01/09/2024 11:02 AM T [facility] CO2 29.3 21.0 - 32.0 MMOL/L 01/09/2024 11:02 AM [facility] GLUCOSE 103(H) 70 - 99 MG/DL 01/09/2024 11:02 AM [facility] Comment: FASTING GLUCOSE 100 TO 125 MG/DL IS CONSISTENT WITH IMPAIRED FASTING GLUCOSE. FASTING GLUCOSE >125 MG/DL IS CONSISTENT WITH DIABETES. RANDOM GLUCOSE >200 MG/DL WITH HYPERGLYCEMIC SYMPTOMS IS CONSISTENT WITH DIABETES. PER ADA GUIDELINES BUN 12 6 - 24 MG/DL 01/09/2024 11:02 AM T [facility] CREATININE S/P/B 1.02 0.70 - 1.30 MG/DL 01/09/2024 11:02 AM [facility] CALCIUM S/P/B 8.7 8.4 - 10.5 MG/DL 01/09/2024 11:02 AM [facility] BILIRUBIN TOTAL S/P/B 0.8 0.2 - 1.0 MG/DL 01/09/2024 11:02 AM [facility] Comment: THIS ASSAY IS NOT RECOMMENDED FOR PATIENTS UNDERGOING TREATMENT WITH ELTROMBOPAG DUE TO THE POTENTIAL FOR FALSELY ELEVATED RESULTS. ALKALINE PHOSPHATASE S/P/B 171(H) 45 - 115 U/L 01/09/2024 11:02 AM T [facility] AST 18 15 - 37 U/L 01/09/2024 11:02 AM T [facility] ALT 39 16 - 63 U/L 01/09/2024 11:02 AM T [facility] TOTAL PROTEIN S/P/B 7.4 6.4 - 8.2 G/DL 01/09/2024 11:02 AM CDT [facility] ALBUMIN S/P/B 4.0 3.4 - 5.0 G/DL 01/09/2024 11:02 AM CDT [facility] ANION GAP 7.7 5.0 - 15.0 MMOL/L 01/09/2024 11:02 AM CDT [facility] OSMOLALITY (CALC) 294 MOSM/KG 024 11:02 AM CDT [facility] Comment:REFERENCE RANGE NOT ESTABLISHED GFR ESTIMATE 79(L) >89 ML/MIN/1. 73 M2 01/09/2024 11:02 AM CDT [facility] GFR NOTES GFR REFERENCE S: 01/09/2024 11:02 AM CDT [facility] Comment: THE ESTIMATED GFR [...] ml/min/1.73 m2 01/09/2024 10:4 0 AM CDT us Crescencio Ware MD LABORATORY Final Resul t [facility] [address] [place] [address], * C-REACTIVE PROTEIN (01/09/2024 10:40 AM CDT) C-REACTIVE PROTEIN 0.19 <0.30 mg/dL 01/09/2024 11:02 AM CDT [facility] 01/09/2024 10:4 0 AM CDT us Crescencio Ware MD LABORATORY Final Resul t [facility] [address] [place] [address], * (ABNORMAL) CBC W/DIFF AUTOMATED (01/09/2024 10:40 AM CDT) WBC 7.21 4.00 - 10.80 x10'3/uL 01/09/2024 10:52 AM CDT [facility] RBC 4.73 4.50 - 6.10 x10'6/uL 01/09/2024 10:52 AM CDT [facility] HGB 14.5 13.0 - 18.0 G/DL 01/09/2024 10:52 AM CDT [facility] HCT 43.5 37.0 - 52.0 % 01/09/2024 10:52 AM CDT [facility] MCV 92.0 78.0 - 100.0 FL 01/09/2024 10:52 AM CDT [facility] MCH 30.7 27.0 - 31.0 PG 01/09/2024 10:52 AM CDT [facility] MCHC 33.3 33.0 - 36.0 G/DL 01/09/2024 10:52 AM CDT [facility] RDW 13.1 11.5 - 14.5 % 01/09/2024 10:52 AM CDT [facility] PLT 227 150 - 350 x10'3/uL 01/09/2024 10:52 AM CDT [facility] MPV 10.2 7.4 - 10.4 FL 01/09/2024 10:52 AM CDT [facility] CBC COMMENT NORMAL REFERENCE RANGE NOT ESTABLISHED FOR THE PROPORTIONAL LEUKOCYTE DIFFERENTIAL. 01/09/2024 10:52 AM CDT [facility] NEUTROPHILS % 61.9 % 01/09/2024 10:52 AM CDT [facility] LYMPHOCYTES % 29.5 % 01/09/2024 10:52 AM CDT [facility] MONOCYTES % 5.8 % 01/09/2024 10:52 AM CDT [facility] EOSINOPHILS % 1.1 % 01/09/2024 10:52 AM CDT [facility] BASOPHILS % 0.7 % 01/09/2024 10:52 AM CDT [facility] IMMATURE GRANS % 1.0 % 01/09/20 10:52 AM CDT [facility] NRBC % 0.0 % 01/09/2024 10:52 AM CDT [facility] ABS. NEUTROPHILS 4.46 1.60 - 8.30 x10'3/uL 01/09/2024 10:52 AM CDT [facility] ABS. LYMPHOCYTES 2.13 0.80 - 4.70 x10'3/uL 01/09/2024 10:52 AM CDT [facility] ABS. MONOCYTES 0.42 0.00 - 1.50 x10'3/uL 01/09/2024 10:52 AM CDT [facility] ABS. EOSINOPHILS 0.08 0.00 - 0.40 x10'3/uL 01/09/2024 10:52 AM CDT [facility] ABS. BASOPHILS 0.05 0.00 - 0.20 x10'3/uL 01/09/2024 10:52 AM CDT [facility] ABS. IMMATURE GRANULOCYTES 0.07(H) 0.00 - 0.03 x10'3/uL 01/09/2024 10:52 AM CDT [facility] ABS. NUCLEATED RBC'S 0.00 0.00 - 0.01 x10'3/uL 01/09/2024 10:52 AM CDT [facility] 01/09/2024 10:4 0 AM CDT us Crescencio Ware MD LABORATORY Final Resul t [facility] [address] [place], [place] [id number], from Last 3 Months Insurance MEDICAID MEDICARE Care Teams Founder And Ceo Relationship Specialty Start Date End Date Crescencio Ware MD [address] [place] [phone] PCP - General FAMILY PRACTICE 08/25/16 Fercho Simon MD Vascular/Floorworker Lasting INTERNAL MEDICINE 11/01/15
--- OUTSIDE RECORDS SUMMARY | 2024-03-19 13:06 | XMS_ITS | Encounter Summary ---
Author Organization [facility] Address [facility] [place] [address] [place] [address] Care Team Providers Care Warehouse Shipper Name Role Phone Fercho Simon MD Unavailable Crescencio Camacho MD Primary Care Provider Encounter Details Date Type Department Care Team (Latest Contact Info) Description 01/29/2024 Travel Social History Tobacco Use Types Packs/Day Years [...] documented as of this encounter Visit Diagnoses Not on filedocumented in this encounter Care Teams Warehouse Shipper Relationship Specialty Start Date End Date Crescencio Camacho MD [address] [place] [phone] PCP - General FAMILY PRACTICE 08/25/16 Fercho Simon MD Vascular/Buttonhole Facer INTERNAL MEDICINE 11/01/15 documented as of this encounter
--- OUTSIDE RECORDS SUMMARY | 2024-03-19 13:06 | XMS_ITS | Encounter Summary ---
Author Organization [facility] Address [facility] [facility] [place] [address] [place] [address] Care Team Providers Care Physician President Name Role Phone Fercho Simon MD Unavailable Crescencio Camacho MD Primary Care Provider [phone] Encounter Details Date Type Department Care Team (Late st Contact Info) Description 01/29/2024 Orders Only [facility] [address] [place] [address] Cory Meng, [facility] [address] [place] [address] [place] [address] Social History Tobacco Use Types Packs/Day Years [...] documented as of this encounter Results * XR WRIST LT MIN 3V (01/29/2024 10:00 AM CDT) Anatomical Region Laterality Modality Wrist Radiographic Kristina ging 01/29/2024 10:3 1 AM CDT Impressions 01/29/2024 10:34 AM CDT IMPRESSION: 1. ??No acute osseous abnormality identified. 2. ??Degenerative changes of the first carpometacarpal joint. Ordered By: CORY MENG Interpreted By: Kevin Redd MD, 01/29/2024 10:31 AM Narrative 01/29/2024 10:34 AM CDT [address] [place] [address] Examination: XR WRIST LT MIN 3V Exam [...] Procedure Note Kevin Redd MD - 01/29/[address] [place] [address] Examination: XR WRIST LT MIN 3V Exam [...] By: Kevin Redd MD, 01/29/2024 10:31 AM Cory Meng CLINICAL TRAINING SPECIALIST-BC GENERAL IMAGING Final Resu lt documented in this encounter Visit Diagnoses Diagnosis Left wrist pain- Primary Pain in joint, forearm Left wrist pain Pain in joint, forearm documented in this encounter Care Teams Physician President Relationship Specialty Start Date End Date Crescencio Camacho MD [address] [place] [phone] PCP - General FAMILY PRACTICE 08/25/16 Fercho Simon MD Vascular/Outcome Analyst INTERNAL MEDICINE 11/01/15 documented as of this encounter
--- OUTSIDE RECORDS SUMMARY | 2024-03-19 13:06 | XMS_ITS | Encounter Summary ---
Author Organization [facility] Address [facility] [place] [address] [place] [address] Care Team Providers Care Taste Tester Name Role Phone Fercho Simon MD Unavailable Crescencio Camacho MD Primary Care Provider Reason for Visit * Reason Onset Date Comments Appointment Request 01/24/2024 Encounter Details Date Type Department Care Team (Late st Contact Info) Description 01/24/2024 Telephone [facility] [address], [facility] 1 [place] [address] Claire Meng, [facility] [address] [place] [address] [place] [phone] Appointment Request Social History Tobacco Use Types Packs/Day Years [...] on file documented as of this encounter Progress Notes * Elza Medina, CRESCENCIO - 01/24/2024 1:31 PM CDT Patient states that he fell on 01/20/24 and had xrays done at [facility] which have been pushed to [facility]. He has been having pain since the fall. He states that he saw his PCP and no fracture was noted. Patient states that he continues to have pain only when he pushes up from a seated position. He denies bracing or splint. RN made apt for next week. No further questions this time. * CRESCENCIO Martin - 01/24/2024 11:12 AM CDT RN contacted [facility] to have xrays pushed to [facility].. No answer, left message. * CRESCENCIO Martin - 01/24/2024 11:11 AM CDT ----- Message from Arabella Covarrubias sent at 01/24/2024 10:25 AM CDT ----- [facility] called regarding Dr. Camacho referring patient for LEFT wrist pain. Medicare Insurance. He was seen in [facility] for fall and had Xrays. [facility] will fax Xray results. Patient call back [phone] documented in this encounter Plan of Treatment Not on file documented as of this encounter Visit Diagnoses Not on filedocumented in this encounter Care Teams Taste Tester Relationship Specialty Start Date End Date Crescencio Camacho MD [address] [place] [phone] PCP - General FAMILY PRACTICE 08/25/16 Fercho Simon MD Vascular/Convalescent Sitter INTERNAL MEDICINE 11/01/15 documented as of this encounter
--- OUTSIDE RECORDS SUMMARY | 2024-03-19 13:07 | XMS_ITS | Encounter Summary ---
Author Organization [facility] Address [address] [place] [address]. [place] [address] [place] [address] Care Team Providers Care Polish Maker Name Role Phone Fercho Simon MD Unavailable Crescencio Camacho MD Primary Care Provider Reason for Visit * Reason Comments Office Documentation (SCAN)* Encounter Details Date Type Department Care Team ([facility] Contact Info) Description 01/20/2022 Scan [facility] [address] [place] [address] Scanned, Documents Office Documentation (SCAN)* Social History Tobacco Use Types Packs/Day Years [...] file Not on file Not on file COVID-19 Exposure Response Date Recorded In the last 10 days, have yo u been in contact with someone who was confirmed or suspected to have Coronavirus/COVID-19? No / Unsure 02/09/2022 6:34 PM DRIVER GUIDE documented as of this encounter Plan of Treatment Not on file documented as of this encounter Visit Diagnoses Not on filedocumented in this encounter Care Teams Polish Maker Relationship Specialty Start Date End Date Crescencio Cmaacho MD [address] [place] [phone] PCP - General FAMILY PRACTICE 08/25/16 Fercho Simon MD Vascular/Belt Brander INTERNAL MEDICINE 11/01/15 documented as of this encounter
--- OUTSIDE RECORDS SUMMARY | 2024-03-19 13:07 | XMS_ITS | Encounter Summary ---
Author Organization [facility] Address [facility] [place] [address] [place] [address] Care Team Providers Care Learning Specialist Name Role Phone Fercho Simon MD Unavailable Crescencio Camacho MD Primary Care Provider Encounter Details Date Type Department Care Team (Latest Contact Info) Description 02/09/2022 Travel Social History Tobacco Use Types Packs/Day [...] Coronavirus/COVID-19? No / Unsure 02/09/2022 6:34 PM BANANA EXPERT documented as of this encounter Plan of Treatment Not on file documented as of this encounter Visit Diagnoses Not on filedocumented in this encounter Care Teams Learning Specialist Relationship Specialty Start Date End Date Crescencio Camacho MD [address] [place] [phone] PCP - General FAMILY PRACTICE 08/25/16 Fercho Simon MD Vascular/Swimming Instructor INTERNAL MEDICINE 11/01/15 documented as of this encounter
--- OUTSIDE RECORDS SUMMARY | 2024-03-19 13:07 | XMS_ITS | Encounter Summary ---
Author Organization [facility] Address [facility] [place] [address] [place] [address] Care Team Providers Care Process Laboratory Specialist Name Role Phone Fercho Simon MD Unavailable Crescencio Camacho MD Primary Care Provider [phone] Encounter Details Date Type Department Care Team (Latest Contact Info) Description 04/27/2022 Travel Social History Tobacco Use Types Packs/Day [...] suspected to have Coronavirus/COVID-19? No / Unsure 04/27/2022 8:05 PM WEB COORDINATOR documented as of this encounter Plan of Treatment Not on file documented as of this encounter Visit Diagnoses Not on filedocumented in this encounter Care Teams Process Laboratory Specialist Relationship Specialty Start Date End Date Crescencio Camacho MD [address] [place] [phone] PCP - General FAMILY PRACTICE 08/25/16 Fercho Simon MD Vascular/Race Car Driver INTERNAL MEDICINE 11/01/15 documented as of this encounter
--- OUTSIDE RECORDS SUMMARY | 2024-03-19 13:07 | XMS_ITS | Encounter Summary ---
Author Organization [facility] Address [facility] [place] [address] [place] [address] Care Team Providers Care Career Specialist Name Role Phone Fercho Simon MD Unavailable Crescencio Camacho MD Primary Care Provider Encounter Details Date Type Department Care Team (Late st Contact Info) Description 02/15/2022 Transcribe Orders [facility] Pre Access Team [address] [place] [address] Xu Lopez, PA [address] [place] [phone] Social History Tobacco Use Types Packs/Day [...] Coronavirus/COVID-19? No / Unsure 02/09/2022 6:34 PM CLIENT SOLUTIONS MANAGER documented as of this encounter Plan of Treatment Not on file documented as of this encounter Visit Diagnoses Not on filedocumented in this encounter Care Teams Career Specialist Relationship Specialty Start Date End Date Crescencio Camacho MD [address] [place] [phone] PCP - General FAMILY PRACTICE 08/25/16 Fercho Simon MD Vascular/Investment Sales Assistant INTERNAL MEDICINE 11/01/15 documented as of this encounter
--- OUTSIDE RECORDS SUMMARY | 2024-03-19 13:07 | XMS_ITS | Encounter Summary ---
Author Organization [facility] Address [address] [place] [address]. [place] [address] [place] [address] Care Team Providers Care Horticultural Technical Officer Name Role Phone Fercho Simon MD Unavailable Crescencio Camacho MD Primary Care Provider Reason for Visit * Reason Comments Hand Pain LEFT Encounter Details Date Type Department Care Team (Late st Contact Info) Description 05/18/2022 11:30 AM RN OCCUPATIONAL HEALTH Office Visit [facility] [address], [facility] 1 [place] [address] Claire Meng, [facility] [address] [facility] [place] [phone] Hand Pain (LEFT) Social History Tobacco Use Types [...] suspected to have Coronavirus/COVID-19? No / Unsure 05/18/2022 10:43 AM RN OCCUPATIONAL HEALTH documented as of this encounter Last Filed Vital Signs Vital Sign Reading Time Taken Comments Blood Pressure - - Pulse - - Temperature - - Respiratory Rate - - Oxygen Saturation - - Inhaled Oxygen Concentration - - Weight 129.7 kg (286 lb) 05/18/2022 10:46 AM RN OCCUPATIONAL HEALTH Height 180.3 cm (5' 11 ) 05/18/2022 10:46 AM RN OCCUPATIONAL HEALTH Body Mass Index 39.89 05/18/2022 10:46 AM RN OCCUPATIONAL HEALTH documented in this encounter Progress Notes * Claire Meng, STRAND GALVANIZER-BC - 05/18/2022 11:30 AM CST Chief Complaint: Hand Pain (LEFT) History of Present Illness: Arsh Guerrero is a 66-year-old male who presents to the office for Hand Pain (LEFT) Patient comes in the office today for LEFT hand pain. He denies any injury. He states has swelling.He states no bruising. He denies any numbness and tingling. He states taking Tylenol with moderate relief. He states usually gets an cortisone injection with good relief. He is not OT . He denies useof any associative devices. He states has night pain occasionally. He states he cant even hold a phone in the LEFT hand. He is RIGHT hand dominant. He is retired. He denies any prior surgery to the LEFT hand. PREVIOUS HPI 06/22/2021 Patient is in clinic today for pain in his LEFT hand. He locates the pain in the dorsal side of thehand in between the 2nd and 3rd fingers with radiation up into the wrist. He states not using anything for pain. He does have some swelling noted in this area as well. He states no numbness or tingling. He is retired and is RIGHT hand dominant. ROS: See HPI for pertinent positives Problem List: Patient Active Problem List Diagnosis ??? DVT (deep venous thrombosis) (CMS/HCC) ??? Hx of CABG ??? CAD (coronary artery disease) ??? Localized edema ??? History of DVT (deep vein thrombosis) ??? Essential hypertension ??? Hyperlipidemia, unspecified hyperlipidemia type ??? Lower extremity edema ??? FDC current use of anticoagulant therapy ??? Monitoring for anticoagulant use ??? Artemio lipomatous neoplm of skin, subcu of head, face and neck ??? Left shoulder pain ??? Lump of skin of back ??? Rupture of biceps tendon ??? Primary osteoarthritis of left hip ??? Osteoarthritis of left index finger ??? Osteoarthritis of left middle finger ??? Ulnar neuropathy of right upper extremity ??? Primary osteoarthritis of right elbow ??? Enchondroma of right humerus ??? Primary osteoarthritis of first carpometacarpal joint of left hand History: Past Medical History: Diagnosis Date ??? Benign hypertension ??? Bulging lumbar disc ??? CAD (coronary artery disease) CABG ??? COVID-19 2020 ??? DVT (deep venous thrombosis) (CMS/HCC) Right femoral vein and left popliteal ??? Hx of CABG ??? Hyperlipemia, mixed ??? Lower extremity edema Past Surgical History: Procedure Laterality Date ??? CORONARY ARTERY BYPASS GRAFT ??? HEART CATH 05/28/2009 Left coronary angiography. Right coronary angiography.Left heart catheterization with ventriculography. ??? REPAIR HEART WOUND Family History Problem Relation Name Age of Onset ??? Cancer Mother ??? Hypertension Mother ??? Cancer Father ??? Arthritis Maternal Grandmother ??? No Known Problems Maternal Grandfather ??? No Known Problems Paternal Grandmother ??? No Known Problems Paternal Grandfather ??? No Known Problems Sister ??? No Known Problems Brother ??? No Known Problems Maternal Aunt ??? No Known Problems Maternal Uncle ??? No Known Problems Paternal Aunt ??? No Known Problems Paternal Uncle ??? No Known Problems Sister ??? No Known Problems Sister ??? Cancer Brother ??? No Known Problems Maternal Aunt ??? Coronary artery disease Neg Hx Family Status Relation Name Status ??? Mother ??? Father ??? MGM ??? MGF ??? PGM ??? PGF ??? Sister Alive ??? Brother Alive ??? MAunt ??? MUncle ??? PAunt ??? PUncle ??? Sister Alive ??? Sister Alive ??? Brother Alive ??? MAunt ??? Neg Hx (Not Specified) Social History Socioeconomic History ??? Marital status: ??? Number of children: 4 Occupational History ??? Occupation: Retired Tobacco Use ??? Smoking status: Never ??? Smokeless tobacco: Never Vaping Use ??? Vaping Use: Never used Substance and Sexual Activity ??? Alcohol use: No ??? Drug use: No Other Topics Concern ??? Exercise No ??? Special Diet No ??? Caffeine Concern No ??? Service No ??? Blood Transfusions Yes ??? Occupational Exposure No ??? Hobby Hazards No ??? Sleep Concern No ??? Stress Concern No ??? Weight Concern No ??? Back Care No ??? Bike Helmet No ??? Seat Belt Yes ??? Self-Exams Yes Medications: Current Outpatient Medications: ??? aspirin 81 MG tablet, Take 1 tablet by mouth daily., Disp: , Rfl: ??? ELIQUIS 2.5 MG tablet, TAKE 1 TABLET BY MOUTH TWICE A DAY, Disp: 180 tablet, Rfl: 3 ??? HYDROcodone-acetaminophen 5-325 MG tablet, Take 1 tablet by mouth every 6 (six) hours as needed., Disp: , Rfl: ??? HYDROcodone-acetaminophen 5-325 MG tablet, Take 1 tablet by mouth every 6 (six) hours as neededfor Pain. Indications: Acute Pain < 7 Day Supply, Disp: 20 tablet, Rfl: 0 ??? losartan 50 MG tablet, Take 1 tablet by mouth daily., Disp: , Rfl: ??? methylPREDNISolone, LOU, (MEDROL) 4 MG tablet, Follow package directions, Disp: 1 each, Rfl: 0 ??? methylPREDNISolone, LOU, (MEDROL) 4 MG tablet, Follow package directions, Disp: 1 each, Rfl: 0 ??? simvastatin 40 MG tablet, Take 1 tablet by mouth daily., Disp: , Rfl: ??? tamsulosin 0.4 MG Cap, Take 1 capsule (0.4 mg total) by mouth daily., Disp: 15 capsule, Rfl: 0 ??? traMADol 50 MG tablet, Take 50 mg by mouth every 6 (six) hours as needed., Disp: , Rfl: ??? venlafaxine 24 hr 75 MG 24 hr capsule, Take 1 tablet by mouth daily., Disp: , Rfl: No Known Allergies Objective: Body mass index is 39.89 kg/m??. Last Recorded Weight 05/18/22 1046 Weight: 129.7 kg (286 lb) Physical exam: Constitutional: Alert and in no acute distress. Neurological: The patient was oriented to person, place, and time. Eyes: The sclera and conjunctiva were normal ENT: Hearing was normal. Neck: The appearance of the neck was normal. Cardiovascular: Normal pulses. Pulmonary: No respiratory distress. Skin: No injuries or skin lesion. Musculoskeletal: EXAM of LEFT hand today reveals tenderness over 1st CMC, 2nd and 3rd MCP joints with palpation, no redness or warmth, positive grind, stiff range of motion, unable to make a fist secondary to pain, good wrist range of motion, good capillary refill, mild swelling over 1st CMC joint as well as 2nd and 3rd MCP joints, palpable radial pulse. Results: XRAY of LEFT hand today reveals mild degenerative changes at the 1st CMC joint, 2nd and 3rd MCP joints with no acute or healing bony injury or dislocation. Procedure: Procedure: Injection of the 2nd and 3rd MCP joints on the left. Indications for the procedure [...] to inject 0.5 mL lidocaine 1% and 0.5 mL methylprednisolone 80 mg/mL. Dressing: A bandage was applied. Post-Procedure: the patient tolerated the procedure well. Complications: there were no complications. Follow-up in the office prn. Assessment: Encounter Diagnose(s) ICD-10-CM ICD-9-CM SNOMED CT(R) 1. Osteoarthritis of left middle finger M19.042 715.94 OSTEOARTHRITIS OF FINGER JOINT OF LEFT HAND methylPREDNISolone acetate (DEPO-Medrol) injection 80 mg lidocaine (XYLOCAINE) 1 % injection SOLN 1 mL 2. Osteoarthritis of left index finger M19.042 715.94 OSTEOARTHRITIS OF FINGER JOINT OF LEFT HAND methylPREDNISolone acetate (DEPO-Medrol) injection 80 mg lidocaine (XYLOCAINE) 1 % injection SOLN 1 mL 3. Primary osteoarthritis of first carpometacarpal joint of left hand M18.12 715.14 OSTEOARTHROSIS OF THE CARPOMETACARPAL JOINT OF THE THUMB methylPREDNISolone, LOU, (MEDROL) 4 MG tablet Plan: Reviewed imaging with the patient in the office today. He has had previous injections with good relief in his symptoms. He was given a 2nd and 3rd MCP joints in the office today. Since he is showing increased symptoms with his 1st CMC osteoarthritis I have sent in a Depo-Medrol Dosepak to assist with his symptoms. Activity as tolerated. He is aware that he may receive injection every 3 months as needed for pain. He will follow up as needed for his 2nd and 3rd MCP pain. As far as his 1st CMC joint pain he will notify the office when he would like to proceed with an injection. Follow up: Return if symptoms worsen or fail to improve. JORGE DANIEL OCCUPATIONAL HEALTH documented in this encounter Plan of Treatment Not on file documented as of this encounter Visit Diagnoses Diagnosis Osteoarthritis of left middle finger- Primary Osteoarthritis of left index finger Primary osteoarthritis of first carpometacarpal joint of left hand Primary localized osteoarthrosis, hand documented in this encounter Administered Medications Inactive Administered Medications - up to 3 most recent administrations Medication Order MAR Action Action Date Dose Rate Site lidocaine (XYLOCAINE) 1 % injection SOLN 1 mL 1 mL, Other, Once, 1 dose, On [facility] 05/18/22 at 1200Indications:Osteoarthritis of left middle finger,Osteoarthritis of left index finger Given 05/18/2022 11:34 AM RN OCCUPATIONAL HEALTH 1 mL methylPREDNISolone acetate (DEPO-Medrol) injection 80 mg 80 mg, Other, Once, 1 dose, On [facility] 05/18/22 at 1200, Shake WellIndications:Osteoarthritis of left middle finger,Osteoarthritis of left index finger Given 05/18/2022 11:36 AM RN OCCUPATIONAL HEALTH 80 mg documented in this encounter Care Teams Horticultural Technical Officer Relationship Specialty Start Date End Date Crescencio Camacho MD [address] [place] [phone] PCP - General FAMILY PRACTICE 08/25/16 Fercho Simon MD Vascular/Machine Biller INTERNAL MEDICINE 11/01/15 documented as of this encounter
--- OUTSIDE RECORDS SUMMARY | 2024-03-19 13:07 | XMS_ITS | Encounter Summary ---
Author Organization [facility] Address Counts include [facility] beds at the [facility]6 [facility] [place] [address] [place] [address] Care Team Providers Care Configuration Management Manager Name Role Phone Fercho Simon MD Unavailable Crescencio Camacho MD Primary Care Provider Encounter Details Date Type Department Care Team (Late st Contact Info) Description 05/17/2022 Orders Only [facility] [place] [id number] [facility] 1 [place] [address] Cory Meng, [facility] [address] [place] [address] Social History Tobacco Use Types Packs/Day Years [...] Coronavirus/COVID-19? No / Unsure 04/27/2022 8:05 PM GUT SNATCHER documented as of this encounter Plan of Treatment Not on file documented as of this encounter Results * XR HAND LT 3V (05/18/2022 10:48 AM GUT SNATCHER) Anatomical Region Laterality Modality Hand Radiographic Kristina ging 05/18/2022 11:0 8 AM GUT SNATCHER Impressions 05/18/2022 11:31 AM GUT SNATCHER IMPRESSION: Mild arthritic changes, similar to study 06/22/2021. Vascular calcifications in the soft tissues of the distal forearm. Ordered By: CORY MENG Interpreted By: Chase Pierre MD, 05/18/2022 11:08 AM Narrative 05/18/2022 11:31 AM GUT SNATCHER 05/18/2022, 10:01 AM. HISTORY: Left hand pain and swelling, mostly in the region of the base of the thumb and metacarpal area. EXAM: AP, lateral and oblique views of left hand. Correlation to study 06/22/2021. FINDINGS: Mild osteoarthritis trapezium first metacarpal articulation with minimal marginal spurring at the lateral aspect of the base of the first metacarpal. Mild arthritis at the first, second and third metacarpophalangeal joints with slight joint space narrowing. Mild arthritis at the interphalangeal joint of the thumb, the DIP joint of the index finger and of the fifth finger. No fracture or acute bony abnormality. No gross bone destruction. Small periarticular ossification dorsal to the carpals. Vascular calcifications in the castle of the radial ulnar arteries at the level the distal forearm. The overall appearance has not changed remarkably since the prior study. Procedure Note Chase Pierre MD - 05/18/2022 05/18/2022, 10:01 AM. HISTORY: Left hand pain and swelling, mostly in the region of the base ofthe thumb and metacarpal area. EXAM: AP, lateral and oblique views of left hand. Correlation to study06/22/2021. FINDINGS: Mild osteoarthritis trapezium first metacarpal articulation withminimal marginal spurring at the lateral aspect of the base of the firstmetacarpal. Mild arthritis at the first, second and thirdmetacarpophalangeal joints with slight joint space narrowing. Mildarthritis at the interphalangeal joint of the thumb, the DIP joint of theindex finger and of the fifth finger. No fracture or acute bony abnormality. No gross bone destruction. Smallperiarticular ossification dorsal to the carpals. Vascular calcificationsin the castle of the radial ulnar arteries at the level the distal forearm.The overall appearance has not changed remarkably since the prior study. IMPRESSION: Mild arthritic changes, similar to study 06/22/2021. Vascularcalcifications in the soft tissues of the distal forearm. Ordered By: CORY MENG Interpreted By: Chase Pierre MD, 05/18/2022 11:08 AM us Cory Meng ALCOHOL AND DRUG COUNSELOR-BC GENERAL IMAGING Final Resu lt documented in this encounter Visit Diagnoses Diagnosis Osteoarthritis of left index finger- Primary Osteoarthritis of left middle finger Osteoarthritis of left index finger Osteoarthritis of left middle finger documented in this encounter Care Teams Configuration Management Manager Relationship Specialty Start Date End Date Crescencio Camacho MD [address] [place] [phone] PCP - General FAMILY PRACTICE 08/25/16 Fercho Simon MD Vascular/Logistics Specialist INTERNAL MEDICINE 11/01/15 documented as of this encounter
--- OUTSIDE RECORDS SUMMARY | 2024-03-19 13:07 | XMS_ITS | Encounter Summary ---
Author Organization [facility] Address [address] [place] [address] [place] [address] Care Team Providers Care Middle School Music Teacher Name Role Phone Fercho Simon MD Unavailable Crescencio Camacho MD Primary Care Provider [phone] Reason for Referral * Sleep Lab (Routine) - Closed Specialty Diagnoses / Procedures Referred By Contac t Referred To Contact Diagnoses Sleep apnea Procedures PSG with CPAP/BIPAP ([id number]) Xu Lopez PA [address] [place] [address] Phone: tel: fax: [address] [address] Phone: tel: Referral ID Status Reason Start Date Expiration Date Visits Re quested Visits Authorized [id number] Closed 04/27/2022 07/26/2022 1 1 OR MICROSTRATEGY DEVELOPER Encounter Details Date Type Department Care Team (Late st Contact Info) Description 02/16/2022 Transcribe Orders [facility] Pre Access Team [address] [place] [address] Xu Lopez PA [address] [place] [phone] Social History Tobacco Use Types Packs/Day [...] Coronavirus/COVID-19? No / Unsure 02/09/2022 6:34 PM SENIOR MICROSTRATEGY DEVELOPER documented as of this encounter Plan of Treatment Not on file documented as of this encounter Results * PSG with CPAP/BIPAP ([id number]) (04/27/2022 8:08 PM SENIOR MICROSTRATEGY DEVELOPER) 04/27/2022 8:08 PM SENIOR MICROSTRATEGY DEVELOPER Narrative ESCRIPTION - 04/29/2022 10:56 PM SENIOR MICROSTRATEGY DEVELOPER STUDY PERFORMED: ??Full-night titration. ORDERING PHYSICIAN: ??Xu Lopez A 66-year-old male, body weight 286 pounds, height 5 feet 11 inches, BMI of 40, has a previous diagnosis of severe sleep apnea-hypopnea syndrome based on sleep study from January 2022. ??AHI 49 an hour with the lowest saturation of 67%. ??He has hypertension, snoring, fatigue. . METHOD USED: ?? Standard sleep lab method. SLEEP SUMMARY: ??The patient was monitored from 9:15 p.m. until 5:25 p.m. ??Total time in bed is 490 minutes. ??Sleep time 365 minutes. ?? Sleep onset 32 minutes. ??Sleep efficiency 75%, stage I of 5%, stage 2 of 29%, stage 3 of 31%, stage REM 35%. ??REM latency 189 minutes. ??The patient spent 54% supine. CARDIAC SUMMARY: ??Awake heart rate was 73 beats per minute, average sleep heart rate was 69 beats per minute. MOVEMENT SUMMARY: ??The patient had no periodic limb movements noted. RESPIRATORY SUMMARY: Started on a CPAP per protocol utilizing Leary and Paykel Vitera face mask, large size, pressure of 4 with an AHI of 50 an hour. ??Lowest saturation was 83%. ??Pressure was raised to 8, 12, AHI improved to 13 an hour. ??Lowest saturation was 86%. ??Pressure was raised to 15, continues to have elevated AHI to 18 an hour with the lowest saturation of 84%. Switched to BiPAP due to central apneas and the pressure requirements with BiPAP 19/15 CWP and backup rate of 9. apneas were eliminated. ??There was 2 hypopneas, AHI of 7 an hour with an average saturation of 90%. ??Pressure was raised to BiPAP 21/15 CWP with backup rate of 9. ??All apneas were eliminated. ??There was 1 hypopnea. ??AHI was 1 an hour. ??Saturation was above 89% with an average of 92%. IMPRESSION: ?? Full-night titration, started on CPAP, switched to BiPAP and backup was added due to central apneas, did the best on BiPAP at 21/15 CWP with backup rate of 9. ??AHI was 1, saturation above 89%, no apneas noted. RECOMMENDATIONS: 1. ??It would be reasonable to start the patient at a little high pressure, possibly BiPAP 22/15 CWP with back up rate of 9 utilizing Bi-Flex level 3 via Leary and [employer] Vitera full face mask, large size. Close followup including downloads, [id number] evaluation. 2. ??General recommendation to treat sleep apnea, including weight reduction, assessment to upper airways, and thyroid function. Safety in terms of driving and working around machineries till sleep apnea treated, and hypersomnia resolved, Education about risks and benefits of treating sleep apnea, and close follow up. Avoid sedatives and hypnotics Clinical correlation is required. Ildefonso Leger MD FCCP Diplomate, [place] Board of sleep Medicine D: ??04/28/2022 10:10 PM ??#[id number] T: ??04/28/2022 11:38 PM ??/[place] Procedure Note Yahaira Leger MD - 04/29/2022 STUDY PERFORMED: Full-night titration. ORDERING PHYSICIAN: Xu Lopez A 66-year-old male, body weight 286 pounds, height 5 feet 11 inches, BMI of 40, has a previous diagnosis of severe sleep apnea-hypopnea syndrome based on sleep study from January 2022. AHI 49 an hour with the lowest saturation of 67%. He has hypertension, snoring, fatigue. . METHOD USED: Standard sleep lab method. SLEEP SUMMARY: The patient was monitored from 9:15 p.m. until 5:25 p.m. Total time in bed is 490 minutes. Sleep time 365 minutes. Sleep onset 32 minutes. Sleep efficiency 75%, stage I of 5%, stage 2 of 29%, stage 3 of 31%, stage REM 35%. REM latency 189 minutes. The patient spent 54% supine. CARDIAC SUMMARY: Awake heart rate was 73 beats per minute, average sleep heart rate was 69 beats per minute. MOVEMENT SUMMARY: The patient had no periodic limb movements noted. RESPIRATORY SUMMARY: Started on a CPAP per protocol utilizing Leary and Paykel Vitera face mask, large size, pressure of 4 with an AHI of 50 an hour. Lowest saturation was 83%. Pressure was raised to 8, 12, AHI improved to 13 an hour. Lowest saturation was 86%. Pressure was raised to 15, continues to have elevated AHI to 18 an hour with the lowest saturation of 84%. Switched to BiPAP due to central apneas and the pressure requirements with BiPAP 19/15 CWP and backup rate of 9. apneas were eliminated. There was 2 hypopneas, AHI of 7 an hour with an average saturation of 90%. Pressure was raised to BiPAP 21/15 CWP with backup rate of 9. All apneas were eliminated. There was 1 hypopnea. AHI was 1 an hour. Saturation was above 89% with an average of 92%. IMPRESSION: Full-night titration, started on CPAP, switched to BiPAP and backup was added due to central apneas, did the best on BiPAP at 21/15 CWP with backup rate of 9. AHI was 1, saturation above 89%, no apneas noted. RECOMMENDATIONS: 1. It would be reasonable to start the patient at a little high pressure, possibly BiPAP 22/15 CWP with back up rate of 9 utilizing Bi-Flex level 3 via Leary and Paykel Vitera full face mask, large size. Close followup including downloads, [id number] evaluation. 2. General recommendation to treat sleep apnea, including weightreduction, assessment to upper airways, and thyroid function. Safety in terms of driving and working around machineries till sleep apneatreated, and hypersomnia resolved, Education about risks and benefits of treatingsleep apnea, and close follow up. Avoid sedatives and hypnotics Clinical correlation is required. Ildefonso Leger MD FCCP Diplomate, [place] Board of sleep Medicine #[id number] /[place] [facility] ORDERABLES Final Result ESCRIPTION documented in this encounter Visit Diagnoses Diagnosis Sleep apnea- Primary Unspecified sleep apnea Sleep apnea Unspecified sleep apnea documented in this encounter Care Teams Middle School Music Teacher Relationship Specialty Start Date End Date Crescencio Camacho MD [address] [place] [phone] PCP - General FAMILY PRACTICE 08/25/16 Fercho Simon MD Vascular/Surgical Services Asst INTERNAL MEDICINE 11/01/15 documented as of this encounter
--- OUTSIDE RECORDS SUMMARY | 2024-03-19 13:07 | XMS_ITS | Encounter Summary ---
Author Organization [facility] Address [facility] [facility] [place] [address] [place] [address] Care Team Providers Care Crab Butcher Name Role Phone Ferhco Simon MD Unavailable Crescencio Camacho MD Primary Care Provider [phone] Encounter Details Date Type Department Care Team (Latest Contact Info) Description 01/09/2024 Travel Social History Tobacco Use Types Packs/Day [...] on filedocumented in this encounter Care Teams Crab Butcher Relationship Specialty Start Date End Date Crescencio Camacho MD [address] [place] [address] PCP - General FAMILY PRACTICE 08/25/16 Fercho Simon MD Vascular/Dj Instructor INTERNAL MEDICINE 11/01/15 documented as of this encounter
--- OUTSIDE RECORDS SUMMARY | 2024-03-19 13:07 | XMS_ITS | Encounter Summary ---
Author Organization [facility] Address [facility] [facility] [place], [place] [address] [place] [address] Care Team Providers Care Management Development Specialist Name Role Phone Fercho Simon MD Unavailable Crescencio Camacho MD Primary Care Provider Reason for Referral * Sleep Lab (Routine) - Closed Specialty Diagnoses / Procedures Referred By Contlynne t Referred To Contact Diagnoses Sleep apnea Procedures PSG with CPAP/BIPAP ([id number]) Xu Lopez PA [address] [place] [phone] Phone: tel: fax: [address] [address] Phone: tel: Referral ID Status Reason Start Date Expiration Date Visits Re quested Visits Authorized [id number] Closed 04/27/2022 07/26/2022 1 1 ITUAL CARE COORDINATOR Reason for Visit * Sleep Lab (Routine) - Closed Specialty Diagnoses / Procedures Referred By Contac t Referred To Contact Diagnoses Sleep apnea Procedures PSG with CPAP/BIPAP ([id number]) Xu Lopez PA [address] [place] [phone] Phone: tel: fax: [address] [address] Phone: tel: Referral ID Status Reason Start Date Expiration Date Visits Re quested Visits Authorized [id number] Closed 04/27/2022 07/26/2022 1 1 Encounter Details Date Type Department Care Team (Latest Contact Info) Description 04/27/2022 8:08 PM SPIRITUAL CARE COORDINATOR - 04/27/2022 11:59 PM SPIRITUAL CARE COORDINATOR Hospital Encounter [facility] [address] [place] [address] Xu Lopez PA [address] [place] [address] Discharge Disposition: Home or Self Care (Routine [...] Coronavirus/COVID-19? No / Unsure 04/27/2022 8:05 PM SPIRITUAL CARE COORDINATOR documented as of this encounter Medications at Time of Discharge aspirin 81 MG tablet Take 1 tablet by mouth daily. 05/28/2009 ELIQUIS 2.5 MG tablet TAKE 1 TABLET BY MOUTH TWICE A DAY 180 tablet 3 10/14/2020 HYDROcodone-acet aminophen 5-325 MG tablet Take 1 tablet by mouth every 6 (six) hours as needed. 11/05/2020 HYDROcodone-acet aminophen 5-325 MG tabletIndication s:Acute Pain < 7 Day Supply Take 1 tablet by mouth every 6 (six) hours as needed for Pain. Indications: Acute Pain < 7 Day Supply 20 tablet 05/21/2021 losartan 50 MG tablet Take 1 tablet by mouth daily. 06/04/2015 methylPREDNISolo jonathan, LOU, (MEDROL) 4 MG tabletIndication s:Osteoarthritis of left index finger,Osteoarth ritis of left middle finger Follow package directions 1 each 06/22/2021 simvastatin 40 MG tablet Take 1 tablet by mouth daily. 06/04/2015 tamsulosin 0.4 MG Cap Take 1 capsule (0.4 mg total) by mouth daily. 15 capsule 10/17/2020 venlafaxine 24 hr 75 MG 24 hr capsule Take 1 tablet by mouth daily. 06/04/2015 traMADol 50 MG tablet Take 50 mg by mouth every 6 (six) hours as needed. 11/09/2020 4 documented as of this encounter Plan of Treatment Not on file documented as of this encounter Procedures Procedure Name Priority Date/Time Associated Diagnosis Comments POLYSOMNOGRAPHY 4 OR MORE PARAMETERS WITH CPAP Routine 04/27/2022 8:08 PM SPIRITUAL CARE COORDINATOR Sleep apnea documented in this encounter Results * PSG with CPAP/BIPAP ([id number]) (04/27/2022 8:08 PM SPIRITUAL CARE COORDINATOR) 04/27/2022 8:08 PM SPIRITUAL CARE COORDINATOR Narrative ESCRIPTION - 04/29/2022 10:56 PM SPIRITUAL CARE COORDINATOR STUDY PERFORMED: ??Full-night titration. ORDERING PHYSICIAN: ??Xu Alfa Tejedasonido A 66-year-old male, body weight 286 pounds, [...] mask, large size. Close followup including downloads, [id number] evaluation. 2. ??General recommendation to treat sleep apnea, including weight reduction, assessment to upper airways, and thyroid function. Safety in terms of driving and working around machineries till sleep apnea treated, and hypersomnia resolved, Education about risks and benefits of treating sleep apnea, and close follow up. Avoid sedatives and hypnotics Clinical correlation is required. Ildefonso Leger MD FCCP Diplomate, [place] Board of sleep Medicine D: ??04/28/2022 10:10 PM ??#[id number] T: ??04/28/2022 11:38 PM ??/[place] Procedure Note [...] mask, large size. Close followup including downloads, [id number] evaluation. 2. General recommendation to treat sleep apnea, including weightreduction, assessment to upper airways, and thyroid function. Safety in terms of driving and working around machineries till sleep apneatreated, and hypersomnia resolved, Education about risks and benefits of treatingsleep apnea, and close follow up. Avoid sedatives and hypnotics Clinical correlation is required. Ildefonso Leger MD FCCP Diplomate, [place] Board of sleep Medicine #[id number] /[place] us [facility] ORDERABLES Final Result ESCRIPTION documented in this encounter Visit Diagnoses Diagnosis Sleep apnea Unspecified sleep apnea documented in this encounter Care Teams Management Development Specialist Relationship Specialty Start Date End Date Crescencio Camacho MD [address] [place] [phone] PCP - General FAMILY PRACTICE 08/25/16 Fercho Simon MD Vascular/Analytical Lab Technician INTERNAL MEDICINE 11/01/15 documented as of this encounter
--- OUTSIDE RECORDS SUMMARY | 2024-03-19 13:07 | XMS_ITS | Encounter Summary ---
Author Organization [facility] Address [address] [facility]. [place], [place] [address] [place] [address] Care Team Providers Care Executive Staff Assistant Name Role Phone Fercho Simon MD Unavailable Crescencio Camacho MD Primary Care Provider [phone] Reason for Referral * Sleep Lab (Routine) - Closed Specialty Diagnoses / Procedures Referred By Contac t Referred To Contact Diagnoses Sleep apnea Procedures Sleep Study Unattended (Home Study) ([id number]) Xu Lopez PA [address] [place] [phone] Phone: tel: fax: [address] [address] Phone: tel: Referral ID Status Reason Start Date Expiration Date Visits Re quested Visits Authorized [id number] Closed 01/25/2022 02/26/2023 1 1 UMER LOAN UNDERWRITER Reason for Visit * Sleep Lab (Routine) - Closed Specialty Diagnoses / Procedures Referred By Contac t Referred To Contact Diagnoses Sleep apnea Procedures Sleep Study Unattended (Home Study) ([id number]) Xu Lopez PA [address] [place] [phone] Phone: tel: fax: [address] [address] Phone: tel: Referral ID Status Reason Start Date Expiration Date Visits Re quested Visits Authorized [id number] Closed 01/25/2022 02/26/2023 1 1 Encounter Details Date Type Department Care Team (Latest Contact Info) Description 02/09/2022 6:35 PM CONSUMER LOAN UNDERWRITER - 02/09/2022 11:59 PM CONSUMER LOAN UNDERWRITER Hospital Encounter [facility] [address] [place] [address] Xu Lopez, LISA [address] [place] [phone] Discharge Disposition: Home or Self Care (Routine [...] Coronavirus/COVID-19? No / Unsure 02/09/2022 6:34 PM CONSUMER LOAN UNDERWRITER documented as of this encounter Medications at [...] Take 1 tablet by mouth daily. 06/04/2015 methylPREDNISjeniffer castillo, LOU, (MEDROL) 4 MG tabletIndication s:Osteoarthritis of [...] Procedure Name Priority Date/Time Associated Diagnosis Comments SLEEP STUDY UNATTENDED Routine 02/09/2022 6:35 PM CONSUMER LOAN UNDERWRITER Sleep apnea documented in this encounter Results * Sleep Study Unattended (Home Study) ([id number]) (02/09/2022 6:35 PM CONSUMER LOAN UNDERWRITER) 02/09/2022 6:35 PM CONSUMER LOAN UNDERWRITER Narrative ESCRIPTION - 02/14/2022 9:09 AM CONSUMER LOAN UNDERWRITER HOME SLEEP TESTING ORDERED BY: ??LISA Yusuf INDICATION: ??Snoring, hypertension, to assess for sleep apnea. A 66-year-old male, body weight 286 pounds, height of 5 feet 11 inches, BMI of 40 with snoring, history of hypertension, fatigue. ?? Underwent a sleep study to assess for sleep apnea per home testing protocol. METHOD: ??The [facility] uses the AASM 2012 scoring guidelines for CMS patients and the current recommended guidelines for scoring all other patients. The BIANCA is the Respiratory Event Index (number of apneas and hypopneas/recording time. ??The home portable monitoring device used was a [employer] ApneaLink Air. ??This uses a nasal cannula that measures air flow (can detect snoring), one respiratory effort channel, pulse oximetry, and heart rate. ??There is no EEG recording for sleep stage scoring. SLEEP SUMMARY: ??The patient was monitored for a total of 469 minutes. CARDIAC SUMMARY: ??Average heart rate was 68 beats per minute. RESPIRATORY SUMMARY: ??The patient was noted to have 315 obstructive apneas, 4 central apneas, 68 hypopneas with PAYAN/AHI of 49 an hour. ?? Lowest saturation was 67%. ??The patient spent 39% of sleep time with a saturation below 90%. IMPRESSION: ??Severe sleep apnea-hypopnea syndrome with PAYAN/AHI of 49 an hour and lowest saturation of 67%. RECOMMENDATIONS: 1. ??Further evaluation and clinical correlation is required. ??The patient needs full-night titration to assure that the above sleep apnea is controlled and oxygen saturation is normalized. ??Meanwhile, needs to be initiated on AutoPAP, possibly with a range of 5-20 CWP. ?? Close followup including downloads, aweo-[id number] evaluation. 2. General recommendation to treat sleep apnea, including weight reduction, assessment to upper airways, and thyroid function. Safety in terms of driving and working around machineries till sleep apnea treated, and hypersomnia resolved, Education about risks and benefits of treating sleep apnea, and close follow up. Avoid sedatives and hypnotics Clinical correlation is required. Ildefonso Leger MD FCCP Diplomate, [place] Board of sleep Medicine D: ??02/13/2022 03:26 PM ??#[id number] T: ??02/13/2022 08:56 PM ??/[facility] Procedure Note Yahaira Leger MD - 02/14/2022 HOME SLEEP TESTING ORDERED BY: LISA Yusuf INDICATION: Snoring, hypertension, to assess for sleep apnea. A 66-year-old male, body weight 286 pounds, height of 5 feet 11 inches, BMI of 40 with snoring, history of hypertension, fatigue. Underwent a sleep study to assess for sleep apnea per home testing protocol. METHOD: The [facility] uses the AASM 2012 scoring guidelines for CMS patients and the current recommended guidelines for scoring all other patients. The BIANCA is the Respiratory Event Index (number of apneas and hypopneas/recording time. The home portable monitoring device used was a [employer] ApneaLink Air. This uses a nasal cannula that measures air flow (can detect snoring), one respiratory effort channel, pulse oximetry, and heart rate. There is no EEG recording for sleep stage scoring. SLEEP SUMMARY: The patient was monitored for a total of 469 minutes. CARDIAC SUMMARY: Average heart rate was 68 beats per minute. RESPIRATORY SUMMARY: The patient was noted to have 315 obstructive apneas, 4 central apneas, 68 hypopneas with PAYAN/AHI of 49 an hour. Lowest saturation was 67%. The patient spent 39% of sleep time with a saturation below 90%. IMPRESSION: Severe sleep apnea-hypopnea syndrome with PAYAN/AHI of 49 an hour and lowest saturation of 67%. RECOMMENDATIONS: 1. Further evaluation and clinical correlation is required. The patient needs full-night titration to assure that the above sleep apnea is controlled and oxygen saturation is normalized. Meanwhile, needs to be initiated on AutoPAP, possibly with a range of 5-20 CWP. Close followup including downloads, [id number]-mi-sekf evaluation. 2. General recommendation to treat sleep apnea, including weightreduction, assessment to upper airways, and thyroid function. Safety in terms of driving and working around machineries till sleep apneatreated, and hypersomnia resolved, Education about risks and benefits of treatingsleep apnea, and close follow up. Avoid sedatives and hypnotics Clinical correlation is required. Ildefonso Leger MD FCCP Diplomate, [place] Board of sleep Medicine #[id number] /[facility] ORDERABLES Final Result ESCRIPTION documented in this encounter Visit Diagnoses Diagnosis Sleep apnea Unspecified sleep apnea documented in this encounter Care Teams Executive Staff Assistant Relationship Specialty Start Date End Date Crescencio Camacho MD [address] [place] [phone] PCP - General FAMILY PRACTICE 08/25/16 Fercho Simon MD Vascular/Compliance Reviewer INTERNAL MEDICINE 11/01/15 documented as of this encounter
--- OUTSIDE RECORDS SUMMARY | 2024-03-19 13:07 | XMS_ITS | Encounter Summary ---
Author Organization [facility] Address [facility] [facility] [place] [address] [place] [address] Care Team Providers Care Correctional Therapy Teacher Name Role Phone Fercho Simon MD Unavailable Crescencio Camacho MD Primary Care Provider [phone] Encounter Details Date Type Department Care Team (Late st Contact Info) Description 05/18/2022 10:45 AM PET SUPPLIES SALESPERSON - 05/18/2022 11:59 PM PET SUPPLIES SALESPERSON Hospital Encounter [facility] [address] [place] [address] Cory Meng, [facility]- [address] [place] [address] Discharge Disposition: Home or Self Care (Routine [...] Coronavirus/COVID-19? No / Unsure 05/18/2022 10:43 AM PET SUPPLIES SALESPERSON documented as of this encounter Medications at Time of Discharge aspirin 81 MG tablet Take 1 tablet by mouth daily. 05/28/2009 ELIQUIS 2.5 MG tablet TAKE 1 TABLET BY MOUTH TWICE A DAY 180 tablet 3 10/14/2020 HYDROcodone-acetamin ophen 5-325 MG tablet Take 1 tablet by mouth every 6 (six) hours as needed. 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 Vascular calcifications in the soft tissues of the distal forearm. Ordered By: CORY MENG Interpreted By: Chase Pierre MD, 05/18/2022 11:08 AM Narrative 05/18/2022 11:31 AM PET SUPPLIES SALESPERSON 05/18/2022, 10:01 AM. 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
--- OUTSIDE RECORDS SUMMARY | 2024-03-19 13:07 | XMS_ITS | Encounter Summary ---
Author Organization [facility] Address Critical access hospital6 [facility] [place] [address] [place] [address] Care Team Providers Care Pan Cleaner Name Role Phone Fercho Simon MD Unavailable Crescencio Camacho MD Primary Care Provider [phone] Encounter Details Date Type Department Care Team (Latest Contact Info) Description 05/18/2022 Travel Social History Tobacco Use Types Packs/Day [...] Coronavirus/COVID-19? No / Unsure 05/18/2022 10:43 AM PRODUCT TESTER documented as of this encounter Plan of Treatment Not on file documented as of this encounter Visit Diagnoses Not on filedocumented in this encounter Care Teams Pan Cleaner Relationship Specialty Start Date End Date Crescencio Camacho MD [address] [place] [phone] PCP - General FAMILY PRACTICE 08/25/16 Fercho Simon MD Vascular/Ekg Tech INTERNAL MEDICINE 11/01/15 documented as of this encounter
--- OUTSIDE RECORDS SUMMARY | 2024-03-19 13:07 | XMS_ITS | Encounter Summary ---
Author Organization [facility] Address [facility]6 [facility] [place] [address] [place] [address] Care Team Providers Care Script Writer Name Role Phone Fercho Simon MD Unavailable Crescencio Camacho MD Primary Care Provider Encounter Details Date Type Department Care Team (Latest Contact Info) Description 06/22/2021 Travel Social History Tobacco Use Types Packs/Day [...] suspected to have Coronavirus/COVID-19? No / Unsure 06/22/2021 8:39 AM CDT documented as of this encounter Plan of Treatment Not on file documented as of this encounter Visit Diagnoses Not on filedocumented in this encounter Care Teams Script Writer Relationship Specialty Start Date End Date Crescencio Camacho MD [address] [place] [phone] PCP - General FAMILY PRACTICE 08/25/16 Fercho Simon MD Vascular/Is Project Manager INTERNAL MEDICINE 11/01/15 documented as of this encounter
--- OUTSIDE RECORDS SUMMARY | 2024-03-19 13:07 | XMS_ITS | Encounter Summary ---
Author Organization [facility] Address Pending sale to [facility]6 [facility] [place] [address] [place] [address] Care Team Providers Care Economics Department Chair Name Role Phone Fercho Simon MD Unavailable Crescencio Camacho MD Primary Care Provider Encounter Details Date Type Department Care Team (Late st Contact Info) Description 02/01/2022 Transcribe Orders [facility] Pre Access Team [address] [place] [address] Xu Lopez, PA [address] [place] [address] Social History Tobacco Use Types [...] on filedocumented in this encounter Care Teams Economics Department Chair Relationship Specialty Start Date End Date Crescencio Camacho MD [address] [place] [phone] PCP - General FAMILY PRACTICE 08/25/16 Fercho Simon MD Vascular/Promotions Associate INTERNAL MEDICINE 11/01/15 documented as of this encounter
--- OUTSIDE RECORDS SUMMARY | 2024-03-19 13:07 | XMS_ITS | Encounter Summary ---
Author Organization [facility] Address [facility] [place] [address] [place] [address] Care Team Providers Care Manager Cardiology Name Role Phone Fercho Simon MD Unavailable Crescencio Camacho MD Primary Care Provider Encounter Details Date Type Department Care Team (Late st Contact Info) Description 06/22/2021 9:04 AM CDT - 06/22/2021 11:59 PM CDT Hospital Encounter [facility] Diagnostic [facility] [address] [place] [address] Cory Meng, [facility]- [address] [facility] [place] [address] Discharge Disposition: Home or Self Care (Routine [...] AM CDT documented as of this encounter Medications at [...] 1 tablet by mouth daily. 06/04/2015 methylPREDNISolo LOU castillo, (MEDROL) 4 MG tabletIndication s:Osteoarthritis of left [...] every 6 (six) hours as needed. 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 Ordered By: CORY MENG Interpreted By: Tereso Childers MD, 06/22/2021 2:34 PM Narrative 06/22/2021 2:35 PM CDT Examination: Left hand. Exam time: 0826 hours. Clinical history: Chronic pain. Comparison: 01/03/2021. Technique: Three views. Findings: No fracture, dislocation or other acute bony abnormality is identified. ??Minimal osteoarthritic changes are again evident. No other significant bone or joint abnormality is noted.There are no findings to suggest an inflammatory arthritis. The soft tissues are unremarkable. Procedure Note Tereso Childers MD - 06/22/2021 Examination: Left hand. Exam time: 0826 hours. Clinical history: Chronic pain. Comparison: 01/03/2021. Technique: Three views. Findings: No fracture, dislocation or other acute bony abnormality isidentified. Minimal osteoarthritic changes are again evident. No othersignificant bone or joint abnormality is noted.There are no findings tosuggest an inflammatory arthritis. The soft tissues are unremarkable. IMPRESSION: No acute findings. 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
--- OUTSIDE RECORDS SUMMARY | 2024-03-19 13:07 | XMS_ITS | Encounter Summary ---
Author Organization [facility] Address [address] [place] [address] [place] [address] Care Team Providers Care Foundation Coordinator Name Role Phone Fercho Simon MD Unavailable Crescencio Camacho MD Primary Care Provider Reason for Referral * Sleep Lab (Routine) - Closed Specialty Diagnoses / Procedures Referred By Contac t Referred To Contact Diagnoses Sleep apnea Procedures Sleep Study Unattended (Home Study) ([id number]) Xu Lopez PA [address] [place] [address] Phone: tel: fax: [address] [address] Phone: tel: Referral ID Status Reason Start Date Expiration Date Visits Re quested Visits Authorized [id number] Closed 01/25/2022 02/26/2023 1 1 Encounter Details Date Type Department Care Team (Late st Contact Info) Description 01/25/2022 Transcribe Orders [facility] Pre Access Team [address] [place], [place] [id number] Xu Lopez PA [address] [place] [phone] (Fax) Social History Tobacco Use Types Packs/Day Years [...] Coronavirus/COVID-19? No / Unsure 02/09/2022 6:34 PM OPERATIONS VICE PRESIDENT documented as of this encounter Plan of Treatment Not on file documented as of this encounter Results * Sleep Study Unattended (Home Study) ([id number]) (02/09/2022 6:35 PM OPERATIONS VICE PRESIDENT) 02/09/2022 6:35 PM OPERATIONS VICE PRESIDENT Narrative ESCRIPTION - 02/14/2022 9:09 AM OPERATIONS VICE PRESIDENT HOME SLEEP TESTING ORDERED BY: ??LISA Yusuf INDICATION: ??Snoring, hypertension, to assess for sleep apnea. A 66-year-old male, body weight 286 pounds, height of 5 feet 11 inches, BMI of 40 with snoring, history of hypertension, fatigue. ?? Underwent a sleep study to assess for sleep apnea per home testing protocol. METHOD: ??The [facility] uses the AASM 2012 scoring guidelines for CMS patients and the current recommended guidelines for scoring all other patients. The BIANCA is the Respiratory Event Index (number of apneas and hypopneas/recording time. ??The home portable monitoring device used was a [employer] Air. ??This uses a nasal cannula that [...] 5-20 CWP. ?? Close followup including downloads, [id number] evaluation. 2. General recommendation to treat sleep apnea, including weight reduction, assessment to upper airways, and thyroid function. Safety in terms of driving and working around machineries till sleep apnea treated, and hypersomnia resolved, Education about risks and benefits of treating sleep apnea, and close follow up. Avoid sedatives and hypnotics Clinical correlation is required. Ildefonso Leger MD [facility] Diplomate, [place] Board of sleep Medicine D: ??02/13/2022 03:26 PM ??#[id number] T: ??02/13/2022 08:56 PM ??/PUS Procedure Note Yaahira Leger MD - 02/14/2022 HOME SLEEP TESTING ORDERED BY: LISA Yusuf INDICATION: Snoring, hypertension, to assess for sleep apnea. A 66-year-old male, body weight 286 pounds, height of 5 feet 11 inches, BMI of 40 with snoring, history of hypertension, fatigue. Underwent a sleep study to assess for sleep apnea per home testing protocol. METHOD: The [facility] uses the AASM 2012 scoring guidelines for CMS patients and the current recommended guidelines for scoring all other patients. The BIANCA is the Respiratory Event Index (number of apneas and hypopneas/recording time. The home portable monitoring device used was a [employer] Air. This uses a nasal cannula that [...] of 5-20 CWP. Close followup including downloads, [id number] evaluation. 2. General recommendation to treat sleep apnea, including weightreduction, assessment to upper airways, and thyroid function. Safety in terms of driving and working around machineries till sleep apneatreated, and hypersomnia resolved, Education about risks and benefits of treatingsleep apnea, and close follow up. Avoid sedatives and hypnotics Clinical correlation is required. Ildefonso Leger MD FCCP Diplomate, [place] Board of sleep Medicine #[id number] /PUS [facility] ORDERABLES Final Result ESCRIPTION documented in this encounter Visit Diagnoses Diagnosis Sleep apnea- Primary Unspecified sleep apnea Sleep apnea Unspecified sleep apnea documented in this encounter Care Teams Foundation Coordinator Relationship Specialty Start Date End Date Crescencio Camacho MD [address] [place] [phone] PCP - General FAMILY PRACTICE 08/25/16 Fercho Simon MD Vascular/Hydraulics Teacher INTERNAL MEDICINE 11/01/15 documented as of this encounter
--- OUTSIDE RECORDS SUMMARY | 2024-03-19 13:08 | XMS_ITS | Encounter Summary ---
Author Organization [facility] Address [facility]6 [facility] [address] [place] [address] Care Team Providers Care Electrical Troubleshooter Name Role Phone Fercho Simon MD Unavailable Crescencio Camacho MD Primary Care Provider [phone] Encounter Details Date Type Department Care Team (Late st Contact Info) Description 06/22/2021 Orders Only [facility] [address] [place] [address] Cory Meng, [address] [place] [address] Social History Tobacco Use Types Packs/Day Years [...] MD, 06/22/2021 2:34 PM us Cory Meng STOCK CONTROLL[employer] Final Resu lt documented in this encounter Visit Diagnoses Diagnosis Osteoarthritis of left index finger- Primary 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
--- OUTSIDE RECORDS SUMMARY | 2024-03-19 13:08 | XMS_ITS | Encounter Summary ---
Author Organization [facility] Address [address] [place] [address]. [place] [address] [place] [address] Care Team Providers Care Doughmaker Name Role Phone Fercho Simon MD Unavailable Crescencio Camacho MD Primary Care Provider Reason for Visit * Reason Comments Hand Pain LEFT Encounter Details Date Type Department Care Team (Late st Contact Info) Description 06/22/2021 9:15 AM CDT Office Visit [facility] [address], [facility] [address] [place] [address] Claire Meng, [facility]- [address] [facility] [place] [phone] Hand Pain (LEFT) Social History Tobacco Use [...] AM CDT documented as of this encounter Last Filed Vital Signs Vital Sign Reading Time Taken Comments Blood Pressure - - Pulse - - Temperature - - Respiratory Rate - - Oxygen Saturation - - Inhaled Oxygen Concentration - - Weight 129.7 kg (286 lb) 06/22/2021 9:08 AM CDT Height 180.3 cm (5' 11 ) 06/22/2021 9:08 AM CDT Body Mass Index 39.89 06/22/2021 9:08 AM CDT documented in this encounter Progress Notes * Claire Meng, DOCUMENTATION ENGINEER-BC - 06/22/2021 9:15 AM CDT Chief Complaint: Hand Pain (LEFT) History of Present Illness: Arsh Guerrero is a 65-year-old male who presents to the office for Hand Pain (LEFT) Patient is in clinic today for pain [...] is retired and is RIGHT hand dominant. PREVIOUS HISTORY 01-03-2022 Patient comes in to clinic today with with complaints of pain in his LEFT 2nd and 3rd fingers at the MCP. He reports swelling and pain that began a couple weeks ago. He reports difficulty and increase pain with making a fist and grasping objects. He has history of inj ections to his LEFT fingers on 03/18/2020. He reports relief for approximately 6 months. He denies any fever or redness to his LEFT hand. He is RIGHT hand dominant. ?? Previous HPI: 03/18/2021 Patient is here for Left hand pain??that started about 2 weeks ago.??He denies any known??injury. ??His pain is on the top of his hand at the 2nd and 3rd knuckles.??His pain increases with movement. He reports that he does have some swelling in his hand that has gone down some since his pain started. He denies any redness or warmth.??He can not make a fist due to the pain and stiffness.??His painwill occasionally waken him at night. He denies numbness and tingling.??He denies any therapy or injections.??He??takes Tylenol as necessary.??He is unable to take NSAIDs due to history of Eliquis. He is RIGHT handed. 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 ROS: See HPI for pertinent positives Problem List: Patient Active Problem List Diagnosis ??? DVT (deep venous thrombosis) (CMS/HCC) ??? Hx of CABG ??? CAD (coronary artery disease) ??? Localized edema ??? History of DVT (deep vein thrombosis) ??? Essential hypertension ??? Hyperlipidemia, unspecified hyperlipidemia type ??? Lower extremity edema ??? group home current use of anticoagulant therapy ??? Monitoring [...] right elbow ??? Enchondroma of right humerus History: Past Medical History: Diagnosis Date ??? [...] Social History Socioeconomic History ??? Marital status: Spouse name: Not on file ??? Number of children: 4 ??? Years of education: Not on file ??? Highest education level: Not on file Occupational History ??? Occupation: Retired Tobacco Use ??? Smoking status: Never Smoker ??? Smokeless tobacco: Never Used Vaping Use ??? Vaping Use: Never used Substance and Sexual Activity ??? Alcohol use: No ??? Drug use: No ??? Sexual activity: Not on file Other Topics Concern ??? Exercise No ??? Special Diet No ??? Caffeine Concern No ??? Service No ??? Blood Transfusions Yes ??? Occupational Exposure No ??? Hobby Hazards No ??? Sleep Concern No ??? Stress Concern No ??? Weight Concern No ??? Back Care No ??? Bike Helmet No ??? Seat Belt Yes ??? Self-Exams Yes Social History Narrative ??? Not on file Social Determinants of Health Financial Resource Strain: Not on file Food Insecurity: Not on file Transportation Needs: Not on file Physical Activity: Not on file Stress: Not on file Social Connections: Not on file Intimate Partner Violence: Not on file Medications: Current Outpatient Medications: ??? aspirin 81 MG tablet, Take 1 tablet by mouth daily., Disp: , Rfl: ??? ELIQUIS 2.5 MG tablet, TAKE 1 TABLET BY MOUTH TWICE A DAY, Disp: 180 tablet, Rfl: 3 ??? HYDROcodone-acetaminophen 5-325 MG tablet, Take 1 tablet by mouth every 6 (six) hours as needed., Disp: , Rfl: ??? losartan 50 MG tablet, Take 1 [...] by mouth daily., Disp: , Rfl: ??? HYDROcodone-acetaminophen 5-325 MG tablet, Take 1 tablet by mouth every 6 (six) hours as neededfor Pain. Indications: Acute Pain < 7 Day Supply, Disp: 20 tablet, Rfl: 0 No Known Allergies Objective: Body mass index is 39.89 kg/m??. Last Recorded Weight 06/22/21 09 Weight: 129.7 kg (286 lb) Physical exam: Constitutional: Alert and in no acute distress. Neurological: The patient was oriented to person, place, and time. Eyes: The sclera and conjunctiva were normal ENT: Hearing was normal. Neck: The appearance of the neck was normal. Cardiovascular: Normal pulses. Pulmonary: No respiratory distress. Skin: No injuries or skin lesion. Musculoskeletal: EXAM of LEFT hand today reveals diffuse tenderness over 2nd and 3rd MCP joints with palpation, no redness or warmth, mild swelling over 2nd and 3rd MCP joints, unable to make a fist secondary to pain, good wrist range of motion, good capillary refill, able to flex and extend 2nd and 3rd fingers actively, stiff range of motion, palpable radial pulse. Results: XRAY of LEFT hand today reveals mild degenerative changes greatest at 2nd and 3rd MCP joints with no acute or healing bony injury or dislocations. Procedure: Procedure: Injection of the 2nd and [...] were no complications. Follow-up in the office as needed. Assessment: Encounter Diagnose(s) ICD-10-CM ICD-9-CM SNOMED CT(R) 1. Osteoarthritis of left index finger M19.042 715.94 OSTEOARTHRITIS OF FINGER JOINT OF LEFT HAND methylPREDNISolone acetate (DEPO-Medrol) injection 80 mg lidocaine (XYLOCAINE) 1 % injection SOLN 1 mL methylPREDNISolone, LOU, (MEDROL) 4 MG tablet 2. Osteoarthritis of left middle finger M19.042 715.94 OSTEOARTHRITIS OF FINGER JOINT OF LEFT HAND methylPREDNISolone acetate (DEPO-Medrol) injection 80 mg lidocaine (XYLOCAINE) 1 % injection SOLN 1 mL methylPREDNISolone, LOU, (MEDROL) 4 MG tablet Plan: Patient has had previous injections to his second and third MCP joints with good relief. I have recommended proceeding with another cortisone injection which was given in the office today and tolerated well. I have also provided him a Medrol Dosepak to assist with pain as well. Activity as tolerated. He is aware that he may receive these injections every 3 months as needed. He will follow-up as ne clotildeed. Follow up: Return if symptoms worsen or fail to improve. JORGE DANIEL documented in this encounter Plan of Treatment Not on file documented as of this encounter Visit Diagnoses Diagnosis Osteoarthritis of left index finger- Primary Osteoarthritis of left middle finger documented in this encounter Administered Medications Inactive Administered Medications - up to 3 most recent administrations Medication Order MAR Action Action Date Dose Rate Site lidocaine (XYLOCAINE) 1 % injection SOLN 1 mL 1 mL, Other, Once, 1 dose, On Sun06/22/21 at 1030Indications:Osteoarthritis of left index finger,Osteoarthritis of left middle finger Given 06/22/2021 10:02 AM CDT 1 mL methylPREDNISolone acetate (DEPO-Medrol) injection 80 mg 80 mg, Other, Once, 1 dose, On Sun06/22/21 at 1030, [place] WellIndications:Osteoarthritis of left index finger,Osteoarthritis of left middle finger Given 06/22/2021 10:03 AM CDT 80 mg documented in this encounter Care Teams Doughmaker Relationship Specialty Start Date End Date Crescencio Camacho MD [address] [place] [phone] PCP - General FAMILY PRACTICE 08/25/16 Fercho Simon MD Vascular/Tubular Riveter INTERNAL MEDICINE 11/01/15 documented as of this encounter
--- OUTSIDE RECORDS SUMMARY | 2024-03-19 13:09 | XMS_ITS | Encounter Summary ---
Author Organization [facility] Address [facility], [facility] [facility] [place] [address] [place] [address] Care Team Providers Care Content Editor Name Role Phone Fercho Simon MD Unavailable Crescencio Camacho MD Primary Care Provider [phone] Encounter Details Date Type Department Care Team (Latest Contact Info) Description 09/20/2020 Travel Social History Tobacco Use Types Packs/Day [...] Exposure Response Date Recorded In the last month, have you been in contact with someone who was confirmed or suspected to have Coronavirus / COVID-19? Yes 09/20/2020 11:45 AM CDT documented as of this encounter Plan of Treatment Not on file documented as of this encounter Visit Diagnoses Not on filedocumented in this encounter Additional Health Concerns Infection Onset Date Last Indicated Resolved Time COVID-19 Confirmed 09/04/2020 09/04/2020 12:32 AM CDT documented as of this encounter Care Teams Content Editor Relationship Specialty Start Date End Date Crescencio Camacho MD [address] [place] [phone] PCP - General FAMILY PRACTICE 08/25/16 Fercho Simon MD Vascular/Contact Lens Molder INTERNAL MEDICINE 11/01/15 documented as of this encounter
--- OUTSIDE RECORDS SUMMARY | 2024-03-19 13:09 | XMS_ITS | Encounter Summary ---
Author Organization [facility] Address [facility] [place] [address] [place] [address] Care Team Providers Care Truck Dock Material Mover Name Role Phone Fercho Simon MD Unavailable Crescencio Camacho MD Primary Care Provider Encounter Details Date Type Department Care Team (Latest Contact Info) Description 10/17/2020 Travel Social History Tobacco Use Types Packs/Day [...] or suspected to have Coronavirus / COVID-19? No / Unsure 10/17/2020 7:46 AM CDT documented as of this encounter Plan of Treatment Not on file documented as of this encounter Visit Diagnoses Not on filedocumented in this encounter Care Teams Truck Dock Material Mover Relationship Specialty Start Date End Date Crescencio Camacho MD [address] [place] [phone] PCP - General FAMILY PRACTICE 08/25/16 Fercho Simon MD Vascular/Landcare Facilitator INTERNAL MEDICINE 11/01/15 documented as of this encounter
--- OUTSIDE RECORDS SUMMARY | 2024-03-19 13:09 | XMS_ITS | Encounter Summary ---
Author Organization [facility] Address [facility]6 [facility] [address] [place] [address] Care Team Providers Care Personal Caregiver Name Role Phone Fercho Simon MD Unavailable Crescencio Camacho MD Primary Care Provider Encounter Details Date Type Department Care Team (Late st Contact Info) Description 01/03/2021 11:07 AM CDT - 01/03/2021 11:59 PM CDT Hospital Encounter [facility] [address] [place] [address] Cory Meng, [facility]- [address] [facility] [place] [address] Discharge Disposition: Home or Self Care (Routine [...] have Coronavirus / COVID-19? No / Unsure 01/03/2021 10:39 AM CDT documented as of this encounter Medications at Time of Discharge aspirin 81 MG tablet Take 1 tablet by mouth daily. 05/28/2009 ELIQUIS 2.5 MG tablet TAKE 1 TABLET BY MOUTH TWICE A DAY 180 tablet 3 10/14/2020 HYDROcodone-aceta minophen 5-325 MG tablet Take 1 tablet by mouth every 6 (six) hours as needed. 11/05/2020 losartan 50 MG tablet Take 1 tablet by mouth daily. 06/04/2015 simvastatin 40 MG tablet Take 1 tablet by mouth daily. 06/04/2015 tamsulosin 0.4 MG Cap Take 1 capsule (0.4 mg total) by mouth daily. 15 capsule 10/17/2020 venlafaxine 24 hr 75 MG 24 hr capsule Take 1 tablet by mouth daily. 06/04/2015 traMADol 50 MG tablet Take 50 mg by mouth every 6 (six) hours as needed. 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 Referred By: CORY MENG Interpreted By: Tereso Childers MD, 01/03/2021 4:45 PM Narrative 01/03/2021 4:47 PM CDT Examination: Left hand. Exam time: 1033 hours. Clinical history: Pain and swelling. No known injury. Comparison: 03/18/2020. Technique: Three views. Findings: No fracture, dislocation or other acute bony abnormality is identified. ??Mild osteoarthritic changes are again evident involving the first MCP and second DIP joints. No other significant bone or joint abnormality is noted.There are no findings to suggest an inflammatory arthritis. The soft tissues are unremarkable. Procedure Note Tereso Childers MD - 01/03/2021 Examination: Left hand. Exam time: 1033 hours. Clinical history: Pain and swelling. No known injury. Comparison: 03/18/2020. Technique: Three views. Findings: No fracture, dislocation or other acute bony abnormality isidentified. Mild osteoarthritic changes are again evident involving thefirst MCP and second DIP joints. No other significant bone or jointabnormality is noted.There are no findings to suggest an inflammatoryarthritis. The soft tissues are unremarkable. IMPRESSION: No acute findings. 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
--- OUTSIDE RECORDS SUMMARY | 2024-03-19 13:09 | XMS_ITS | Encounter Summary ---
Author Organization [facility] Address [facility] [place] [address] [place] [address] Care Team Providers Care Risk Manager Name Role Phone Fercho Simon MD Unavailable Crescencio Camacho MD Primary Care Provider [phone] Reason for Visit * Reason Onset Date Comments Referral 10/08/2020 Dr. Buchanan in [facility] on 11/05/20 @ 11:30 am Encounter Details Date Type Department Care Team (Late st Contact Info) Description 10/08/[address], [place] [address] Carlos Garzon, tip finisher (Dr. Buchanan in [place] on 11/05/20 @ 11:30 am) Social History Tobacco Use Types Packs/Day Years [...] have Coronavirus / COVID-19? No / Unsure 10/07/2020 1:54 PM CDT documented as of this encounter Progress Notes * Carlos Garzon RN - 10/08/2020 12:08 PM CDT Notified patient of referral to Dr. Buchanan in the [place] office on 11/05/20 @ 11:30 am. documented in this encounter Plan of Treatment Not on file documented as of this encounter Visit Diagnoses Not on filedocumented in this encounter Care Teams Risk Manager Relationship Specialty Start Date End Date Crescencio Camacho MD [address] [place] [phone] PCP - General FAMILY PRACTICE 08/25/16 Fercho Simon MD Vascular/Chair Lift Operator INTERNAL MEDICINE 11/01/15 documented as of this encounter
--- OUTSIDE RECORDS SUMMARY | 2024-03-19 13:09 | XMS_ITS | Encounter Summary ---
Author Organization [facility] Address [address] [place] [address]. [place] [address] [place] [address] Care Team Providers Care Char Conveyor Tender Name Role Phone Fercho Simon MD Unavailable Crescencio Camacho MD Primary Care Provider Encounter Details Date Type Department Care Team (Late st Contact Info) Description 10/01/2020 Orders Only [facility] [place] [id number] [facility] [address] [place] [address] Cory Meng, [facility]- [address] [facility] [place] [address] Social History Tobacco Use Types Packs/Day Years [...] have Coronavirus / COVID-19? No / Unsure 09/24/2020 1:22 PM CDT documented as of this encounter Plan of Treatment Not on file documented as of this encounter Results * XR ELBOW RT M3V (10/07/2020 2:26 PM CDT) Anatomical Region Laterality Modality Elbow Radiographic Kristina ging 10/07/2020 2:58 PM CDT Impressions 10/07/2020 3:01 PM CDT IMPRESSION: Arthritic changes. No definite acute fracture. Referred By: CORY MENG Interpreted By: Chase Pierre MD, 10/07/2020 2:58 PM Narrative 10/07/2020 3:01 PM CDT 10/07/2020, 1328 hours. HISTORY: Right elbow pain. EXAM: AP, lateral and oblique views of the right elbow. No comparison. FINDINGS: Arthritis right elbow with narrowing of the radiocapitellar joint, marginal spurring about the joint and at the head neck junction of the radius and a small well-corticated periarticular ossification at the medial aspect of the joint. There is a periarticular calcification adjacent to the lateral humeral epicondyle. No fracture. No gross bone destruction. No remarkable joint effusion. Procedure Note Chase Pierre MD - 10/07/2020 10/07/2020, 1328 hours. HISTORY: Right elbow pain. EXAM: AP, lateral and oblique views of the right elbow. No comparison. FINDINGS: Arthritis right elbow with narrowing of the radiocapitellarjoint, marginal spurring about the joint and at the head neck junction ofthe radius and a small well-corticated periarticular ossification at themedial aspect of the joint. There is a periarticular calcificationadjacent to the lateral humeral epicondyle. No fracture. No gross bonedestruction. No remarkable joint effusion. IMPRESSION: Arthritic changes. No definite acute fracture. Referred By: CORY MENG Interpreted By: Chase Pierre MD, 10/07/2020 2:58 PM Cory Meng AUTOMATION LEAD-[facility] GENERAL [facility] Final Resu lt documented in this encounter Visit Diagnoses Diagnosis Right elbow pain- Primary Pain in joint, upper arm Right elbow pain Pain in joint, upper arm Acute pain of right shoulder documented in this encounter Care Teams Char Conveyor Tender Relationship Specialty Start Date End Date Crescencio Camacho MD [address] [place] [phone] PCP - General FAMILY PRACTICE 08/25/16 Fercho Simon MD Vascular/Therapy Technician INTERNAL MEDICINE 11/01/15 documented as of this encounter
--- OUTSIDE RECORDS SUMMARY | 2024-03-19 13:09 | XMS_ITS | Encounter Summary ---
Author Organization [facility] Address [facility]6 [facility] [place] [address] [place] [address] Care Team Providers Care Deputy Administrator Name Role Phone Fercho Simon MD Unavailable Crescencio Camacho MD Primary Care Provider Reason for Referral * Imaging (Routine) - Closed Specialty Diagnoses / Procedures Referred By Contac t Referred To Contact RADIOLOGY Diagnoses Pneumonia due to COVID-[address] CHEST WO CON Xu Garcia PA [address] [place] [address] Phone: tel: fax: Referral ID Status Reason Start Date Expiration Date Visits Re quested Visits Authorized [id number] Closed 09/21/2020 10/21/2021 1 1 Reason for Visit * Imaging (Routine) - Closed Specialty Diagnoses / Procedures Referred By Contac ozzie Referred To Contact RADIOLOGY Diagnoses Pneumonia due to COVID-[address] CHEST WO CON Xu Garcia PA [address] [place] [address] Phone: tel: fax: Referral ID Status Reason Start Date Expiration Date Visits Re quested Visits Authorized [id number] Closed 09/21/2020 10/21/2021 1 1 Encounter Details Date Type Department Care Team (Latest Contact Info) Description 09/24/2020 1:25 PM CDT - 09/24/2020 11:59 PM CDT Hospital Encounter [facility] [place] [address] [facility] [address] Xu Garcia PA [address] [place] [address] Discharge Disposition: Home or Self Care (Routine [...] PM CDT documented as of this encounter Medications at Time of Discharge aspirin 81 MG tablet Take 1 tablet by mouth daily. 05/28/2009 losartan 50 MG tablet Take 1 tablet by mouth daily. 06/04/2015 simvastatin 40 MG tablet Take 1 tablet by mouth daily. 06/04/2015 venlafaxine 24 hr 75 MG 24 hr capsule Take 1 tablet by mouth daily. 06/04/2015 albuterol sulfate HFA 108 (90 Base) MCG/ACT inhaler Inhale 2 puffs into the lungs 4 (four) times daily as needed. 09/20/2020 01/03/2021 cyclobenzaprine 10 MG tablet Take 1 tablet (10 mg total) by mouth 3 (three) times daily as needed. 30 tablet 08/22/2020 01/03/2021 ELIQUIS 2.5 MG tablet TAKE 1 TABLET BY MOUTH TWICE A DAY 180 tablet 3 10/20/2019 10/14/2020 finasteride 5 MG tablet Take 5 mg by mouth daily. 10/29/2019 01/03/2021 losartan 100 MG tablet Take 50 mg by mouth daily. 09/07/2020 10/07/2020 documented as of this encounter Plan of Treatment Not on file documented as of this encounter Procedures Procedure Name Priority Date/Time Associated Diagnosis Comments CT CHEST WO CON Routine 09/24/2020 1:52 PM CDT Pneumonia due to COVID-19 virus documented in this encounter Results * CT CHEST WO CON (09/24/2020 1:52 PM CDT) Anatomical Region Laterality Modality Chest Computed Tomogra phy 09/24/2020 3:44 PM CDT Impressions 09/24/2020 3:52 PM CDT IMPRESSION: Pulmonary opacities, predominantly peripherally both lungs and pattern that could be consistent with a viral pneumonia or Covid 19 pneumonia. Central lesion proximal right humerus which may indicate an enchondroma. Referred By: XU GARCIA Interpreted By: Chase Pierre MD, 09/24/2020 3:44 PM Narrative 09/24/2020 3:52 PM CDT 09/24/2020, 1356 hours. HISTORY: Follow-up Covid 19 pneumonia. EXAM: CT of the chest without contrast. A dose lowering technique was used for this procedure, which may include, but is not limited to, dose reduction technique, automated exposure control, the use of iterative reconstruction, and ALARA (As Low As Reasonably Achievable) / Image Gently techniques. Correlation to study 05/03/2007. Comparison with chest radiograph 09/20/2020. FINDINGS: Coarse patchy mixed interstitial alveolar infiltrative pattern present both lungs, predominantly in the peripheral and middle thirds of each lung. This was not present at time of CT imaging 05/03/2007 or chest radiograph image 06/30/2013 but has a pattern similar to that of chest radiograph 09/20/2020. This pulmonary infiltrative pattern may indicate viral pneumonia and could be associated with Covid 19 pneumonia but is nonspecific. No definite pulmonary mass. There are a few small mediastinal lymph nodes, most likely reactive. Small calcified hilar and pretracheal lymph nodes. The heart size is within normal limits. Mild coronary atherosclerosis. No pericardial effusion. No pleural effusion. No evidence of mass or enlargement in the imaged portions of the liver, spleen, pancreas nor adrenal glands. No calcified stones in the gallbladder. Incidental note is made of a subtle lucent and calcific lesion in the central medullary canal of the proximal right humerus which may indicate pending chondroma have any prior studies available for correlation. Procedure Note Chase Pierre MD - 09/24/2020 09/24/2020, 1356 hours. HISTORY: Follow-up Covid 19 pneumonia. EXAM: CT of the chest without contrast. A dose lowering technique was used for this procedure, which mayinclude, but is not limited to, dose reduction technique, automated exposure control, the use of iterative reconstruction, and ALARA (As Low As Reasonably Achievable) / Image Gently techniques. Correlation to study 05/03/2007. Comparison with chest radiograph09/20/2020. FINDINGS: Coarse patchy mixed interstitial alveolar infiltrative pattern present both lungs, predominantly in the peripheral and middle thirds of each lung. This was not present at time of CT imaging 05/03/2007 or chest radiograph image 06/30/2013 but has a pattern similar to that of chest radiograph 09/20/2020. This pulmonary infiltrative pattern may indicate viral pneumonia and could be associated with Covid 19 pneumonia but is nonspecific. No definite pulmonary mass. There are a few small mediastinal lymphnodes, most likely reactive. Small calcified hilar and pretracheal lymph nodes. The heart size is within normal limits. Mild coronary atherosclerosis.No pericardial effusion. No pleural effusion. No evidence of mass or enlargement in the imaged portions of the liver, spleen, pancreas nor adrenal glands. No calcified stones in the gallbladder. Incidental note is made of a subtle lucent and calcific lesion in the central medullary canal of the proximal right humerus which may indicate pending chondroma have any prior studies available for correlation. IMPRESSION: Pulmonary opacities, predominantly peripherally both lungs and patternthat could be consistent with a viral pneumonia or Covid 19 pneumonia.Central lesion proximal right humerus which may indicate an enchondroma. Referred By: XU GARCIA Interpreted By: Chase Pierre MD, 09/24/2020 3:44 [address] MA CT Final Result documented in this encounter Visit Diagnoses Diagnosis Pneumonia due to COVID-19 virus documented in this encounter Additional Health Concerns Infection Onset Date Last Indicated Resolved Time COVID-19 Confirmed 09/04/2020 09/04/2020 12:32 AM CDT documented as of this encounter Care Teams Deputy Administrator Relationship Specialty Start Date End Date Crescencio Camacho MD [address] [place] [phone] PCP - General FAMILY PRACTICE 08/25/16 Fercho Simon MD Vascular/Interventional Tech INTERNAL MEDICINE 11/01/15 documented as of this encounter
--- OUTSIDE RECORDS SUMMARY | 2024-03-19 13:09 | XMS_ITS | Encounter Summary ---
Author Organization [facility] Address [facility]6 [facility] [place] [address] [place] [address] Care Team Providers Care Manager Architecture Name Role Phone Fercho Simon MD Unavailable Crescencio Camacho MD Primary Care Provider [phone] Reason for Visit * Reason Onset Date Comments Prior Authorization 04/15/2021 Encounter Details Date Type Department Care Team (Late st Contact Info) Description 04/15/2021 Telephone [facility] [address] [place] [address] Fercho Simon MD [address] [place], [place] [phone] Prior Authorization Social History Tobacco Use Types Packs/Day Years [...] as of this encounter Progress Notes * Makenzie Joyce - 04/15/2021 12:10 PM CST Call received from [facility] pharmacy in [place] asking for PA on Eliquis. I confirmed with our nurse, pharmacy should call PCP Dr. Camacho. Patient has not followed up with Dr. Simon. GUITAR TEACHER documented in this encounter Plan of Treatment Not on file documented as of this encounter Visit Diagnoses Not on filedocumented in this encounter Care Teams Manager Architecture Relationship Specialty Start Date End Date Crescencio Camacho MD [address] [place] [phone] PCP - General FAMILY PRACTICE 08/25/16 Fercho Simon MD Vascular/Buckle Coverer INTERNAL MEDICINE 11/01/15 documented as of this encounter
--- OUTSIDE RECORDS SUMMARY | 2024-03-19 13:09 | XMS_ITS | Encounter Summary ---
Author Organization [facility] Address [address] [place] [address]. [place] [address] [place] [address] Care Team Providers Care Plastic Injection Mold Maker Name Role Phone Fercho Simon MD Unavailable Crescencio Camacho MD Primary Care Provider Reason for Visit * Reason Comments Leg Pain Encounter Details Date Type Department Care Team (Late st Contact Info) Description 05/21/2021 3:21 AM AIR CONDITIONING UNIT TESTER - 05/21/2021 4:21 AM AIR CONDITIONING UNIT TESTER Emergency [facility] [address] [facility] [place] [address] Arsh Millard MD [address] [place] [id number] Leg Pain Discharge Disposition: Home or Self Care (Routine [...] suspected to have Coronavirus/COVID-19? No / Unsure 05/21/2021 3:23 AM AIR CONDITIONING UNIT TESTER documented as of this encounter Last Filed Vital Signs Vital Sign Reading Time Taken Comments Blood Pressure 160/87 05/21/2021 3:27 AM AIR CONDITIONING UNIT TESTER Pulse 85 05/21/2021 3:27 AM AIR CONDITIONING UNIT TESTER Temperature 36.2 ??C (97.1 ??F) 05/21/2021 3:27 AM CS T Respiratory Rate 20 05/21/2021 3:27 AM AIR CONDITIONING UNIT TESTER Oxygen Saturation 98% 05/21/2021 3:27 AM AIR CONDITIONING UNIT TESTER Inhaled Oxygen Concentration - - Weight 129.7 kg (286 lb) 05/21/2021 3:27 AM AIR CONDITIONING UNIT TESTER Height 180.3 cm (5' 11 ) 05/21/2021 3:27 AM AIR CONDITIONING UNIT TESTER Body Mass Index 39.89 05/21/2021 3:27 AM AIR CONDITIONING UNIT TESTER documented in this encounter Discharge Instructions * Attachments The following attachments cannot be sent through Care Everywhere. * Radiculopathy (Kyrgyz) documented in this encounter Medications at Time of Discharge aspirin 81 MG tablet Take 1 tablet by mouth daily. 05/28/2009 ELIQUIS 2.5 MG tablet TAKE 1 TABLET BY MOUTH TWICE A DAY 180 tablet 3 10/14/2020 HYDROcodone-aceta minophen 5-325 MG tablet Take 1 tablet by mouth every 6 (six) hours as needed. 11/05/2020 HYDROcodone-aceta minophen 5-325 MG tabletIndications :Acute Pain < 7 Day Supply Take 1 [...] 11/09/2020 01/29/2024 documented as of this encounter ED Notes * Arsh Millard MD - 05/21/2021 3:30 AM CST eMERGENCY dEPARTMENT eNCOUnter CHIEF COMPLAINT Chief Complaint Patient presents with ??? Leg Pain HPI HPI Arsh Guerrero is a 65-year-old male who presents to the ER with a complaint of severe pain in hisright leg. Patient states he been having pain for last several days but got worse this evening. He believes it starts in his right hip or in his right lower back and goes down his right leg mainly inthe outside. States the pain is severe and has not been able to sleep related to it. He was lifting some furniture several days ago is not sure if that contributed. No other complaints at this time. He has had previous back problems is also on Eliquis for DVT. ALLERGIES No Known Allergies CURRENT MEDICATIONS Current Outpatient Medications Medication Sig ??? HYDROcodone-acetaminophen 5-325 MG tablet Take 1 tablet by mouth every 6 (six) hours as needed for Pain. Indications: Acute Pain < 7 Day Supply ??? aspirin 81 MG tablet Take 1 tablet by mouth daily. ??? ELIQUIS 2.5 MG tablet TAKE 1 TABLET BY MOUTH TWICE A DAY ??? HYDROcodone-acetaminophen 5-325 MG tablet Take 1 tablet by mouth every 6 (six) hours as needed. ??? losartan 50 MG tablet Take 1 tablet by mouth daily. ??? simvastatin 40 MG tablet Take 1 tablet by mouth daily. ??? tamsulosin 0.4 MG Cap Take 1 capsule (0.4 mg total) by mouth daily. ??? traMADol 50 MG tablet Take 50 mg by mouth every 6 (six) hours as needed. ??? venlafaxine 24 hr 75 MG 24 hr capsule Take 1 tablet by mouth daily. PAST MEDICAL HISTORY Past Medical History: Diagnosis Date ??? Benign hypertension ??? Bulging lumbar disc ??? CAD (coronary artery disease) CABG ??? COVID-19 2020 ??? DVT (deep venous thrombosis) ([facility]) Right femoral vein and left popliteal ??? Hx of CABG ??? Hyperlipemia, mixed ??? Lower extremity edema SURGICAL HISTORY Past Surgical History: Procedure Laterality Date ??? CORONARY ARTERY BYPASS GRAFT ??? HEART CATH 05/28/2009 Left coronary angiography. Right coronary angiography.Left heart catheterization with ventriculography. ??? REPAIR HEART WOUND SOCIAL HISTORY Social History Socioeconomic History ??? Marital status: [...] file Intimate Partner Violence: Not on file FAMILY HISTORY Family History Problem Relation Name Age of [...] Aunt ??? Coronary artery disease Neg Hx REVIEW OF SYSTEMS Review of Systems All other ROS negative unless noted above in HPI. PHYSICAL EXAM Physical Exam Filed Vitals: 05/21/21 0327 BP: (!) 160/87 Pulse: 85 Resp: 20 Temp: 97.1 ??F (36.2 ??C) TempSrc: Temporal SpO2: 98% Weight: 129.7 kg (286 lb) Height: 5' 11 (1.803 m) The patient is a well developed and well nourished but obese adult male in moderate painful distress, alert and oriented. HEENT: PERRL, EOMI Throat without lesions, mucous membranes moist NECK: Supple without adenopathy or rigidity CHEST: Respirations are easy and unlabored BACK: There is right paraspinal lumbar tenderness EXT: No clubbing, cyanosis, edema NEURO: CN II-XII intact, no focal weakness, weakly positive straight leg raising sign on the right with intact pulses distally, no swelling erythema cord or warmth EKG RADIOLOGY No orders to display LABS No results found for this visit on 05/21/21. ED MEDICATIONS Medications HYDROcodone-acetaminophen (NORCO) 5-325 MG tablet 2 tablet (has no administration in time range) ondansetron (ZOFRAN-ODT) disintegrating tablet 4 mg (4 mg Oral Given 05/21/21 0340) HYDROmorphone (DILAUDID) injection 1 mg (1 mg Intramuscular Given 05/21/21 0340) PROCEDURES Procedures CONSULTS: ED COURSE & MEDICAL DECISION MAKING MDM Symptoms most closely approximate radiculopathy probably related to his back. Patient is medicated for pain. On reexamination he is significantly improved. We will place him on a short course of painmedication recommend follow-up with the beginning of the week with his primary care physician as ifhe is not improving he likely will need diagnostic imaging in the form of an MRI. FINAL IMPRESSION SNOMED CT(R) 1. Acute right lumbar radiculopathy LUMBAR RADICULOPATHY Crescencio Camacho MD [address] [place] [phone] In 3 days If symptoms worsen New Prescriptions HYDROCODONE-ACETAMINOPHEN 5-325 MG TABLET Take 1 tablet by mouth every 6 (six) hours as needed for Pain. Indications: Acute Pain < 7 Day Supply Arsh Millard MD 05/21/21 0404 CONDITIONING UNIT TESTER * Tory Ferguson RN - 05/21/2021 3:25 AM CST Pt arrives to ED with complaint of right leg pain. Pt reports having a hx of blood clots. Pt states pain started 3 days ago. Pt states pain is in hip and radiates to knee. No discoloration or swelling noted. Pt able to ambulate without assistance to exam rm. Skin WPD AOX4 Breathing even and non-labored No s/s of distress CONDITIONING UNIT TESTER documented in this encounter Plan of Treatment Not on file documented as of this encounter Visit Diagnoses Diagnosis Acute right lumbar radiculopathy- Primary Thoracic or lumbosacral neuritis or radiculitis, unspecified documented in this encounter Administered Medications Inactive Administered Medications - up to 3 most recent administrations Medication Order MAR Action Action Date Dose Rate Site HYDROcodone-acetaminophen (NORCO) 5-325 MG tablet 2 tablet 2 tablet, Oral, Once as needed, Moderate pain (Scale 4 - 7), 1 dose, Starting on 05/21/21 at 0403, Until 05/21/21 at 0416, MEDICATION FOR TAKE HOME Given 05/21/2021 4:16 AM AIR CONDITIONING UNIT TESTER 2 tablets HYDROmorphone (DILAUDID) injection 1 mg 1 mg, Intramuscular, Once, 1 dose, On 05/21/21 at 0345 Given 05/21/2021 3:40 AM AIR CONDITIONING UNIT TESTER 1 mg Left Anterior Thigh ondansetron (ZOFRAN-ODT) disintegrating tablet 4 mg 4 mg, Oral, Once, 1 dose, On 05/21/21 at 0345 Given 05/21/2021 3:40 AM AIR CONDITIONING UNIT TESTER 4 mg documented in this encounter Active and Recently Administered Medications Times are shown in AIR CONDITIONING UNIT TESTER. Scheduled Medication Order 05/19/2021 05/20/2021 05/21/2021 HYDROmorphone (DILAUDID) injection 1 mg (COMPLETED) 1 mg, Intramuscular, Once, 1 dose, On 05/21/21 at 0345 0340 (Given - Provid er: Tory Fergsuon RN) ondansetron (ZOFRAN-ODT) disintegrating tablet 4 mg (COMPLETED) 4 mg, Oral, Once, 1 dose, On 05/21/21 at 0345 0340 (Given - Provid er: Tory Ferguson RN) PRN Medication Order 05/19/2021 05/20/2021 05/21/2021 HYDROcodone-acetaminophen (NORCO) 5-325 MG tablet 2 tablet (COMPLETED) 2 tablet, Oral, Once as needed, Moderate pain (Scale 4 - 7), 1 dose, Starting on 05/21/21 at 0403, Until 05/21/21 at 0416, MEDICATION FOR TAKE HOME 0416 (Given - Provid er: Tory Ferguson RN) documented in this encounter Care Teams Plastic Injection Mold Maker Relationship Specialty Start Date End Date Crescencio Camacho MD [address] [place] [phone] PCP - General FAMILY PRACTICE 08/25/16 Fercho Simon MD Vascular/Fire Apparatus Engineer INTERNAL MEDICINE 11/01/15 documented as of this encounter
--- OUTSIDE RECORDS SUMMARY | 2024-03-19 13:09 | XMS_ITS | Encounter Summary ---
Author Organization [facility] / [facility] Address [facility] [place] [address] [place] [address] Care Team Providers [employer] Manager Name Role Phone Fercho Simon MD Unavailable Crescencio Camacho MD Primary Care Provider [phone] Reason for Referral * Imaging (Emergency) - Closed Specialty Diagnoses / Procedures Referred By Contac t Referred To Contact RADIOLOGY Procedures CT ABD+PEL KIDNEY STONE Xu Thomson MD Phone: tel: fax: Referral ID Status Reason Start Date Expiration Date Visits Re quested Visits Authorized [id number] Closed 10/17/2020 11/17/2021 1 1 Reason for Visit * Reason Comments Urinary Symptoms Encounter Details Date Type Department Care Team (Late st Contact Info) Description 10/17/2020 7:57 AM CDT - 10/17/2020 9:40 AM CDT Emergency [facility] [address] [place] [address] Xu Thomson MD [address] [place] [address] [id number] Urinary Symptoms Discharge Disposition: Home or Self Care (Routine [...] Sign Reading Time Taken Comments Blood Pressure 155/72 10/17/2020 9:35 AM CDT Pulse 72 10/17/2020 9:35 AM CDT Temperature 35.8 ??C (96.4 ??F) 10/17/2020 7:57 AM CD T Respiratory Rate 16 10/17/2020 9:35 AM CDT Oxygen Saturation 99% 10/17/2020 9:35 AM CDT Inhaled Oxygen Concentration - - Weight 122.5 kg (270 lb) 10/17/2020 7:57 AM CDT Height 180.3 cm (5' 11 ) 10/17/2020 7:57 AM CDT Body Mass Index 37.66 10/17/2020 7:57 AM CDT documented in this encounter Discharge Instructions * Attachments The following attachments cannot be sent through Care Everywhere. * Kidney Stones Discharge Instructions (Nepali) documented in this encounter Medications at Time of Discharge aspirin 81 MG tablet Take 1 tablet by mouth daily. 05/28/2009 ELIQUIS 2.5 MG tablet TAKE 1 TABLET BY MOUTH TWICE A DAY 180 tablet 3 10/14/2020 losartan 50 MG tablet Take 1 tablet [...] daily as needed. 30 tablet 08/22/2020 01/03/2021 finasteride 5 MG tablet Take 5 mg by mouth daily. 10/29/2019 01/03/2021 HYDROcodone-aceta minophen 5-325 MG tabletIndications :Acute Pain < 7 Day Supply Take 1 tablet by mouth every 6 (six) hours as needed for Pain. Indications: Acute Pain < 7 Day Supply 12 tablet 10/17/2020 10/22/2020 documented as of this encounter ED Notes * Xu Thomson MD - 10/17/2020 9:40 AM CDT Chief Complaint Chief Complaint Patient presents with ??? Urinary Symptoms History of Present Illness 65-year-old male complaining of blood in the urine for 1 day. Patient also complains some back pain. Back pain is mostly in the right side but patient also has occasional left flank pain. Patient is on Eliquis. Patient also takes baby aspirin. Patient rates the pain is 3 on a scale of 10. Patient does have a history of kidney stones. Patient denies fever. Patient complains of burning on urination. Symptoms are constant. Medical History ALLERGIES: No Known Allergies MEDICATIONS: Prior to Admission medications Medication Sig Start Date End Date Taking? Authorizing Provider albuterol sulfate HFA 108 (90 Base) MCG/ACT inhaler Inhale 2 puffs into the lungs 4 (four) times daily as needed. 09/20/20 Yes Doc Abstract aspirin 81 MG tablet Take 1 tablet by mouth daily. 05/28/09 Yes Doc Abstract cyclobenzaprine 10 MG tablet Take 1 tablet (10 mg total) by mouth 3 (three) times daily as needed. 08/22/20 Yes Richard Verdugo MD ELIQUIS 2.5 MG tablet TAKE 1 TABLET BY MOUTH TWICE A DAY 10/14/20 Yes Fercho Simon MD finasteride 5 MG tablet Take 5 mg by mouth daily. 10/29/19 Yes Doc Abstract HYDROcodone-acetaminophen 5-325 MG tablet Take 1 tablet by mouth every 6 (six) hours as needed for Pain. Indications: Acute Pain < 7 Day Supply 10/17/20 10/22/20 Yes Xu Thomson MD losartan 50 MG tablet Take 1 tablet by mouth daily. 06/04/15 Yes Doc Abstract simvastatin 40 MG tablet Take 1 tablet by mouth daily. 06/04/15 Yes Doc Abstract tamsulosin 0.4 MG Cap Take 1 capsule (0.4 mg total) by mouth daily. 10/17/20 Yes Xu Thomson MD venlafaxine 24 hr 75 MG 24 hr capsule Take 1 tablet by mouth daily. 06/04/15 Yes Doc Abstract PAST MEDICAL HISTORY: Past Medical History: Diagnosis Date ??? Benign hypertension ??? Bulging lumbar disc ??? CAD (coronary artery disease) CABG ??? COVID-19 2020 ??? DVT (deep venous thrombosis) ([facility]) Right femoral vein and left popliteal ??? Hx of CABG ??? Hyperlipemia, mixed ??? Lower extremity edema PAST SURGICAL HISTORY: Past Surgical History: Procedure Laterality Date ??? CORONARY ARTERY BYPASS GRAFT ??? HEART CATH 05/28/2009 Left coronary angiography. Right coronary angiography.Left heart catheterization with ventriculography. ??? REPAIR HEART WOUND FAMILY HISTORY: Family History Problem Relation Name Age of [...] Aunt ??? Coronary artery disease Neg Hx SOCIAL HISTORY: Social History Tobacco Use ??? Smoking status: Never Smoker ??? Smokeless tobacco: Never Used Substance Use Topics ??? Alcohol use: No ??? Drug use: No Review of Systems Review of Systems Constitutional: Negative for chills and fever. HENT: Negative for voice change. Respiratory: Negative for wheezing. Gastrointestinal: Negative for abdominal pain. Musculoskeletal: Positive for back pain. Skin: Negative for color change. Neurological: Negative for speech difficulty. Psychiatric/Behavioral: Negative for agitation. All other systems reviewed and are negative. Physical Exam Filed Vitals: 10/17/20 0757 10/17/20 0935 BP: (!) 170/98 (!) 155/72 Pulse: 82 72 Resp: 18 16 Temp: 96.4 ??F (35.8 ??C) TempSrc: Oral SpO2: 96% 99% Weight: 122.5 kg (270 lb) Height: 5' 11 (1.803 m) Physical Exam Constitutional: General: He is not in acute distress. Appearance: He is well-developed. HENT: Head: Atraumatic. Neck: Comments: Normal inspection Cardiovascular: Rate and Rhythm: Normal rate and regular rhythm. Pulmonary: Effort: No respiratory distress. Breath sounds: Normal breath sounds. No stridor. No wheezing. Abdominal: Palpations: There is no mass. Tenderness: There is no abdominal tenderness. There is right CVA tenderness. There is no rebound. Comments: Mild right CVA tenderness Musculoskeletal: General: Normal range of motion. Skin: General: Skin is dry. Neurological: General: No focal deficit present. Mental Status: He is alert. Psychiatric: Mood and Affect: Mood normal. Diagnostic Studies / Procedures ELECTROCARDIOGRAMS: No results found for this visit on 10/17/20. LABORATORY STUDIES: Results for orders placed or performed during the hospital encounter of 10/17/20 CBC W/DIFF AUTOMATED Result Value Ref Range WBC 4.7 4.0 - 10.8 x10'3/uL RBC 4.39 (L) 4.50 - 6.10 x10'6/uL HGB 13.5 13.0 - 18.0 G/DL HCT 41.3 37.0 - 52.0 % MCV 94.1 78.0 - 100.0 FL MCH 30.8 27.0 - 31.0 PG MCHC 32.7 (L) 33.0 - 36.0 G/DL RDW 13.9 11.5 - 14.5 % PLT 194 150 - 350 x10'3/uL MPV 10.0 7.4 - 10.4 FL Differential Comment NORMAL REFERENCE RANGE NOT ESTABLISHED FOR THE PROPORTIONAL LEUKOCYTE DIFFERENTIAL. SEG NEUTROPHILS 54.3 % LYMPHOCYTES 33.0 % MONOCYTES 8.4 % EOSINOPHILS 2.8 % BASOPHILS 1.1 % IMMATURE GRANS 0.4 % NRBC 0.0 % ABS. NEUTROPHILS 2.54 1.60 - 8.30 x10'3/uL ABS. LYMPHOCYTES 1.54 0.80 - 4.70 x10'3/uL ABS. MONOCYTES 0.39 0.00 - 1.50 x10'3/uL ABS. EOSINOPHILS 0.13 0.00 - 0.40 x10'3/uL ABS. BASOPHILS 0.05 0.00 - 0.20 x10'3/uL ABS. IMMATURE GRANULOCYTES 0.02 0.00 - 0.03 x10'3/uL ABS. NUCLEATED RBC'S 0.00 0.00 x10'3/uL COMPREHENSIVE METABOLIC PANEL Result Value Ref Range SODIUM 145 136 - 145 MMOL/L POTASSIUM 4.1 3.5 - 5.1 MMOL/L CHLORIDE S/P/B 107 98 - 107 MMOL/L CO2 30.2 21.0 - 32.0 MMOL/L GLUCOSE 103 (H) 70 - 99 MG/DL BUN 9 6 - 24 MG/DL CREATININE S/P/B 1.00 0.70 - 1.30 MG/DL CALCIUM 8.5 8.4 - 10.5 MG/DL BILIRUBIN TOTAL S/P/B 0.6 0.2 - 1.0 MG/DL ALKALINE PHOSPHATASE S/P/B 124 (H) 45 - 115 U/L AST 17 15 - 37 U/L ALT 34 16 - 63 U/L TOTAL PROTEIN S/P/B 6.7 6.4 - 8.2 G/DL ALBUMIN S/P/B 3.5 3.4 - 5.0 G/DL ANION GAP 7.8 5.0 - 15.0 MMOL/L OSMOLALITY (CALC) 299 MOSM/KG eGFR Non-Afr. Amer. 78 (L) >89 ML/MIN/1.73 M2 eGFR Afr. Amer. 90 >89 ML/MIN/1.73 M2 GFR NOTES GFR REFERENCES: PROTIME/INR, VENOUS Result Value Ref Range Protime 12.3 10.2 - 12.9 SEC INR 1.0 0.9 - 1.1 URINALYSIS Result Value Ref Range COLOR (U) PINK TRANSPARENCY CLOUDY Specific [place] (U) 1.020 1.000 - 1.025 U PH 7.0 5.0 - 8.0 LEUKOCYTE ESTERASE NEGATIVE NEGATIVE NITRITES NEGATIVE NEGATIVE PROTEIN (U) NEGATIVE NEGATIVE URINE GLUCOSE NEGATIVE NEGATIVE U KETONES NEGATIVE NEGATIVE UROBILINOGEN 0.2 <1.0 EU/DL BILIRUBIN (U) NEGATIVE NEGATIVE BLOOD 3+ (A) NEGATIVE WBC/HPF 0-5 0 - 5 /HPF RBC/HPF 50-100 (A) 0 - 5 /HPF EPI/HPF RARE /LPF BACTERIA (URINE) TRACE /HPF MUCUS PRESENT IMAGING STUDIES CT ABD+PEL KIDNEY STONE Final Result by User, [id number] (10/18 915) EXAMINATION: CT Abdomen and Pelvis without contrast EXAM DATE/TIME: 10/17/2020 8:50 AM REASON FOR EXAM: Hematuria, unknown cause Blood in the urine. Right lower back pain onset one day ago. Recent diagnosis of Covid. COMPARISON: CT abdomen and pelvis 12/19/2010. Chest CT 09/24/2020 TECHNIQUE: Axial CT images of the abdomen and pelvis are obtained without the use of IV contrast agent. Subsequent coronal and sagittal reformatted sequences are created for evaluation. A dose lowering technique was used for this procedure, which may include, but is not limited to, dose reduction technique, automated exposure control, iterative reconstruction, ALARA (As Low As Reasonably Achievable), or Image Gently techniques. FINDINGS: Diffuse scattered patchy groundglass opacities in the visualized bilateral lower lungs with subtle interval improvement from 09/24/[address] No pleural effusion. No pulmonary mass. Findings compatible with appearance of Covid pneumonia. Heart size normal. No pericardial effusion. Coronary artery calcifications are noted. Liver and spleen normal in size and surface contour. Gallbladder pancreas and adrenal glands unremarkable on this noncontrast study. There is no hydronephrosis on either side. There is subtle asymmetric prominence of the left renal pelvis and proximal ureter compared to the right. There is a 5 mm in maximal dimension obstructing calcification at the transition point in the proximal left ureter. Mid and distal ureters are normal in caliber bilaterally. Bowel is normal in caliber throughout. No evidence of bowel obstruction. The appendix is normal. Diverticular disease noted without evidence of diverticulitis. No free fluid in the pelvis. Bladder contour is unremarkable. Abdominal aorta normal in caliber throughout with mild to moderate calcifications. Bone level imaging shows no acute osseous abnormalities. ===== IMPRESSION: ===== 1. 5 mm partially obstructing calculus in the proximal left ureter just distal to the renal pelvis. Borderline prominent left renal pelvis with no yessi hydronephrosis resulting. 2. Diverticular disease with no evidence of diverticulitis 3. Coronary artery calcifications and atherosclerotic aorta 4. Scattered patchy groundglass densities in the lung bases compatible with appearance of Covid pneumonia. Minimal interval improvement from 09/24/2020 CT. Referred By: Interpreted By: Gennaro Kaiser MD, 10/17/2020 9:10 AM ED Course / Medical Decision Making Discharged on Flomax and [place] Will need to follow-up with urology since stone is moderate in size MDM Number of Diagnoses or Management Options Kidney stone: new and requires workup Amount and/or Complexity of Data Reviewed Clinical lab tests: reviewed Tests in the radiology section of CPT??: reviewed Risk of Complications, Morbidity, and/or Mortality Presenting problems: moderate Diagnostic procedures: high Management options: moderate Patient Progress Patient progress: stable Clinical Impression Kidney stone (Primary) Disposition: Discharge Xu Thomson MD 10/18/20 0238 * Olivia Tinajero RN - 10/17/2020 8:00 AM CDT Passing blood with urination. Low right back pain. Onset one day ago. DX COVID/pneumonia - 08/27/20 documented in this encounter Plan of Treatment Not on file documented as of this encounter Procedures Procedure Name Priority Date/Time Associated Diagnosis Comments CT ABD+PEL KIDNEY STONE STAT 10/17/2020 8:50 AM CDT HC URINALYSIS AUTO W/MICRO STAT 10/17/2020 8:37 AM CDT PROTHROMBIN TIME, VENOUS STAT 10/17/2020 8:23 AM CDT COMPREHENSIVE METABOLIC PANEL STAT 10/17/2020 8:23 AM CDT CBC W/DIFF AUTOMATED STAT 10/17/2020 8:23 AM CDT documented in this encounter Results * CT ABD+PEL KIDNEY STONE (10/17/2020 8:50 AM CDT) Anatomical Region Laterality Modality Abdomen Computed Tomogra phy 10/17/2020 9:10 AM CDT Impressions 10/17/2020 9:15 AM CDT IMPRESSION: ===== 1. ??5 mm partially obstructing calculus in the proximal left ureter just distal to the renal pelvis. ??Borderline prominent left renal pelvis with no yessi hydronephrosis resulting. 2. ??Diverticular disease with no evidence of diverticulitis 3. ??Coronary artery calcifications and atherosclerotic aorta 4. ??Scattered patchy groundglass densities in the lung bases compatible with appearance of Covid pneumonia. ??Minimal interval improvement from 09/24/2020 CT. Referred By: ?? Interpreted By: Gennaro Kaiser MD, 10/17/2020 9:10 AM Narrative 10/17/2020 9:15 AM CDT EXAMINATION: CT Abdomen and Pelvis without contrast EXAM DATE/TIME: 10/17/2020 8:50 AM REASON FOR EXAM: ??Hematuria, unknown cause ?? Blood in the urine. ??Right lower back pain onset one day ago. ??Recent diagnosis of Covid. COMPARISON: CT abdomen and pelvis 12/19/2010. ??Chest CT 09/24/2020 TECHNIQUE: Axial CT images of the abdomen and pelvis are obtained without the use of IV contrast agent. Subsequent coronal and sagittal reformatted sequences are created for evaluation. ??A dose lowering technique was used for this procedure, which may include, but is not limited to, dose reduction technique, automated exposure control, iterative reconstruction, ALARA (As Low As Reasonably Achievable), or Image Gently techniques. FINDINGS: Diffuse scattered patchy groundglass opacities in the visualized bilateral lower lungs with subtle interval improvement from 09/24/[address] ??No pleural effusion. ??No pulmonary mass. ??Findings compatible with appearance of Covid pneumonia. ??Heart size normal. ??No pericardial effusion. ??Coronary artery calcifications are noted. Liver and spleen normal in size and surface contour. ??Gallbladder pancreas and adrenal glands unremarkable on this noncontrast study. ??There is no hydronephrosis on either side. ??There is subtle asymmetric prominence of the left renal pelvis and proximal ureter compared to the right. ??There is a 5 mm in maximal dimension obstructing calcification at the transition point in the proximal left ureter. ??Mid and distal ureters are normal in caliber bilaterally. ??Bowel is normal in caliber throughout. ??No evidence of bowel obstruction. ??The appendix is normal. ??Diverticular disease noted without evidence of diverticulitis. ??No free fluid in the pelvis. ??Bladder contour is unremarkable. ??Abdominal aorta normal in caliber throughout with mild to moderate calcifications. ??Bone level imaging shows no acute osseous abnormalities. ===== Procedure Note Gennaro Kaiser MD - 10/17/2020 EXAMINATION: CT Abdomen and Pelvis without contrast EXAM DATE/TIME: 10/17/2020 8:50 AM REASON FOR EXAM: Hematuria, unknown cause Blood in the urine. Right lower back pain onset one day ago. Recentdiagnosis of Covid. COMPARISON: CT abdomen and pelvis 12/19/2010. Chest CT 09/24/2020 TECHNIQUE: Axial CT images of the abdomen and pelvis are obtained withoutthe use of IV contrast agent. Subsequent coronal and sagittal reformattedsequences are created for evaluation. A dose lowering technique was usedfor this procedure, which may include, but is not limited to, dosereduction technique, automated exposure control, iterative reconstruction,ALARA (As Low As Reasonably Achievable), or Image Gently techniques. FINDINGS: Diffuse scattered patchy groundglass opacities in the visualizedbilateral lower lungs with subtle interval improvement from 09/24/2020hest CT. No pleural effusion. No pulmonary mass. Findings compatiblewith appearance of Covid pneumonia. Heart size normal. No pericardialeffusion. Coronary artery calcifications are noted. Liver and spleen normal in size and surface contour. Gallbladder pancreasand adrenal glands unremarkable on this noncontrast study. There is nohydronephrosis on either side. There is subtle asymmetric prominence ofthe left renal pelvis and proximal ureter compared to the right. There roselyn 5 mm in maximal dimension obstructing calcification at the transitionpoint in the proximal left ureter. Mid and distal ureters are normal incaliber bilaterally. Bowel is normal in caliber throughout. No evidenceof bowel obstruction. The appendix is normal. Diverticular disease notedwithout evidence of diverticulitis. No free fluid in the pelvis. Bladdercontour is unremarkable. Abdominal aorta normal in caliber throughoutwith mild to moderate calcifications. Bone level imaging shows no acuteosseous abnormalities. ===== IMPRESSION: ===== 1. 5 mm partially obstructing calculus in the proximal left ureter justdistal to the renal pelvis. Borderline prominent left renal pelvis withno yessi hydronephrosis resulting. 2. Diverticular disease with no evidence of diverticulitis 3. Coronary artery calcifications and atherosclerotic aorta 4. Scattered patchy groundglass densities in the lung bases compatiblewith appearance of Covid pneumonia. Minimal interval improvement from09/24/2020 CT. Referred By: Interpreted By: Gennaro Kaiser MD, 10/17/2020 9:10 AM Xu Thomson MD CT Final Result * (ABNORMAL) URINALYSIS (10/17/2020 8:37 AM CDT) COLOR (U) PINK 10/17/2020 9:[address] [facility] TRANSPARENCY CLOUDY 10/17/2020 9:[address] [facility] SPECIFIC GRAVITY (U) 1.020 1.000 - 1.025 10/17/2020 9:[address] [facility] U PH 7.0 5.0 - 8.0 10/17/2020 9:[address] [facility] LEUKOCYTES (U) NEGATIVE NEGATIVE 10/17/2020 9:[address] [facility] NITRITES NEGATIVE NEGATIVE 10/17/2020 9:[address] [facility] PROTEIN (U) NEGATIVE NEGATIVE 10/17/2020 9:[address] [facility] URINE GLUCOSE NEGATIVE NEGATIVE 10/17/2020 9:[address] [facility] KETONES MG/DL (U) NEGATIVE NEGATIVE 10/17/2020 9:[address] [facility] UROBILINOGEN 0.2 <1.0 EU/DL 10/17/2020 9:[address] [facility] BILIRUBIN (U) NEGATIVE NEGATIVE 10/17/2020 9:[address] [facility] BLOOD (U) 3+(A) NEGATIVE 10/17/2020 9:[address] [facility] WBC/HPF 0-5 0 - 5 /HPF 10/17/2020 9:[address] [facility] RBC/HPF 50-100(A) 0 - 5 /HPF 10/17/2020 9:[address] [facility] EPI/HPF RARE /LPF 10/17/2020 9:[address] [facility] BACTERIA (U) TRACE /HPF 10/17/2020 9:[address] [facility] MUCUS PRESENT 10/17/2020 9:[address] [facility] URINE SPECIMEN OBTAINED BY CLEAN CATCH PROCEDURE / Unknown 10/17/2020 8:37 AM CDT us Xu Thomson MD URINE ORDERABLES Final Result Performing Organization Address City/[facility]/ZIP Co de Phone Number [facility] [address] [place] [address], * PROTIME/INR, VENOUS (10/17/2020 8:23 AM CDT) PROTIME 12.3 10.2 - 12.9 SEC 10/17/2020 8:[address] [facility] INR 1.0 0.9 - 1.1 10/17/2020 8:[address] [facility] 10/17/2020 8:23 AM CDT us Xu Thomson MD LABORATORY Final Result [facility] [address] [place] [address], * (ABNORMAL) COMPREHENSIVE METABOLIC PANEL (10/17/2020 8:23 AM CDT) SODIUM S/P/B 145 136 - 145 MMOL/L 10/17/2020 8:[address] [facility] POTASSIUM S/P/B 4.1 3.5 - 5.1 MMOL/L 10/17/2020 8:[address] [facility] CHLORIDE S/P/B 107 98 - 107 MMOL/L 10/17/2020 8:[address] [facility] CO2 30.2 21.0 - 32.0 MMOL/L 10/17/2020 8:[address] [facility] GLUCOSE 103(H) 70 - 99 MG/DL 10/17/2020 8:[address] [facility] Comment: FASTING GLUCOSE 100 TO 125 MG/DL IS CONSISTENT WITH IMPAIRED FASTING GLUCOSE. FASTING GLUCOSE >125 MG/DL IS CONSISTENT WITH DIABETES. RANDOM GLUCOSE >200 MG/DL WITH HYPERGLYCEMIC SYMPTOMS IS CONSISTENT WITH DIABETES. PER ADA GUIDELINES BUN 9 6 - 24 MG/DL 10/17/2020 8:[address] [facility] CREATININE S/P/B 1.00 0.70 - 1.30 MG/DL 10/17/2020 8:[address] [facility] CALCIUM S/P/B 8.5 8.4 - 10.5 MG/DL 10/17/2020 8:[address] [facility] BILIRUBIN TOTAL S/P/B 0.6 0.2 - 1.0 MG/DL 10/17/2020 8:[address] [facility] Comment: THIS ASSAY IS NOT RECOMMENDED FOR PATIENTS UNDERGOING TREATMENT WITH ELTROMBOPAG DUE TO THE POTENTIAL FOR FALSELY ELEVATED RESULTS. ALKALINE PHOSPHATASE S/P/B 124(H) 45 - 115 U/L 10/17/2020 8:[address] [facility] AST 17 15 - 37 U/L 10/17/2020 8:[address] [facility] ALT 34 16 - 63 U/L 10/17/2020 8:[address] [facility] TOTAL PROTEIN S/P/B 6.7 6.4 - 8.2 G/DL 10/17/2020 8:[address] [facility] ALBUMIN S/P/B 3.5 3.4 - 5.0 G/DL 10/17/2020 8:[address] [facility] ANION GAP 7.8 5.0 - 15.0 MMOL/L 10/17/2020 8:[address] [facility] OSMOLALITY (CALC) 299 MOSM/KG 021 8:[address] [facility] Comment:REFERENCE RANGE NOT ESTABLISHED EGFR NON-AFR. AMER. 78(L) >89 ML/MIN/1. 73 M2 10/17/2020 8:[address] [facility] EGFR AFR. AMER. 90 >89 ML/MIN/1. 73 M2 10/17/2020 8:[address] [facility] GFR NOTES GFR REFERENCE S: 10/17/2020 8:[address] [facility] Comment: THE ESTIMATED GFR IS CALCULATED USING THE 2009 CKD-EPI EQUATION. THE FOLLOWING CATEGORIES FOR GRADING RENAL FUNCTION ARE RECOMMENDED BY THE INTERNATIONAL SOCIETY OF NEPHROLOGY (KDIGO 2012 CLINICAL PRACTICE GUIDELINE). G1,NORMAL OR HIGH: >89 ml/min/1.73 m2 G2,MILDLY DECREASED: 60-89 ml/min/1.73 m2 G3A,MILDLY TO MODERATELY DECREASED: 45-59 ml/min/1.73 m2 G3B,MODERATELY TO SEVERELY DECREASED: 30-44 ml/min/1.73 m2 G4,SEVERELY DECREASED: 15-29 ml/min/1.73 m2 G5,KIDNEY FAILURE: <15 ml/min/1.73 m2 10/17/2020 8:23 AM CDT Xu Thomson MD LABORATORY Final Result [facility] [address] [place] [address], * (ABNORMAL) CBC W/DIFF AUTOMATED (10/17/2020 8:23 AM CDT) WBC 4.7 4.0 - 10.8 x10'3/uL 10/17/2020 8:[address] [facility] RBC 4.39(L) 4.50 - 6.10 x10'6/uL 10/17/2020 8:[address] [facility] HGB 13.5 13.0 - 18.0 G/DL 10/17/2020 8:[address] [facility] HCT 41.3 37.0 - 52.0 % 10/17/2020 8:[address] [facility] MCV 94.1 78.0 - 100.0 FL 10/17/2020 8:[address] [facility] MCH 30.8 27.0 - 31.0 PG 10/17/2020 8:[address] [facility] MCHC 32.7(L) 33.0 - 36.0 G/DL 10/17/2020 8:[address] [facility] RDW 13.9 11.5 - 14.5 % 10/17/2020 8:[address] [facility] PLT 194 150 - 350 x10'3/uL 10/17/2020 8:[address] [facility] MPV 10.0 7.4 - 10.4 FL 10/17/2020 8:[address] [facility] DIFFERENTIAL COMMENT NORMAL REFERENCE RANGE NOT ESTABLISHED FOR THE PROPORTIONAL LEUKOCYTE DIFFERENTIAL. 10/17/2020 8:[address] [facility] SEG NEUTROPHILS 54.3 % 8:[address] [facility] LYMPHOCYTES 33.0 % 10/17/2020 8:[address] [facility] MONOCYTES 8.4 % 10/17/2020 8:[address] [facility] EOSINOPHILS 2.8 % 10/17/2020 8:[address] [facility] BASOPHILS 1.1 % 10/17/2020 8:[address] [facility] IMMATURE GRANS % 0.4 % 10/18/19 8:[address] [facility] NRBC 0.0 % 10/17/2020 8:[address] [facility] ABS. NEUTROPHILS 2.54 1.60 - 8.30 x10'3/uL 10/17/2020 8:[address] [facility] ABS. LYMPHOCYTES 1.54 0.80 - 4.70 x10'3/uL 10/17/2020 8:[address] [facility] ABS. MONOCYTES 0.39 0.00 - 1.50 x10'3/uL 10/17/2020 8:[address] [facility] ABS. EOSINOPHILS 0.13 0.00 - 0.40 x10'3/uL 10/17/2020 8:[address] [facility] ABS. BASOPHILS 0.05 0.00 - 0.20 x10'3/uL 10/17/2020 8:[address] [facility] ABS. IMMATURE GRANULOCYTES 0.02 0.00 - 0.03 x10'3/uL 10/17/2020 8:[address] [facility] ABS. NUCLEATED RBC'S 0.00 0.00 x10'3/uL 10/17/2020 8:[address] [facility] 10/17/2020 8:23 AM CDT Xu Thomson MD LABORATORY Final Result [facility] [address] [place] [address], documented in this encounter Visit Diagnoses Diagnosis Kidney stone- Primary Calculus of kidney documented in this encounter Active and Recently Administered Medications Times are shown in CDT. Scheduled Medication Order 10/15/2020 10/16/2020 10/17/2020 sodium chloride 0.9% bolus infusion SOLN 500 mL 500 mL, Intravenous, Administer over 15 Minutes, Once, 1 dose, On 10/17/20 at 0830 0830 (Canceled Entry - Provider: Automatic Discharge Provider - Comment: Automatically canceled at discontinue of medication order) documented in this encounter Care Teams Fish And Game Club Manager Relationship Specialty Start Date End Date Crescencio Camacho MD [address] [place] [address] PCP - General FAMILY PRACTICE 08/25/16 Fercho Simon MD Vascular/Cytology Manager INTERNAL MEDICINE 11/01/15 documented as of this encounter
--- OUTSIDE RECORDS SUMMARY | 2024-03-19 13:09 | XMS_ITS | Encounter Summary ---
Author Organization [facility] Address [facility] [place] [address] [place] [address] Care Team Providers Care Youth Leader Name Role Phone Fercho Simon MD Unavailable Crescencio Camacho MD Primary Care Provider Encounter Details Date Type Department Care Team (Latest Contact Info) Description 10/07/2020 Travel Social History Tobacco Use Types Packs/Day [...] on filedocumented in this encounter Care Teams Youth Leader Relationship Specialty Start Date End Date Crescencio Camacho MD [address] [place] [phone] PCP - General FAMILY PRACTICE 08/25/16 Fercho Simon MD Vascular/Mica Inspector INTERNAL MEDICINE 11/01/15 documented as of this encounter
--- OUTSIDE RECORDS SUMMARY | 2024-03-19 13:09 | XMS_ITS | Encounter Summary ---
Author Organization [facility] Address [address] [place] [address]. [place] [address] [place] [address] Care Team Providers Care Pickle Pumper Name Role Phone Fercho Simon MD Unavailable Crescencio Camacho MD Primary Care Provider Reason for Visit * Reason Comments Hand Pain LEFT Encounter Details Date Type Department Care Team (Late st Contact Info) Description 01/03/2021 11:00 AM CDT Office Visit [facility] [address], [address] [place] [address] Cory Meng, [facility]- [address] [place] [address] [place] [id number] Hand Pain (LEFT) Social History Tobacco Use [...] - Inhaled Oxygen Concentration - - Weight 127 kg (280 lb) 01/03/2021 10:43 AM CDT Height 180.3 cm (5' 11 ) 01/03/2021 10:43 AM CDT Body Mass Index 39.05 01/03/2021 10:43 AM CDT documented in this encounter Progress Notes * Cory Meng, TACK CUTTER-BC - 01/03/2021 11:00 AM CDT Chief Complaint: Hand Pain (LEFT) History of Present Illness: Arsh Guerrero is a 65-year-old male who presents to the office for Hand Pain (LEFT) Patient comes in to clinic today with with complaints of pain in his LEFT 2nd and 3rd fingers at the MCP. He reports swelling and pain that began a couple weeks ago. He reports difficulty and increase pain with making a fist and grasping objects. He has history of injections to his LEFT fingers on 03/18/2020. He reports relief for approximately 6 months. He denies any fever or redness to his LEFT hand. He is RIGHT hand dominant. Previous HPI: 03/18/2021 Patient is here for Left hand pain that started about 2 weeks ago. He denies any known injury. His pain is on the top of his hand at the 2nd and 3rd knuckles. His pain increases with movement. He reports that he does have some swelling in his hand that has gone down some since his pain started. He denies any redness or warmth. He can not make a fist due to the pain and stiffness. His pain will occasionally waken him at night. He denies numbness and tingling. He denies any therapy or injections.He takes Tylenol as necessary. He is unable to take NSAIDs due to history of Eliquis. He is RIGHT handed. 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 ROS: See HPI for pertinent positives Problem List: Patient Active Problem List Diagnosis ??? DVT (deep venous thrombosis) (CMS/HCC) ??? Hx of CABG ??? CAD (coronary artery disease) ??? Localized edema ??? History of DVT (deep vein thrombosis) ??? Essential hypertension ??? Hyperlipidemia, unspecified hyperlipidemia type ??? Lower extremity edema ??? 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 Monitoring for anticoagulant use ??? Artemio lipomatous neoplm of skin, subcu of head, face and neck ??? Left shoulder pain ??? Lump of skin of back ??? Rupture of biceps tendon ??? Primary osteoarthritis of left hip ??? Osteoarthritis of left index finger ??? Osteoarthritis of left middle finger ??? Ulnar neuropathy at elbow, right ??? Primary osteoarthritis of right elbow ??? [...] Smoker ??? Smokeless tobacco: Never Used Substance and Sexual Activity ??? Alcohol use: [...] Social Determinants of Health Financial Resource Strain: ??? Difficulty of Paying Living Expenses: Food Insecurity: ??? Worried About Running Out of Food in the Last Year: ??? Ran Out of Food in the Last Year: Transportation Needs: ??? Lack of Transportation (Medical): ??? Lack of Transportation (Non-Medical): Physical Activity: ??? Days of Exercise per Week: ??? Minutes of Exercise per Session: Stress: ??? Feeling of Stress : Social Connections: ??? Frequency of Communication with Friends and Family: ??? Frequency of Social Gatherings with Friends and Family: ??? Attends Voodoo Services: ??? Active Member of Clubs or Organizations: ??? Attends Club or Organization Meetings: ??? Marital Status: Intimate Partner Violence: ??? Fear of Current or Ex-Partner: ??? Emotionally Abused: ??? Physically Abused: ??? Sexually Abused: Medications: Current Outpatient Medications: ??? aspirin 81 [...] by mouth daily., Disp: , Rfl: ??? simvastatin 40 MG tablet, Take 1 [...] Known Allergies Objective: Body mass index is 39.05 kg/m??. Last Recorded Weight 01/03/21 1043 Weight: 127 kg (280 lb) Physical exam: Constitutional: Alert and in no acute distress. Neurological: The patient was oriented to person, place, and time. Eyes: The sclera and conjunctiva were normal ENT: Hearing was normal. Neck: The appearance of the neck was normal. Cardiovascular: Normal pulses. Pulmonary: No respiratory distress. Skin: No injuries or skin lesion. Musculoskeletal: Exam of left hand today demonstrates diffuse tenderness over second and third MCP joints with palpation, minimal swelling over second and third MCP joints without warmth, unable to make a fist, good capillary refill, good wrist range of motion, stiff finger range of motion, palpable radial pulse. Results: X-ray of left hand today demonstrates mild degenerative changes greatest seen at second and third and MCP joints with no acute or healing bony injury. Procedure: Procedure: Injection of the second and third MCP joints on the left. Indications for the procedure include Joint Pain and Inflammation. The procedure's were discussed with the patient. Verbal consentwas obtained prior to the procedure. Procedure Note: [...] were no complications. Follow-up in the office 2 weeks. Assessment: Encounter Diagnose(s) ICD-10-CM ICD-9-CM SNOMED CT(R) 1. Osteoarthritis of left index finger M19.042 715.94 OSTEOARTHRITIS OF FINGER JOINT OF LEFT HAND XR HAND LT 3V 2. Osteoarthritis of left middle finger M19.042 715.94 OSTEOARTHRITIS OF FINGER JOINT OF LEFT HAND XR HAND LT 3V Plan: Patient had received previous injections in his second and third MCP joints with good relief. He reports that the last injections he did receive allowed him to increase his range of motion in his hand and the swelling had greatly diminished. I have recommended another set of injections in his second and third MCP joints which was provided in the office today. Activity as tolerated. He will follow-up in 2 weeks for reevaluation. Follow up: Return in about 2 weeks (around 01/17/2021). JORGE DANIEL documented in this encounter Plan [...] MD, 01/03/2021 4:45 PM us Cory Meng TACK CUTTER-BC GENERAL IMAGING Final Resu lt documented in [...] 0.5 mL, Other, Once, 1 dose, On Sun01/03/21 at 1230 Given 01/03/2021 12:08 PM CDT 0.5 mLs lidocaine (XYLOCAINE) 1 % injection SOLN 0.5 mL 0.5 mL, Other, Once, 1 dose, On Sun01/03/21 at 1230 Given 01/03/2021 12:08 PM CDT 0.5 mLs methylPREDNISolone acetate (DEPO-Medrol) injection 40 mg 40 mg, Other, Once, 1 dose, On Sun01/03/21 at 1230, Shake Well Given 01/03/2021 12:10 PM CDT 40 mg methylPREDNISolone acetate (DEPO-Medrol) injection 40 mg 40 mg, Other, Once, 1 dose, On Sun01/03/21 at 1230, Shake Well Given 01/03/2021 12:09 PM CDT 40 mg documented in this encounter Care Teams Pickle Pumper Relationship Specialty Start Date End Date Crescencio Camacho MD [address] [place] [phone] PCP - General FAMILY PRACTICE 08/25/16 Fercho Simon MD Vascular/Biology Tutor INTERNAL MEDICINE 11/01/15 documented as of this encounter
--- OUTSIDE RECORDS SUMMARY | 2024-03-19 13:09 | XMS_ITS | Encounter Summary ---
Author Organization [facility] Address [facility] [place] [address] [place] [address] Care Team Providers Care Power Plant Mechanic Name Role Phone Fercho Simon MD Unavailable Crescencio Camacho MD Primary Care Provider Reason for Visit * Reason Onset Date Comments Schedule Surgery 01/20/2021 Encounter Details Date Type Department Care Team (Late st Contact Info) Description 01/20/2021 Telephone [facility] [place] [phone] Elza Medina RNFA Schedule Surgery Social History Tobacco Use Types Packs/Day Years [...] have Coronavirus / COVID-19? No / Unsure 01/19/2021 10:53 AM CDT documented as of this encounter Progress Notes * CRESCENCIO Martin - 01/20/2021 1:26 PM CDT RN attempted to contact patient, no answer, no voicemail. Surgery notified at this time. * CRESCENCIO Martin - 01/20/2021 1:25 PM CDT ----- Message from Sheila Rivera CNA sent at 01/20/2021 9:01 AM CDT ----- Pt called and wants to CX surgery completely. Does not want to r/s. documented in this encounter Plan of Treatment Not on file documented as of this encounter Visit Diagnoses Not on filedocumented in this encounter Care Teams Power Plant Mechanic Relationship Specialty Start Date End Date Crescencio Camacho MD [address] [place] [phone] PCP - General FAMILY PRACTICE 08/25/16 Fercho Simon MD Vascular/Peoplesoft Hcm Consultant INTERNAL MEDICINE 11/01/15 documented as of this encounter
--- OUTSIDE RECORDS SUMMARY | 2024-03-19 13:09 | XMS_ITS | Encounter Summary ---
Author Organization [facility] Address [facility] [place] [address] [place] [address] Care Team Providers Care Erection Shop Supervisor Name Role Phone Fercho Simon MD Unavailable Crescencio Camacho MD Primary Care Provider [phone] Encounter Details Date Type Department Care Team (Late st Contact Info) Description 01/19/[address] [facility] [address], [facility] 1 [place] [address] Orestes Layne MD [address] [place] [address] Social History Tobacco Use Types Packs/Day Years [...] as of this encounter Visit Diagnoses Diagnosis Pre-op evaluation- Primary Preoperative examination, unspecified documented in this encounter Care Teams Erection Shop Supervisor Relationship Specialty Start Date End Date Crescencio Camacho MD [address] [place] [phone] PCP - General FAMILY PRACTICE 08/25/16 Fercho Simon MD Vascular/Game Author INTERNAL MEDICINE 11/01/15 documented as of this encounter
--- OUTSIDE RECORDS SUMMARY | 2024-03-19 13:09 | XMS_ITS | Encounter Summary ---
Author Organization [facility] Address [facility] [facility] [place] [address] [place] [address] Care Team Providers Care Control Cabinet Assembler Name Role Phone Fercho Simon MD Unavailable Crescencio Camacho MD Primary Care Provider Reason for Visit * Reason Comments Elbow Pain RIGHT EMG Results Encounter Details Date Type Department Care Team (Latest Contact Info) Description 01/19/2021 11:15 AM CDT Office Visit [facility] [address], [facility] 1 [place] [phone] Orestes Layne MD [address] [place] [address] Elbow Pain (RIGHT); EMG Results Social History Tobacco Use Types Packs/Day Years [...] - - Weight 127 kg (280 lb) 01/19/2021 11:05 AM CDT Height 180.3 cm (5' 11 ) 01/19/2021 11:05 AM CDT Body Mass Index 39.05 01/19/2021 11:05 AM CDT documented in this encounter Progress Notes * Orestes Layne MD - 01/19/2021 11:15 AM CDT Chief Complaint: Elbow Pain (RIGHT) and EMG Results History of Present Illness: Arsh Guerrero is a 65-year-old male who presents to the office for Elbow Pain (RIGHT) and EMG Results Patient comes in to clinic today for pain in his RIGHT elbow. He seen Dr Buchanan on 11/05/2020 for EMG studies. He reports numbness and tingling to his RIGHT 4TH and 5TH fingers. He reports decreased continuous improvement manager strength in his RIGHT hand. He denies any pain in his RIGHT elbow. He is RIGHT hand dominant. ROS: See HPI for pertinent positives Problem List: Patient Active Problem List Diagnosis ??? DVT (deep venous thrombosis) (CMS/HCC) ??? Hx of CABG ??? CAD (coronary artery disease) ??? Localized edema ??? History of DVT (deep vein thrombosis) ??? Essential hypertension ??? Hyperlipidemia, unspecified hyperlipidemia type ??? Lower extremity edema ??? 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 Monitoring [...] Gatherings with Friends and Family: ??? Attends Mu-Ism Services: ??? Active Member of Clubs or [...] index is 39.05 kg/m??. Last Recorded Weight 01/19/21 1105 Weight: 127 kg (280 lb) Physical exam: Constitutional: Alert and in no acute distress. Neurological: The patient was oriented to person, place, and time. Eyes: The sclera and conjunctiva were normal ENT: Hearing was normal. Neck: The appearance of the neck was normal. Cardiovascular: Normal pulses. Pulmonary: No respiratory distress. Skin: No injuries or skin lesion. Musculoskeletal: Patient has persistent numbness in the fourth and fifth fingers of his right hand but demonstrates no intrinsic atrophy and negative Wartenberg's. His elbow range of motion is restricted with loss of extension by about 20 degrees Results: Review of nerve studies demonstrates mild cubital tunnel syndrome Assessment: Encounter Diagnose(s) ICD-10-CM ICD-9-CM SNOMED CT(R) 1. Ulnar neuropathy of right upper extremity G56.21 354.2 ULNAR NEUROPATHY OF RIGHT ARM Plan: Patient indicates persistent numbness in the fourth and fifth fingers this been present for about 2years. He is having some increasing symptoms with activity. The nerve studies demonstrate ulnar nerve neuropathy and that is probably associated with right elbow arthritis. I have recommended right ulnar nerve transposition and have reviewed risks and benefits with him. He elects to proceed. He will need to stop Eliquis 3 days prior to surgery and we will asked Dr. Camacho for medical clearance Follow up: Return for Post-Op. ORESTES LAYNE MD documented in this encounter Plan of Treatment Not on file documented as of this encounter Visit Diagnoses Diagnosis Ulnar neuropathy of right upper extremity- Primary Lesion of ulnar nerve documented in this encounter Care Teams Control Cabinet Assembler Relationship Specialty Start Date End Date Crescencio Camacho MD [address] [place] [phone] PCP - General FAMILY PRACTICE 08/25/16 Fercho Simon MD Vascular/Dope Mixer INTERNAL MEDICINE 11/01/15 documented as of this encounter
--- OUTSIDE RECORDS SUMMARY | 2024-03-19 13:09 | XMS_ITS | Encounter Summary ---
Author Organization [facility] Address [facility] [place] [place] [address] [place] [address] Care Team Providers Care Cinder Crusher Operator Name Role Phone Fercho Simon MD Unavailable Crescencio Camacho MD Primary Care Provider Encounter Details Date Type Department Care Team (Late st Contact Info) Description 10/07/2020 1:56 PM CDT - 10/07/2020 11:59 PM CDT Hospital Encounter [facility] [address] [place] [address] Cory Meng, [facility]- [address] [facility] [place] [address] Discharge Disposition: Home or Self Care (Routine [...] 5 mg by mouth daily. 10/29/2019 01/03/2021 documented as of this encounter Plan of Treatment Not on file documented as of this encounter Procedures Procedure Name Priority Date/Time Associated Diagnosis Comments XR SHOULDER RT MIN 2V Routine 10/07/2020 2:42 PM CDT Acute pain of right shoulder XR ELBOW RT M3V Routine 10/07/2020 2:26 PM CDT Right elbow pain documented in this encounter Results * XR SHOULDER RT MIN 2V (10/07/2020 2:42 PM CDT) Anatomical Region Laterality Modality Shoulder Radiographic Kristina ging 10/07/2020 2:55 PM CDT Impressions 10/07/2020 2:58 PM CDT IMPRESSION: Minimal faint non defined density centrally in the proximal right humerus, possibly representing a: Chondroma but nonspecific on this radiographic appearance and nearly non perceptible on routine radiography. Minimal faint nodular infiltrative changes right lung. Referred By: CORY MENG Interpreted By: Chase Pierre MD, 10/07/2020 2:55 PM Narrative 10/07/2020 2:58 PM CDT 10/07/2020, 1404 hours. HISTORY: Right shoulder pain. Question abnormality on recent CT chest. EXAM: 3 views of the right shoulder. No comparison. Correlation with CT imaging of the chest 09/24/2020. FINDINGS: No fracture or acute bony abnormality. There may be some minimal faint trabecular architectural abnormality centrally in the proximal metadiaphyseal region of the right humerus that is not a definitive abnormality on plain film radiography but could correspond to the area of abnormality seen on the CT chest. This may indicate an occult enchondroma but etiology is indeterminate. No arthritic change at the glenohumeral nor acromioclavicular joint. No periarticular soft tissue calcifications. Faint pulmonary opacities in the right lung, better seen on recent CT imaging. Procedure Note Chase Pierre MD - 10/07/2020 10/07/2020, 1404 hours. HISTORY: Right shoulder pain. Question abnormality on recent CT chest. EXAM: 3 views of the right shoulder. No comparison. Correlation with CTimaging of the chest 09/24/2020. FINDINGS: No fracture or acute bony abnormality. There may be some minimalfaint trabecular architectural abnormality centrally in the proximalmetadiaphyseal region of the right humerus that is not a definitiveabnormality on plain film radiography but could correspond to the area ofabnormality seen on the CT chest. This may indicate an occult enchondromabut etiology is indeterminate. No arthritic change at the glenohumeral noracromioclavicular joint. No periarticular soft tissue calcifications.Faint pulmonary opacities in the right lung, better seen on recent CTimaging. IMPRESSION: Minimal faint non defined density centrally in the proximal right humerus,possibly representing a: Chondroma but nonspecific on this radiographicappearance and nearly non perceptible on routine radiography. Minimalfaint nodular infiltrative changes right lung. Referred By: CORY MENG Interpreted By: Chase Pierre MD, 10/07/2020 2:55 PM us Cory Meng OVERHEAD WORKER-BC GENERAL IMAGING Final Resu lt * XR ELBOW RT M3V (10/07/2020 2:26 [...] By: Chase Pierre MD, 10/07/2020 2:58 PM us Cory Meng OVERHEAD WORKER-BC GENERAL IMAGING Final Resu lt documented in this encounter Visit Diagnoses Diagnosis Right elbow pain Pain in joint, upper arm Acute pain of right shoulder documented in this encounter Care Teams Cinder Crusher Operator Relationship Specialty Start Date End Date Crescencio Camacho MD [address] [place] [phone] PCP - General FAMILY PRACTICE 08/25/16 Fercho Simon MD Vascular/Shook Machine Operator INTERNAL MEDICINE 11/01/15 documented as of this encounter
--- OUTSIDE RECORDS SUMMARY | 2024-03-19 13:09 | XMS_ITS | Encounter Summary ---
Author Organization [facility] Address Formerly [facility], [facility] [place] [address] [place] [address] Care Team Providers Care Lingo Cleaner Name Role Phone Fercho Simon MD Unavailable Crescencio Camacho MD Primary Care Provider Reason for Referral * Consultation (Routine) - Closed Specialty Diagnoses / Procedures Referred By Shankar horne Referred To Contact NEUROLOGY Diagnoses Ulnar neuropathy at elbow, right Cory Meng FNP-BC [address] [place] [address] Phone: tel: fax: Referral ID Status Reason Start Date Expiration Date V isits Requested Visits Authorized [id number] Closed Specialty Services 10/07/2020 11/07/2021 [address] Buchanan in [place] with EMG studies Reason for Visit * Reason Comments Elbow Pain RIGHT Encounter Details Date Type Department Care Team (Late st Contact Info) Description 10/07/2020 2:30 PM CDT Office Visit [facility] [address], [address] [place] [address] Cory Meng FNP-BC [address] [place] [address] Elbow Pain (RIGHT) Social History Tobacco Use Types Packs/Day Years [...] PM CDT documented as of this encounter Last Filed Vital Signs Vital Sign Reading Time Taken Comments Blood Pressure - - Pulse - - Temperature - - Respiratory Rate - - Oxygen Saturation - - Inhaled Oxygen Concentration - - Weight 117.9 kg (260 lb) 10/07/2020 2:08 PM CDT Height 180.3 cm (5' 11 ) 10/07/2020 2:08 PM CDT Body Mass Index 36.26 10/07/2020 2:08 PM CDT documented in this encounter Progress Notes * Cory Meng, SUPERVISOR P[employer]ODUCTS-BC - 10/07/2020 2:30 PM CDT Chief Complaint: Elbow Pain (RIGHT) History of Present Illness: Arsh Guerrero is a 65-year-old male who presents to the office for Elbow Pain (RIGHT) Patient is here today with complaint of RIGHT elbow pain. He states he has pain with extension of the RIGHT elbow and decreased range of motion. He states he was referred by Xu Lopez PA-C due to having a fatty tumor on a Chest CT scan as an incidental finding. He states he has numbness in theRIGHT FOURTH and FIFTH fingers. He is RIGHT hand dominant. He reports that he has been having increased night pain due to the numbness and tingling. He states that he drops things frequently. Previous visit from 08/24/20 Patient returns to clinic for the complaint of RIGHT 2nd and 3rd trigger finger. History of trigger fingers on his LEFT hand with cortisone injections with good relief. Hewould like an injections today. Symptoms started 1 month ago and getting progressively worse. Frequent locking up of the RIGHT 2nd and 3rd fingers. He has numbness and tingling to all fingers. No history of injections on RIGHT hand, occupational therapy or EMG studies. Patient is RIGHT handed. He reports difficulty with fine motor skills. ROS: See HPI for pertinent positives Problem List: Patient Active Problem List Diagnosis ??? DVT (deep venous thrombosis) (CMS/HCC) ??? Hx of CABG ??? CAD (coronary artery disease) ??? Localized edema ??? History of DVT (deep vein thrombosis) ??? Essential hypertension ??? Hyperlipidemia, unspecified hyperlipidemia type ??? Lower extremity edema ??? 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 Monitoring [...] Gatherings with Friends and Family: ??? Attends Jainism Services: ??? Active Member of Clubs or Organizations: ??? Attends Club or Organization Meetings: ??? Marital Status: Intimate Partner Violence: ??? Fear of Current or Ex-Partner: ??? Emotionally Abused: ??? Physically Abused: ??? Sexually Abused: Medications: Current Outpatient Medications: ??? albuterol sulfate HFA 108 (90 Base) MCG/ACT inhaler, Inhale 2 puffs into the lungs 4 (four) times daily as needed., Disp: , Rfl: ??? aspirin 81 MG tablet, Take 1 tablet by mouth daily., Disp: , Rfl: ??? cyclobenzaprine 10 MG tablet, Take 1 tablet (10 mg total) by mouth 3 (three) times daily as needed., Disp: 30 tablet, Rfl: 0 ??? ELIQUIS 2.5 MG tablet, TAKE 1 TABLET BY MOUTH TWICE A DAY (Patient taking differently: Take 2.5mg by mouth 2 (two) times daily. ), Disp: 180 tablet, Rfl: 3 ??? finasteride 5 MG tablet, Take 5 mg by mouth daily., Disp: , Rfl: ??? losartan 50 MG tablet, Take 1 tablet by mouth daily., Disp: , Rfl: ??? simvastatin 40 MG tablet, Take 1 tablet by mouth daily., Disp: , Rfl: ??? venlafaxine 24 hr 75 MG 24 hr capsule, Take 1 tablet by mouth daily., Disp: , Rfl: No Known Allergies Objective: Body mass index is 36.26 kg/m??. Last Recorded Weight 10/07/20 1408 Weight: 117.9 kg (260 lb) Physical exam: Constitutional: Alert and in no acute distress. Neurological: The patient was oriented to person, place, and time. Eyes: The sclera and conjunctiva were normal ENT: Hearing was normal. Neck: The appearance of the neck was normal. Cardiovascular: Normal pulses. Pulmonary: No respiratory distress. Skin: No injuries or skin lesion. Musculoskeletal: Exam of right elbow today demonstrates use tenderness over lateral epicondyle withpalpation, good motion lacking 10 degrees full extension, limited supination and pronation, able tomake a fist, decreased sensation to fourth and fifth fingers, good capillary refill, negative compression at elbow, no tenderness of proximal humerus with palpation, full shoulder range of motion, good cuff strength, palpable radial pulse. Results: X-ray of right elbow today demonstrates severe degenerative changes with near complete joint loss and spurring appreciated with no acute bony injury or dislocation. X-ray of right shoulder today demonstrates mild degenerative changes but no acute bony injury or dislocation. There is subtle faint sclerotic area seen at the proximal metadiaphyseal region of the proximal humerus could represent a endochondroma which debi incidental finding on the chest scan performed on 09-24-2020. Assessment: Encounter Diagnose(s) ICD-10-CM ICD-9-CM SNOMED CT(R) 1. Ulnar neuropathy at elbow, right G56.21 354.2 ULNAR NEUROPATHY Ambulatory referral to Neurology EMG 2. Acute pain of right shoulder M25.511 719.41 SHOULDER PAIN XR SHOULDER RT MIN 2V 3. Primary osteoarthritis of right elbow M19.021 715.12 OSTEOARTHRITIS OF JOINT OF RIGHT ELBOW 4. Enchondroma of right humerus D16.01 213.4 ENCHONDROMA OF RIGHT HUMERUS Plan: Patient has been struggling with his right elbow which would be related more due to his significantosteoarthritis seen on plain films today. He is demonstrating signs of ulnar neuropathy which I have recommended obtaining EMG studies for further evaluation. We will set him up to see Dr. Buchanan forEMG studies in [place]. He will follow-up once his EMG studies have been performed so we can review results. As far as the lesions seen on CT scan from 09-24-2020 it is not well visualized on plain imaging today. This was an incidental finding during other testing and does not cause him any increased pain. Ihave recommended that we continue to watch and monitor the lesion and we will obtain x-rays in 6 months for routine monitoring. I did give patient reassurance that this a benign lesion but we will monitor. Follow up: Return for Visit after EMG studies have been obtained. JORGE DANIEL documented in this encounter Plan of Treatment Scheduled Referrals Name Type Priority Associated Diagnoses Orde r Schedule Ambulatory referral to Neurology Referral Routine Ulnar neuropathy at elbow, right Ordered: 10/07/2020 documented as of this encounter Results * XR SHOULDER RT [...] MD, 10/07/2020 2:55 PM us Cory Meng SUPERVISOR [employer]-BC GENERAL IMAGING Final Resu lt documented in this encounter Visit Diagnoses Diagnosis Ulnar neuropathy at elbow, right- Primary Acute pain of right shoulder Primary osteoarthritis of right elbow Primary localized osteoarthrosis, upper arm Enchondroma of right humerus documented in this encounter Care Teams Lingo Cleaner Relationship Specialty Start Date End Date Crescencio Camacho MD [address] [place] [phone] PCP - General FAMILY PRACTICE 08/25/16 Fercho Simon MD Vascular/[place] INTERNAL MEDICINE 11/01/15 documented as of this encounter
--- OUTSIDE RECORDS SUMMARY | 2024-03-19 13:09 | XMS_ITS | Encounter Summary ---
Author Organization [facility] Address [facility] [place] [address] [place] [address] Care Team Providers Care Rat Culturist Name Role Phone Fercho Simon MD Unavailable Crescencio Ware MD Primary Care Provider [phone] Reason for Referral * Imaging (Routine) - Closed Specialty Diagnoses / Procedures Referred By Contac t Referred To Contact RADIOLOGY Diagnoses Hematuria Procedures CT ABD+PEL WO Crescencio Murphy MD [address] [place] [phone] Phone: tel: fax: Referral ID Status Reason Start Date Expiration Date Visits Re quested Visits Authorized [id number] Closed 05/04/2021 07/01/2021 1 1 E CARRIAGE OPERATOR Reason for Visit * Imaging (Routine) - Closed Specialty Diagnoses / Procedures Referred By Contac ozzie Referred To Contact RADIOLOGY Diagnoses Hematuria Procedures CT ABD+PEL WO Crescencio Murphy MD [address] [place] [phone] Phone: tel: fax: Referral ID Status Reason Start Date Expiration Date Visits Re quested Visits Authorized [id number] Closed 05/04/2021 07/01/2021 1 1 Encounter Details Date Type Department Care Team (Latest Contact Info) Description 05/11/2021 10:12 AM STONE CARRIAGE OPERATOR - 05/11/2021 11:59 PM STONE CARRIAGE OPERATOR Hospital Encounter [facility] [address] [place] [address] Crescencio Ware MD [address] [place] [phone] Discharge Disposition: Home or Self Care [...] suspected to have Coronavirus/COVID-19? No / Unsure 05/11/2021 10:10 AM STONE CARRIAGE OPERATOR documented as of this encounter Medications at [...] Priority Date/Time Associated Diagnosis Comments CT ABD+PEL WO CON Routine 05/11/2021 10: 50 AM STONE CARRIAGE OPERATOR Hematuria documented in this encounter Results * CT ABD+PEL WO CON (05/11/2021 10:50 AM STONE CARRIAGE OPERATOR) Anatomical Region Laterality Modality Abdomen Computed Tomogra phy 05/12/2021 1:29 PM STONE CARRIAGE OPERATOR Impressions 05/12/2021 1:38 PM STONE CARRIAGE OPERATOR IMPRESSION: Small prostatic calcifications in a nonenlarged prostate. No evidence of renal calculus nor obstructive uropathy. Descending and sigmoid diverticulosis. Degenerative spondyloarthropathy lumbar spine. Right testicle appearing to be in the lower right inguinal canal. Ordered By: CRESCENCIO WARE Interpreted By: Chase Pierre MD, 05/12/2021 1:29 PM Narrative 05/12/2021 1:38 PM STONE CARRIAGE OPERATOR 05/11/2021, 10:47 AM. HISTORY: Hematuria. EXAM: CT imaging of the abdomen and pelvis without contrast. Imaging was performed without contrast with images submitted for review in the axial, the coronal and sagittal planes. A dose lowering technique was used for this procedure, which may include, but is not limited to, dose reduction technique, automated exposure control, the use of iterative reconstruction, and ALARA (As Low As Reasonably Achievable) / Image Gently techniques. Correlation to study 10/17/2020. FINDINGS: Punctate subpleural pulmonary nodule laterally in the middle lobe right lung, image 4, unchanged. Small calcified granuloma in the lingula, image 10, unchanged. Previous faint patchy interstitial infiltrates in the lower lung seen on prior study 10/17/2020 are no longer present. No mass or active infiltrate at the lung bases. The heart size is within normal limits. No pericardial effusion. No pleural effusion. Faint coronary atherosclerosis. No mass or enlargement of the liver, spleen, pancreas nor either adrenal gland. There are a few small calcified granulomata in the spleen. No calcified stones in the gallbladder. No thickening of the gallbladder wall. No pericholecystic fluid collection. No bile duct dilatation. No calcified intrarenal calculus in either kidney. No renal parenchymal mass or cyst. No renal hydronephrosis nor evidence of obstructive uropathy. No ureterectasis. No calcified intraureteral calculus. No calcified stones in the urinary bladder. No bladder wall thickening. No bladder diverticula. The appendix appears normal. No periappendiceal nor pericecal inflammatory change. No bowel dilatation nor evidence of bowel obstruction. Diverticula in the descending and sigmoid segments of the colon but no evidence of diverticulitis. No mesenteric mass or adenitis. There are a few small calcifications in a nonenlarged prostate. No central vascular distention. No intrapelvic mass or adenopathy. No ascites. Degenerative disc disease at multiple levels lumbar spine with narrowing of the T12-L1, the L1-L2 in the L2-L3 disc, vacuum change in each of those discs as well as in the L3-L4 disc and the L4-L5 disc. Schmorl's nodule superior endplate L4 vertebra. Anterior spurring from the upper lumbar vertebra. 3.6 cm tissue density in the lower right inguinal canal that appears to be a right testicle. Procedure Note Chase Pierre MD - 05/12/2021 05/11/2021, 10:47 AM. HISTORY: Hematuria. EXAM: CT imaging of the abdomen and pelvis without contrast. Imaging was performed without contrast with images submitted for review inthe axial, the coronal and sagittal planes. A dose lowering technique was used for this procedure, which may include,but is not limited to, dose reduction technique, automated exposurecontrol, the use of iterative reconstruction, and ALARA (As Low AsReasonably Achievable) / Image Gently techniques. Correlation to study 10/17/2020. FINDINGS: Punctate subpleural pulmonary nodule laterally in the middlelobe right lung, image 4, unchanged. Small calcified granuloma in thelingula, image 10, unchanged. Previous faint patchy interstitialinfiltrates in the lower lung seen on prior study 10/17/2020 are no longerpresent. No mass or active infiltrate at the lung bases. The heart size iswithin normal limits. No pericardial effusion. No pleural effusion. Faintcoronary atherosclerosis. No mass or enlargement of the liver, spleen, pancreas nor either adrenalgland. There are a few small calcified granulomata in the spleen. Nocalcified stones in the gallbladder. No thickening of the gallbladderwall. No pericholecystic fluid collection. No bile duct dilatation. No calcified intrarenal calculus in either kidney. No renal parenchymalmass or cyst. No renal hydronephrosis nor evidence of obstructiveuropathy. No ureterectasis. No calcified intraureteral calculus. Nocalcified stones in the urinary bladder. No bladder wall thickening. Nobladder diverticula. The appendix appears normal. No periappendiceal nor pericecal inflammatorychange. No bowel dilatation nor evidence of bowel obstruction. Diverticulain the descending and sigmoid segments of the colon but no evidence ofdiverticulitis. No mesenteric mass or adenitis. There are a few small calcifications in a nonenlarged prostate. No centralvascular distention. No intrapelvic mass or adenopathy. No ascites.Degenerative disc disease at multiple levels lumbar spine with narrowingof the T12-L1, the L1-L2 in the L2-L3 disc, vacuum change in each of thosediscs as well as in the L3-L4 disc and the L4-L5 disc. Schmorl's nodulesuperior endplate L4 vertebra. Anterior spurring from the upper lumbarvertebra. 3.6 cm tissue density in the lower right inguinal canal thatappears to be a right testicle. IMPRESSION: Small prostatic calcifications in a nonenlarged prostate. No evidence ofrenal calculus nor obstructive uropathy. Descending and sigmoiddiverticulosis. Degenerative spondyloarthropathy lumbar spine. Righttesticle appearing to be in the lower right inguinal canal. Ordered By: CRESCENCIO WARE Interpreted By: Chase Pierre MD, 05/12/2021 1:29 PM us Crescencio Ware MD CT Final Resul t documented in this encounter Visit Diagnoses Diagnosis Hematuria Hematuria, unspecified documented in this encounter Care Teams Rat Culturist Relationship Specialty Start Date End Date Crescencio Ware MD [address] [place] [phone] PCP - General FAMILY PRACTICE 08/25/16 Fercho Simon MD Vascular/Global Sales Executive INTERNAL MEDICINE 11/01/15 documented as of this encounter
--- OUTSIDE RECORDS SUMMARY | 2024-03-19 13:09 | XMS_ITS | Encounter Summary ---
Author Organization [facility] Address [facility] [place] [address] [place] [address] Care Team Providers Care Air Cargo Ground Crew Supervisor Name Role Phone Fercho Simon MD Unavailable Crescencio Camacho MD Primary Care Provider [phone] Encounter Details Date Type Department Care Team (Latest Contact Info) Description 01/19/2021 Travel Social History Tobacco Use Types Packs/Day [...] on filedocumented in this encounter Care Teams Air Cargo Ground Crew Supervisor Relationship Specialty Start Date End Date Crescencio Camacho MD [address] [place] [phone] PCP - General FAMILY PRACTICE 08/25/16 Fercho Simon MD Vascular/Thread Spinner INTERNAL MEDICINE 11/01/15 documented as of this encounter
--- OUTSIDE RECORDS SUMMARY | 2024-03-19 13:09 | XMS_ITS | Encounter Summary ---
Author Organization [facility] Address [facility] [place] [address] [place] [address] Care Team Providers Care Preparation Supervisor Name Role Phone Fercho Simon MD Unavailable Crescencio Camacho MD Primary Care Provider Encounter Details Date Type Department Care Team (Late st Contact Info) Description 01/19/2021 Prep for Procedure [facility] [address], [facility] [address] [place] [address] Orestes Layne MD [address] [place] [address] Social History Tobacco Use Types Packs/Day Years [...] on filedocumented in this encounter Care Teams Preparation Supervisor Relationship Specialty Start Date End Date Crescencio Camacho MD [address] [place] [phone] PCP - General FAMILY PRACTICE 08/25/16 Fercho Simon MD Vascular/Technical Specialist Cytology INTERNAL MEDICINE 11/01/15 documented as of this encounter
--- OUTSIDE RECORDS SUMMARY | 2024-03-19 13:09 | XMS_ITS | Encounter Summary ---
Author Organization [facility] Address [facility] [place] [address] [place] [address] Care Team Providers Care Process Controls Technician Name Role Phone Fercho Simon MD Unavailable Crescencio Camacho MD Primary Care Provider [phone] Encounter Details Date Type Department Care Team (Latest Contact Info) Description 01/03/2021 Travel Social History Tobacco Use Types Packs/Day [...] filedocumented in this encounter Care Teams Process Controls Technician Relationship Specialty Start Date End Date Crescencio Camacho MD [address] [place] [phone] PCP - General FAMILY PRACTICE 08/25/16 Fercho Simon MD Vascular/Shaker Screen Operator INTERNAL MEDICINE 11/01/15 documented as of this encounter
--- OUTSIDE RECORDS SUMMARY | 2024-03-19 13:09 | XMS_ITS | Encounter Summary ---
Author Organization [facility] Address [facility] [place] [address] [place] [address] Care Team Providers Care Transformer Shop Supervisor Name Role Phone Fercho Simon MD Unavailable Crescencio Camacho MD Primary Care Provider Encounter Details Date Type Department Care Team (Latest Contact Info) Description 05/11/2021 Travel Social History Tobacco Use Types Packs/Day [...] Coronavirus/COVID-19? No / Unsure 05/11/2021 10:10 AM GENERAL OFFICE ASSOCIATE documented as of this encounter Plan of Treatment Not on file documented as of this encounter Visit Diagnoses Not on filedocumented in this encounter Care Teams Transformer Shop Supervisor Relationship Specialty Start Date End Date Crescencio Camacho MD [address] [place] [phone] PCP - General FAMILY PRACTICE 08/25/16 Fercho Simon MD Vascular/Client Executive INTERNAL MEDICINE 11/01/15 documented as of this encounter
--- OUTSIDE RECORDS SUMMARY | 2024-03-19 13:09 | XMS_ITS | Encounter Summary ---
Author Organization [facility] Address [facility] [place] [address] [place] [address] Care Team Providers Care Manager Inpatient Name Role Phone Fercho Simon MD Unavailable Crescencio Camacho MD Primary Care Provider Reason for Visit * Reason Onset Date Comments Surgical Clearance 01/19/2021 Encounter Details Date Type Department Care Team (Late st Contact Info) Description 01/19/2021 Telephone [facility] [address], [place] [phone] Elza Medina RNFA Surgical Clearance Social History Tobacco Use Types Packs/Day Years [...] encounter Progress Notes * CRESCENCIO Martin - 01/19/2021 4:[address] Layne would like medical clearance by Dr. Camacho. Dr. Camacho's office notified and will call patient to schedule apt. documented in this encounter Plan of Treatment Not on file documented as of this encounter Visit Diagnoses Not on filedocumented in this encounter Care Teams Manager Inpatient Relationship Specialty Start Date End Date Crescencio Camacho MD [address] [place] [phone] PCP - General FAMILY PRACTICE 08/25/16 Fercho Simon MD Vascular/Medical Records Field Technician INTERNAL MEDICINE 11/01/15 documented as of this encounter
--- OUTSIDE RECORDS SUMMARY | 2024-03-19 13:09 | XMS_ITS | Encounter Summary ---
Author Organization [facility] Address [facility]6 [facility] [place] [address] [place] [address] Care Team Providers Care Parking Meter Installer Name Role Phone Fercho Simon MD Unavailable Crescencio Camacho MD Primary Care Provider Encounter Details Date Type Department Care Team (Latest Contact Info) Description 09/24/2020 Travel Social History Tobacco Use Types Packs/Day [...] documented as of this encounter Care Teams Parking Meter Installer Relationship Specialty Start Date End Date Crescencio Camacho MD [address] [place] [phone] PCP - General FAMILY PRACTICE 08/25/16 Fercho Simon MD Vascular/Cardiac Nurse Practitioner INTERNAL MEDICINE 11/01/15 documented as of this encounter
--- OUTSIDE RECORDS SUMMARY | 2024-03-19 13:10 | XMS_ITS | Encounter Summary ---
Author Organization [facility] - [facility] System Address [facility] [place] [address] [place] [address] Care Team Providers Care Home Agent Name Role Phone Fercho Simon MD Unavailable Crescencio Camacho MD Primary Care Provider Reason for Visit * Reason Comments Back Pain Encounter Details Date Type Department Care Team (Late st Contact Info) Description 08/22/2020 9:13 AM CDT - 08/22/2020 10:51 AM CDT Emergency [facility] [address] [place] [address] [place] [address] Richard Verdugo MD [address] [place] [place] [address] Back Pain Discharge Disposition: Home or Self Care [...] have Coronavirus / COVID-19? No / Unsure 08/22/2020 9:20 AM CDT documented as of this encounter Last Filed Vital Signs Vital Sign Reading Time Taken Comments Blood Pressure 166/89 08/22/2020 9:19 AM CDT Pulse 85 08/22/2020 9:19 AM CDT Temperature 36.2 ??C (97.2 ??F) 08/22/2020 9:19 AM CD T Respiratory Rate 18 08/22/2020 9:19 AM CDT Oxygen Saturation 96% 08/22/2020 9:19 AM CDT Inhaled Oxygen Concentration - - Weight 129.3 kg (285 lb) 08/22/2020 9:19 AM CDT Height 180.3 cm (5' 11 ) 08/22/2020 9:19 AM CDT Body Mass Index 39.75 08/22/2020 9:19 AM CDT documented in this encounter Discharge Instructions * Attachments The following attachments cannot be sent through Care Everywhere. * Low Back Pain Discharge Instructions (Nauruan) documented in this encounter Medications at Time of Discharge aspirin 81 MG tablet Take 1 tablet by mouth daily. 05/28/2009 losartan 50 MG tablet Take 1 tablet by mouth daily. 06/04/2015 simvastatin 40 MG tablet Take 1 tablet by mouth daily. 06/04/2015 venlafaxine 24 hr 75 MG 24 hr capsule Take 1 tablet by mouth daily. 06/04/2015 cyclobenzaprine 10 MG tablet Take 1 tablet (10 mg total) by mouth 3 (three) times daily as needed. 30 tablet 08/22/2020 01/03/2021 ELIQUIS 2.5 MG tablet TAKE 1 TABLET BY MOUTH TWICE A DAY 180 tablet 3 10/20/2019 10/14/2020 finasteride 5 MG tablet Take 5 mg by mouth daily. 10/29/2019 01/03/2021 losartan 100 MG tablet Take 50 mg by mouth daily. 06/07/2020 08/24/2020 documented as of this encounter ED Notes * Richard Verdugo MD - 08/22/2020 10:12 AM CDT Chief Complaint Chief Complaint Patient presents with ??? Back Pain History of Present Illness This is a 60-year-old male, morbidly obese, with history of chronic low back pain and right bulgingdisk L2-L3 and L4-L5 with left nerve impingement with mild central spinal canal stenosis at L4-L5. He states he was lifting an air conditioner yesterday, he did not feel much pain then, but after he rested overnight he started with acute low back pain right when he woke up, he felt stiff. The pain is on the lumbar lower back, and he feels radiated to the posterior aspect of the right thigh. This pain is similar to previous pains that he had, however increased today. He is able to pass urine andmove his bowel movement without difficulty or irregularities. He denies any other trauma, no falls,no accidents. He states he has been prescribed a muscle relaxant but that he feels is not working at this time. Medical History ALLERGIES: Allergies Allergen Reactions ??? Penicillins Shortness of Breath Pt and deny this allergy MEDICATIONS: Prior to Admission medications Medication Sig Start Date End Date Taking? Authorizing Provider aspirin 81 MG tablet Take 1 tablet by mouth daily. 05/28/09 Yes Doc Abstract cyclobenzaprine 10 MG tablet Take 1 tablet (10 mg total) by mouth 3 (three) times daily as needed. 08/22/20 Yes Richard Verdugo MD ELIQUIS 2.5 MG tablet TAKE 1 TABLET BY MOUTH TWICE A DAY 10/20/19 Yes Fercho Simon MD finasteride 5 MG tablet Take 5 mg by mouth daily. 10/29/19 Yes Doc Abstract losartan 50 MG tablet Take 1 tablet by mouth daily. 06/04/15 Yes Doc Abstract simvastatin 40 MG tablet Take 1 tablet by mouth daily. 06/04/15 Yes Doc Abstract venlafaxine 24 hr 75 MG 24 hr capsule Take 1 tablet by mouth daily. 06/04/15 Yes Doc Abstract PAST MEDICAL HISTORY: Past Medical History: Diagnosis Date ??? Benign hypertension ??? Bulging lumbar disc ??? CAD (coronary artery disease) CABG ??? DVT (deep venous thrombosis) ([facility]) Right femoral vein and left [...] No Review of Systems Review of Systems All other systems reviewed and are negative. Physical Exam Filed Vitals: 08/22/20 0919 BP: (!) 166/89 Pulse: 85 Resp: 18 Temp: 97.2 ??F (36.2 ??C) TempSrc: Temporal SpO2: 96% Weight: 129.3 kg (285 lb) Height: 5' 11 (1.803 m) Physical Exam Vitals and nursing note reviewed. Constitutional: Appearance: Normal appearance. HENT: Head: Normocephalic and atraumatic. Nose: Nose normal. Mouth/Throat: Mouth: Mucous membranes are moist. Eyes: Pupils: Pupils are equal, round, and reactive to light. Cardiovascular: Rate and Rhythm: Normal rate and regular rhythm. Pulses: Normal pulses. Heart sounds: Normal heart sounds. Pulmonary: Effort: Pulmonary effort is normal. Breath sounds: Normal breath sounds. Abdominal: General: Abdomen is flat. Bowel sounds are normal. Palpations: Abdomen is soft. Musculoskeletal: General: Normal range of motion. Cervical back: Normal range of motion and neck supple. Comments: Tenderness to palpation and percussion of the L3-4, L4-5, and the midline, with paravertebral muscles tenderness. Skin: General: Skin is warm. Neurological: General: No focal deficit present. Mental Status: He is alert and oriented to person, place, and time. Mental status is at baseline. Diagnostic Studies / Procedures ELECTROCARDIOGRAMS: No results found for this visit on 08/22/20. LABORATORY STUDIES: No results found for this visit on 08/22/20. IMAGING STUDIES XR LUMB SPINE+OBLS 5V Final Result by User, [id number] (08/22 1027) Examination: Lumbar Spine 4 views Exam Date/Time: 08/22/2020 10:22 AM Reason For Exam: low back pain Lower back pain onset a few days ago. No known injury. Comparison: Lumbar spine radiographs 05/26/2020 Technique: Bilateral oblique, lateral, AP, and spot lumbosacral views of the lumbar spine are obtained. Findings: There are 5 nonrib-bearing lumbar-type vertebral bodies. Vertebral body heights and alignment appear preserved. Multilevel endplate osteophytes. Lower lumbar facet disease. Atherosclerotic aorta. No destructive osseous lesions. Visualized sacral struts intact. SI joints unremarkable. Overlying bowel gas pattern nonobstructive. IMPRESSION: 1. Multilevel degenerative changes with no convincing acute osseous abnormality by plain film evaluation. Referred By: Interpreted By: Gennaro Kaiser MD, 08/22/2020 10:24 AM ED Course / Medical Decision Making MDM Number of Diagnoses or Management Options Acute exacerbation of chronic low back pain Diagnosis management comments: This is a 64-year-old male with a history of chronic low back pain secondary to multiple disc bulging, who was lifting heavy stuff yesterday and this morning woke up with increased low back pain. X-ray done of the lumbar spine did not show any new acute findings. He is noted to have a recent MRI of the lumbar spine. He was given Norflex in the emergency room with improvement of his pain. He states he only has 2 muscle relaxants at home, Flexeril, and feels he would like a refill. The patient is being discharged back home and asked to follow-up with a primary care provider, and considering spinal specialist if the pain continues. Clinical Impression Acute exacerbation of chronic low back pain (Primary) Disposition: Discharge Richard Verdugo MD 08/22/20 1043 * Jaylin Rod RN - 08/22/2020 10:05 AM CDT To xray per w/c with tech * Olivia Tinajero RN - 08/22/2020 9:20 AM CDT Here with low back pain. Onset 2 days ago upon waking. Denies injury. Has flexeril at home - no relief with this. documented in this encounter Plan of Treatment Not on file documented as of this encounter Procedures Procedure Name Priority Date/Time Associated Diagnosis Comments XR LUMB SPINE+OBLS 5V STAT 08/22/2020 10:22 AM CDT documented in this encounter Results * XR LUMB SPINE+OBLS 5V (08/22/2020 10:22 AM CDT) Anatomical Region Laterality Modality Spine Radiographic Kristina ging 08/22/2020 10:2 4 AM CDT Impressions 08/22/2020 10:26 AM CDT IMPRESSION: 1. ??Multilevel degenerative changes with no convincing acute osseous abnormality by plain film evaluation. Referred By: ?? Interpreted By: Gennaro Kaiser MD, 08/22/2020 10:24 AM Narrative 08/22/2020 10:26 AM CDT Examination: Lumbar Spine 4 views Exam Date/Time: 08/22/2020 10:22 AM Reason For Exam: ??low back pain ?? Lower back pain onset a few days ago. ??No known injury. Comparison: Lumbar spine radiographs 05/26/2020 Technique: Bilateral oblique, lateral, AP, and spot lumbosacral views of the lumbar spine are obtained. Findings: There are 5 nonrib-bearing lumbar-type vertebral bodies. ??Vertebral body heights and alignment appear preserved. ??Multilevel endplate osteophytes. ??Lower lumbar facet disease. ??Atherosclerotic aorta. ??No destructive osseous lesions. ??Visualized sacral struts intact. ??SI joints unremarkable. ??Overlying bowel gas pattern nonobstructive. ?? Procedure Note Gennaro Kaiser MD - 08/22/2020 Examination: Lumbar Spine 4 views Exam Date/Time: 08/22/2020 10:22 AM Reason For Exam: low back pain Lower back pain onset a few days ago. No known injury. Comparison: Lumbar spine radiographs 05/26/2020 Technique: Bilateral oblique, lateral, AP, and spot lumbosacral views ofthe lumbar spine are obtained. Findings: There are 5 nonrib-bearing lumbar-type vertebral bodies.Vertebral body heights and alignment appear preserved. Multilevelendplate osteophytes. Lower lumbar facet disease. Atherosclerotic aorta.No destructive osseous lesions. Visualized sacral struts intact. SIjoints unremarkable. Overlying bowel gas pattern nonobstructive. IMPRESSION: 1. Multilevel degenerative changes with no convincing acute osseousabnormality by plain film evaluation. Referred By: Interpreted By: Gennaro Kaiser MD, 08/22/2020 10:24 AM Richard Verdugo MD GENERAL IMAGING Final Result documented in this encounter Visit Diagnoses Diagnosis Acute exacerbation of chronic low back pain- Primary Lumbago documented in this encounter Administered Medications Inactive Administered Medications - up to 3 most recent administrations Medication Order MAR Action Action Date Dose Rate Site orphenadrine (NORFLEX) injection 60 mg 60 mg, Intramuscular, Once, 1 dose, On 08/22/20 at 0945, If administering IV, give slow, approximately 5 minutes with patient in supine position. Patient should remain in this position for 5-10 minutes post injection. Given 08/22/2020 9:52 AM CDT 60 mg Left Deltoid documented in this encounter Active and Recently Administered Medications Times are shown in CDT. Scheduled Medication Order 08/20/2020 08/21/2020 08/22/2020 orphenadrine (NORFLEX) injection 60 mg (COMPLETED) 60 mg, Intramuscular, Once, 1 dose, On 08/22/20 at 0945, If administering IV, give slow, approximately 5 minutes with patient in supine position. Patient should remain in this position for 5-10 minutes post injection. 0952 (Given - Provid er: Jaylin Rod RN) documented in this encounter Care Teams Home Agent Relationship Specialty Start Date End Date Crescencio Camacho MD [address] [place] [phone] PCP - General FAMILY PRACTICE 08/25/16 Fercho Simon MD Vascular/Hide Buyer INTERNAL MEDICINE 11/01/15 documented as of this encounter
--- OUTSIDE RECORDS SUMMARY | 2024-03-19 13:10 | XMS_ITS | Encounter Summary ---
Author Organization [facility] Address [facility] [place] [address] [place] [address] Care Team Providers Care Agronomist Name Role Phone Fercho Simon MD Unavailable Crescencio Camacho MD Primary Care Provider [phone] Encounter Details Date Type Department Care Team (Latest Contact Info) Description 06/03/2020 Travel Social History Tobacco Use Types Packs/Day [...] have Coronavirus / COVID-19? 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
--- OUTSIDE RECORDS SUMMARY | 2024-03-19 13:10 | XMS_ITS | Encounter Summary ---
Author Organization [facility] Address [address] [place] [address]. [place] [address] [place] [address] Care Team Providers Care Sales & Service Associate Name Role Phone Fercho Simon MD Unavailable Crescencio Camacho MD Primary Care Provider Reason for Visit * Reason Comments Hand Pain RIGHT Encounter Details Date Type Department Care Team (Late st Contact Info) Description 08/24/2020 3:30 PM CDT Office Visit [facility] [address], [facility] [address] [place] [phone] Orestes Layne MD [address] [place] [address] Hand Pain (RIGHT) Social History Tobacco Use Types [...] have Coronavirus / COVID-19? No / Unsure 08/24/2020 2:48 PM CDT documented as of this encounter Last Filed Vital Signs Vital Sign Reading Time Taken Comments Blood Pressure - - Pulse - - Temperature - - Respiratory Rate - - Oxygen Saturation - - Inhaled Oxygen Concentration - - Weight 129.3 kg (285 lb) 08/24/2020 3:06 PM CDT Height 180.3 cm (5' 11 ) 08/24/2020 3:06 PM CDT Body Mass Index 39.75 08/24/2020 3:06 PM CDT documented in this encounter Progress Notes * Orestes Layne MD - 08/24/2020 3:30 PM CDT Chief Complaint: Hand Pain (RIGHT) History of Present Illness: Arsh Guerrero is a 64-year-old male who presents to the office for Hand Pain (RIGHT) Patient returns to clinic for the complaint of RIGHT 2nd and 3rd trigger finger. History of triggerfingers on his LEFT hand with cortisone injections with good relief. He would like an injections today. Symptoms started 1 [...] hyperlipidemia type ??? Lower extremity edema ??? 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 Monitoring for anticoagulant use ??? Artemio lipomatous neoplm of skin, subcu of head, face and neck ??? Left shoulder pain ??? Lump of skin of back ??? Rupture of biceps tendon ??? Primary osteoarthritis of left hip ??? Osteoarthritis of left index finger ??? Osteoarthritis of left middle finger History: Past Medical History: Diagnosis Date ??? Benign hypertension ??? Bulging lumbar disc ??? CAD (coronary artery disease) CABG ??? DVT (deep venous thrombosis) (CMS/HCC) Right [...] Aunt ??? Coronary artery disease Neg Hx Social History Tobacco Use ??? Smoking status: Never Smoker ??? Smokeless tobacco: Never Used Substance Use Topics ??? Alcohol use: No ??? Drug use: No Medications: Current Outpatient Medications: ??? aspirin 81 [...] Disp: , Rfl: No Known Allergies Objective: Filed Vitals: 08/24/20 1506 Weight: 129.3 kg (285 lb) Height: 5' 11 (1.803 m) Body mass index is 39.75 kg/m??. Physical Exam: Constitutional: Alert and in no acute distress. Neurological: The patient was oriented to person, place, and time. Eyes: The sclera and conjunctiva were normal ENT: Hearing was normal. Neck: The appearance of the neck was normal. Cardiovascular: Normal pulses. Pulmonary: No respiratory distress. Skin: No injuries or skin lesions. Musculoskeletal: Patient demonstrates no evidence of triggering and has full range of motion of thefingers. No localized A1 laly tenderness. Neurovascularly intact Results: X-ray was reviewed demonstrating fairly mild diffuse degenerative changes throughout the right hand Assessment: Encounter Diagnose(s) ICD-10-CM ICD-9-CM SNOMED CT(R) 1. Muscle spasm M62.838 728.85 SPASM Plan: Patient describes episodes of his fingers drawing down that is associate with pain in the forearm. He is able to stretch his fingers out and that tends to resolve it. Indicates this occurs a couple of times a week. My impression is this is spasm related and I recommended that he see Dr. Camacho for medical evaluation. I have discussed the fact that electrolyte imbalances as well as dehydration can cause spasms. Muscle relaxants are really very effective for such a short lasting episode. I reassured him that I do not see any damage that is occurring and he will return as needed Follow up: Return if symptoms worsen or fail to improve. ORESTES LAYNE MD documented in this encounter Plan of Treatment Not on file documented as of this encounter Visit Diagnoses Diagnosis Muscle spasm- Primary Spasm of muscle documented in this encounter Care Teams Sales & Service Associate Relationship Specialty Start Date End Date Crescencio Camacho MD [address] [place] [phone] PCP - General FAMILY PRACTICE 08/25/16 Fercho Simon MD Vascular/Physician Coder INTERNAL MEDICINE 11/01/15 documented as of this encounter
--- OUTSIDE RECORDS SUMMARY | 2024-03-19 13:10 | XMS_ITS | Encounter Summary ---
Author Organization [facility] - [facility] Address [facility] [place] [address] [place] [address] Care Team Providers Care Enlisted Advisor Name Role Phone Fercho Simon MD Unavailable Crescencio Camacho MD Primary Care Provider Encounter Details Date Type Department Care Team (Latest Contact Info) Description 11/26/2019 10:10 AM CDT - 11/26/2019 11:59 PM CDT Hospital Encounter [place] [phone] [facility] [place] [address] [place] [address] [place] [phone] Discharge Disposition: Home or Self Care (Routine [...] have Coronavirus / COVID-19? No / Unsure 11/25/2019 12:29 PM CDT documented as of this encounter Medications at Time of Discharge aspirin 81 MG tablet Take 1 tablet by mouth daily. 05/28/2009 losartan 50 MG tablet Take 1 tablet by mouth daily. 06/04/2015 simvastatin 40 MG tablet Take 1 tablet by mouth daily. 06/04/2015 venlafaxine 24 hr 75 MG 24 hr capsule Take 1 tablet by mouth daily. 06/04/2015 ELIQUIS 2.5 MG tablet TAKE 1 TABLET BY MOUTH TWICE A DAY 180 tablet 3 10/20/2019 10/14/2020 finasteride 5 MG tablet Take 5 mg by mouth daily. 10/29/2019 01/03/2021 documented as of this encounter Plan of Treatment Not on file documented as of this encounter Procedures Procedure Name Priority Date/Time Associated Diagnosis Comments PROSTATE SPECIFIC ANTIGEN,TOTAL Routine 11/26/2019 10:26 AM CDT Elevated PSA documented in this encounter Results * (ABNORMAL) PROSTATE SPECIFIC ANTIGEN, DIAG (11/26/2019 10:26 AM CDT) PSA 4.57(H) <4.00 NG/ML 11/26/2019 10:59 AM CDT [facility] 11/26/2019 10:2 6 AM CDT us Krystin Delgado III, MD LABORATORY Final Re sult [facility] [address] [place] [address], documented in this encounter Visit Diagnoses Diagnosis Elevated PSA Elevated prostate specific antigen (PSA) documented in this encounter Care Teams Enlisted Advisor Relationship Specialty Start Date End Date Crescencio Camacho MD [address] [place] [phone] PCP - General FAMILY PRACTICE 08/25/16 Fercho Simon MD Vascular/Cooper Helper INTERNAL MEDICINE 11/01/15 documented as of this encounter
--- OUTSIDE RECORDS SUMMARY | 2024-03-19 13:10 | XMS_ITS | Encounter Summary ---
Author Organization [facility] Address [facility] [place] [address] [place] [address] Care Team Providers Care Health Services Manager Name Role Phone Fercho Simon MD Unavailable Crescencio Camacho MD Primary Care Provider Encounter Details Date Type Department Care Team (Late st Contact Info) Description 06/07/2020 Orders Only [facility] [address] [place] [address] Emily Hernandez LPN Social History Tobacco Use Types Packs/Day Years [...] COVID-19? 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
--- OUTSIDE RECORDS SUMMARY | 2024-03-19 13:10 | XMS_ITS | Encounter Summary ---
Author Organization [facility] Address [facility] [place] [address] [place] [address] Care Team Providers Care Outsole Cutter Machine Name Role Phone Fercho Simon MD Unavailable Crescencio Camacho MD Primary Care Provider Encounter Details Date Type Department Care Team (Late st Contact Info) Description 03/16/2020 Orders Only [facility] [place] [address] [place] [address] Emily Hernandez LPN Social History Tobacco Use [...] have Coronavirus / COVID-19? No / Unsure 03/18/2020 9:55 AM STONE RUBBER documented as of this encounter Plan of Treatment Not on file documented as of this encounter Visit Diagnoses Not on filedocumented in this encounter Care Teams Outsole Cutter Machine Relationship Specialty Start Date End Date Crescencio Camacho MD [address] [place] [phone] PCP - General FAMILY PRACTICE 08/25/16 Fercho Simon MD Vascular/Hospice Care Consultant INTERNAL MEDICINE 11/01/15 documented as of this encounter
--- OUTSIDE RECORDS SUMMARY | 2024-03-19 13:10 | XMS_ITS | Encounter Summary ---
Author Organization [facility] Address [address] [place] [address] [place] [address] Care Team Providers Care Coal Yard Supervisor Name Role Phone Fercho Simon MD Unavailable Crescencio Camacho MD Primary Care Provider [phone] Reason for Referral * Imaging (Routine) - Closed Specialty Diagnoses / Procedures Referred By Contac t Referred To Contact RADIOLOGY Diagnoses Lesion of left femur Procedures MRI FEMUR LT WWO CON MRI FEMUR LT WWO CON Orestes Layne MD [address] [place] [phone] Phone: tel: fax: Referral ID Status Reason Start Date Expiration Date Visits Re quested Visits Authorized [id number] Closed 11/21/2019 12/21/2020 1 1 Reason for Visit * Imaging (Routine) - Closed Specialty Diagnoses / Procedures Referred By Shankar horne Referred To Contact RADIOLOGY Diagnoses Lesion of left femur Procedures MRI FEMUR LT WWO CON MRI FEMUR LT WWO CON Orestes Layne MD [address] [place] [phone] Phone: tel: fax: Referral ID Status Reason Start Date Expiration Date Visits Re quested Visits Authorized [id number] Closed 11/21/2019 12/21/2020 1 1 Encounter Details Date Type Department Care Team (Latest Contact Info) Description 11/25/2019 12:30 PM CDT - 11/25/2019 11:59 PM CDT Hospital Encounter [facility] [address] [place] [address] Orestes Layne MD [address] [place] [address] Discharge Disposition: Home or Self Care (Routine [...] Procedure Name Priority Date/Time Associated Diagnosis Comments MRI FEMUR LT WWO CON Routine 11/25/2019 1:50 PM CDT Lesion of left femur documented in this encounter Results * MRI FEMUR LT WWO CON (11/25/2019 1:50 PM CDT) Anatomical Region Laterality Modality Femur Magnetic Resonan ce 11/26/2019 3:42 PM CDT Impressions 11/27/2019 1:32 PM CDT IMPRESSION: 1) The images do demonstrate the presence of an approximately 3 cm in length focal area of marrow signal abnormality within the proximal left femoral shaft as described above and corresponding to the abnormality noted on MRI of the left hip. This is technically indeterminate although demonstrates no aggressive features. No evidence of endosteal scalloping, cortical interruption, periosteal reaction or soft tissue abnormality associated. No significant enhancement. This is also unchanged in comparison to previous study of 11/27/2018. These findings as well as the fact that the lesion is radiographically occult favor benign/nonaggressive etiology. Correlation with follow-up noncontrast MRI left femur in 6 months would be recommended to assess for stability. Interpreted By: Gael Roper MD, 11/26/2019 3:42 PM Narrative 11/27/2019 1:32 PM CDT Examination: MRI FEMUR LT WWO CON Exam time: 11/25/2019 1:50 PM Clinical history: Left hip pain with recent left hip MRI demonstrating labral tears. There was also incidental visualization of a marrow signal abnormality in the proximal left femoral shaft. Patient is referred for further evaluation of the left femoral shaft lesion. Comparison: MRI pelvis 11/27/2018, MRI left hip 11/13/2019 Technique: Coronal T1, T2 and STIR images of the left femur were obtained. Sagittal and coronal STIR images of the left femur were also obtained. Axial T1, T2 FSE and STIR images of the left femur were then obtained. Following intravenous injection of 20 mL MultiHance gadolinium contrast fat-suppressed T1-weighted images were obtained. Findings: The images demonstrate slightly inhomogeneous marrow signal in the left femoral shaft. There is a small focal area of more circumscribed marrow signal abnormality in the proximal left femoral shaft corresponding to the abnormality noted on the recent left hip MRI. This is seen as mixed intermediate and high T1 signal and mixed T2 signal with no associated endosteal scalloping. There is no evidence of cortical interruption or significant periosteal reaction. There is no associated soft tissue abnormality. Following intravenous injection of contrast there is little if any enhancement. In retrospect, this abnormality was present on the previous study of 11/27/2018 and does not show any significant interval change. On the left hip radiographs of 10/06/2019 the lesion is radiographically occult. Procedure Note Gael Roper MD - 11/27/2019 Examination: MRI FEMUR LT WWO CON Exam time: 11/25/2019 1:50 PM Clinical history: Left hip pain with recent left hip MRI demonstrating labral tears. There was also incidental visualization of a marrow signal abnormality in the proximal left femoral shaft. Patient is referred for further evaluation of the left femoral shaft lesion. Comparison: MRI pelvis 11/27/2018, MRI left hip 11/13/2019 Technique: Coronal T1, T2 and STIR images of the left femur wereobtained. Sagittal and coronal STIR images of the left femur were also obtained. Axial T1, T2 FSE and STIR images of the left femur were then obtained. Following intravenous injection of 20 mL MultiHance gadolinium contrast fat-suppressed T1-weighted images were obtained. Findings: The images demonstrate slightly inhomogeneous marrow signal in the left femoral shaft. There is a small focal area of morecircumscribed marrow signal abnormality in the proximal left femoral shaftcorresponding to the abnormality noted on the recent left hip MRI. This is seen asmixed intermediate and high T1 signal and mixed T2 signal with no associated endosteal scalloping. There is no evidence of cortical interruption or significant periosteal reaction. There is no associated soft tissue abnormality. Following intravenous injection of contrast there is littleif any enhancement. In retrospect, this abnormality was present on the previous study of 11/27/2018 and does not show any significant interval change. On the left hip radiographs of 10/06/2019 the lesion is radiographically occult. IMPRESSION: 1) The images do demonstrate the presence of an approximately 3 cm in length focal area of marrow signal abnormality within the proximal left femoral shaft as described above and corresponding to the abnormalitynoted on MRI of the left hip. This is technically indeterminate although demonstrates no aggressive features. No evidence of endostealscalloping, cortical interruption, periosteal reaction or soft tissue abnormality associated. No significant enhancement. This is also unchanged in comparison to previous study of 11/27/2018. These findings as well as the fact that the lesion is radiographically occult favorbenign/nonaggressive etiology. Correlation with follow-up noncontrast MRI left femur in 6months would be recommended to assess for stability. Interpreted By: Gael Roper MD, 11/26/2019 3:42 PM Orestes Layne MD MRI Final Result documented in this encounter Visit Diagnoses Diagnosis Lesion of left femur documented in this encounter Administered Medications Inactive Administered Medications - up to 3 most recent administrations Medication Order MAR Action Action Date Dose Rate Site gadobenate dimeglumine (MULTIHANCE) 529 MG/ML injection 20 mL 20 mL, Intravenous, IMG once as needed, Contrast, 1 dose, Starting on Sun11/25/19 at 1351, Until Sun11/25/19 at 1320 Given 11/25/2019 1:20 PM CDT 20 mLs Left Arm documented in this encounter Care Teams Coal Yard Supervisor Relationship Specialty Start Date End Date Crescencio Camacho MD [address] [place] [phone] PCP - General FAMILY PRACTICE 08/25/16 Fercho Simon MD Vascular/Gantry Rigger INTERNAL MEDICINE 11/01/15 documented as of this encounter
--- OUTSIDE RECORDS SUMMARY | 2024-03-19 13:10 | XMS_ITS | Encounter Summary ---
Author Organization [facility] Address [facility] [facility] [place] [address] [place] [address] Care Team Providers Care Private Branch Exchange Service Adviser Name Role Phone Fercho Simon MD Unavailable Crescencio Camacho MD Primary Care Provider Encounter Details Date Type Department Care Team (Late st Contact Info) Description 03/16/2020 Orders Only [facility] [place] [phone] Emily Hernandez LPN Social History Tobacco Use [...] encounter Results * XR HAND LT 3V (03/18/2020 10:07 AM WINDOW DECORATOR) Anatomical Region Laterality Modality Hand Radiographic Kristina ging 03/18/2020 10:1 4 AM WINDOW DECORATOR Impressions 03/18/2020 10:18 AM WINDOW DECORATOR IMPRESSION: Mild arthritic changes. No acute bony abnormality. Interpreted By: Chase Pierre MD, 03/18/2020 10:14 AM Narrative 03/18/2020 10:18 AM WINDOW DECORATOR 03/18/2020, 9:33 AM. HISTORY: Left hand pain. Pain mostly in the region of the base of the second and third fingers. Swelling. Arthritis. EXAM: AP, lateral and oblique views of the left hand. No comparison. FINDINGS: No fracture or acute bony abnormality. No remarkable arthritic changes at the left wrist. Minimal arthritis at the first metacarpal phalangeal joint, the interphalangeal joint of the thumb, second and fifth DIP joints and the second and third metacarpal phalangeal joints. Mild soft tissue swelling dorsal to the metacarpal phalangeal joint. No gross bone destruction. Procedure Note Chase Pierre MD - 03/18/2020 03/18/2020, 9:33 AM. HISTORY: Left hand pain. Pain mostly in the region of the base of the second and third fingers. Swelling. Arthritis. EXAM: AP, lateral and oblique views of the left hand. No comparison. FINDINGS: No fracture or acute bony abnormality. No remarkable arthritic changes at the left wrist. Minimal arthritis at the first metacarpal phalangeal joint, the interphalangeal joint of the thumb, second andfifth DIP joints and the second and third metacarpal phalangeal joints. Mildsoft tissue swelling dorsal to the metacarpal phalangeal joint. No gross bone destruction. IMPRESSION: Mild arthritic changes. No acute bony abnormality. Interpreted By: Chase Pierre MD, 03/18/2020 10:14 AM Claire Meng PMP- GENERAL IMAGING Final Resu lt documented in this encounter Visit Diagnoses Diagnosis Left hand pain- Primary Pain in limb Left hand pain Pain in limb documented in this encounter Care Teams Private Branch Exchange Service Adviser Relationship Specialty Start Date End Date Crescencio Camacho MD [address] [place] [phone] PCP - General FAMILY PRACTICE 08/25/16 Fercho Simon MD Vascular/Invasive Manager INTERNAL MEDICINE 11/01/15 documented as of this encounter
--- OUTSIDE RECORDS SUMMARY | 2024-03-19 13:10 | XMS_ITS | Encounter Summary ---
Author Organization [facility] Address [facility] [facility] [place] [address] [place] [address] Care Team Providers Care Sole Splitter Name Role Phone Fercho Simon MD Unavailable Crescencio Camacho MD Primary Care Provider Encounter Details Date Type Department Care Team (Latest Contact Info) Description 08/24/2020 Travel Social History Tobacco Use Types Packs/Day [...] on filedocumented in this encounter Care Teams Sole Splitter Relationship Specialty Start Date End Date Crescencio Camacho MD [address] [place] [phone] PCP - General FAMILY PRACTICE 08/25/16 Fercho Simon MD Vascular/Maintenance Repairman INTERNAL MEDICINE 11/01/15 documented as of this encounter
--- OUTSIDE RECORDS SUMMARY | 2024-03-19 13:10 | XMS_ITS | Encounter Summary ---
Author Organization [facility] Address [facility] [facility] [place] [address] [place] [address] Care Team Providers Care House Carpenter Name Role Phone Fercho Simon MD Unavailable Crescencio Camacho MD Primary Care Provider [phone] Encounter Details Date Type Department Care Team (Latest Contact Info) Description 09/20/2020 11:48 AM CDT - 09/20/2020 11:59 PM CDT Hospital Encounter [facility] [address] [place] [address] Xu Garcia, [place] [address] [place] [phone] Discharge Disposition: Home or Self Care [...] Name Priority Date/Time Associated Diagnosis Comments XR CHEST PA+LAT Routine 09/20/2020 12:23 PM CDT Pneumonia due to 2019 novel coronavirus documented in this encounter Results * XR CHEST PA+LAT (09/20/2020 12:23 PM CDT) Anatomical Region Laterality Modality Chest Radiographic Kristina ging 09/20/2020 1:55 PM CDT Impressions 09/20/2020 1:57 PM CDT IMPRESSION: 1. Bilateral patchy peripheral opacities suggestive of Covid 19 pneumonia, however other etiologies are not excluded. Referred By: XU GARCIA Interpreted By: Nura Hu MD, 09/20/2020 1:55 PM Narrative 09/20/2020 1:57 PM CDT Examination: XR CHEST PA+LAT Exam time: 09/20/2020 12:23 PM Clinical history: History of pneumonia and Covid 19. Comparison: 09/04/2020 Technique: PA and lateral views of the chest Findings: No pneumothorax or pleural effusion. Mild flattening of the diaphragms suggestive of hyperinflation. There are patchy bilateral peripheral groundglass and reticular opacities, suggestive but not diagnostic of Covid 19 pneumonia. Cardiomediastinal silhouette and pulmonary vasculature are within normal limits. No acute bony abnormalities. Procedure Note Nura Hu MD - 09/20/2020 Examination: XR CHEST PA+LAT Exam time: 09/20/2020 12:23 PM Clinical history: History of pneumonia and Covid 19. Comparison: 09/04/2020 Technique: PA and lateral views of the chest Findings: No pneumothorax or pleural effusion. Mild flattening of the diaphragms suggestive of hyperinflation. There are patchy bilateral peripheral groundglass and reticular opacities, suggestive but not diagnostic of Covid 19 pneumonia. Cardiomediastinal silhouette and pulmonary vasculature are within normal limits. No acute bony abnormalities. IMPRESSION: 1. Bilateral patchy peripheral opacities suggestive of Covid 19pneumonia, however other etiologies are not excluded. Referred By: XU GARCIA Interpreted By: Nura Hu MD, 09/20/2020 1:55 PM [facility] Final Result documented in this encounter Visit Diagnoses Diagnosis Pneumonia due to 2019 novel coronavirus documented in this encounter Additional Health Concerns Infection Onset Date Last Indicated Resolved Time COVID-19 Confirmed 09/04/2020 09/04/2020 12:32 AM CDT documented as of this encounter Care Teams House Carpenter Relationship Specialty Start Date End Date Crescencio Camacho MD [address] [place] [phone] PCP - General FAMILY PRACTICE 08/25/16 Fercho Simon MD Vascular/Thread Grinder Tool INTERNAL MEDICINE 11/01/15 documented as of this encounter
--- OUTSIDE RECORDS SUMMARY | 2024-03-19 13:10 | XMS_ITS | Encounter Summary ---
Author Organization [facility] Address [facility] [place] [address] [place] [address] Care Team Providers Care Athletic Turf Worker Name Role Phone Fercho Simon MD Unavailable Crescencio Camacho MD Primary Care Provider Encounter Details Date Type Department Care Team (Late st Contact Info) Description 11/26/2019 Orders Only [facility] [address] [address] [place] [address] [place] [phone] Social History Tobacco Use Types Packs/Day Years [...] as of this encounter Results * (ABNORMAL) PROSTATE SPECIFIC ANTIGEN, DIAG (11/26/2019 10:26 AM CDT) PSA 4.57(H) <4.00 NG/ML 11/26/2019 10:59 AM CDT [facility] 11/26/2019 10:2 6 AM CDT us Krystin Delgado III, MD LABORATORY Final Re sult [facility] [address] [place], [place] [address] [phone] documented in this encounter Visit Diagnoses Diagnosis Elevated PSA- Primary Elevated prostate specific antigen (PSA) documented in this encounter Care Teams Athletic Turf Worker Relationship Specialty Start Date End Date Crescencio Camacho MD [address] [place] [phone] PCP - General FAMILY PRACTICE 08/25/16 Fercho Simon MD Vascular/Ball Rolling Machine Operator INTERNAL MEDICINE 11/01/15 documented as of this encounter
--- OUTSIDE RECORDS SUMMARY | 2024-03-19 13:10 | XMS_ITS | Encounter Summary ---
Author Organization [facility] Address [facility] [facility] [place] [address] [place] [address] Care Team Providers Care Rail Switch Operator Name Role Phone Fercho Simon MD Unavailable Crescencio Camacho MD Primary Care Provider Encounter Details Date Type Department Care Team (Latest Contact Info) Description 11/21/2019 Travel Social History Tobacco Use Types Packs/Day [...] have Coronavirus / COVID-19? No / Unsure 11/21/2019 9:31 AM CDT documented as of this encounter Plan of Treatment Not on file documented as of this encounter Visit Diagnoses Not on filedocumented in this encounter Care Teams Rail Switch Operator Relationship Specialty Start Date End Date Crescencio Camacho MD [address] [place] [phone] PCP - General FAMILY PRACTICE 08/25/16 Fercho Simon MD Vascular/Belt Sander INTERNAL MEDICINE 11/01/15 documented as of this encounter
--- OUTSIDE RECORDS SUMMARY | 2024-03-19 13:10 | XMS_ITS | Encounter Summary ---
Author Organization [facility] Address [facility] [facility] [place] [address] [place] [address] Care Team Providers Care Stock Shipper Name Role Phone Fercho Simon MD Unavailable Crescencio Camacho MD Primary Care Provider Encounter Details Date Type Department Care Team (Latest Contact Info) Description 05/26/2020 12:25 PM COTTON GINNER - 05/26/2020 11:59 PM COTTON GINNER Hospital Encounter [facility] [address] [place] [address] Crescencio Camacho MD [address] [place] [phone] Discharge Disposition: Home or Self Care [...] have Coronavirus / COVID-19? No / Unsure 05/26/2020 12:23 PM COTTON GINNER documented as of this encounter Medications at Time of Discharge aspirin 81 MG tablet Take 1 tablet by mouth daily. 05/28/2009 losartan 50 MG tablet Take 1 tablet by mouth daily. 06/04/2015 simvastatin 40 MG tablet Take 1 tablet by mouth daily. 06/04/2015 venlafaxine 24 hr 75 MG 24 hr capsule Take 1 tablet by mouth daily. 06/04/2015 cyclobenzaprine 10 MG tablet Take 10 mg by mouth 3 (three) times daily as needed. 05/26/2020 08/22/2020 ELIQUIS 2.5 MG tablet TAKE 1 TABLET BY MOUTH TWICE A DAY 180 tablet 3 10/20/2019 10/14/2020 finasteride 5 MG tablet Take 5 mg by mouth daily. 10/29/2019 01/03/2021 documented as of this encounter Plan of Treatment Not on file documented as of this encounter Procedures Procedure Name Priority Date/Time Associated Diagnosis Comments XR LUMB SPINE 3V Routine 05/26/2020 12:5 7 PM COTTON GINNER Lumbar strain documented in this encounter Results * XR LUMB SPINE 3V (05/26/2020 12:57 PM COTTON GINNER) Anatomical Region Laterality Modality Spine Radiographic Kristina ging 05/26/2020 2:30 PM COTTON GINNER Impressions 05/26/2020 2:32 PM COTTON GINNER IMPRESSION: 1) Advanced chronic multilevel lumbar spine degenerative disc disease/spondylosis similar to previous study. If indicated correlation with noncontrast MRI lumbar spine may be helpful. 2. No acute osseous abnormality. Referred By: BIJAL BROWN Interpreted By: Gael Roper MD, 05/26/2020 2:30 PM Narrative 05/26/2020 2:32 PM COTTON GINNER Examination: XR LUMB SPINE 3V Exam time: 05/26/2020 12:57 PM Clinical history: Back pain radiating to left leg Comparison: 02/20/2013 Technique: Standing AP and lateral views lumbar spine, spot lateral view lumbosacral junction Findings: Lumbar vertebral bodies are in good alignment. Lumbar vertebral body heights are well-maintained. No evidence of spondylolysis/spondylosis the cyst. No evidence of acute lumbar spine fracture or focal lytic bone destructive lesion. Severe chronic degenerative disc disease/spondylosis involving all levels from L1 to L5 very similar to previous study. SI joints are unremarkable. Procedure Note Gael Roper MD - 05/26/2020 Examination: XR LUMB SPINE 3V Exam time: 05/26/2020 12:57 PM Clinical history: Back pain radiating to left leg Comparison: 02/20/2013 Technique: Standing AP and lateral views lumbar spine, spot lateral view lumbosacral junction Findings: Lumbar vertebral bodies are in good alignment. Lumbarvertebral body heights are well-maintained. No evidence ofspondylolysis/spondylosis the cyst. No evidence of acute lumbar spine fracture or focal lytic bone destructive lesion. Severe chronic degenerative disc disease/spondylosis involving alllevels from L1 to L5 very similar to previous study. SI joints areunremarkable. IMPRESSION: 1) Advanced chronic multilevel lumbar spine degenerative disc disease/spondylosis similar to previous study. If indicated correlation with noncontrast MRI lumbar spine may be helpful. 2. No acute osseous abnormality. Referred By: BIJAL BROWN Interpreted By: Gael Roper MD, 05/26/2020 2:30 PM Bijal Brown LEAN MANUFACTURING LEADER GENERAL IMAGING Final Re sult documented in this encounter Visit Diagnoses Diagnosis Lumbar strain Sprain of lumbar region documented in this encounter Care Teams Stock Shipper Relationship Specialty Start Date End Date Crescencio Camacho MD [address] [place] [phone] PCP - General FAMILY PRACTICE 08/25/16 Fercho Simon MD Vascular/Script Coordinator INTERNAL MEDICINE 11/01/15 documented as of this encounter
--- OUTSIDE RECORDS SUMMARY | 2024-03-19 13:10 | XMS_ITS | Encounter Summary ---
Author Organization [facility] Address [facility] [place] [address] [place] [address] Care Team Providers Care Professor Of Nursing Name Role Phone Fercho Simon MD Unavailable Crescencio Camacho MD Primary Care Provider Reason for Referral * Imaging (Routine) - Closed Specialty Diagnoses / Procedures Referred By Miltonac t Referred To Contact RADIOLOGY Diagnoses Back pain Procedures MRI LUMB SPINE WO CON Bijal Brown, CIVIL ATTORNEY [address] [place] [address] Phone: tel: fax: Referral ID Status Reason Start Date Expiration Date Visits Re quested Visits Authorized [id number] Closed 05/28/2020 06/25/2021 1 1 RNATIONAL TRADE ANALYST Reason for Visit * Imaging (Routine) - Closed Specialty Diagnoses / Procedures Referred By Shankar horne Referred To Contact RADIOLOGY Diagnoses Back pain Procedures MRI LUMB SPINE WO CON Bijal Brown, CIVIL ATTORNEY [address] [place] [address] Phone: tel: fax: Referral ID Status Reason Start Date Expiration Date Visits Re quested Visits Authorized [id number] Closed 05/28/2020 06/25/2021 1 1 Encounter Details Date Type Department Care Team (Latest Contact Info) Description 06/03/2020 7:51 AM INTERNATIONAL TRADE ANALYST - 06/03/2020 11:59 PM INTERNATIONAL TRADE ANALYST Hospital Encounter [facility] [address] [address] Bijal Brown, [facility] [address] [place] [address] Discharge Disposition: Home or Self Care (Routine [...] COVID-19? No / Unsure 06/03/2020 7:49 AM INTERNATIONAL TRADE ANALYST documented as of this encounter Medications at [...] Name Priority Date/Time Associated Diagnosis Comments MRI LUMB SPINE WO CON Routine 06/03/2020 8:50 AM INTERNATIONAL TRADE ANALYST Back pain documented in this encounter Results * MRI LUMB SPINE WO CON (06/03/2020 8:50 AM INTERNATIONAL TRADE ANALYST) Anatomical Region Laterality Modality Spine Magnetic Resonan ce 06/03/2020 10:1 0 AM INTERNATIONAL TRADE ANALYST Impressions 06/03/2020 10:24 AM INTERNATIONAL TRADE ANALYST IMPRESSION: 1. Asymmetric posterior disk bulge towards the right at L2-L3 with evidence of slight mass effect upon the exiting nerve root on right at this level. 2. Asymmetric posterior disk bulge towards the left at L4-L5 with evidence of left nerve root impingement as well as mild central spinal canal stenosis at L4-L5. Referred By: BIJAL ACEVES STEPHANIE Interpreted By: Dieudonne Cruz MD, 06/03/2020 10:10 AM Narrative 06/03/2020 10:24 AM INTERNATIONAL TRADE ANALYST EXAMINATION: MRI OF THE LUMBAR SPINE EXAM DATE: ??06/03/2020 8:50 AM HISTORY: Low back and left lower extremity pain. TECHNIQUE: Sagittal and axial images of the lumbar spine were obtained utilizing multiple pulse sequences. The patient is taken to have five lumbar vertebral bodies for the purposes of this exam. As such, the axial images extend from the inferior margin of T12 to the sacrum. COMPARISON: There is no prior MRI of the lumbar spine available for comparison. GENERAL OBSERVATIONS: CONUS MEDULLARIS: The conus medullaris demonstrates normal signal intensity and caliber and terminates at the L1 level. There is lipoma of the filum terminale. SIGNAL INTENSITY OF BONE: Signal alterations in the bony elements of the lumbar spine are attributable to degenerative change. There are multilevel Schmorl's nodes. FRACTURE: There is no acute lumbar spine fracture. SOFT TISSUES: No suspicious mass is demonstrated in the paraspinal soft tissues. ALIGNMENT: The overall alignment of the lumbar spine is intact. OTHER FINDINGS: There is a component of bilateral facet hypertrophy at each of the lumbar levels. FINDINGS AT SPECIFIC LEVELS T12-L1: No thoracic spinal cord impingement or nerve root impingement is seen. L1-L2: There is a mild posterior bulge of the L1-L2 intervertebral disk. No central spinal canal stenosis or nerve root impingement is demonstrated at L1-L2. L2-L3: An asymmetric posterior disk bulge towards the right causes slight mass effect upon the exiting nerve root on the right at L2-L3. There is no central spinal canal stenosis here. There are moderate bilateral neural foraminal stenoses. L3-L4: Posterior disk bulge and bilateral facet hypertrophy contribute to moderate bilateral neural foraminal stenoses at L3-L4. There is no central spinal canal stenosis here. L4-L5: Posterior disk bulge and bilateral facet hypertrophy contribute to moderate bilateral neural foraminal stenoses at L4-L5. The disk bulge is slightly asymmetric to the left and there is evidence of at least mild left nerve root impingement. The anteroposterior dimension of the central spinal canal approximates 0.8 cm. L5-S1: No central spinal canal stenosis or nerve root impingement is demonstrated at L5-S1. Procedure Note Dieudonne Cruz MD - 06/03/2020 EXAMINATION: MRI OF THE LUMBAR SPINE EXAM DATE: 06/03/2020 8:50 AM HISTORY: Low back and left lower extremity pain. TECHNIQUE: Sagittal and axial images of the lumbar spine were obtained utilizing multiple pulse sequences. The patient is taken to have five lumbar vertebral bodies for the purposes of this exam. As such, theaxial images extend from the inferior margin of T12 to the sacrum. COMPARISON: There is no prior MRI of the lumbar spine available for comparison. GENERAL OBSERVATIONS: CONUS MEDULLARIS: The conus medullaris demonstrates normal signalintensity and caliber and terminates at the L1 level. There is lipoma of the filum terminale. SIGNAL INTENSITY OF BONE: Signal alterations in the bony elements of the lumbar spine are attributable to degenerative change. There aremultilevel Schmorl's nodes. FRACTURE: There is no acute lumbar spine fracture. SOFT TISSUES: No suspicious mass is demonstrated in the paraspinal soft tissues. ALIGNMENT: The overall alignment of the lumbar spine is intact. OTHER FINDINGS: There is a component of bilateral facet hypertrophy ateach of the lumbar levels. FINDINGS AT SPECIFIC LEVELS T12-L1: No thoracic spinal cord impingement or nerve root impingement is seen. L1-L2: There is a mild posterior bulge of the L1-L2 intervertebral disk.No central spinal canal stenosis or nerve root impingement is demonstratedat L1-L2. L2-L3: An asymmetric posterior disk bulge towards the right causesslight mass effect upon the exiting nerve root on the right at L2-L3. There isno central spinal canal stenosis here. There are moderate bilateral neural foraminal stenoses. L3-L4: Posterior disk bulge and bilateral facet hypertrophy contributeto moderate bilateral neural foraminal stenoses at L3-L4. There is nocentral spinal canal stenosis here. L4-L5: Posterior disk bulge and bilateral facet hypertrophy contributeto moderate bilateral neural foraminal stenoses at L4-L5. The disk bulge is slightly asymmetric to the left and there is evidence of at least mildleft nerve root impingement. The anteroposterior dimension of the centralspinal canal approximates 0.8 cm. L5-S1: No central spinal canal stenosis or nerve root impingement is demonstrated at L5-S1. IMPRESSION: 1. Asymmetric posterior disk bulge towards the right at L2-L3 withevidence of slight mass effect upon the exiting nerve root on right at thislevel. 2. Asymmetric posterior disk bulge towards the left at L4-L5 withevidence of left nerve root impingement as well as mild central spinal canal stenosis at L4-L5. Referred By: BIJAL BROWN Interpreted By: Dieudonne Cruz MD, 06/03/2020 10:10 AM Bijal Brown CIVIL ATTORNEY MRI Final Re sult documented in this encounter Visit Diagnoses Diagnosis Back pain Backache, unspecified documented in this encounter Care Teams Professor Of Nursing Relationship Specialty Start Date End Date Crescencio Camacho MD [address] [place] [phone] PCP - General FAMILY PRACTICE 08/25/16 Fercho Simon MD Vascular/General Practice INTERNAL MEDICINE 11/01/15 documented as of this encounter
--- OUTSIDE RECORDS SUMMARY | 2024-03-19 13:10 | XMS_ITS | Encounter Summary ---
Author Organization [facility] Address [address] [place] [address]. 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 Claire Meng FNP-BC [address] [place] [address] Phone: tel: fax: Referral ID Status Reason Start Date Expiration Date V isits Requested Visits Authorized [id number] Closed Physical Therapy 03/18/2020 04/18/2021 60 60 OR OPERATOR Reason for Visit * Reason Comments Hand Pain Left Encounter Details Date Type Department Care Team (Late st Contact Info) Description 03/18/2020 10:15 AM ANCHOR OPERATOR Office Visit [facility] [address], [address] [address] Claire Meng FNP-BC [address] [place] [address] Hand Pain (Left) Social History Tobacco Use Types Packs/Day Years [...] COVID-19? No / Unsure 03/18/2020 9:55 AM ANCHOR OPERATOR documented as of this encounter Last Filed Vital Signs Vital Sign Reading Time Taken Comments Blood Pressure - - Pulse - - Temperature - - Respiratory Rate - - Oxygen Saturation - - Inhaled Oxygen Concentration - - Weight 129.3 kg (285 lb) 03/18/2020 10:12 AM ANCHOR OPERATOR Height 182.9 cm (6') 03/18/2020 10:12 AM ANCHOR OPERATOR Body Mass Index 38.65 03/18/2020 10:12 AM ANCHOR OPERATOR documented in this encounter Progress Notes * Claire Meng, SENIOR HRIS ANALYST-BC - 03/18/2020 10:15 AM CST Chief Complaint: Hand Pain (Left) History of Present Illness: Arsh Guerrero is a 64-year-old male who presents to the office for Hand Pain (Left) Patient is here for Left hand pain [...] 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 ROS: See HPI for pertinent positives Problem List: Patient Active Problem List Diagnosis ??? DVT (deep venous thrombosis) (CMS/HCC) ??? Hx of CABG ??? CAD (coronary artery disease) ??? Localized edema ??? History of DVT (deep vein thrombosis) ??? Essential hypertension ??? Hyperlipidemia, unspecified hyperlipidemia type ??? Lower extremity edema ??? correction current use of anticoagulant therapy ??? Monitoring [...] History: Diagnosis Date ??? Benign hypertension ??? CAD (coronary artery disease) CABG ??? DVT (deep venous thrombosis) ([facility]/HCC) Right femoral vein and left popliteal ??? Hx of CABG ??? Hyperlipemia, mixed ??? Lower extremity edema Past Surgical History: Procedure Laterality Date ??? CORONARY ARTERY BYPASS GRAFT ??? HEART CATH 05/28/2009 Left coronary angiography. Right coronary angiography.Left heart catheterization with ventriculography. Family History Problem Relation Name Age of [...] on file Occupational History ??? Occupation: Retired Social Needs ??? Financial resource strain: Not on file ??? Food insecurity Worry: Not on file Inability: Not on file ??? Transportation needs Medical: Not on file Non-medical: Not on file Tobacco Use ??? Smoking status: Never Smoker ??? Smokeless tobacco: Never Used Substance and Sexual Activity ??? Alcohol use: No ??? Drug use: No ??? Sexual activity: Not on file Lifestyle ??? Physical activity Days per week: Not on file Minutes per session: Not on file ??? Stress: Not on file Relationships ??? Social connections Talks on phone: Not on file Gets together: Not on file Attends catholic service: Not on file Active member of club or organization: Not on file Attends meetings of clubs or organizations: Not on file Relationship status: Not on file ??? Intimate partner violence Fear of current or ex partner: Not on file Emotionally abused: Not on file Physically abused: Not on file Forced sexual activity: Not on file Other Topics Concern [...] Social History Narrative ??? Not on file Medications: Current Outpatient Medications: ??? aspirin 81 MG tablet, Take 1 tablet by mouth daily., Disp: , Rfl: ??? ELIQUIS 2.5 MG tablet, TAKE 1 TABLET BY MOUTH TWICE A DAY, Disp: 180 tablet, Rfl: 3 ??? finasteride [...] tablet by mouth daily., Disp: , Rfl: Allergies Allergen Reactions ??? Penicillins Shortness of Breath Objective: Body mass index is 38.65 kg/m??. Last Recorded Weight 03/18/20 1012 Weight: 129.3 kg (285 lb) Physical exam: Constitutional: Alert and in no acute distress. Neurological: The patient was oriented to person, place, and time. Eyes: The sclera and conjunctiva were normal ENT: Hearing was normal. Neck: The appearance of the neck was normal. Cardiovascular: Normal pulses. Pulmonary: No respiratory distress. Skin: No injuries or skin lesion. Musculoskeletal: EXAM of LEFT hand today reveals tenderness over 2nd and 3rd CMC joints with palpation, mild swelling without redness or warmth, stiff range of motion, increased pain with active flexion, unable to make a fist, good capillary refill, good wrist range of motion, palpable radial pulse. Results: XRAY of LEFT hand today reveals mild diffuse tenderness greatest seen at 2nd and 3rd DIP with no acute bony injury. Procedure: Procedure: Injection of the 2nd and 3rd CMC joints on the left. Indications for the [...] OSTEOARTHRITIS OF FINGER JOINT OF LEFT HAND Ambulatory referral to Physical Therapy 2. Osteoarthritis of left middle finger M19.042 715.94 OSTEOARTHRITIS OF FINGER JOINT OF LEFT HAND Ambulatory referral to Physical Therapy Plan: His imaging today does demonstrate some osteoarthritis which he was given an injection in the office today for both his 2nd and 3rd CMC joints. He is rather stiff on examination and I have recommended proceeding with setting him up for physical therapy to assist with his range of motion which couldbe related to flexor tenosynovitis. I did discuss with patient the need to refrain from NSAIDs due to his history of Eliquis which he voices understanding. Activity as tolerated. We will see how he does with the injections along with therapy and he will follow up as needed. Follow up: Return if symptoms worsen or fail to improve. 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 Ordered: 03/18/2020 documented as of this encounter Visit Diagnoses Diagnosis Osteoarthritis of left index finger- Primary Osteoarthritis of left middle finger documented in this encounter Administered Medications Inactive Administered Medications - up to 3 most recent administrations Medication Order MAR Action Action Date Dose Rate Site lidocaine (XYLOCAINE) 1 % injection SOLN 0.5 mL 0.5 mL, Other, Once, 1 dose, On Darshana 03/18/20 at 1215 Given 03/18/2020 11:49 AM ANCHOR OPERATOR 0.5 mLs lidocaine (XYLOCAINE) 1 % injection SOLN 0.5 mL 0.5 mL, Other, Once, 1 dose, On Darshana 03/18/20 at 1215 Given 03/18/2020 11:48 AM ANCHOR OPERATOR 0.5 mLs lidocaine (XYLOCAINE) 1 % injection SOLN 4 mL 4 mL, Other, Once, 1 dose, On Darshana 03/18/20 at 1145 Given 03/18/2020 11:27 AM ANCHOR OPERATOR 4 mLs methylPREDNISolone acetate (DEPO-Medrol) injection 40 mg 40 mg, Other, Once, 1 dose, On Darshana 03/18/20 at 1215, Shake Well Given 03/18/2020 11:51 AM ANCHOR OPERATOR 40 mg methylPREDNISolone acetate (DEPO-Medrol) injection 40 mg 40 mg, Other, Once, 1 dose, On Darshana 03/18/20 at 1215, Shake Well Given 03/18/2020 11:50 AM ANCHOR OPERATOR 40 mg methylPREDNISolone acetate (DEPO-Medrol) injection 80 mg 80 mg, Other, Once, 1 dose, On Darshana 03/18/20 at 1145, Shake Well Given 03/18/2020 11:28 AM ANCHOR OPERATOR 80 mg documented in this encounter Care Teams Drive In Teller Relationship Specialty Start Date End Date Crescencio Camacho MD [address] [place] [phone] PCP - General FAMILY PRACTICE 08/25/16 Fercho Simon MD Vascular/Saw Boss INTERNAL MEDICINE 11/01/15 documented as of this encounter
--- OUTSIDE RECORDS SUMMARY | 2024-03-19 13:10 | XMS_ITS | Encounter Summary ---
Author Organization [facility] Address [facility] [place] [address] [place] [address] Care Team Providers Care Traffic Administrator Name Role Phone Fercho Simon MD Unavailable Crescencio Camacho MD Primary Care Provider Encounter Details Date Type Department Care Team (Latest Contact Info) Description 11/25/2019 Travel Social History Tobacco Use Types Packs/Day [...] on filedocumented in this encounter Care Teams Traffic Administrator Relationship Specialty Start Date End Date Crescencio Camacho MD [address] [place] [phone] PCP - General FAMILY PRACTICE 08/25/16 Fercho Simon MD Vascular/Roller Setter INTERNAL MEDICINE 11/01/15 documented as of this encounter
--- OUTSIDE RECORDS SUMMARY | 2024-03-19 13:10 | XMS_ITS | Encounter Summary ---
Author Organization [facility] Address [facility] [place] [address] [place] [address] Care Team Providers Care Profiling Machine Setup Operator Name Role Phone Fercho Simon MD Unavailable Crescencio Camacho MD Primary Care Provider [phone] Encounter Details Date Type Department Care Team (Latest Contact Info) Description 05/26/2020 Travel Social History Tobacco Use Types Packs/Day [...] COVID-19? No / Unsure 05/26/2020 12:23 PM DRY ROOM ATTENDANT documented as of this encounter Plan of Treatment Not on file documented as of this encounter Visit Diagnoses Not on filedocumented in this encounter Care Teams Profiling Machine Setup Operator Relationship Specialty Start Date End Date Crescecnio Camacho MD [address] [place] [phone] PCP - General FAMILY PRACTICE 08/25/16 Fercho Simon MD Vascular/Horser Up INTERNAL MEDICINE 11/01/15 documented as of this encounter
--- OUTSIDE RECORDS SUMMARY | 2024-03-19 13:10 | XMS_ITS | Encounter Summary ---
Author Organization [facility] Address [facility] [place] [address] [place] [address] Care Team Providers Care Bathing Suit Maker Name Role Phone Fercho Simon MD Unavailable Crescencio Camacho MD Primary Care Provider Encounter Details Date Type Department Care Team (Late st Contact Info) Description 03/18/2020 9:57 AM RECEIVING ROOM CLERK - 03/18/2020 11:59 PM RECEIVING ROOM CLERK Hospital Encounter [facility] [place] [facility] [address] [place] [address] Claire Meng, [facility]- [address] [place] [address] Discharge Disposition: Home or Self Care (Routine [...] COVID-19? No / Unsure 03/18/2020 9:55 AM RECEIVING ROOM CLERK documented as of this encounter Medications at [...] Diagnosis Comments XR HAND LT 3V Routine 03/18/2020 10:07 AM RECEIVING ROOM CLERK Left hand pain documented in this encounter Results * XR HAND LT 3V (03/18/2020 10:07 AM RECEIVING ROOM CLERK) Anatomical Region Laterality Modality Hand Radiographic Kristina ging 03/18/2020 10:1 4 AM RECEIVING ROOM CLERK Impressions 03/18/2020 10:18 AM RECEIVING ROOM CLERK IMPRESSION: Mild arthritic changes. No acute bony abnormality. Interpreted By: Chase Pierre MD, 03/18/2020 10:14 AM Narrative 03/18/2020 10:18 AM RECEIVING ROOM CLERK 03/18/2020, 9:33 AM. HISTORY: Left hand pain. [...] Pierre MD, 03/18/2020 10:14 AM Claire Meng [employer] GENERAL IMAGING Final Resu lt documented in this encounter Visit Diagnoses Diagnosis Left hand pain Pain in limb documented in this encounter Care Teams Bathing Suit Maker Relationship Specialty Start Date End Date Crescencio Camacho MD [address] [place] [phone] PCP - General FAMILY PRACTICE 08/25/16 Fercho Simon MD Vascular/Regulatory Services Consultant INTERNAL MEDICINE 11/01/15 documented as of this encounter
--- OUTSIDE RECORDS SUMMARY | 2024-03-19 13:10 | XMS_ITS | Encounter Summary ---
Author Organization [facility] Address [facility] [address] [place] [address] Care Team Providers Care Wedding Transportation Driver Name Role Phone Fercho Simon MD Unavailable Crescencio Camacho MD Primary Care Provider [phone] Encounter Details Date Type Department Care Team (Latest Contact Info) Description 08/24/2020 2:50 PM CDT - 08/24/2020 11:59 PM CDT Hospital Encounter [facility] [address] [place] [address] Orestes Layne MD [address] [place] [address] Discharge Disposition: Home or Self Care (Routine [...] Priority Date/Time Associated Diagnosis Comments XR HAND RT 3V Routine 08/24/2020 2:53 PM CDT Right hand pain documented in this encounter Results * XR HAND RT 3V (08/24/2020 2:53 PM CDT) Anatomical Region Laterality Modality Hand Radiographic Kristina ging 08/24/2020 4:09 PM CDT Impressions 08/24/2020 4:10 PM CDT IMPRESSION: 1. No acute osseous or normality identified. 2. Osteoarthritic degenerative changes of the first metacarpal phalangeal joint. Referred By: ORESTES Gómez LAUNDRY PRICING CLERK Interpreted By: Kevin Redd MD, 08/24/2020 4:09 PM Narrative 08/24/2020 4:10 PM CDT Examination: XR HAND RT 3V Exam time: 08/24/2020 2:53 PM Clinical history: Right hand pain. Comparison: No comparison. Technique: PA, lateral and oblique images. Findings: No fracture or dislocation is seen. Carpal alignment is maintained. Mild to moderate osteoarthritic degenerative changes are seen at the first metacarpal phalangeal joint, with notable prominent osteophytes. There is mild joint space narrowing involving multiple interphalangeal joints. No destructive osseous process is noted. No soft tissue abnormality. Procedure Note Kevin Redd MD - 08/24/2020 Examination: XR HAND RT 3V Exam time: 08/24/2020 2:53 PM Clinical history: Right hand pain. Comparison: No comparison. Technique: PA, lateral and oblique images. Findings: No fracture or dislocation is seen. Carpal alignment is maintained. Mildto moderate osteoarthritic degenerative changes are seen at the firstmetacarpal phalangeal joint, with notable prominent osteophytes. There ismild joint space narrowing involving multiple interphalangeal joints. Nodestructive osseous process is noted. No soft tissue abnormality. IMPRESSION: 1. No acute osseous or normality identified. 2. Osteoarthritic degenerative changes of the first metacarpal phalangealjoint. Referred By: ORESTES LAYNE Interpreted By: Kevin Redd MD, 08/24/2020 4:09 PM Orestes Layne MD GENERAL IMAGING Final Result documented in this encounter Visit Diagnoses Diagnosis Right hand pain Pain in limb documented in this encounter Care Teams Wedding Transportation Driver Relationship Specialty Start Date End Date Crescencio Camacho MD [address] [place] [phone] PCP - General FAMILY PRACTICE 08/25/16 Fercho Simon MD Vascular/Development Intern INTERNAL MEDICINE 11/01/15 documented as of this encounter
--- OUTSIDE RECORDS SUMMARY | 2024-03-19 13:10 | XMS_ITS | Encounter Summary ---
Author Organization [facility] Address [facility] [place] [address] [place] [address] Care Team Providers Care Air Transport Professionals Name Role Phone Frecho Simon MD Unavailable Crescencio Camacho MD Primary Care Provider [phone] Encounter Details Date Type Department Care Team (Late st Contact Info) Description 08/20/2020 Orders Only [facility] [address] [place] [address] [address] [place] [phone] Orestes Layne MD [address] [place] [address] Social History Tobacco Use Types Packs/Day Years [...] of this encounter Results * XR HAND RT 3V (08/24/2020 2:53 PM CDT) Anatomical Region Laterality Modality Hand Radiographic Kristina ging 08/24/2020 4:09 PM CDT Impressions 08/24/2020 4:10 PM CDT IMPRESSION: 1. No acute osseous or normality identified. 2. Osteoarthritic degenerative changes of the first metacarpal phalangeal joint. Referred By: ORESTES LAYNE Interpreted By: Kevin [...] this encounter Visit Diagnoses Diagnosis Right hand pain- Primary Pain in limb Right hand pain Pain in limb documented in this encounter Care Teams Air Transport Professionals Relationship Specialty Start Date End Date Crescencio Camacho MD [address] [place] [phone] PCP - General FAMILY PRACTICE 08/25/16 Fercho Simon MD Vascular/Topology Teacher INTERNAL MEDICINE 11/01/15 documented as of this encounter
--- OUTSIDE RECORDS SUMMARY | 2024-03-19 13:10 | XMS_ITS | Encounter Summary ---
Author Organization [facility] Address [facility] [place] [address] [place] [address] Care Team Providers Care Manufacturing Weaver Name Role Phone Fercho Simon MD Unavailable Crescencio Camacho MD Primary Care Provider Encounter Details Date Type Department Care Team (Latest Contact Info) Description 09/04/2020 Travel Social History Tobacco Use Types Packs/Day [...] suspected to have Coronavirus / COVID-19? Yes 09/04/2020 5:43 AM CDT documented as of this encounter Plan of Treatment Not on file documented as of this encounter Visit Diagnoses Not on filedocumented in this encounter Additional Health Concerns Infection Onset Date Last Indicated Resolved Time COVID-19 Rule Out 09/04/2020 09/04/2020 09/04/2020 6:20 AM CDT COVID-19 Confirmed 09/04/2020 09/04/2020 12:32 AM CDT documented as of this encounter Care Teams Manufacturing Weaver Relationship Specialty Start Date End Date Crescencio Camacho MD [address] [place] [phone] PCP - General FAMILY PRACTICE 08/25/16 Fercho Simon MD Vascular/Validation Consultant INTERNAL MEDICINE 11/01/15 documented as of this encounter
--- OUTSIDE RECORDS SUMMARY | 2024-03-19 13:10 | XMS_ITS | Encounter Summary ---
Author Organization [facility] Address [facility] [facility] [place] [address] [place] [address] Care Team Providers Care Under Ground Miner Name Role Phone Fercho Simon MD Unavailable Crescencio Camacho MD Primary Care Provider [phone] Encounter Details Date Type Department Care Team (Latest Contact Info) Description 08/22/2020 Travel Social History Tobacco Use Types Packs/Day [...] on filedocumented in this encounter Care Teams Under Ground Miner Relationship Specialty Start Date End Date Crescencio Camacho MD [address] [place] [phone] PCP - General FAMILY PRACTICE 08/25/16 Fercho Simon MD Vascular/Addressograph Operator INTERNAL MEDICINE 11/01/15 documented as of this encounter
--- OUTSIDE RECORDS SUMMARY | 2024-03-19 13:10 | XMS_ITS | Encounter Summary ---
Author Organization [facility] Address [facility] [place] [address] [place] [address] Care Team Providers Care Flooring Salesperson Name Role Phone Fercho Simon MD Unavailable Crescencio Camacho MD Primary Care Provider Encounter Details Date Type Department Care Team (Latest Contact Info) Description 03/18/2020 Travel Social History Tobacco Use Types Packs/Day [...] COVID-19? 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
--- OUTSIDE RECORDS SUMMARY | 2024-03-19 13:10 | XMS_ITS | Encounter Summary ---
Author Organization [facility] Address [facility] [place] [address] [place] [address] Care Team Providers Care Quality Assurance Clerk Name Role Phone Fercho Simon MD Unavailable Crescencio Camacho MD Primary Care Provider Reason for Visit * Reason Onset Date Comments MRI (SCAN) 11/28/2019 Encounter Details Date Type Department Care Team (Late st Contact Info) Description 11/28/2019 Telephone [facility] [address], [place] [phone] Emily Yuen RN MRI (SCAN) Social History Tobacco Use Types Packs/Day Years [...] as of this encounter Progress Notes * Emily Yuen RN - 11/28/2019 1:49 PM CDT Patient aware of result of LEFT femur MRI. He updated that we are going to order a MRI lumbar spine. He verbalizes understanding and denies any additional questions. Patient will keep his appointmenton 12/03 in hopes of review MRI lumbar spine at that time. He will adjust appointment based on MRI date. documented in this encounter Plan of Treatment Not on file documented as of this encounter Visit Diagnoses Diagnosis Lumbar radiculopathy- Primary Thoracic or lumbosacral neuritis or radiculitis, unspecified documented in this encounter Care Teams Quality Assurance Clerk Relationship Specialty Start Date End Date Crescencio Camacho MD [address] [place] [phone] PCP - General FAMILY PRACTICE 08/25/16 Fercho Simon MD Vascular/Wheel Braider INTERNAL MEDICINE 11/01/15 documented as of this encounter
--- OUTSIDE RECORDS SUMMARY | 2024-03-19 13:10 | XMS_ITS | Encounter Summary ---
Author Organization [facility] - [facility] Address [address] [place] [address] [place] [address] Care Team Providers Care Exterior Designer Name Role Phone Fercho Simon MD Unavailable Crescencio Camacho MD Primary Care Provider Reason for Visit * Reason Comments Exposure Coronavirus (Covid-19) Encounter Details Date Type Department Care Team (Late st Contact Info) Description 09/04/2020 5:40 AM CDT - 09/04/2020 7:06 AM CDT Emergency [facility] [address] [facility] [address] Edyta Alvarez, DO [address] [place] [address] Richard Verdugo MD [address] [place] [id number] Exposure Coronavirus (Covid-19) Discharge Disposition: Home or Self Care (Routine [...] Sign Reading Time Taken Comments Blood Pressure 148/94 09/04/2020 5:50 AM CDT Pulse 118 09/04/2020 5:50 AM CDT Temperature 37.1 ??C (98.8 ??F) 09/04/2020 5:50 AM CD T Respiratory Rate 23 09/04/2020 5:50 AM CDT Oxygen Saturation 94% 09/04/2020 5:50 AM CDT Inhaled Oxygen Concentration - - Weight 126.6 kg (279 lb) 09/04/2020 5:50 AM CDT Height 180.3 cm (5' 11 ) 09/04/2020 5:50 AM CDT Body Mass Index 38.91 09/04/2020 5:50 AM CDT documented in this encounter Discharge Instructions * Discharge Instructions* Edyta Alvarez DO - 09/04/2020 7:03 AM CDT Try to obtain a finger pulse oximeter from the pharmacy. Check your oxygen level a couple times perday. If it is dropping below 90%, return to the emergency department. Otherwise, take [id number] medications for your specific symptoms. * Attachments The following attachments cannot be sent through Care Everywhere. * Coronavirus Disease 2019 (COVID-19) Discharge Instructions (Arabic) documented in this encounter Medications at Time [...] 10/29/2019 01/03/2021 documented as of this encounter ED Notes * Jaylin Rod RN - 09/04/2020 7:06 AM CDT Pt is reminded he should quarantine. * Edyta Alvarez DO - 09/04/2020 5:57 AM CDT Chief Complaint Chief Complaint Patient presents with ??? Exposure Coronavirus (Covid-19) History of Present Illness 65-year-old male presents emergency department complaining of cough and shortness of breath. Patient reports that symptoms started approximately 1 week ago. Patient states that his wasdiagnosed with COVID-19 at that time. Patient states he was not tested but told that he should follow the same instructions that she was. Patient states that his symptoms have been worsening. Patientreports rhinorrhea, cough, dyspnea, diarrhea. He denies chest pain, rashes, abdominal pain, vomiting. Patient denies any history of pulmonary disease. 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 History provided by: Patient keyliner used: No Medical History ALLERGIES: No Known Allergies MEDICATIONS: Prior to Admission medications Medication Sig Start Date End Date Taking? Authorizing Provider aspirin 81 MG tablet Take 1 tablet by mouth daily. 05/28/09 Doc Abstract cyclobenzaprine 10 MG tablet Take 1 tablet (10 mg total) by mouth 3 (three) times daily as needed. 08/22/20 Richard Verdugo MD ELIQUIS 2.5 MG tablet TAKE 1 TABLET BY MOUTH TWICE A DAY Patient taking differently: Take 2.5 mg by mouth 2 (two) times daily. 10/20/19 Fercho Simon MD finasteride 5 MG tablet Take 5 mg by mouth daily. 10/29/19 Doc Abstract losartan 50 MG tablet Take 1 tablet by mouth daily. 06/04/15 Doc Abstract simvastatin 40 MG tablet Take 1 tablet by mouth daily. 06/04/15 Doc Abstract venlafaxine 24 hr 75 MG 24 hr capsule Take 1 tablet by mouth daily. 06/04/15 Doc Abstract PAST MEDICAL HISTORY: Past Medical History: Diagnosis Date ??? Benign hypertension ??? Bulging lumbar disc ??? CAD (coronary artery disease) CABG ??? DVT (deep venous thrombosis) ([facility]/HCC) Right femoral vein and left popliteal ??? [...] and are negative. Physical Exam Filed Vitals: 09/04/20 0550 BP: (!) 148/94 Pulse: 118 Resp: 23 Temp: 98.8 ??F (37.1 ??C) TempSrc: Temporal SpO2: 94% Weight: 126.6 kg (279 lb) Height: 5' 11 (1.803 m) Physical Exam Vitals and nursing note reviewed. Constitutional: General: He is not in acute distress. Appearance: He is well-developed. He is not diaphoretic. HENT: Head: Normocephalic and atraumatic. Eyes: Conjunctiva/sclera: Conjunctivae normal. Cardiovascular: Rate and Rhythm: Normal rate and regular rhythm. Heart sounds: Normal heart sounds. No murmur. Pulmonary: Effort: Pulmonary effort is normal. No respiratory distress. Breath sounds: Normal breath sounds. No wheezing or rales. Abdominal: General: Bowel sounds are normal. There is no distension. Palpations: Abdomen is soft. Tenderness: There is no abdominal tenderness. Neurological: Mental Status: He is alert and oriented to person, place, and time. Psychiatric: Behavior: Behavior normal. Thought Content: Thought content normal. Judgment: Judgment normal. Diagnostic Studies / Procedures ELECTROCARDIOGRAMS: No results found for this visit on 09/04/20. LABORATORY STUDIES: Results for orders placed or performed during the hospital encounter of 09/04/20 CBC W/DIFF AUTOMATED Result Value Ref Range WBC 9.5 4.5 - 10.8 x10'3/uL RBC 4.80 4.50 - 6.10 x10'6/uL HGB 15.1 13.0 - 18.0 G/DL HCT 45.1 37.0 - 52.0 % MCV 94.0 78.0 - 100.0 FL MCH 31.5 (H) 27.0 - 31.0 PG MCHC 33.5 33.0 - 36.0 G/DL RDW 12.7 11.5 - 14.5 % PLT 168 150 - 350 x10'3/uL MPV 10.4 7.4 - 10.4 FL Differential Comment NORMAL REFERENCE RANGE NOT ESTABLISHED FOR THE PROPORTIONAL LEUKOCYTE DIFFERENTIAL. SEG NEUTROPHILS 86.1 % LYMPHOCYTES 7.9 % MONOCYTES 5.4 % EOSINOPHILS 0.0 % BASOPHILS 0.2 % IMMATURE GRANS 0.4 % NRBC 0.0 % ABS. NEUTROPHILS 8.17 1.60 - 8.30 x10'3/uL ABS. LYMPHOCYTES 0.75 (L) 0.80 - 4.70 x10'3/uL ABS. MONOCYTES 0.51 0.00 - 1.50 x10'3/uL ABS. EOSINOPHILS 0.00 0.00 - 0.40 x10'3/uL ABS. BASOPHILS 0.02 0.00 - 0.20 x10'3/uL ABS. IMMATURE GRANULOCYTES 0.04 (H) 0.00 - 0.03 x10'3/uL ABS. NUCLEATED RBC'S 0.00 0.00 x10'3/uL COMPREHENSIVE METABOLIC PANEL Result Value Ref Range SODIUM 138 136 - 145 MMOL/L POTASSIUM 4.2 3.5 - 5.1 MMOL/L CHLORIDE S/P/B 102 98 - 107 MMOL/L CO2 27.4 21.0 - 32.0 MMOL/L GLUCOSE 142 (H) 70 - 99 MG/DL BUN 17 6 - 24 MG/DL CREATININE S/P/B 1.19 0.70 - 1.30 MG/DL CALCIUM 8.7 8.4 - 10.5 MG/DL BILIRUBIN TOTAL S/P/B 1.0 0.2 - 1.0 MG/DL ALKALINE PHOSPHATASE S/P/B 133 (H) 45 - 115 U/L AST 27 15 - 37 U/L ALT 34 16 - 63 U/L TOTAL PROTEIN S/P/B 7.8 6.4 - 8.2 G/DL ALBUMIN S/P/B 3.5 3.4 - 5.0 G/DL ANION GAP 8.6 5.0 - 15.0 MMOL/L OSMOLALITY (CALC) 290 MOSM/KG eGFR Non-Afr. Amer. 63 (L) >89 ML/MIN/1.73 M2 eGFR Afr. Amer. 73 (L) >89 ML/MIN/1.73 M2 GFR NOTES GFR REFERENCES: TROPONIN, QUANT Result Value Ref Range TROPONIN I <0.017 0.000 - 0.056 ng/mL. PRO-BRAIN NATRIURETIC PEPTIDE Result Value Ref Range Pro-B TYPE NATRIURETIC PEPTIDE 66 <125 PG/ML CORONAVIRUS (COVID-19) ANTIGEN DIRECT OPTICAL Specimen: NASAL Result Value Ref Range CORONAVIRUS ANTIGEN IA POSITIVE (AA) NEGATIVE Specimen Type NASAL FIRST TEST YES EMPLOYED IN HEALTHCARE NO SYMPTOMATIC DEFINED BY CDC YES DATE OF SYMPTOM ONSET 20200829 HOSPITALIZATION STATUS NO PATIENT IN ICU NO RESIDENT OF [facility] NO IMAGING STUDIES XR CHEST PORTABLE Final Result by User, [id number] (09/04 644) Examination: Chest radiograph Exam time: 09/04/2020 6:43 AM Clinical history: Cough, dyspnea, COVID positive Comparison: 06/30/2013 Technique: One view of the chest obtained. Findings: Study slightly limited by lordotic technique. Peripherally distributed areas of groundglass opacity and consolidation consistent with COVID pneumonia. No pleural effusion or pneumothorax. Heart and mediastinal contours within normal limits. IMPRESSION: Findings compatible with COVID pneumonia. Referred By: EDYTA ALVAREZ Interpreted By: Neeraj Valle MD, 09/04/2020 6:43 AM ED Course / Medical Decision Making MDM Number of Diagnoses or Management Options Pneumonia due to COVID-19 virus: new and requires workup Amount and/or Complexity of Data Reviewed Clinical lab tests: reviewed and ordered Tests in the radiology section of CPT??: reviewed and ordered Risk of Complications, Morbidity, and/or Mortality Presenting problems: moderate Diagnostic procedures: moderate Management options: low Patient Progress Patient progress: stable Clinical Impression Pneumonia due to COVID-19 virus (Primary) Disposition: Discharge Edyta Alvarez DO 09/04/20 0703 * Olivia Anglin RN - 09/04/2020 5:44 AM CDT Pts was dx with COVID last Sunday. He states he has had a cough, SOB. documented in this encounter Plan of Treatment Not on file documented as of this encounter Procedures Procedure Name Priority Date/Time Associated Diagnosis Comments XR CHEST PORTABLE STAT 09/04/2020 6:4 3 AM CDT PRO-BRAIN NATRIURETIC PEPTIDE STAT 09/04/2020 6:15 AM CDT VITAMIN B-12 STAT 09/04/2020 6:15 AM CDT COMPREHENSIVE METABOLIC PANEL STAT 09/04/2020 6:15 AM CDT CBC W/DIFF AUTOMATED STAT 09/04/2020 6:15 AM CDT TROPONIN, QUANT STAT 09/04/2020 6:15 AM CDT CORONAVIRUS (COVID-19) ANTIGEN DIRECT OPTICAL STAT 09/04/2020 6:08 AM CDT documented in this encounter Results * XR CHEST PORTABLE (09/04/2020 6:43 AM CDT) Anatomical Region Laterality Modality Chest Radiographic Kristina ging 09/04/2020 6:43 AM CDT Impressions 09/04/2020 6:44 AM CDT IMPRESSION: Findings compatible with COVID pneumonia. Referred By: EDYTA ALVAREZ Interpreted By: Neeraj Valle MD, 09/04/2020 6:43 AM Narrative 09/04/2020 6:44 AM CDT Examination: Chest radiograph Exam time: 09/04/2020 6:43 AM Clinical history: Cough, dyspnea, COVID positive Comparison: 06/30/2013 Technique: ??One view of the chest obtained. Findings: Study slightly limited by lordotic technique. Peripherally distributed areas of groundglass opacity and consolidation consistent with COVID pneumonia. No pleural effusion or pneumothorax. Heart and mediastinal contours within normal limits. Procedure Note Neeraj Valle MD - 09/04/2020 Examination: Chest radiograph Exam time: 09/04/2020 6:43 AM Clinical history: Cough, dyspnea, COVID positive Comparison: 06/30/2013 Technique: One view of the chest obtained. Findings: Study slightly limited by lordotic technique. Peripherallydistributed areas of groundglass opacity and consolidation consistent withCOVID pneumonia. No pleural effusion or pneumothorax. Heart andmediastinal contours within normal limits. IMPRESSION: Findings compatible with COVID pneumonia. Referred By: EDYTA ALVAREZ Interpreted By: Neeraj Valle MD, 09/04/2020 6:43 AM us Edyta Alvarez DO GENERAL IMAGING Final Result * VITAMIN B-12 (09/04/2020 6:15 AM CDT) VITAMIN B12 S/P/B 438 193 - 986 PG/ML 09/04/2020 5:54 PM CDT [facility] 09/04/2020 6:15 AM CDT us Edyta Alvarez DO LABORATORY Final Result [facility] [address] [place] [address], [place] [phone] [id number] * PRO-BRAIN NATRIURETIC PEPTIDE (09/04/2020 6:15 AM CDT) PRO-B TYPE NATRIURETIC PEPTIDE 66 <125 PG/ML 09/04/2020 6:50 AM CDT [facility] Comment: CUT POINTS ESTABLISHED BY [employer] ON NT PROBNP (ICON) STUDY (2006). AGE INDEPENDENT: <300 PG/ML HAS A 99% NEGATIVE PREDICTIVE VALUE FOR EXCLUDING ACUTE CHF <50 YEARS: >450 PG/ML IS CONSISTENT WITH ACUTE CHF 50-75 YEARS: >900 PG/ML IS CONSISTENT WITH ACUTE CHF >75 YEARS: >1800 PG/ML IS CONSISTENT WITH ACUTE CHF IN PATIENTS WITH RENAL INSUFFICIENCY (GFR <60), >1200 PG/ML YIELDS A DIAGNOSTIC SENSITIVITY AND SPECIFICITY OF 89% AND 72% FOR ACUTE CHF. 09/04/2020 6:1 5 AM CDT us Edyta Alvarez DO LABORATORY Final Result Performing Organization Address City/[facility] Co de Phone Number [facility] [address] [place] [address], [place] [phone] * TROPONIN, QUANT (09/04/2020 6:15 AM CDT) TROPONIN I <0.017 0.000 - 0.056 ng/mL. 09/04/2020 6:50 AM CDT [facility] Comment: ALTHOUGH VALUES OVER 0.056 ARE CONSIDERED ABNORMAL AND REPRESENT MYOCARDIAL DAMAGE,A CUTOFF OF 0.600 HAS BEEN RECOMMENDED REPRESENTING ACUTE MYOCARDIAL INFARCTION. 09/04/2020 6:15 AM CDT us Ruvalcaban Stephanie Antonio GARCIA LABORATORY Final Result [facility] [address] [place] [address], * (ABNORMAL) COMPREHENSIVE METABOLIC PANEL (09/04/2020 6:15 AM CDT) SODIUM S/P/B 138 136 - 145 MMOL/L 09/04/2020 6:50 AM CDT [facility] POTASSIUM S/P/B 4.2 3.5 - 5.1 MMOL/L 09/04/2020 6:50 AM CDT [facility] CHLORIDE S/P/B 102 98 - 107 MMOL/L 09/04/2020 6:50 AM CDT [facility] CO2 27.4 21.0 - 32.0 MMOL/L 09/04/2020 6:50 AM CDT [facility] GLUCOSE 142(H) 70 - 99 MG/DL 09/04/2020 6:50 AM CDT [facility] Comment: FASTING GLUCOSE 100 TO 125 MG/DL IS CONSISTENT WITH IMPAIRED FASTING GLUCOSE. FASTING GLUCOSE >125 MG/DL IS CONSISTENT WITH DIABETES. RANDOM GLUCOSE >200 MG/DL WITH HYPERGLYCEMIC SYMPTOMS IS CONSISTENT WITH DIABETES. PER ADA GUIDELINES BUN 17 6 - 24 MG/DL 09/04/2020 6:50 AM CDT [facility] CREATININE S/P/B 1.19 0.70 - 1.30 MG/DL 09/04/2020 6:50 AM CDT [facility] CALCIUM S/P/B 8.7 8.4 - 10.5 MG/DL 09/04/2020 6:50 AM CDT [facility] BILIRUBIN TOTAL S/P/B 1.0 0.2 - 1.0 MG/DL 09/04/2020 6:50 AM CDT [facility] Comment: THIS ASSAY IS NOT RECOMMENDED FOR PATIENTS UNDERGOING TREATMENT WITH ELTROMBOPAG DUE TO THE POTENTIAL FOR FALSELY ELEVATED RESULTS. ALKALINE PHOSPHATASE S/P/B 133(H) 45 - 115 U/L 09/04/2020 6:50 AM CDT [facility] AST 27 15 - 37 U/L 09/04/2020 6:50 AM T [facility] ALT 34 16 - 63 U/L 09/04/2020 6:50 AM CDT [facility] TOTAL PROTEIN S/P/B 7.8 6.4 - 8.2 G/DL 09/04/2020 6:50 AM T [facility] ALBUMIN S/P/B 3.5 3.4 - 5.0 G/DL 09/04/2020 6:50 AM CDT [facility] ANION GAP 8.6 5.0 - 15.0 MMOL/L 09/04/2020 6:50 AM T [facility] OSMOLALITY (CALC) 290 MOSM/KG 021 6:50 AM T [facility] Comment:REFERENCE RANGE NOT ESTABLISHED EGFR NON-AFR. AMER. 63(L) >89 ML/MIN/1. 73 M2 09/04/2020 6:50 AM T [facility] EGFR AFR. AMER. 73(L) >89 ML/MIN/1. 73 M2 09/04/2020 6:50 AM T [facility] GFR NOTES GFR REFERENCE S: 09/04/2020 6:50 AM [facility] Comment: THE ESTIMATED GFR IS [...] ml/min/1.73 m2 G5,KIDNEY FAILURE: <15 ml/min/1.73 m2 09/04/2020 6:15 AM CDT Edyta Alvarez DO LABORATORY Final Result [facility] [address] [place] [address], * (ABNORMAL) CBC W/DIFF AUTOMATED (09/04/2020 6:15 AM CDT) WBC 9.5 4.5 - 10.8 x10'3/uL 09/04/2020 6:22 AM CDT [facility] RBC 4.80 4.50 - 6.10 x10'6/uL 09/04/2020 6:22 AM CDT [facility] HGB 15.1 13.0 - 18.0 G/DL 09/04/2020 6:22 AM CDT [facility] HCT 45.1 37.0 - 52.0 % 09/04/2020 6:22 AM CDT [facility] MCV 94.0 78.0 - 100.0 FL 09/04/2020 6:22 AM CDT [facility] MCH 31.5(H) 27.0 - 31.0 PG 09/04/2020 6:22 AM CDT [facility] MCHC 33.5 33.0 - 36.0 G/DL 09/04/2020 6:22 AM CDT [facility] RDW 12.7 11.5 - 14.5 % 09/04/2020 6:22 AM CDT [facility] PLT 168 150 - 350 x10'3/uL 09/04/2020 6:22 AM CDT [facility] MPV 10.4 7.4 - 10.4 FL 09/04/2020 6:22 AM CDT [facility] DIFFERENTIAL COMMENT NORMAL REFERENCE RANGE NOT ESTABLISHED FOR THE PROPORTIONAL LEUKOCYTE DIFFERENTIAL. 09/04/2020 6:22 AM CDT [facility] SEG NEUTROPHILS 86.1 % 6:22 AM CDT [facility] LYMPHOCYTES 7.9 % 09/04/2020 6:22 AM CDT [facility] MONOCYTES 5.4 % 09/04/2020 6:22 AM CDT [facility] EOSINOPHILS 0.0 % 09/04/2020 6:22 AM CDT [facility] BASOPHILS 0.2 % 09/04/2020 6:22 AM CDT [facility] IMMATURE GRANS % 0.4 % 09/05/19 6:22 AM CDT [facility] NRBC 0.0 % 09/04/2020 6:22 AM CDT [facility] ABS. NEUTROPHILS 8.17 1.60 - 8.30 x10'3/uL 09/04/2020 6:22 AM CDT [facility] ABS. LYMPHOCYTES 0.75(L) 0.80 - 4.70 x10'3/uL 09/04/2020 6:22 AM CDT [facility] ABS. MONOCYTES 0.51 0.00 - 1.50 x10'3/uL 09/04/2020 6:22 AM CDT [facility] ABS. EOSINOPHILS 0.00 0.00 - 0.40 x10'3/uL 09/04/2020 6:22 AM CDT [facility] ABS. BASOPHILS 0.02 0.00 - 0.20 x10'3/uL 09/04/2020 6:22 AM CDT [facility] ABS. IMMATURE GRANULOCYTES 0.04(H) 0.00 - 0.03 x10'3/uL 09/04/2020 6:22 AM CDT [facility] ABS. NUCLEATED RBC'S 0.00 0.00 x10'3/uL 09/04/2020 6:22 AM CDT [facility] 09/04/2020 6:15 AM CDT us Edyta Alvarez DO LABORATORY Final Result [facility] [address] [place] [address], * (ABNORMAL) CORONAVIRUS (COVID-19) ANTIGEN DIRECT OPTICAL (09/04/2020 6:08 AM CDT) CORONAVIRUS ANTIGEN IA POSITIVE(AA ) NEGATIVE 09/04/2020 6:20 AM CDT [facility] Comment: CRITICAL VALUE THIS TEST HAS BEEN AUTHORIZED BY THE FDA UNDER AN EMERGENCY USE AUTHORIZATION (EUA) FOR USE BY AUTHORIZED LABORATORIES. CRITICAL VALUE, CHECKED AND CALLED ALANA IN ER AT 0620 READ BACK AND VERIFIED SPECIMEN TYPE NASAL 09/04/2020 6:11 AM CDT [facility] FIRST TEST YES 09/04/2020 6:11 AM CDT [facility] EMPLOYED IN HEALTHCARE NO 09/04/2020 6:11 AM CDT [facility] SYMPTOMATIC DEFINED BY CDC YES 09/04/2020 6:11 AM CDT [facility] DATE OF SYMPTOM ONSET 2020082909/04/2020 6:11 AM CDT [facility] HOSPITALIZATION STATUS NO 09/04/2020 6:11 AM CDT [facility] PATIENT IN ICU NO 09/04/2020 6:15 AM CDT [facility] RESIDENT OF [facility] NO 09/04/2020 6:11 AM CDT [facility] Specimen from nose (specimen) NASAL STRUCTURE / Unknown 09/04/2020 6:08 AM CDT us Edyta Alvarez DO MICROBIOLOGY - GENERAL ORDERABLE S Final Result [facility] [address] [place] [address], documented in this encounter Visit Diagnoses Diagnosis Pneumonia due to COVID-19 virus- Primary documented in this encounter Additional Health Concerns Infection Onset Date Last Indicated Resolved Time COVID-19 Rule Out 09/04/2020 09/04/2020 09/04/2020 6:20 AM CDT COVID-19 Confirmed 09/04/2020 09/04/2020 12:32 AM CDT documented as of this encounter Care Teams Exterior Designer Relationship Specialty Start Date End Date Crescencio Camacho MD [address] [place] [phone] PCP - General FAMILY PRACTICE 08/25/16 Fercho Simon MD Vascular/Enterprise Data Architect INTERNAL MEDICINE 11/01/15 documented as of this encounter
--- OUTSIDE RECORDS SUMMARY | 2024-03-19 13:11 | XMS_ITS | Encounter Summary ---
Author Organization [facility] - [facility] Address Formerly [facility], [facility]6 [facility] [place] [address] [place] [address] Care Team Providers Care Video Control Operator Name Role Phone Fercho Simon MD Unavailable Crescencio Camacho MD Primary Care Provider Encounter Details Date Type Department Care Team (Latest Contact Info) Description 11/18/2019 9:19 AM CDT - 11/18/2019 11:59 PM CDT Hospital Encounter [facility] [address] [facility] [place] [address] Fercho Simon MD [address] [place] [address] Discharge Disposition: Home or Self Care (Routine [...] have Coronavirus / COVID-19? No / Unsure 11/18/2019 9:18 AM CDT documented as of this encounter Medications at Time of Discharge aspirin 81 MG tablet Take 1 tablet by mouth daily. 05/28/2009 losartan 50 MG tablet Take 1 tablet by mouth daily. 06/04/2015 simvastatin 40 MG tablet Take 1 tablet by mouth daily. 06/04/2015 venlafaxine 24 hr 75 MG 24 hr capsule Take 1 tablet by mouth daily. 06/04/2015 COMPRESSION STOCKINGSIndicatio ns:Varicose veins of both lower extremities with complications 20-30 MMHG Knee High Compression Stocking open or closed toe Dx I83.893 1 Container 12 02/21/2016 11/21/19 20 COMPRESSION STOCKINGS 20-30 MMHg Compression Stocking Knee High open or closed toe Dx I83.893 1 Container 6 11/18/2019 11/21/19 20 ELIQUIS 2.5 MG tablet TAKE 1 TABLET BY MOUTH TWICE A DAY 180 tablet 3 10/20/2019 10/15/19 finasteride 5 MG tablet Take 5 mg by mouth daily. 10/29/2019 01/04/20 losartan 50 MG tablet Take 1 tablet by mouth daily. 06/13/2019 11/21/19 20 methylPREDNISolone , LOU, 4 MG tabletIndications: Hip pain, chronic, left 4 mg Oral Tablet Therapy Pack. Follow package directions 1 each 11/07/2019 11/21/19 documented as of this encounter Plan of Treatment Not on file documented as of this encounter Procedures Procedure Name Priority Date/Time Associated Diagnosis Comments BASIC METABOLIC PANEL Routine 11/18/2019 9:50 AM CDT History of DVT (deep vein thrombosis) CBC, AUTO, NO DIFF Routine 11/18/2019 9: 50 AM CDT History of DVT (deep vein thrombosis) documented in this encounter Results * (ABNORMAL) BASIC METABOLIC PANEL (11/18/2019 9:50 AM CDT) SODIUM S/P/B 142 136 - 145 MMOL/L 11/18/2019 10:27 AM CDT [facility] POTASSIUM S/P/B 4.0 3.5 - 5.1 MMOL/L 11/18/2019 10:27 AM CDT [facility] CHLORIDE S/P/B 106 98 - 107 MMOL/L 11/18/2019 10:27 AM CDT [facility] CO2 26.3 21.0 - 32.0 MMOL/L 11/18/2019 10:27 AM [facility] GLUCOSE 92 70 - 99 MG/DL 11/18/2019 10:27 AM [facility] Comment: FASTING GLUCOSE 100 TO 125 MG/DL IS CONSISTENT WITH IMPAIRED FASTING GLUCOSE. FASTING GLUCOSE >125 MG/DL IS CONSISTENT WITH DIABETES. RANDOM GLUCOSE >200 MG/DL WITH HYPERGLYCEMIC SYMPTOMS IS CONSISTENT WITH DIABETES. PER ADA GUIDELINES BUN 17 6 - 24 MG/DL 11/18/2019 10:27 AM [facility] CREATININE S/P/B 1.03 0.70 - 1.30 MG/DL 11/18/2019 10:27 AM [facility] CALCIUM S/P/B 8.7 8.4 - 10.5 MG/DL 11/18/2019 10:27 AM [facility] ANION GAP 9.7 5.0 - 15.0 MMOL/L 11/18/2019 10:27 AM [facility] OSMOLALITY (CALC) 295 MOSM/KG 020 10:27 AM [facility] Comment:REFERENCE RANGE NOT ESTABLISHED EGFR NON-AFR. AMER. 75(L) >89 ML/MIN/1. 73 M2 11/18/2019 10:27 AM [facility] EGFR AFR. AMER. 87(L) >89 ML/MIN/1. 73 M2 11/18/2019 10:27 AM [facility] GFR NOTES GFR REFERENCE S: 11/18/2019 10:27 AM [facility] Comment: THE ESTIMATED GFR IS CALCULATED [...] ml/min/1.73 m2 G5,KIDNEY FAILURE: <15 ml/min/1.73 m2 11/18/2019 9:50 AM CDT Fercho Simon MD LABORATORY Final Result [facility] [address] [place] [address], * (ABNORMAL) CBC, AUTO, NO DIFF (11/18/2019 9:50 AM CDT) WBC 7.3 4.5 - 10.8 x10'3/uL 11/18/2019 10:12 AM CDT [facility] RBC 4.74 4.50 - 6.10 x10'6/uL 11/18/2019 10:12 AM CDT [facility] HGB 15.0 13.0 - 18.0 G/DL 11/18/2019 10:12 AM CDT [facility] HCT 45.9 37.0 - 52.0 % 11/18/2019 10:12 AM CDT [facility] MCV 96.8 78.0 - 100.0 FL 11/18/2019 10:12 AM CDT [facility] MCH 31.6(H) 27.0 - 31.0 PG 11/18/2019 10:12 AM CDT [facility] MCHC 32.7(L) 33.0 - 36.0 G/DL 11/18/2019 10:12 AM CDT [facility] RDW 12.6 11.5 - 14.5 % 11/18/2019 10:12 AM CDT [facility] PLT 166 150 - 350 x10'3/uL 11/18/2019 10:12 AM CDT [facility] MPV 10.4 7.4 - 10.4 FL 11/18/2019 10:12 AM CDT [facility] 11/18/2019 9:50 AM CDT Fercho Simon MD LABORATORY Final Result [facility] [address] [place] [address], documented in this encounter Visit Diagnoses Diagnosis History of DVT (deep vein thrombosis) Personal history of venous thrombosis and embolism documented in this encounter Care Teams Video Control Operator Relationship Specialty Start Date End Date Crescencio Camacho MD [address] [place] [phone] PCP - General FAMILY PRACTICE 08/25/16 Fercho Simon MD Vascular/Mri Specialist INTERNAL MEDICINE 11/01/15 documented as of this encounter
--- OUTSIDE RECORDS SUMMARY | 2024-03-19 13:11 | XMS_ITS | Encounter Summary ---
Author Organization [facility] Address [facility] [address] [place] [address] Care Team Providers Care Corporate Technical Recruiter Name Role Phone Fercho Simon MD Unavailable Crescencio Camacho MD Primary Care Provider Reason for Visit * Reason Comments Follow Up DVT Encounter Details Date Type Department Care Team (Late st Contact Info) Description 05/07/2018 8:45 AM EDITOR SOUND Office Visit [facility] AT [address] [place] [phone] Fercho Simon MD [address] [place] [address] Follow Up (DVT ) Social History Tobacco Use Types Packs/Day Years [...] Sign Reading Time Taken Comments Blood Pressure 141/82 05/07/2018 8:44 AM EDITOR SOUND Pulse 98 05/07/2018 8:43 AM EDITOR SOUND Temperature - - Respiratory Rate 98 05/07/2018 8:43 AM EDITOR SOUND Oxygen Saturation - - Inhaled Oxygen Concentration - - Weight 130.2 kg (287 lb) 05/07/2018 8:43 AM EDITOR SOUND Height 185.4 cm (6' 1 ) 05/07/2018 8:43 AM EDITOR SOUND Body Mass Index 37.87 05/07/2018 8:43 AM EDITOR SOUND documented in this encounter Progress Notes * Fercho Simon MD - 05/07/2018 8:45 AM CST Reason for Visit: Follow Up (DVT ) History of Present Illness: 62-year-old, male whose cardiovascular history consists of: 1. Recurrent left leg DVT and unprovoked right femoral vein DVT in 2016. 2. Chronic left leg edema. 3. Coronary artery disease. 4. Hypertension. 5. Hyperlipidemia. The patient continues to do well overall and is well compliant with compression stockings. He has been tolerating anticoagulation with Eliquis 2.5 well without any problem. Recent Cr is 1.05 and Hb is 15.3. ASSESSMENT AND PLAN: 1. Recurrent DVTs. He had multiple history of DVTs in his left leg and then unprovoked DVT in his right leg in 2016. Detailed thrombophilia workup had been negative. Age appropriate cancer workup hasbeen recommended, which I would defer to you. Tolerating Eliquis well without any bleeding complications, continue Eliquis at 2.5 milligrams b.i.d.. Last venous duplex showed chronic clot in right femoral and left popliteal veins. 2. 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 Will continue anticoagulation. 3. Bilateral leg edema with left more than right. 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 He also may be getting some degree of phlebo-lymphedema, especially in the left leg. Edema is well controlled with compression stockings. 4. CAD-CABG. Used to see Dr. Moise. Was referred to [facility] again, but somehow appointment not made. On ASA, ARB and statins. Not on beta blockers, not sure why. 5. Hypertension. Blood pressure reasonably well controlled on hydrochlorothiazide and ARB. 6. Hyperlipidemia. Continue statins. Recommend goal LDL less than 70 mg/dL. Followup in one year with CBC and BMP. Medications: Current Outpatient Medications: ??? aspirin 81 MG tablet, Take 1 tablet by mouth daily., Disp: , Rfl: ??? COMPRESSION STOCKINGS, 20-30 MMHG Knee High Compression Stocking open or closed toe Dx I83.893,Disp: 1 Container, Rfl: 12 ??? COMPRESSION STOCKINGS, 20-30 MMHg Compression Stocking Knee High open or closed toe Dx I83.893,Disp: 1 Container, Rfl: 6 ??? ELIQUIS 2.5 MG tablet, TAKE 1 TABLET BY MOUTH TWICE DAILY, Disp: 60 tablet, Rfl: 2 ??? hydrochlorothiazide 12.5 MG capsule, Take 1 capsule (12.5 mg total) by mouth every morning., Disp: 90 capsule, Rfl: 3 ??? losartan 50 MG tablet, Take 1 tablet by mouth daily., Disp: , Rfl: ??? simvastatin 40 MG tablet, Take 1 tablet by mouth daily., Disp: , Rfl: ??? venlafaxine 24 hr 75 MG 24 hr capsule, Take 1 tablet by mouth daily., Disp: , Rfl: Allergies Allergen Reactions ??? Codeine Nausea and Vomiting ??? Penicillins Unknown Past Medical History: Diagnosis Date ??? Benign hypertension ??? CAD (coronary artery disease) CABG ??? DVT (deep venous thrombosis) (CMS/HCC) Right femoral vein and left popliteal ??? Hx of CABG ??? Hyperlipemia, mixed ??? Lower extremity edema Past Surgical History: Procedure Laterality Date ??? CORONARY ARTERY BYPASS GRAFT ??? HEART CATH 05/28/2009 Left coronary angiography. Right coronary angiography.Left heart catheterization with ventriculography. Social History Socioeconomic History ??? Marital status: Spouse name: Not on file ??? Number of children: 4 ??? Years of education: Not on file ??? Highest education level: Not on file Social Needs ??? Financial resource strain: Not on file ??? Food insecurity - worry: Not on file ??? Food insecurity - inability: Not on file ??? Transportation needs - medical: Not on file ??? Transportation needs - non-medical: Not on file Occupational History ??? Occupation: [...] Social History Narrative ??? Not on file Family History Problem Relation Name Age of Onset ??? Coronary artery disease Neg Hx Family Status Relation Name Status ??? Mother ??? Father ??? MGM ??? MGF ??? PGM ??? PGF ??? Neg Hx (Not Specified) Review of Systems Constitutional: Negative for malaise/fatigue and weight loss. HENT: Positive for hearing loss. Eyes: Negative for blurred vision and double vision. Respiratory: Negative for cough, hemoptysis and wheezing. Cardiovascular: Negative for chest pain and palpitations. Gastrointestinal: Negative for blood in stool and melena. Genitourinary: Negative for dysuria. Musculoskeletal: Negative for joint pain and myalgias. Skin: Negative for rash. Neurological: Negative for tingling, sensory change, focal weakness and headaches. Endo/Heme/Allergies: Negative for polydipsia. Does not bruise/bleed easily. Psychiatric/Behavioral: Positive for depression. Filed Vitals: 05/07/18 0843 05/07/18 0844 BP: 137/86 141/82 Pulse: 98 Resp: (!) 98 Weight: 130.2 kg (287 lb) Height: 6' 1 (1.854 m) Physical Exam Constitutional: He is oriented to person, place, and time. He appears well- developed and well-nourished. No distress. HENT: Nose: No mucosal edema. Mouth/Throat: Oropharynx is clear and moist and mucous membranes are normal. No oropharyngeal exudate. Neck: Neck supple. No JVD present. Cardiovascular: Normal rate, regular rhythm, S1 normal, S2 normal and intact distal pulses. PMI is not displaced. Exam reveals no gallop. No murmur heard. Pulses: Carotid pulses are 2+ on the right side, and 2+ on the left side. Radial pulses are 2+ on the right side, and 2+ on the left side. Femoral pulses are 2+ on the right side, and 2+ on the left side. Popliteal pulses are 2+ on the right side, and 2+ on the left side. Dorsalis pedis pulses are 2+ on the right side, and 2+ on the left side. Posterior tibial pulses are 2+ on the right side, and 2+ on the left side. Pulmonary/Chest: Effort normal and breath sounds normal. No respiratory distress. Abdominal: Normal appearance. He exhibits no abdominal bruit and no mass. There is no hepatosplenomegaly. There is no tenderness. Musculoskeletal: Normal range of motion. He exhibits edema. He exhibits no deformity. Neurological: He is alert and oriented to person, place, and time. Skin: Skin is warm and dry. Psychiatric: He has a normal mood and affect. His behavior is normal. Thought content normal. Diagnoses/Impression: 1. History of DVT (deep vein thrombosis) 2. Chronic deep vein thrombosis (DVT) of other vein of both lower extremities (CMS/HCC) BASIC METABOLIC PANEL CBC, AUTO, NO DIFF OR SOUND documented in this encounter Plan of Treatment Not on file documented as of this encounter Visit Diagnoses Diagnosis History of DVT (deep vein thrombosis)- Primary Personal history of venous thrombosis and embolism Chronic deep vein thrombosis (DVT) of other vein of both lower extremities (CMS/HCC HHS/HCC) documented in this encounter Care Teams Corporate Technical Recruiter Relationship Specialty Start Date End Date Crescencio Camacho MD [address] [place] [phone] PCP - General FAMILY PRACTICE 08/25/16 Fercho Simon MD Vascular/Insurance Service Representative INTERNAL MEDICINE 11/01/15 documented as of this encounter
--- OUTSIDE RECORDS SUMMARY | 2024-03-19 13:11 | XMS_ITS | Encounter Summary ---
Author Organization [facility] Address [facility]6 [facility] [place] [address] [place] [address] Care Team Providers Care Semiconductor Development Technician Name Role Phone Fercho Simon MD Unavailable Crescencio Camacho MD Primary Care Provider [phone] Reason for Referral * Imaging (Routine) - Closed Specialty Diagnoses / Procedures Referred By Shankar horne Referred To Contact RADIOLOGY Diagnoses Elevated PSA Family history of prostate cancer Procedures MRI PEL WWO Krystin Reid III, MD Phone: tel: fax: Referral ID Status Reason Start Date Expiration Date Visits Re quested Visits Authorized [id number] Closed 11/19/2018 12/19/2019 1 1 Reason for Visit * Imaging (Routine) - Closed Specialty Diagnoses / Procedures Referred By Shankar horne Referred To Contact RADIOLOGY Diagnoses Elevated PSA Family history of prostate cancer Procedures MRI PEL WWO Krystin Reid III, MD Phone: tel: fax: Referral ID Status Reason Start Date Expiration Date Visits Re quested Visits Authorized [id number] Closed 11/19/2018 12/19/2019 1 1 Encounter Details Date Type Department Care Team (Latest Contact Info) Description 11/27/2018 9:49 AM CDT - 11/27/2018 11:59 PM CDT Hospital Encounter [facility] [address] [place] [address] [place] [address] [place] [address] Discharge Disposition: Home or Self [...] closed toe Dx I83.893 1 Container 6 05/08/2017 11/07/19 20 ELIQUIS 2.5 MG tablet TAKE 1 TABLET BY MOUTH TWICE DAILY 60 tablet 2 10/11/2018 01/15/20 19 documented as of this encounter Plan of Treatment Not on file documented as of this encounter Procedures Procedure Name Priority Date/Time Associated Diagnosis Comments MRI PEL WWO CON Routine 11/27/2018 11:30 AM CDT Elevated PSA Family history of prostate cancer documented in this encounter Results * MRI PEL WWO CON (11/27/2018 11:30 AM CDT) Anatomical Region Laterality Modality Pelvis Magnetic Resonan ce 12/06/2018 9:22 AM CDT Impressions 12/06/2018 9:50 AM CDT IMPRESSION: 1. Slightly enlarged prostate gland with central gland findings of chronic BPH. Prostate volume estimated at 40.4 mL. 2. Suspicious lesion left central gland mid gland level measuring 1.9 x 1.4 x 1.1 cm. No associated extracapsular extension. This would be considered a PI-RADS 3 lesion. 3. Suspicious lesion right central gland mid gland level measuring 2.1 x 0.8 x 0.7 cm with no extracapsular extension. This would be considered a PI-RADS 3 lesion. Interpreted By: Gael Roper MD, 12/06/2018 9:22 AM Narrative 12/06/2018 9:50 AM CDT Examination: MRI pelvis with and without contrast. Exam Date: ??11/27/2018 10:39 AM Clinical history: Family history of prostate cancer, elevated PSA PSA: 5.12 ng/mL Comparison: None Technique: Multiparametric, multiplanar MRI of the pelvis was obtained before and after the administration of 20 mL Multihance intravenous contrast according to prostate protocol without immediate complication Findings: PROSTATE: * ??Size: 5.2 x 4.5 x 4.2 cm * ??Volume: 40.4 mL Central gland: Enlarged and nodular with inhomogeneous signal on T2-weighted images. Findings consistent with BPH. In the left central gland at the mid gland level there is a suspicious lesion of very low T2 signal intensity demonstrating abnormal signal on the diffusion sequence and ADC map. This measures 1.9 x 1.4 x 1.1 cm. There is no associated extracapsular extension. In the right central gland there is a smaller oval lesion seen predominantly as restricted diffusion on the diffusion sequence and ADC map. This measures 2.1 x 0.8 x 0.7 cm. Again there is no associated extracapsular extension. Peripheral zone: Somewhat thinned with slightly inhomogeneous T2 signal in a diffuse pattern. No significant focal peripheral zone lesions are demonstrated. Anterior fibromuscular stroma: Grossly unremarkable. EXTRAPROSTATIC DISEASE: * ??Seminal vesicles: Normal. * ??Extracapsular extension: No evidence of extracapsular extension or neurovascular invasion. * ??Other findings: No direct invasion of distal sphincter or bladder neck. LYMPH NODES: No significant abnormal lymph nodes are demonstrated. BONES: No focal marrow replacing lesions are seen to suggest metastatic disease. OTHER FINDINGS: No evidence of acute inflammatory change, abscess nor ascites in the pelvis. Procedure Note Gael Roper MD - 12/06/2018 Examination: MRI pelvis with and without contrast. Exam Date: 11/27/2018 10:39 AM Clinical history: Family history of prostate cancer, elevated PSA PSA: 5.12 ng/mL Comparison: None Technique: Multiparametric, multiplanar MRI of the pelvis was obtained before and after the administration of 20 mL Multihance intravenous contrast according to prostate protocol without immediate complication Findings: PROSTATE: * Size: 5.2 x 4.5 x 4.2 cm * Volume: 40.4 mL Central gland: Enlarged and nodular with inhomogeneous signal on T2-weighted images. Findings consistent with BPH. In the left central gland at the mid gland level there is a suspicious lesion of very low T2 signal intensity demonstrating abnormal signal onthe diffusion sequence and ADC map. This measures 1.9 x 1.4 x 1.1 cm. Thereis no associated extracapsular extension. In the right central gland there is a smaller oval lesion seen predominantly as restricted diffusion on the diffusion sequence and ADC map. This measures 2.1 x 0.8 x 0.7 cm. Again there is no associated extracapsular extension. Peripheral zone: Somewhat thinned with slightly inhomogeneous T2 signalin a diffuse pattern. No significant focal peripheral zone lesions are demonstrated. Anterior fibromuscular stroma: Grossly unremarkable. EXTRAPROSTATIC DISEASE: * Seminal vesicles: Normal. * Extracapsular extension: No evidence of extracapsular extension or neurovascular invasion. * Other findings: No direct invasion of distal sphincter or bladderneck. LYMPH NODES: No significant abnormal lymph nodes are demonstrated. BONES: No focal marrow replacing lesions are seen to suggest metastatic disease. OTHER FINDINGS: No evidence of acute inflammatory change, abscess nor ascites in the pelvis. IMPRESSION: 1. Slightly enlarged prostate gland with central gland findings ofchronic BPH. Prostate volume estimated at 40.4 mL. 2. Suspicious lesion left central gland mid gland level measuring 1.9 x1.4 x 1.1 cm. No associated extracapsular extension. This would be considereda PI-RADS 3 lesion. 3. Suspicious lesion right central gland mid gland level measuring 2.1 x 0.8 x 0.7 cm with no extracapsular extension. This would be considered a PI-RADS 3 lesion. Interpreted By: Gael Roper MD, 12/06/2018 9:22 AM Krystin Delgado III, MD MRI Final Re sult documented in this encounter Visit Diagnoses Diagnosis Elevated PSA Elevated prostate specific antigen (PSA) Family history of prostate cancer Family history of malignant neoplasm of prostate documented in this encounter Administered Medications Inactive Administered Medications - up to 3 most recent administrations Medication Order MAR Action Action Date Dose Rate Site gadoterate meglumine (DOTAREM) 5 MMOL/10ML injection 20 mL 20 mL, Intravenous, IMG once as needed, Contrast, Contrast, 1 dose, Starting on Sun11/27/18 at 1132, Until Sun11/27/18 at 1132 Given 11/27/2018 11:32 AM CDT 20 mLs documented in this encounter Care Teams Semiconductor Development Technician Relationship Specialty Start Date End Date Crescencio Camacho MD [address] [place] [phone] PCP - General FAMILY PRACTICE 08/25/16 Fercho Simon MD Vascular/Speech Instructor INTERNAL MEDICINE 11/01/15 documented as of this encounter
--- OUTSIDE RECORDS SUMMARY | 2024-03-19 13:11 | XMS_ITS | Encounter Summary ---
Author Organization [facility] System Address [facility]ly [facility] [place] [address] [place] [address] Care Team Providers Care Spray Foam Installer Name Role Phone Fercho Simon MD Unavailable Crescencio Camacho MD Primary Care Provider Encounter Details Date Type Department Care Team (Latest Contact Info) Description 05/27/2019 8:04 AM RUBBER CURER - 05/27/2019 11:59 PM [facility] Hospital Encounter [place] [id number] [place] [address] [place] [address] [place] [phone] Discharge Disposition: Home or Self Care [...] TABLET BY MOUTH TWICE DAILY 60 tablet 05/26/2019 06/30/19 20 documented as of this encounter Plan of Treatment Not on file documented as of this encounter Procedures Procedure Name Priority Date/Time Associated Diagnosis Comments PROSTATE SPECIFIC ANTIGEN,TOTAL Routine 05/27/2019 8:23 AM RUBBER CURER Elevated prostate specific antigen (PSA) documented in this encounter Results * (ABNORMAL) PROSTATE SPECIFIC ANTIGEN, DIAG (05/27/2019 8:23 AM RUBBER CURER) PSA 4.48(H) <4.00 NG/ML 05/27/2019 8:54 AM RUBBER CURER [facility] 05/27/2019 8:23 AM RUBBER CURER us Krystin Delgado III, MD LABORATORY Final Re sult [facility] [address] [place] [address], documented in this encounter Visit Diagnoses Diagnosis Elevated prostate specific antigen (PSA) documented in this encounter Care Teams Spray Foam Installer Relationship Specialty Start Date End Date Crescencio Camacho MD [address] [place] [phone] PCP - General FAMILY PRACTICE 08/25/16 Fercho Simon MD Vascular/Supervisor Filling And Packing INTERNAL MEDICINE 11/01/15 documented as of this encounter
--- OUTSIDE RECORDS SUMMARY | 2024-03-19 13:11 | XMS_ITS | Encounter Summary ---
Author Organization [facility] Address [facility] [place] [address] [place] [address] Care Team Providers Care Equipment Tech Name Role Phone Fercho Simon MD Unavailable Crescencio Camacho MD Primary Care Provider Encounter Details Date Type Department Care Team (Late st Contact Info) Description 05/27/2019 Orders Only [facility] [address] [place] [address] [place] [address] [place] [phone] Social History Tobacco Use Types Packs/Day [...] PROSTATE SPECIFIC ANTIGEN, DIAG (05/27/2019 8:23 AM MULTIPLE KNIFE EDGE TRIMMER OPERATOR) PSA 4.48(H) <4.00 NG/ML 05/27/2019 8:54 AM MULTIPLE KNIFE EDGE TRIMMER OPERATOR [facility] 05/27/2019 8:23 AM MULTIPLE KNIFE EDGE TRIMMER OPERATOR us Krystin Delgado III, MD LABORATORY Final Re sult [facility] [address] [employer] [place] [address], documented in this encounter Visit Diagnoses Diagnosis Elevated prostate specific antigen (PSA)- Primary documented in this encounter Care Teams Equipment Tech Relationship Specialty Start Date End Date Crescencio Camacho MD [address] [place] [phone] PCP - General FAMILY PRACTICE 08/25/16 Fercho Simon MD Vascular/Coronary Clinical Specialist INTERNAL MEDICINE 11/01/15 documented as of this encounter
--- OUTSIDE RECORDS SUMMARY | 2024-03-19 13:11 | XMS_ITS | Encounter Summary ---
Author Organization [facility] Address [facility]6 [facility] [place] [address] [place] [address] Care Team Providers Care Cottage Cheese Maker Name Role Phone Fercho Simon MD Unavailable Crescencio Camacho MD Primary Care Provider Reason for Visit * Reason Onset Date Comments Lab Results 11/18/2019 Encounter Details Date Type Department Care Team (Late st Contact Info) Description 11/18/2019 Telephone Poll Everywhere [facility] [address] [place] [phone] Fercho Simon MD [address] [place] [address] Lab Results Social History Tobacco Use Types Packs/Day [...] as of this encounter Progress Notes * Elisabeth Babcock RN - 11/21/2019 4:29 PM CDT Pt called back aware lab results were acceptable and letter was sent with results, he v/u * Oneida Hoffman LPN - 11/18/2019 12:06 PM CDT No voice message available to inform patient f labs that were acceptable. Will mail letter . documented in this encounter Plan of Treatment Not on file documented as of this encounter Visit Diagnoses Not on filedocumented in this encounter Care Teams Cottage Cheese Maker Relationship Specialty Start Date End Date Crescencio Camacho MD [address] [place] [phone] PCP - General FAMILY PRACTICE 08/25/16 Fercho Simon MD Vascular/Plane Tender INTERNAL MEDICINE 11/01/15 documented as of this encounter
--- OUTSIDE RECORDS SUMMARY | 2024-03-19 13:11 | XMS_ITS | Encounter Summary ---
Author Organization [facility] Address [facility] [place] [address] [place] [address] Care Team Providers Care Mechanical Test Engineer Name Role Phone Fercho Simon MD Unavailable Crescencio Camacho MD Primary Care Provider [phone] Reason for Visit * Reason Onset Date Comments Refill Request 10/20/2019 Encounter Details Date Type Department Care Team (Late st Contact Info) Description 10/20/2019 Telephone [facility] [employer] [facility] [address] [place] [address] Fercho Simon MD [address] [place] [address] Refill Request Social History Tobacco Use Types Packs/Day [...] have Coronavirus / COVID-19? No / Unsure 10/06/2019 4:07 PM CDT documented as of this encounter Plan of Treatment Not on file documented as of this encounter Results * BASIC METABOLIC PANEL (10/30/2019) SODIUM S/P/B 143 POTASSIUM S/P/B 4.5 CHLORIDE S/P/B 104 GLUCOSE 124 mg/dL CALCIUM S/P/B 9.1 BUN 15 CREATININE S/P/B 1.04 0.7 - 1.3 EGFR AFR. AMER. 66 <=90 EGFR NON-AFR. AMER. 71 <=90 10/30/2019 Fercho Simon MD LABORATORY Final Result documented in this encounter Visit Diagnoses Diagnosis Coronary artery disease due to lipid rich plaque- Primary Other secondary hypertension documented in this encounter Care Teams Mechanical Test Engineer Relationship Specialty Start Date End Date Crescencio Camacho MD [address] [place] [phone] PCP - General FAMILY PRACTICE 08/25/16 Fercho Simon MD Vascular/Pre School Manager INTERNAL MEDICINE 11/01/15 documented as of this encounter
--- OUTSIDE RECORDS SUMMARY | 2024-03-19 13:11 | XMS_ITS | Encounter Summary ---
Author Organization [facility] Address [facility]6 [facility] [place] [address] [place] [address] Care Team Providers Care Receiving Room Clerk Name Role Phone Fercho Simon MD Unavailable Crescencio Camacho MD Primary Care Provider Encounter Details Date Type Department Care Team (Late st Contact Info) Description 04/15/2018 Orders Only [facility] [address] [place] [address] Oneida Hoffman, ZOOLOGY TECHNICAL OFFICER Social History Tobacco Use Types Packs/Day Years [...] on filedocumented in this encounter Care Teams Receiving Room Clerk Relationship Specialty Start Date End Date Crescencio Camacho MD [address] [place] [phone] PCP - General FAMILY PRACTICE 08/25/16 Fercho Simon MD Vascular/Purchasing And Claims Supervisor INTERNAL MEDICINE 11/01/15 documented as of this encounter
--- OUTSIDE RECORDS SUMMARY | 2024-03-19 13:11 | XMS_ITS | Encounter Summary ---
Author Organization [facility] Address [facility]6 [facility] [place] [address] [place] [address] Care Team Providers Care Burnt Lime Drawer Name Role Phone Fercho Simon MD Unavailable Crescencio Camacho MD Primary Care Provider Reason for Referral * Imaging (Routine) - Closed Specialty Diagnoses / Procedures Referred By Shankar horne Referred To Contact RADIOLOGY Diagnoses Hip pain, chronic, left Primary osteoarthritis of left hip Procedures MRI HIP LT WO CON MRI HIP LT WWO CON Cory Meng FNP-BC [address] [place] [address] Phone: tel: fax: Referral ID Status Reason Start Date Expiration Date Visits Re quested Visits Authorized [id number] Closed 11/07/2019 12/07/2020 1 1 Reason for Visit * Reason Comments Hip Pain LEFT Encounter Details Date Type Department Care Team (Late st Contact Info) Description 11/07/2019 11:00 AM CDT Office Visit [facility] [address] [place] [address] Cory Meng FNP-BC [address] [place] [address] Hip Pain (LEFT) Social History Tobacco Use Types [...] have Coronavirus / COVID-19? No / Unsure 11/07/2019 10:38 AM CDT documented as of this encounter Last Filed Vital Signs Vital Sign Reading Time Taken Comments Blood Pressure - - Pulse - - Temperature - - Respiratory Rate - - Oxygen Saturation - - Inhaled Oxygen Concentration - - Weight 128.4 kg (283 lb) 11/07/2019 10:52 AM CDT Height 185.4 cm (6' 1 ) 11/07/2019 10:52 AM CDT Body Mass Index 37.34 11/07/2019 10:52 AM CDT documented in this encounter Progress Notes * Cory Meng, ROLL FORMING MACHINE OPERATOR-BC - 11/07/2019 11:00 AM CDT Chief Complaint: Hip Pain (LEFT) History of Present Illness: Arsh Guerrero is a 64-year-old male who presents to the office for Hip Pain (LEFT) Patient states that he has been having LEFT hip for several months. He locates the pain on the lateral side of his LEFT hip. He states that the pain will radiate down to his LEFT knee and also back into his LEFT buttock. He does have some shooting pain in his LEFT groin. Patient reports that his pain will awaken him at night. He states that the pain in worse with ambulation. He reports that he ishaving difficulty performing everyday activities and increased pain throughout the day. He reports that he had been riding his bike daily but has not been able to do so due to the increased groin pain. He states that he feels like his hip wants to give out frequently with activities. He states thathe is unable to take NSAIDs due to current blood thinner regimen for a history of DVTs. He was given [place] by his PCP. He denies any injections in his LEFT hip. Patient denies any numbness and tingling in his LEFT leg. He does not use any assistive devices. ROS: See HPI for pertinent positives Problem List: Patient Active Problem List Diagnosis ??? DVT (deep venous thrombosis) (CMS/HCC) ??? Hx of CABG ??? CAD (coronary artery disease) ??? Localized edema ??? History of DVT (deep vein thrombosis) ??? Essential hypertension ??? Hyperlipidemia, unspecified hyperlipidemia type ??? Lower extremity edema ??? [facility] current use of anticoagulant therapy ??? Monitoring for anticoagulant use ??? Artemio lipomatous neoplm of skin, subcu of head, face and neck ??? Left shoulder pain ??? Lump of skin of back ??? Rupture of biceps tendon ??? Primary osteoarthritis of left hip History: Past Medical History: Diagnosis Date ??? [...] resource strain: Not on file ??? Food insecurity: Worry: Not on file Inability: Not on file ??? Transportation needs: Medical: Not on file Non-medical: Not on file Tobacco Use ??? Smoking status: Never Smoker ??? Smokeless tobacco: Never Used Substance and Sexual Activity ??? Alcohol use: No ??? Drug use: No ??? Sexual activity: Not on file Lifestyle ??? Physical activity: Days per week: Not on file Minutes per session: Not on file ??? Stress: Not on file Relationships ??? Social connections: Talks on phone: Not on file Gets together: Not on file Attends judaism service: Not on file Active member of club or organization: Not on file Attends meetings of clubs or organizations: Not on file Relationship status: Not on file ??? Intimate partner violence: Fear of current or ex partner: Not [...] Dx I83.893,Disp: 1 Container, Rfl: 12 ??? ELIQUIS 2.5 MG tablet, TAKE 1 TABLET BY MOUTH TWICE A DAY, Disp: 180 tablet, Rfl: 3 ??? finasteride 5 MG tablet, Take 5 mg by mouth daily., Disp: , Rfl: ??? losartan 50 MG tablet, Take 1 tablet by mouth daily., Disp: , Rfl: ??? losartan 50 MG tablet, Take 1 tablet by mouth daily., Disp: , Rfl: ??? methylPREDNISolone, LOU, 4 MG tablet, 4 mg Oral Tablet Therapy Pack. Follow package directions,Disp: 1 each, Rfl: 0 ??? simvastatin 40 MG tablet, Take 1 tablet by mouth daily., Disp: , Rfl: ??? venlafaxine 24 hr 75 MG 24 hr capsule, Take 1 tablet by mouth daily., Disp: , Rfl: Allergies Allergen Reactions ??? Penicillins Unknown Objective: Body mass index is 37.34 kg/m??. Last Recorded Weight 11/07/19 1052 Weight: 128.4 kg (283 lb) Physical exam: Constitutional: Alert and in no acute distress. Neurological: The patient was oriented to person, place, and time. Eyes: The sclera and conjunctiva were normal ENT: Hearing was normal. Neck: The appearance of the neck was normal. Cardiovascular: Normal pulses. Pulmonary: No respiratory distress. Skin: No injuries or skin lesion. Musculoskeletal: EXAM of LEFT hip today reveals mild lateral hip tenderness with palpation, groin pain with hip rotation, negative straight leg raise, antalgic gait, neurovascularly intact. Results: XRAY of LEFT hip today reveals moderate degenerative changes with no acute bony injury. Assessment: Encounter Diagnose(s) ICD-10-CM ICD-9-CM SNOMED CT(R) 1. Hip pain, chronic, left M25.552 719.45 HIP PAIN methylPREDNISolone, OLU, 4 MG tablet G89.29 338.29 MRI HIP LT WWO CON 2. Primary osteoarthritis of left hip M16.12 715.15 OSTEOARTHRITIS OF LEFT HIP JOINT MRI HIP LT WWOCON Plan: His pain has limited his activities and is interfering with his daily activities and demonstrating increased instability. He reports that he just wants to find out the problems and get it fixed. I have recommended proceeding with a MRI for further evaluation of his hip since his imaging demonstrates osteoarthritis but his symptoms and examination demonstrated greater osteoarthritis than is seen on imaging today. I did send in a prescription for a Medrol Dosepak to assist with his pain while we are awaiting his MRI. Activity as tolerated. He will follow up once his MRI has been obtained. Follow up: Return for Visit after MRI has been obtained. CORY M YUSRA, ROLL FORMING MACHINE OPERATOR-BC documented in this encounter Plan of Treatment Not on file documented as of this encounter Results * MRI HIP LT WO CON (11/13/2019 11:51 AM CDT) Anatomical Region Laterality Modality Hip Magnetic Resonan ce 11/13/2019 1:29 PM CDT Impressions 11/13/2019 1:38 PM CDT Impression: 1. Left hip labral tears as described. 2. Partially visualized is an oblong intramedullary lesion in the proximal left femur. Would consider MRI of the proximal left femur with and without IV contrast. 3. Prostatomegaly possibly some degree of outlet obstruction of the bladder. Rounded 1.1 cm lesion in the left central gland of the prostate. Interpreted By: Diuedonne Schroeder Jr, MD, 11/13/2019 1:29 PM Narrative 11/13/2019 1:38 PM CDT Date: 11/13/2019 11:51 AM Exam: MRI HIP LT WO CON Comparison: Pelvic and left hip radiography dated 10/06/2019. Technique: Multiplanar unenhanced sequencing was obtained and MRI hip protocol. History: Chronic hip pain. Osteoarthritis. No known injury. Findings: There is no fracture nor dislocation of either hip. There are no hip joint effusions. There is minimal hip arthritis. There is no gross trochanteric bursitis. The musculature surrounding the pelvis and hips appears normal. The pubic rami are intact. The visualized portions of the iliac wings and sacrum appear intact. Partially visualized is a heterogeneous T2 hyperintense lesion in the proximal femoral diaphysis. This measures approximately 5 cm in length and is within the medullary cavity. The visualized proximal portion of the lesion appears well demarcated. There is no gross endosteal scalloping. The lesion has nonaggressive features, but is indeterminate. Would consider MRI of the proximal left femur with and without IV contrast for further workup. This lesion is not conspicuous on the comparison radiography. There is a linear tear in the proximal anterior left hip labrum as seen on series 9 image 9. There is a slightly irregular tear in the proximal posterior left hip labrum as seen on series 9 image 10. There is intrasubstance degenerative signal in the superior left hip labrum. The ligamentum teres and the transverse acetabular ligament appear normal. There is no inflammation or free fluid in the pelvis. There is bladder wall thickening possibly due to under distention and/or some degree of outlet obstruction given the prostatomegaly. There is a 1.1 cm rounded lesion in the left central gland of the prostate as seen on series 4 image 22. Partially visualized is degenerative disc disease at L4-5. Procedure Note Dieudonne Schroeder MD - 11/13/2019 Date: 11/13/2019 11:51 AM Exam: MRI HIP LT WO CON Comparison: Pelvic and left hip radiography dated 10/06/2019. Technique: Multiplanar unenhanced sequencing was obtained and MRI hip protocol. History: Chronic hip pain. Osteoarthritis. No known injury. Findings: There is no fracture nor dislocation of either hip. There areno hip joint effusions. There is minimal hip arthritis. There is no gross trochanteric bursitis. The musculature surrounding the pelvis and hips appears normal. The pubic rami are intact. The visualized portions ofthe iliac wings and sacrum appear intact. Partially visualized is a heterogeneous T2 hyperintense lesion in the proximal femoral diaphysis. This measures approximately 5 cm in length and is within the medullary cavity. The visualized proximal portion of the lesion appears well demarcated. There is no gross endosteal scalloping. The lesion has nonaggressive features, but is indeterminate. Would consider MRI of the proximal left femur with and without IV contrast for further workup.This lesion is not conspicuous on the comparison radiography. There is a linear tear in the proximal anterior left hip labrum as seenon series 9 image 9. There is a slightly irregular tear in the proximal posterior left hip labrum as seen on series 9 image 10. There is intrasubstance degenerative signal in the superior left hip labrum. The ligamentum teres and the transverse acetabular ligament appear normal. There is no inflammation or free fluid in the pelvis. There is bladderwall thickening possibly due to under distention and/or some degree of outlet obstruction given the prostatomegaly. There is a 1.1 cm rounded lesionin the left central gland of the prostate as seen on series 4 image 22. Partially visualized is degenerative disc disease at L4-5. Impression: 1. Left hip labral tears as described. 2. Partially visualized is an oblong intramedullary lesion in theproximal left femur. Would consider MRI of the proximal left femur with andwithout IV contrast. 3. Prostatomegaly possibly some degree of outlet obstruction of the bladder. Rounded 1.1 cm lesion in the left central gland of theprostate. Interpreted By: Dieudonne Schroeder Jr, MD, 11/13/2019 1:29 PM Cory Win Yusra ROLL FORMING MACHINE OPERATOR-BC MRI Final Resu lt documented in this encounter Visit Diagnoses Diagnosis Hip pain, chronic, left- Primary Primary osteoarthritis of left hip Primary localized osteoarthrosis, pelvic region and thigh Hip pain, chronic, left Primary osteoarthritis of left hip Primary localized osteoarthrosis, pelvic region and thigh documented in this encounter Care Teams Burnt Lime Drawer Relationship Specialty Start Date End Date Crescencio Camacho MD [address] [place] [phone] PCP - General FAMILY PRACTICE 08/25/16 Fercho Simon MD Vascular/Health Information Director INTERNAL MEDICINE 11/01/15 documented as of this encounter
--- OUTSIDE RECORDS SUMMARY | 2024-03-19 13:11 | XMS_ITS | Encounter Summary ---
Author Organization [facility] Address [facility]6 [facility] [place] [address] [place] [address] Care Team Providers Care Cafeteria Monitor Name Role Phone Fercho Simon MD Unavailable Crescencio Camacho MD Primary Care Provider Encounter Details Date Type Department Care Team (Late st Contact Info) Description 11/18/2019 Abstract [facility] [address] [place] [phone] Fercho Simon MD [address], [place] [phone] Social History Tobacco Use Types Packs/Day Years [...] documented as of this encounter Care Teams Cafeteria Monitor Relationship Specialty Start Date End Date Crescencio Camacho MD [address] [place] [phone] PCP - General FAMILY PRACTICE 08/25/16 Fercho Simon MD Vascular/Pulper Tender INTERNAL MEDICINE 11/01/15 documented as of this encounter
--- OUTSIDE RECORDS SUMMARY | 2024-03-19 13:11 | XMS_ITS | Encounter Summary ---
Author Organization [facility] Address [facility]6 [facility] [place] [address] [place] [address] Care Team Providers Care Motorcycle Repair Shop Supervisor Name Role Phone Fercho Simon MD Unavailable Crescencio Camacho MD Primary Care Provider Encounter Details Date Type Department Care Team (Latest Contact Info) Description 10/06/2019 4:09 PM CDT - 10/06/2019 11:59 PM CDT Hospital Encounter [facility] [address] [place] [address] Crescencio Camacho MD [address] [place] [phone] Discharge Disposition: Home or Self Care [...] 05/08/2017 11/07/19 20 ELIQUIS 2.5 MG tablet Take 1 tablet by mouth twice daily 60 tablet 3 06/30/2019 10/20/19 20 losartan 50 MG tablet Take 1 tablet by mouth daily. 06/13/2019 11/21/19 20 venlafaxine 75 MG tablet Take 1 tablet by mouth daily. 07/28/2019 11/07/19 20 documented as of this encounter Plan of Treatment Not on file documented as of this encounter Procedures Procedure Name Priority Date/Time Associated Diagnosis Comments XR PELVIS+LT HIP 2V Routine 10/06/2019 4 :28 PM CDT Left hip pain documented in this encounter Results * XR PELVIS+LT HIP 2V (10/06/2019 4:28 PM CDT) Anatomical Region Laterality Modality Hip, Pelvis Radiographic Kristina ging 10/06/2019 4:35 PM CDT Impressions 10/06/2019 4:38 PM CDT IMPRESSION: No acute findings. Interpreted By: Tereso Childers, 10/06/2019 4:35 PM Narrative 10/06/2019 4:38 PM CDT Examination: Pelvis and left hip. Exam time: 1620 hours. Clinical history: Pain for three weeks. No known injury. Comparison: None. Technique: AP pelvis; AP and frog lateral left hip. Findings: No fracture, dislocation or other acute bony abnormality is identified. There are mild symmetric degenerative changes in the hips manifested by joint space narrowing and acetabular osteophyte formation, not unusual for age and stature. Degenerative changes are evident in the lower lumbar spine as well. No other significant bone or joint abnormality is noted. No significant soft tissue findings. Procedure Note Treeso Childers MD - 10/06/2019 Examination: Pelvis and left hip. Exam time: 1620 hours. Clinical history: Pain for three weeks. No known injury. Comparison: None. Technique: AP pelvis; AP and frog lateral left hip. Findings: No fracture, dislocation or other acute bony abnormality is identified. There are mild symmetric degenerative changes in the hips manifested by joint space narrowing and acetabular osteophyte formation, not unusual for age and stature. Degenerative changes are evident in the lower lumbar spine as well. No other significant bone or jointabnormality is noted. No significant soft tissue findings. IMPRESSION: No acute findings. Interpreted By: Tereso Childers, 10/06/2019 4:35 PM us Crescencio Camacho MD GENERAL IMAGING Final Resul t documented in this encounter Visit Diagnoses Diagnosis Left hip pain Pain in joint, pelvic region and thigh documented in this encounter Care Teams Motorcycle Repair Shop Supervisor Relationship Specialty Start Date End Date Crescencio Camacho MD [address] [place] [phone] PCP - General FAMILY PRACTICE 08/25/16 Fercho Simon MD Vascular/Freedom Of Information Officer INTERNAL MEDICINE 11/01/15 documented as of this encounter
--- OUTSIDE RECORDS SUMMARY | 2024-03-19 13:11 | XMS_ITS | Encounter Summary ---
Author Organization [facility] Address [facility] access hospital6 [place] [address] [place] [address] Care Team Providers Care Presales Engineer Name Role Phone Fercho Simon MD Unavailable Crescencio Camacho MD Primary Care Provider Encounter Details Date Type Department Care Team (Latest Contact Info) Description 11/18/2019 Travel Social History Tobacco Use Types Packs/Day [...] on filedocumented in this encounter Care Teams Presales Engineer Relationship Specialty Start Date End Date Crescencio Camacho MD [address] [place] [phone] PCP - General FAMILY PRACTICE 08/25/16 Fercho Simon MD Vascular/Mail Clerks Supervisor INTERNAL MEDICINE 11/01/15 documented as of this encounter
--- OUTSIDE RECORDS SUMMARY | 2024-03-19 13:11 | XMS_ITS | Encounter Summary ---
Author Organization [facility] Address formerly [facility]6 [facility] [address] [place] [address] Care Team Providers Care Darklight Inspector Name Role Phone Fercho Simon MD Unavailable Crescencio Camacho MD Primary Care Provider Encounter Details Date Type Department Care Team (Latest Contact Info) Description 11/13/2019 Travel Social History Tobacco Use Types Packs/Day [...] have Coronavirus / COVID-19? No / Unsure 11/13/2019 10:35 AM CDT documented as of this encounter Plan of Treatment Not on file documented as of this encounter Visit Diagnoses Not on filedocumented in this encounter Care Teams Darklight Inspector Relationship Specialty Start Date End Date Crescencio Camacho MD [address] [place] [phone] PCP - General FAMILY PRACTICE 08/25/16 Fercho Simon MD Vascular/Anthropometrist INTERNAL MEDICINE 11/01/15 documented as of this encounter
--- OUTSIDE RECORDS SUMMARY | 2024-03-19 13:11 | XMS_ITS | Encounter Summary ---
Author Organization [facility] Address [facility] [place] [address] [place] [address] Care Team Providers Care Muck Miner Blasting Name Role Phone Fercho Simon MD Unavailable Crescencio Camacho MD Primary Care Provider Encounter Details Date Type Department Care Team (Latest Contact Info) Description 11/07/2019 Travel Social History Tobacco Use Types Packs/Day [...] on filedocumented in this encounter Care Teams Muck Miner Blasting Relationship Specialty Start Date End Date Crescencio Camacho MD [address] [place] [phone] PCP - General FAMILY PRACTICE 08/25/16 Fercho Simon MD Vascular/World History Teacher INTERNAL MEDICINE 11/01/15 documented as of this encounter
--- OUTSIDE RECORDS SUMMARY | 2024-03-19 13:11 | XMS_ITS | Encounter Summary ---
Author Organization [facility] Address [facility]6 [facility] [place] [address] [place] [address] Care Team Providers Care Instrument Lens Grinder Name Role Phone Fercho Simon MD Unavailable Crescencio Camacho MD Primary Care Provider Reason for Referral * Imaging (Routine) - Closed Specialty Diagnoses / Procedures Referred By Contac t Referred To Contact RADIOLOGY Diagnoses Hip pain, chronic, left Primary osteoarthritis of left hip Procedures MRI HIP LT WO CON MRI HIP LT WWO CON Claire Meng FNP-BC [address] [place] [address] Phone: tel: fax: Referral ID Status Reason Start Date Expiration Date Visits Re quested Visits Authorized [id number] Closed 11/07/2019 12/07/2020 1 1 Reason for Visit * Imaging (Routine) - Closed Specialty Diagnoses / Procedures Referred By Contac t Referred To Contact RADIOLOGY Diagnoses Hip pain, chronic, left Primary osteoarthritis of left hip Procedures MRI HIP LT WO CON MRI HIP LT WWO CON Claire Meng FNP-BC [address] [place] [address] Phone: tel: fax: Referral ID Status Reason Start Date Expiration Date Visits Re quested Visits Authorized [id number] Closed 11/07/2019 12/07/2020 1 1 Encounter Details Date Type Department Care Team ([facility] st Contact Info) Description 11/13/2019 10:37 AM CDT - 11/13/2019 11:59 PM CDT Hospital Encounter [facility] [address] [place] [address] Claire Meng, [facility] [address] [place], [place] [address] Discharge Disposition: Home or Self Care (Routine [...] I83.893 1 Container 12 02/21/2016 11/21/19 20 ELIQUIS 2.5 MG tablet TAKE 1 TABLET BY MOUTH TWICE A DAY 180 tablet 3 10/20/2019 10/15/19 21 finasteride 5 MG tablet Take 5 mg by mouth daily. 10/29/2019 01/04/20 21 losartan 50 MG tablet Take 1 tablet by mouth daily. 06/13/2019 11/21/19 20 methylPREDNISolone , LOU, 4 MG tabletIndications: Hip pain, chronic, left 4 mg Oral Tablet Therapy Pack. Follow package directions 1 each 11/07/2019 11/21/19 20 documented as of this encounter Plan of Treatment Not on file documented as of this encounter Procedures Procedure Name Priority Date/Time Associated Diagnosis Comments MRI HIP LT WO CON Routine 11/13/2019 11: 51 AM CDT Hip pain, chronic, left Primary osteoarthritis of left hip documented in this encounter Results * MRI HIP LT [...] central gland of the prostate. Interpreted By: Dieudonne Schroeder Jr, MD, 11/13/2019 1:29 PM Narrative [...] Dieudonne Schroeder Jr, MD, 11/13/2019 1:29 PM Claire Win Yusra CAR WASHER- MRI Final Resu lt documented in this encounter Visit Diagnoses Diagnosis Hip pain, chronic, left Primary osteoarthritis of left hip Primary localized osteoarthrosis, pelvic region and thigh documented in this encounter Care Teams Instrument Lens Grinder Relationship Specialty Start Date End Date Crescencio Camacho MD [address] [place] [phone] PCP - General FAMILY PRACTICE 08/25/16 Fercho Simon MD Vascular/Well Control Instructor INTERNAL MEDICINE 11/01/15 documented as of this encounter
--- OUTSIDE RECORDS SUMMARY | 2024-03-19 13:11 | XMS_ITS | Encounter Summary ---
Author Organization [facility] Address Formerly [facility]6 [facility] [place] [address] [place] [address] Care Team Providers Care Flexible Shaft Winder Name Role Phone Fercho Simon MD Unavailable Crescencio Camacho MD Primary Care Provider Encounter Details Date Type Department Care Team (Late st Contact Info) Description 11/18/2019 Orders Only [facility] [address] [place] [phone] Oneida Hoffman, DIRECTORY CARRIER Social History Tobacco Use Types Packs/Day Years [...] Associated Diagnosis Comments BASIC METABOLIC PANEL Routine 10/30/2019 Other secondary hypertension Coronary artery disease due to lipid rich plaque documented in this encounter Results * BASIC METABOLIC PANEL (10/30/2019) SODIUM S/P/B 143 POTASSIUM S/P/B 4.5 CHLORIDE S/P/B 104 GLUCOSE 124 mg/dL CALCIUM S/P/B 9.1 BUN 15 CREATININE S/P/B 1.04 0.7 - 1.3 EGFR AFR. AMER. 66 <=90 EGFR NON-AFR. AMER. 71 <=90 10/30/2019 Fercho Simon MD LABORATORY Final Result documented in this encounter Visit Diagnoses Diagnosis Other secondary hypertension Coronary artery disease due to lipid rich plaque documented in this encounter Care Teams Flexible Shaft Winder Relationship Specialty Start Date End Date Crescencio Camacho MD [address] [place] [phone] PCP - General FAMILY PRACTICE 08/25/16 Fercho Simon MD Vascular/Gut Snatcher INTERNAL MEDICINE 11/01/15 documented as of this encounter
--- OUTSIDE RECORDS SUMMARY | 2024-03-19 13:11 | XMS_ITS | Encounter Summary ---
Author Organization [facility] Address [address] [place] [address]. [place] [address] [place] [address] Care Team Providers Care Director Craft Center Name Role Phone Fercho Simon MD Unavailable Crescencio Camacho MD Primary Care Provider Encounter Details Date Type Department Care Team (Late st Contact Info) Description 09/07/2018 Abstract [facility] CON[facility] [address] [place] [address] , Generic Conversion, Social History Tobacco Use Types Packs/Day Years [...] documented as of this encounter Care Teams Director Craft Center Relationship Specialty Start Date End Date Crescencio Camacho MD [address] [place] [phone] PCP - General FAMILY PRACTICE 08/25/16 Fercho Simon MD Vascular/Industrial Relations Analyst INTERNAL MEDICINE 11/01/15 documented as of this encounter
--- OUTSIDE RECORDS SUMMARY | 2024-03-19 13:11 | XMS_ITS | Encounter Summary ---
Author Organization [facility] Address [facility]6 [facility] [place] [address] [place] [address] Care Team Providers Care Conveyor Weigher Operator Name Role Phone Fercho Simon MD Unavailable Crescencio Camacho MD Primary Care Provider Reason for Visit * Reason Comments Follow Up DVT Encounter Details Date Type Department Care Team (Late st Contact Info) Description 11/18/2019 9:00 AM CDT Office Visit [facility] [address] [place] [phone] Fercho Simon MD [address] [place] [address] Follow Up (DVT) Social History Tobacco Use Types Packs/Day Years [...] Sign Reading Time Taken Comments Blood Pressure 152/78 11/18/2019 8:54 AM CDT Pulse 75 11/18/2019 8:53 AM CDT Temperature - - Respiratory Rate 24 11/18/2019 8:53 AM CDT Oxygen Saturation - - Inhaled Oxygen Concentration - - Weight 130.7 kg (288 lb 3.2 oz) 11/18/2019 8:53 AM CDT Height 180.3 cm (5' 11 ) 11/18/2019 8:53 AM CDT Body Mass Index 40.2 11/18/2019 8:53 AM CDT documented in this encounter Progress Notes * Fercho Simon MD - 11/18/2019 9:00 AM CDT Reason for Visit: Follow Up (DVT) History of Present Illness: 64-year-old, male whose cardiovascular history consists of: 1. Recurrent DVT. 2. Chronic left leg edema. 3. Coronary artery disease. 4. Hypertension. 5. Hyperlipidemia. Patient tolerating Eliquis without any bleeding concerns or any problems. Recent creatinine noted 1.04 though no CBC was done. Patient is compliant with compression stockings has somewhat decreased of late. ASSESSMENT AND PLAN: 1. Recurrent DVTs. Multiple DVTs in left leg and unprovoked right leg DVT in 2016. Detailed thrombophilia workup had been negative. . Tolerating Eliquis well without any bleeding complications, continue Eliquis at 2.5 mg b.i.d.. 2. 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 Will continue anticoagulation. 3. Bilateral leg edema with left more than right. 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 Edema is well controlled with compression stockings. 4. CAD-CABG. On ASA, ARB and statins. Not on beta blockers, not sure why. 5. Hypertension. Blood pressure reasonably well controlled on ARB. 6. Hyperlipidemia. On statins. Recommend goal LDL less than 70 mg/dL. Followup in one year with CBC and BMP. Medications: Current Outpatient Medications: ??? COMPRESSION STOCKINGS, 20-30 MMHg Compression Stocking Knee High open or closed toe Dx I83.893,Disp: 1 Container, Rfl: 6 ??? aspirin 81 MG tablet, Take 1 [...] Rfl: Allergies Allergen Reactions ??? Penicillins Unknown Past Medical History: Diagnosis [...] file Gets together: Not on file Attends roman catholic service: Not on file Active member [...] ??? MAunt ??? Neg Hx (Not Specified) Review of [...] for polydipsia. Does not bruise/bleed easily. Psychiatric/Behavioral: Negative for depression. Filed Vitals: 11/18/19 0853 11/18/19 0854 BP: 141/78 (!) 152/78 Pulse: 75 Resp: 24 Weight: 130.7 kg (288 lb 3.2 oz) Height: 5' 11 (1.803 m) Physical Exam Constitutional: He is oriented [...] 1. History of DVT (deep vein thrombosis) CBC, AUTO, NO DIFF BASIC METABOLIC PANEL 2. Hyperlipidemia, unspecified hyperlipidemia type documented in this encounter Plan of Treatment Not on file documented as of this encounter Results * (ABNORMAL) BASIC METABOLIC PANEL (11/18/2019 9:50 AM CDT) SODIUM S/P/B 142 136 - 145 MMOL/L 11/18/2019 10:27 AM CDT [facility] POTASSIUM S/P/B 4.0 3.5 - 5.1 MMOL/L 11/18/2019 10:27 AM CDT [facility] CHLORIDE S/P/B 106 98 - 107 MMOL/L 11/18/2019 10:27 AM CDT [facility] CO2 26.3 21.0 - 32.0 MMOL/L 11/18/2019 10:27 AM CDT [facility] GLUCOSE 92 70 - 99 MG/DL 11/18/2019 10:27 AM T [facility] Comment: FASTING GLUCOSE 100 TO 125 MG/DL IS CONSISTENT WITH IMPAIRED FASTING GLUCOSE. FASTING GLUCOSE >125 MG/DL IS CONSISTENT WITH DIABETES. RANDOM GLUCOSE >200 MG/DL WITH HYPERGLYCEMIC SYMPTOMS IS CONSISTENT WITH DIABETES. PER ADA GUIDELINES BUN 17 6 - 24 MG/DL 11/18/2019 10:27 AM T [facility] CREATININE S/P/B 1.03 0.70 - 1.30 MG/DL 11/18/2019 10:27 AM T [facility] CALCIUM S/P/B 8.7 8.4 - 10.5 MG/DL 11/18/2019 10:27 AM CDT [facility] ANION GAP 9.7 5.0 - 15.0 MMOL/L 11/18/2019 10:27 AM T [facility] OSMOLALITY (CALC) 295 MOSM/KG 020 10:27 AM T [facility] Comment:REFERENCE RANGE NOT ESTABLISHED EGFR NON-AFR. AMER. 75(L) >89 ML/MIN/1. 73 M2 11/18/2019 10:27 AM CDT [facility] EGFR AFR. AMER. 87(L) >89 ML/MIN/1. 73 M2 11/18/2019 10:27 AM CDT [facility] GFR NOTES GFR REFERENCE S: 11/18/2019 10:27 AM CDT [facility] Comment: THE ESTIMATED GFR IS [...] <15 ml/min/1.73 m2 11/18/2019 9:50 AM CDT us Fercho Simon MD LABORATORY Final Result [facility] [address] [place] [address], * (ABNORMAL) CBC, AUTO, NO DIFF (11/18/2019 9:50 AM CDT) WBC 7.3 4.5 - 10.8 x10'3/uL 11/18/2019 10:12 AM CDT [facility] RBC 4.74 4.50 - 6.10 x10'6/uL 11/18/2019 10:12 AM CDT [facility] HGB 15.0 13.0 - 18.0 G/DL 11/18/2019 10:12 AM CDT [facility] HCT 45.9 37.0 - 52.0 % 11/18/2019 10:12 AM CDT [facility] MCV 96.8 78.0 - 100.0 FL 11/18/2019 10:12 AM CDT [facility] MCH 31.6(H) 27.0 - 31.0 PG 11/18/2019 10:12 AM CDT [facility] MCHC 32.7(L) 33.0 - 36.0 G/DL 11/18/2019 10:12 AM CDT [facility] RDW 12.6 11.5 - 14.5 % 11/18/2019 10:12 AM CDT [facility] PLT 166 150 - 350 x10'3/uL 11/18/2019 10:12 AM CDT [facility] MPV 10.4 7.4 - 10.4 FL 11/18/2019 10:12 AM CDT [facility] 11/18/2019 9:50 AM CDT Fercho Simon MD LABORATORY Final Result [facility] [address] [place] [address], documented in this encounter Visit Diagnoses Diagnosis History of DVT (deep vein thrombosis)- Primary Personal history of venous thrombosis and embolism Hyperlipidemia, unspecified hyperlipidemia type documented in this encounter Care Teams Conveyor Weigher Operator Relationship Specialty Start Date End Date Crescencio Camacho MD [address] [place] [phone] PCP - General FAMILY PRACTICE 08/25/16 Fercho Simon MD Vascular/Adobe Ball Mixer INTERNAL MEDICINE 11/01/15 documented as of this encounter
--- OUTSIDE RECORDS SUMMARY | 2024-03-19 13:11 | XMS_ITS | Encounter Summary ---
Author Organization [facility] Address [facility] [place] [address] [place] [address] Care Team Providers Care Glove Operator Name Role Phone Fercho Simon MD Unavailable Crescencio Camacho MD Primary Care Provider Encounter Details Date Type Department Care Team (Latest Contact Info) Description 05/27/2019 Travel Social History Tobacco Use Types Packs/Day [...] on filedocumented in this encounter Care Teams Glove Operator Relationship Specialty Start Date End Date Crescencio Camacho MD [address] [place] [phone] PCP - General FAMILY PRACTICE 08/25/16 Fercho Simon MD Vascular/Calibration Tester INTERNAL MEDICINE 11/01/15 documented as of this encounter
--- OUTSIDE RECORDS SUMMARY | 2024-03-19 13:11 | XMS_ITS | Encounter Summary ---
Author Organization [facility] Address [address] [facility] [place] [address] [place] [address] Care Team Providers Care Pet House Sitter Name Role Phone Fercho Simon MD Unavailable Crescencio Camacho MD Primary Care Provider Encounter Details Date Type Department Care Team (Late st Contact Info) Description 04/15/2018 Abstract [facility] [address] [place] [phone] Fercho Simon MD [address], [place] [phone] Social History Tobacco Use Types Packs/Day Years [...] on filedocumented in this encounter Care Teams Pet House Sitter Relationship Specialty Start Date End Date Crescencio Camacho MD [address] [place] [phone] PCP - General FAMILY PRACTICE 08/25/16 Fercho Simon MD Vascular/Brand Communications Manager INTERNAL MEDICINE 11/01/15 documented as of this encounter
--- OUTSIDE RECORDS SUMMARY | 2024-03-19 13:11 | XMS_ITS | Encounter Summary ---
Author Organization [facility] Address [facility] [place] [address] [place] [address] Care Team Providers Care Block Engraver Name Role Phone Fercho Simon MD Unavailable Crescencio Camacho MD Primary Care Provider [phone] Encounter Details Date Type Department Care Team (Latest Contact Info) Description 10/06/2019 Travel Social History Tobacco Use Types Packs/Day [...] on filedocumented in this encounter Care Teams Block Engraver Relationship Specialty Start Date End Date Crescencio Camacho MD [address] [place] [phone] PCP - General FAMILY PRACTICE 08/25/16 Fercho Simon MD Vascular/Bale Sewer INTERNAL MEDICINE 11/01/15 documented as of this encounter
--- OUTSIDE RECORDS SUMMARY | 2024-03-19 13:11 | XMS_ITS | Encounter Summary ---
Author Organization [facility] Address [facility] [place] [address] [place] [address] Care Team Providers Care Media Reconciliation Specialist Name Role Phone Fercho Simon MD Unavailable Crescencio Camacho MD Primary Care Provider Reason for Referral * Imaging (Routine) - Closed Specialty Diagnoses / Procedures Referred By Contac t Referred To Contact RADIOLOGY Diagnoses Lesion of left femur Procedures MRI FEMUR LT WWO CON MRI FEMUR LT WWO CON Orestes Layne MD [address] [place] [address] Phone: tel: fax: Referral ID Status Reason Start Date Expiration Date Visits Re quested Visits Authorized [id number] Closed 11/21/2019 12/21/2020 1 1 Reason for Visit * Reason Comments MRI Results LEFT hip Encounter Details Date Type Department Care Team (Latest Contact Info) Description 11/21/2019 9:45 AM CDT Office Visit [facility] [address] [place] [address], [facility] [address] [place] [address] Orestes Layne MD [address] [place] [phone] MRI Results (LEFT hip) Social History Tobacco Use Types Packs/Day Years [...] - Inhaled Oxygen Concentration - - Weight 130.6 kg (288 lb) 11/21/2019 9:45 AM CDT Height 180.3 cm (5' 11 ) 11/21/2019 9:45 AM CDT Body Mass Index 40.17 11/21/2019 9:45 AM CDT documented in this encounter Progress Notes * CRESCENCIO Martin - 11/21/2019 9:45 AM CDTAddended by: FABIENNE RUSSELL on: 11/21/2019 10:26 AM Modules accepted: Orders * Orestes Layne MD - 11/21/2019 9:45 AM CDT Chief Complaint: MRI Results (LEFT hip) History of Present Illness: Arsh Guerrero is a 64-year-old male who presents to the office for MRI Results (LEFT hip) Patient returns to clinic for MRI results on his LEFT hip. He does state improvement with the Medrol dose pack since his last visit. Patient continues to have daily pain just less severe. Previous visit on 11/07/2019: Patient states that he has been having [...] a history of DVTs. He was given [place] by his PCP. He denies any injections [...] ??? Lower extremity edema ??? 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 Monitoring [...] Reactions ??? Penicillins Shortness of Breath Objective: Filed Vitals: 11/21/19 0945 Weight: 130.6 kg (288 lb) Height: 5' 11 (1.803 m) Body mass index is 40.17 kg/m??. Physical Exam: Constitutional: Alert and in no acute distress. Neurological: The patient was oriented to person, place, and time. Eyes: The sclera and conjunctiva were normal ENT: Hearing was normal. Neck: The appearance of the neck was normal. Cardiovascular: Normal pulses. Pulmonary: No respiratory distress. Skin: No injuries or skin lesions. Musculoskeletal: Pain is reproduced with hip rotation and straight leg raise to about 45 degrees isabout all he can do because of pain that occurs in the left hip. He describes this pain is in the posterior buttock region extending into the groin and proximal thigh. Normal gait pattern Results: Review of MRI of his left hip demonstrates anterior and posterior labral tears. He has an imaging abnormality in the proximal femur with approximately 5 cm lesion without any concerning findings Assessment: Encounter Diagnose(s) ICD-10-CM ICD-9-CM SNOMED CT(R) 1. Lesion of left femur M89.9 733.90 LESION OF LEFT THIGH BONE Plan: I have recommended further imaging of the left proximal femur with an MRI with and without contrastin order to better visualize the abnormality and exclude malignancy. My impression today on examination is that he likely has lumbar pathology causing his pain and most likely we will need to proceedwith a lumbar MRI. The patient does report a history of chronic back pain Follow up: Return for Visit after MRI has been obtained. ORESTES LAYNE MD documented in this encounter Plan of Treatment Not on file documented as of this encounter Results * MRI FEMUR LT [...] recommended to assess for stability. Interpreted By: aGel Roper MD, 11/26/2019 3:42 PM Orestes Layne MD MRI Final Result documented in this encounter Visit Diagnoses Diagnosis Lesion of left femur- Primary Lesion of left femur documented in this encounter Care Teams Media Reconciliation Specialist Relationship Specialty Start Date End Date Crescencio Camacho MD [address] [place] [phone] PCP - General FAMILY PRACTICE 08/25/16 Fercho Simon MD Vascular/Automotive Consultant INTERNAL MEDICINE 11/01/15 documented as of this encounter
--- OUTSIDE RECORDS SUMMARY | 2024-03-19 13:11 | XMS_ITS | Encounter Summary ---
Author Organization [facility] Address [facility] [address] [place] [address] Care Team Providers Care Transcribing Operator Head Name Role Phone Fercho Simon MD Unavailable Crescencio Camacho MD Primary Care Provider Encounter Details Date Type Department Care Team (Latest Contact Info) Description 11/05/2018 2:29 PM CDT - 11/05/2018 11:59 PM CDT Hospital Encounter [facility] [address] [place] [address] [place] [address] [place] [phone] Discharge Disposition: Home or Self Care [...] Associated Diagnosis Comments PROSTATE SPECIFIC ANTIGEN,TOTAL Routine 11/05/2018 2:53 PM CDT Elevated prostate specific antigen (PSA) Urinary frequency URINALYSIS Routine 11/05/2018 12:50 PM CDT Elevated prostate specific antigen (PSA) Urinary frequency URINE BACTERIA CULTURE Routine 11/05/2018 12:50 PM CDT Elevated prostate specific antigen (PSA) Urinary frequency documented in this encounter Results * (ABNORMAL) PROSTATE SPECIFIC ANTIGEN,TOTAL (11/05/2018 2:53 PM CDT) PSA 5.12(H) <4.00 NG/ML 11/05/2018 3:26 PM CDT [facility] 11/05/2018 2:53 PM CDT us Krystin Delgado III, MD LABORATORY Final Re sult [facility] [address] [place] [address], * CULTURE URINE (11/05/2018 12:50 PM CDT) SPEC DESCRIPTION URINE CLEAN CATCH 11/05/2018 2:51 PM CDT [facility] SPECIAL REQUESTS NO SPECIAL REQUEST 11/05/2018 2:51 PM CDT [facility] CULTURE RESULT NO GROWTH (< OR = 1,000 CFU/ML) 11/06/2018 9:36 PM CDT [facility] URINE SPECIMEN OBTAINED BY CLEAN CATCH PROCEDURE / Unknown 11/05/2018 12:50 PM CDT 11/05/2018 2:55 PM CDT us Krystin Delgado III, MD MICROBIOLOGY - GENERAL O RDERATALHA Final Result [facility] [address] [place] [address], [place] [phone] [id number] [facility] [address] [place] [address], * (ABNORMAL) URINALYSIS (11/05/2018 12:50 PM CDT) COLOR (U) YELLOW 11/05/2018 3:06 PM CDT [facility] TRANSPARENCY CLEAR 11/05/2018 3:06 PM CDT [facility] SPECIFIC GRAVITY (U) 1.020 1.000 - 1.025 11/05/2018 3:06 PM CDT [facility] U PH 7.0 5.0 - 8.0 11/05/2018 3:06 PM CDT [facility] LEUKOCYTES (U) NEGATIVE NEGATIVE 11/05/2018 3:06 PM CDT [facility] NITRITES NEGATIVE NEGATIVE 11/05/2018 3:06 PM CDT [facility] PROTEIN (U) NEGATIVE NEGATIVE 11/05/2018 3:06 PM CDT [facility] URINE GLUCOSE NEGATIVE NEGATIVE 11/05/2018 3:06 PM CDT [facility] KETONES MG/DL (U) NEGATIVE NEGATIVE 11/05/2018 3:06 PM CDT [facility] UROBILINOGEN 2.0(H) <1.0 EU/DL 11/05/2018 3:06 PM CDT [facility] BILIRUBIN (U) NEGATIVE NEGATIVE 11/05/2018 3:06 PM CDT [facility] BLOOD (U) NEGATIVE NEGATIVE 11/05/2018 3:06 PM CDT [facility] WBC/HPF 0-5 0 - 5 /HPF 11/05/2018 3:06 PM CDT [facility] EPI/HPF RARE /LPF 11/05/2018 3:06 PM CDT [facility] MUCUS PRESENT 11/05/2018 3:06 PM CDT [facility] URINE SPECIMEN OBTAINED BY CLEAN CATCH PROCEDURE / Unknown 11/05/2018 12:50 PM CDT us Krystin Delgado III, MD URINE ORDERABLES Final R esult [facility] [address] [employer] [address] [phone] documented in this encounter Visit Diagnoses Diagnosis Elevated prostate specific antigen (PSA) Urinary frequency documented in this encounter Care Teams Transcribing Operator Head Relationship Specialty Start Date End Date Crescencio Camacho MD [address] [place] [phone] PCP - General FAMILY PRACTICE 08/25/16 Fercho Simon MD Vascular/[employer] INTERNAL MEDICINE 11/01/15 documented as of this encounter
--- OUTSIDE RECORDS SUMMARY | 2024-03-19 13:11 | XMS_ITS | Encounter Summary ---
Author Organization [facility] Address [facility] [facility] [place] [address] [place] [address] Care Team Providers Care Groover And Striper Operator Name Role Phone Fercho Simon MD Unavailable Crescencio Camacho MD Primary Care Provider Encounter Details Date Type Department Care Team (Late st Contact Info) Description 11/05/2018 Orders Only [facility] [address] [place] [address] [place] [address] [place] [phone] Social History Tobacco Use Types Packs/Day [...] 5.12(H) <4.00 NG/ML 11/05/2018 3:26 PM CDT [facility] 11/05/2018 2:53 PM CDT Krystin Delgado III, MD LABORATORY Final Re sult Performing Organization Address [facility] Co de Phone Number [facility] [address] [place] [address], * CULTURE URINE (11/05/2018 12:50 PM CDT) SPEC DESCRIPTION URINE CLEAN CATCH 11/05/2018 2:51 PM CDT [facility] SPECIAL REQUESTS NO SPECIAL REQUEST 11/05/2018 2:51 PM CDT [facility] CULTURE RESULT NO GROWTH (< OR = 1,000 CFU/ML) 11/06/2018 9:36 PM CDT [facility] URINE SPECIMEN OBTAINED BY CLEAN CATCH PROCEDURE / Unknown 11/05/2018 12:50 PM CDT 11/05/2018 2:55 PM CDT Krystin Delgado III, MD MICROBIOLOGY - GENERAL O RDERABLES Final Result Performing Organization Address [facility] Co de Phone Number [facility] [address] [place] [address], [phone] [facility] [address] [place] [address], * (ABNORMAL) URINALYSIS (11/05/2018 12:50 PM CDT) COLOR (U) YELLOW 11/05/2018 3:06 PM CDT [facility] TRANSPARENCY CLEAR 11/05/2018 3:06 PM CDT [facility] SPECIFIC GRAVITY (U) 1.020 1.000 - 1.025 11/05/2018 3:06 PM CDT [facility] U PH 7.0 5.0 - 8.0 11/05/2018 3:06 PM CDT [facility] LEUKOCYTES (U) NEGATIVE NEGATIVE 11/05/2018 3:06 PM CDT [facility] NITRITES NEGATIVE NEGATIVE 11/05/2018 3:06 PM CDT [facility] PROTEIN (U) NEGATIVE NEGATIVE 11/05/2018 3:06 PM CDT [facility] URINE GLUCOSE NEGATIVE NEGATIVE 11/05/2018 3:06 PM CDT [facility] KETONES MG/DL (U) NEGATIVE NEGATIVE 11/05/2018 3:06 PM CDT [facility] UROBILINOGEN 2.0(H) <1.0 EU/DL 11/05/2018 3:06 PM CDT [facility] BILIRUBIN (U) NEGATIVE NEGATIVE 11/05/2018 3:06 PM CDT [facility] BLOOD (U) NEGATIVE NEGATIVE 11/05/2018 3:06 PM CDT [facility] WBC/HPF 0-5 0 - 5 /HPF 11/05/2018 3:06 PM CDT [facility] EPI/HPF RARE /LPF 11/05/2018 3:06 PM CDT [facility] MUCUS PRESENT 11/05/2018 3:06 PM CDT [facility] URINE SPECIMEN OBTAINED BY CLEAN CATCH PROCEDURE / Unknown 11/05/2018 12:50 PM CDT us Krystin Delgado III, MD URINE ORDERABLES Final R esult [facility] [address] [place] [address], documented in this encounter Visit Diagnoses Diagnosis Elevated prostate specific antigen (PSA)- Primary Urinary frequency documented in this encounter Care Teams Groover And Striper Operator Relationship Specialty Start Date End Date Crescencio Camacho MD [address] [place] [phone] PCP - General FAMILY PRACTICE 08/25/16 Fercho Simon MD Vascular/[employer] INTERNAL MEDICINE 11/01/15 documented as of this encounter
--- OUTSIDE RECORDS SUMMARY | 2024-03-19 13:11 | XMS_ITS | Encounter Summary ---
Author Organization [facility] Address [facility] [facility] [place] [address] [place] [address] Care Team Providers Care Data Warehouse Architect Name Role Phone Fercho Simon MD Unavailable Crescencio Camacho MD Primary Care Provider [phone] Encounter Details Date Type Department Care Team (Late st Contact Info) Description 04/15/2018 Abstract [facility] [address] [place] [place] [address] Fercho Simon MD [address] [place] [address] Social History Tobacco Use Types Packs/Day Years [...] Associated Diagnosis Comments BASIC METABOLIC PANEL Routine 04/15/2018 8:48 AM ELECTRIC METER INSTALLER CBC, AUTO, NO DIFF Routine 04/15/2018 8: 48 AM ELECTRIC METER INSTALLER documented in this encounter Results * (ABNORMAL) CBC, AUTO, NO DIFF (04/15/2018 8:48 AM ELECTRIC METER INSTALLER) WBC 7.3 4.5 - 10.8 x10'3/uL 04/15/2018 9:52 AM [facility] RBC 4.82 4.50 - 6.10 x10'6/uL 04/15/2018 9:52 AM [facility] HGB 15.3 13.0 - 18.0 G/DL 04/15/2018 9:52 AM [facility] HCT 46.1 37.0 - 52.0 % 04/15/2018 9:52 AM [facility] MCV 95.6 78.0 - 100.0 FL 04/15/2018 9:52 AM [facility] MCH 31.7(H) 27.0 - 31.0 PG 04/15/2018 9:52 AM [facility] MCHC 33.2 33.0 - 36.0 G/DL 04/15/2018 9:52 AM [facility] RDW 12.5 11.5 - 14.5 % 04/15/2018 9:52 AM [facility] PLT 188 150 - 350 x10'3/uL 04/15/2018 9:52 AM [facility] MPV 10.2 7.4 - 10.4 FL 04/15/2018 9:52 AM [facility] 04/15/2018 8:48 AM ELECTRIC METER INSTALLER 04/15/2018 9:50 AM [facility] us Generic Conversion Md TONY LABORATORY Final R esult [facility] [place] [address], * (ABNORMAL) BASIC METABOLIC PANEL (04/15/2018 8:48 AM ELECTRIC METER INSTALLER) SODIUM S/P/B 144 136 - 145 MMOL/L 04/15/2018 10:03 AM [facility] POTASSIUM S/P/B 4.2 3.5 - 5.1 MMOL/L 04/15/2018 10:03 AM [facility] CHLORIDE S/P/B 104 98 - 107 MMOL/L 04/15/2018 10:03 AM [facility] CO2 29.5 21.0 - 32.0 MMOL/L 04/15/2018 10:03 AM [facility] GLUCOSE 100 70 - 140 MG/DL 04/15/2018 10:03 AM [facility] BUN 14 6 - 24 MG/DL 04/15/2018 10:03 AM [facility] CREATININE S/P/B 1.05 0.70 - 1.30 MG/DL 04/15/2018 10:03 AM [facility] CALCIUM S/P/B 8.9 8.4 - 10.5 MG/DL 04/15/2018 10:03 AM [facility] ANION GAP 10.5 MMOL/L 04/15/2018 10:03 AM [facility] Comment:REFERENCE RANGE NOT ESTABLISHED OSMOLALITY (CALC) 299 MOSM/KG 04/15/2018 10:03 AM [facility] Comment:REFERENCE RANGE NOT ESTABLISHED EGFR NON-AFR. AMER. 75(L) >89 ML/MIN/1 .73 M2 04/15/2018 10:03 AM [facility] EGFR AFR. AMER. 87(L) >89 ML/MIN/1 .73 M2 04/15/2018 10:03 AM [facility] GFR NOTES THE ESTIMATED GFR IS CALCULATED USING THE 2009 CKD-EPI EQUATION. THE FOLLOWING CATEGORIES FOR GRADING RENAL FUNCTION ARE RECOMMENDED BY THE INTERNATIONAL SOCIETY OF NEPHROLOGY (KDIGO 2012 CLINICAL PRACTICE GUIDELINE). 04/15/2018 10:03 AM [facility] Comment: G1,NORMAL OR HIGH: >89 ml/min/1.73 m2G2,MILDLY DECREASED: 60-89 ml/min/1.73 m2G3A,MILDLY TO MODERATELY DECREASED: 45-59 ml/min/1.73 m2G3B,MODERATELY TO SEVERELY DECREASED: 30-44 ml/min/1.73 m2G4,SEVERELY DECREASED: 15-29 ml/min/1.73 m2G5,KIDNEY FAILURE: <15 ml/min/1.73 m2 04/15/2018 8:48 AM ELECTRIC METER INSTALLER 04/15/2018 9:50 AM ELECTRIC METER INSTALLER us Generic Conversion Md TONY LABORATORY Final R esult [facility] [address] [phone] documented in this encounter 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
--- OUTSIDE RECORDS SUMMARY | 2024-03-19 13:12 | XMS_ITS | Encounter Summary ---
Author Organization [facility] Address [facility]6 [facility] 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 AMER. 87 EGFR NON-AFR. AMER. 75 <=90 04/15/2018 Fercho Simon MD LABORATORY Final Result * CBC, AUTO, NO DIFF (04/08/2018) WBC 7.3 RBC 4.82 HGB 15.3 HCT 46.1 MCV 95.6 MCH 31.7 MCHC 33.2 RDW 12.5 PLT 188 MPV 10.2 04/08/2018 us Fercho Simon MD LABORATORY Final Result documented in this encounter Visit Diagnoses Diagnosis terminal system operator current use of anticoagulant therapy Monitoring for anticoagulant use Encounter for long-term (current) use of anticoagulants documented in this encounter Care Teams Director Of Housing Relationship Specialty Start Date End Date Crescencio Camacho MD [address] [place] [phone] PCP - General FAMILY PRACTICE 08/25/16 Fercho Simon MD Vascular/Hot Press Operator INTERNAL MEDICINE 11/01/15 documented as of this encounter
--- OUTSIDE RECORDS SUMMARY | 2024-03-19 13:12 | XMS_ITS | Encounter Summary ---
Author Organization [facility] Address [facility] [place] [address] [place] [address] Care Team Providers Care Batch Or Continuous Still Operator Name Role Phone Fercho Simon MD Unavailable Crescencio Camacho MD Primary Care Provider Encounter Details Date Type Department Care Team (Latest Contact Info) Description 04/11/2017 Abstract [facility] Social History Tobacco Use Types Packs/Day Years [...] on filedocumented in this encounter Care Teams Batch Or Continuous Still Operator Relationship Specialty Start Date End Date Crescencio Camacho MD [address] [place] [phone] PCP - General FAMILY PRACTICE 08/25/16 Fercho Simon MD Vascular/Block Press Operator INTERNAL MEDICINE 11/01/15 documented as of this encounter
--- OUTSIDE RECORDS SUMMARY | 2024-03-19 13:12 | XMS_ITS | Encounter Summary ---
Author Organization [facility] Address [facility]ly [facility] [place] [address] [place] [address] Care Team Providers Care Acura Sales Consultant Name Role Phone Orville Simmons MD Primary Care Provider [phone] Fercho Simon MD Unavailable Reason for Visit * Reason Comments Follow Up DVT Encounter Details Date Type Department Care Team (Late st Contact Info) Description 04/18/2016 10:45 AM HACK SAW OPERATOR Office Visit [facility] AT [address] [place] [address] Fercho Simon MD [address] [place], [place] [address] Follow Up (DVT) Social History Tobacco Use [...] Sign Reading Time Taken Comments Blood Pressure 140/78 04/18/2016 10:32 AM HACK SAW OPERATOR Pulse 72 04/18/2016 10:31 AM HACK SAW OPERATOR Temperature - - Respiratory Rate 20 04/18/2016 10:3 1 AM HACK SAW OPERATOR Oxygen Saturation - - Inhaled Oxygen Concentration - - Weight 122.3 kg (269 lb 9.6 oz) 017 10:31 AM HACK SAW OPERATOR Height 180.3 cm (5' 11 ) 04/18/2016 10: 31 AM HACK SAW OPERATOR Body Mass Index 37.6 04/18/2016 10:31 AM HACK SAW OPERATOR documented in this encounter Patient Instructions * Patient Instructions* Oneida Hoffman, INSURANCE CLAIMS SPECIALIST - 04/13/2016 7:54 AM HACK SAW OPERATOR Images from the original note were not included. Index Edema LOGAN POINTS ?? Edema is swelling in part of your body because of fluid that gets into the tissue. Edema can happen if you sit for a long time, or it can be a symptom of a disease or injury, or be caused by or eating too much salt. ?? Treatment may include taking diuretic medicine, using support stockings, or eating less salt. ?? It may help if you raise your legs when you sit and avoid sitting or standing for long periods of time. What is edema? Edema is swelling in part of your body because of fluid that gets into the tissue. It most commonlyhappens in the feet, ankles, or legs but may be in other parts of your body, such as your hands or face. What is the cause? Edema can happen if you sit for a long time or it can be a symptom of a disease or an injury. Some things that can cause fluid to build up include: ?? Heart, kidney, thyroid, or liver disease ?? Blood vessel problems, especially in the legs ?? Injury to part of the body ?? Hart, including sunburn ?? Allergies to foods, medicine, or insect stings ?? Side effects of some medicines Edema can also be normal if you: ?? Eat too much salt, which causes your body to hold fluid ?? Are ?? Stand or walk a lot when the weather is warm ?? Sitting for a long time like when on a long flight What are the symptoms? Symptoms may include: ?? Swelling in one or more parts of the body, usually painless, but which can hurt if severe ?? Puffy or shiny skin Edema may be mild to severe. Mild edema may only cause a feeling of tightness in your hands or feet. With severe edema, pressing on an area of swelling could leave a dent or a pit in your skin that lasts several minutes or longer. How is it diagnosed? Your healthcare provider will ask about your symptoms and medical history and examine you. You may have tests or scans to check for possible causes of your edema. How is it treated? Treatment depends on the cause. Edema of the feet and legs caused by walking a lot in warm weather or by may not need treatment. Treatment for some causes of edema may include: ?? Taking a water pill (diuretic) ?? Using support stockings ?? Eating less salt How can I take care of myself? It may help if you: ?? Raise your legs when you sit. ?? Do not cross your legs or ankles when you sit. ?? Avoid sitting or standing for long periods of time. ?? Weigh yourself as often as recommended by your healthcare provider. Write down your weight and tell your healthcare provider as soon as possible if you are starting to gain weight. Follow the full course of treatment prescribed by your healthcare provider. Ask your provider: ?? How and when you will get your test results. ?? How long it will take to recover. ?? If there are activities you should avoid and when you can return to normal activities. ?? How to take care of yourself at home, including which foods to avoid. ?? What symptoms or problems you should watch for and what to do if you have them. Make sure you know when you should come back for a checkup. Keep all appointments for provider visits or tests. A healthy lifestyle may also help: ?? Eat a healthy diet. ?? Try to keep a healthy weight. If you are overweight, lose weight. ?? Stay fit with the right kind of exercise for you as advised by your healthcare provider. ?? Limit caffeine. ?? If you smoke, try to quit. Talk to your healthcare provider about ways to quit smoking. ?? If you want to drink alcohol, ask your healthcare provider how much is safe for you to drink. ?? Try to get at least 7 to 9 hours of sleep each night. Developed by [employer]. Adult Advisor 2015.3 published by [employer]. Last modified: 2015-06-23 Last reviewed: 2014-07-28 This content is reviewed periodically and is subject to change as new health information becomes available. The information is intended to inform and educate and is not a replacement for medical evaluation, advice, diagnosis or treatment by a healthcare professional. References Adult Advisor 2015.3 Index Copyright ?? 2016 [employer], a division of [employer]. All rights reserved. Index [place] Deep Vein Thrombosis LOGAN POINTS ?? Deep vein thrombosis is a blood clot that forms in a deep vein, usually in the legs. ?? You will need treatment with anticoagulant (blood thinner) medicines. ?? Tell all of your other healthcare providers, such as dentists or podiatrists, that you are taking a blood thinner. ?? Your healthcare provider will tell you what kinds of physical activity or physical therapy are safe for you. What is deep vein thrombosis? Deep vein thrombosis (DVT) is a blood clot that forms in a deep-lying vein, usually in the legs. A blood clot in a deep vein may break loose and travel through your bloodstream. If the clot blocks anartery in your brain, it can cause a stroke. A blood clot that travels to your lungs can cause life- threatening problems. What is the cause? DVT may happen when your blood moves slower than normal through the deep veins in your body, usually in your legs. Your blood may move slowly if you are bedridden after surgery or because of a serious illness, or if you sit still for a long time such as during a long plane flight. Blood clots are more likely to form after an injury, during a major illness, or while taking certain medicines such as control pills or hormone replacement therapy. Your risk of having DVT increases if you have some conditions, including: ?? Being unable to walk ?? A stroke ?? Heart failure ?? Severe varicose veins ?? Poor blood flow in the legs over a long time ?? Some cancers ? Obesity (having too much body fat) ?? Blood clotting disorders that you are born with, such as sickle cell disease ?? Infections Smoking cigarettes also increases the risk you will have a blood clot. What are the symptoms? You may have no symptoms until a clot blocks a major vein. When DVT blocks blood flow, symptoms mayinclude: ?? Swelling, warmth, and pain ?? Red or bluish areas on the skin How is it diagnosed? Your healthcare provider will ask about your symptoms and medical history and examine you. Tests may include: ?? Blood tests ?? IPG (impedance plethysmogram), which uses a pressure cuff on your arm or leg to measure blood flow in the veins of the arm or leg ?? Ultrasound, which uses sound waves to show pictures of the veins in your arm or leg ?? A contrast venogram, which uses X-rays and a dye injected into a vein to show any blockages in your veins ?? CT scan or MRI scan, which use X-rays and a computer to show detailed pictures of the veins How is it treated? DVT is treated with anticoagulant medicines. These medicines are sometimes called blood thinners. They don???t thin the blood, but they do decrease your blood???s ability to clot. They are used to prevent a clot from getting bigger and to prevent new clots. You may start your treatment at the hospital. When you go home, you will keep taking a blood thinner. There are 3 ways you may get blood thinning medicine. You may learn how to give yourself shots of your medicine, a home health nurse may visit to give you the medicine, or you may be switched to medicine that you can take by mouth. Depending on what type of blood thinner medicine you take, you may need to have regular blood testsas long as you take the blood thinner. You may need to take a blood thinner for at least 6 months. If you have a condition that keeps you at high risk for blood clots, you may need to take a blood thinner for the rest of your life. Some types of physical activity may increase your risk for more blood clots once you start treatment. Your healthcare provider will tell you what kinds of physical activity or physical therapy are safe for you. How can I take care of myself? Follow the full course of treatment prescribed by your healthcare provider. In addition: ?? Be sure to take the right amount of medicine at the right time each day. ?? Keep appointments for regular blood tests to check how well your blood clots. ?? Tell all of your other healthcare providers, such as dentists or podiatrists, that you are taking a blood thinner. Wear a medical alert bracelet or necklace that lists the drugs you take. ?? Before taking any new medicines, even nonprescription drugs, contact your healthcare provider. Most medicines, including some antibiotics, can change the effects of blood thinners. You can also ask your pharmacist about possible interactions if you get all your medicines at the same pharmacy. ?? Don???t take aspirin unless your provider tells you to do so. ?? If you are currently being treated for DVT, do not massage your legs. Massage could cause the clot to break loose. Ask your provider: ?? If you need follow up blood tests and how often you need to have them ?? How and when you will get your test results ?? How long it will take to recover ?? If there are activities you should avoid and when you can return to your normal activities ?? How to take care of yourself at home ?? What symptoms or problems you should watch for and what to do if you have them Make sure you know when you should come back for a checkup. Keep all appointments for provider visits or tests. If you have been diagnosed with DVT and you suddenly have shortness of breath or chest pain, or youcough up blood, the clot may have broken loose and moved to your lungs. Call 911 or your local emergency service right away. This can be a life-threatening emergency. How can I help prevent deep vein thrombosis? You can help prevent DVT if you: ?? Keep your legs raised when you are in bed or sitting down. Keeping your legs up helps the returnof blood from the leg veins. ?? Avoid sitting or standing for long periods of time. When you are traveling, move your feet and legs often. Go for short walks if possible. ?? Avoid crossing your legs and ankles when you sit. ?? Exercise as recommended by your healthcare provider. ?? Avoid wearing control-top pantyhose, leg garters, and other tight-fitting garments. ?? Keep a healthy weight. If you are overweight, try to lose some weight. ?? Stop smoking. Smoking increases the risk for blood clots. ?? Ask your provider if support hose or special stockings would be helpful for you help prevent clots. If so, make sure you know how to wear them correctly. Developed by [employer]. Adult Advisor 2016.3 published by [employer]. Last modified: 2015-06-23 Last reviewed: 2014-11-26 This content is reviewed periodically and is subject to change as new health information becomes available. The information is intended to inform and educate and is not a replacement for medical evaluation, advice, diagnosis or treatment by a healthcare professional. References Adult Advisor 2016.3 Index Copyright ?? 2016 [employer], a division of [employer]. All rights reserved. Follow up as directed. SAW OPERATOR SAW OPERATOR documented in this encounter Progress Notes * Fercho Simon MD - 04/18/2016 10:45 AM CST Reason for Visit: Follow Up (DVT) History of Present Illness: A 60-year-old, male whose cardiovascular history consists of: 1. 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 2. Unprovoked right femoral vein DVT in June 2015. 3. Coronary artery disease. 4. Hypertension. 5. Hyperlipidemia. The patient continues to do okay. His edema seems well controlled with compression stockings. He was noncompliant with compression stockings a month ago. He had lower extremity edema. He went to the ER, had a duplex done which showed right lower extremity chronic clot in his femoral vein. His last duplex with me showed occlusive clot in his right femoral vein which was done for his venous incomp testing. He has had history of multiple clots in his left leg, at least 3 times he tells me. He has been tolerating anticoagulation with Eliquis 2.5 well without any problem. ASSESSMENT AND PLAN: 1. Recurrent DVTs. He had multiple history of DVTs in his left leg and then unprovoked DVT in his right leg in June 2015. Detailed thrombophilia workup had been negative. Age appropriate cancer workup has been recommended. Will continue Eliquis at 2.5 b.i.d. 2. Chronic clot on the right. He does have a chronic clot in his right femoral vein. Will continue anticoagulation. 3. Left leg edema with the right little more than left. This is consistent with postphlebitic syndrome from his venous insufficiency from his previous DVTs. 4. Coronary artery disease, status post CABG. 5. Hypertension, well controlled. 6. Hyperlipidemia, well controlled. Will defer to you. 7. Will go ahead and see back in 6 months. Meanwhile, I will go ahead and repeat a CBC, BMP since he is on chronic anticoagulation. His last hemoglobin was 14.2 with hematocrit of 44.9. Thank you. Followup in 6 months. Medications: Current Outpatient Prescriptions: ??? apixaban 2.5 MG tablet, Take 1 tablet (2.5 mg total) by mouth 2 (two) times daily., Disp: 60 tablet, Rfl: 11 ??? aspirin 81 MG tablet, Take 1 tablet by mouth daily., Disp: , Rfl: ??? COMPRESSION STOCKINGS, 20-30 MMHG Knee High Compression Stocking open or closed toe Dx I83.893,Disp: 1 Container, Rfl: 12 ??? losartan 50 MG tablet, Take 1 tablet by mouth daily., Disp: , Rfl: ??? nitroGLYCERIN (NITROSTAT) 0.4 MG SL tablet, Nitrostat (nitroglycerin) Tablet, Sublingual 0.4 mg; take as needed for chest discomfort not relieved by GI cocktails; 1; 2; -May-2009; Active; refills per PCP, Disp: , Rfl: ??? simvastatin 40 MG tablet, Take 1 tablet by mouth daily., Disp: , Rfl: ??? venlafaxine 24 hr 75 MG 24 hr capsule, Take 1 tablet by mouth daily., Disp: , Rfl: Allergies Allergen Reactions ??? Codeine Nausea and Vomiting Past Medical History: Diagnosis Date ??? CAD (coronary artery disease) CABG ??? DVT (deep venous thrombosis) Right femoral vein and left popliteal ??? Hx of CABG ??? Hyperlipidemia ??? Hypertension Past Surgical History: Procedure Laterality Date ??? CORONARY ARTERY BYPASS GRAFT ??? HEART CATH 05/28/2009 Left coronary angiography. Right coronary angiography.Left heart catheterization with ventriculography. Social History Social History ??? Marital status: Spouse name: N/A ??? Number of children: 4 ??? Years of education: N/A Occupational History ??? Retired Social History Main Topics ??? Smoking status: Never Smoker ??? Smokeless tobacco: Never Used ??? Alcohol use No ??? Drug use: No ??? Sexual activity: Not Asked Other Topics Concern ??? Exercise No ??? Special Diet No ??? Caffeine Concern No Social History Narrative Family History Problem Relation Age of Onset ??? Family history unknown: Yes Family Status Relation Status ??? Mother ??? Father ??? Maternal Grandmother ??? Maternal Grandfather ??? Paternal Grandmother ??? Paternal Grandfather Review of Systems Constitutional: Negative for malaise/fatigue and weight loss. HENT: Negative for hearing loss. Eyes: Negative for blurred [...] Negative for polydipsia. Does not bruise/bleed easily. Filed Vitals: 04/18/16 1031 04/18/16 1032 BP: 138/75 140/78 Pulse: 72 Resp: 20 Weight: 122.3 kg (269 lb 9.6 oz) Height: 5' 11 (1.803 m) Physical [...] His behavior is normal. Thought content normal. No results found for this visit on 04/18/16. Diagnoses/Impression: 1. Chronic deep vein thrombosis (DVT) of other vein of both lower extremities 2. Localized edema 3. Hx of CABG SAW OPERATOR SAW OPERATOR documented in this encounter Plan of Treatment Not on file documented as of this encounter Visit Diagnoses Diagnosis Chronic deep vein thrombosis (DVT) of other vein of both lower extremities (CMS/HCC [facility]/HCC)- Primary Localized edema Edema Hx of CABG Postsurgical aortocoronary bypass status documented in this encounter Care Teams Acura Sales Consultant Relationship Specialty Start Date End Date Orville Simmons MD [address] [address] PCP - General FAMILY PRACTICE 09/06/15 08/24/16 Fercho Simon MD [address] [phone] Vascular/Database Technician INTERNAL MEDICINE 11/01/15 documented as of this encounter
--- OUTSIDE RECORDS SUMMARY | 2024-03-19 13:12 | XMS_ITS | Encounter Summary ---
Author Organization [facility] Address [facility] [place] [address] [place] [address] Care Team Providers Care Drying Machine Operator Package Yarns Name Role Phone Fercho Simon MD Unavailable Crescencio Camacho MD Primary Care Provider [phone] Reason for Referral * Imaging (Routine) - Closed Specialty Diagnoses / Procedures Referred By Contac t Referred To Contact CARDIOVASCULAR DISEASE Diagnoses Acute deep vein thrombosis (DVT) of both lower extremities, unspecified vein (CMS/HCC HHS/HCC) Procedures USV KEESHA DUPLEX LOW EXT JOHN Fercho Simon MD Phone: tel: fax: [place] [address] [place] [address] Phone: tel: Referral ID Status Reason Start Date Expiration Date Visits Re quested Visits Authorized [id number] Closed 08/31/2016 09/30/2017 1 1 * Imaging (Routine) - Closed Specialty Diagnoses / Procedures Referred By Contac t Referred To Contact CARDIOVASCULAR DISEASE Diagnoses Acute deep vein thrombosis (DVT) of both lower extremities, unspecified vein (CMS/HCC HHS/HCC) Procedures USV KEESHA DUPLEX LOW EXT JOHN Fercho Simon MD Phone: tel: fax: [place] [address] [place] [address] Phone: tel: Referral ID Status Reason Start Date Expiration Date Visits Re quested Visits Authorized [id number] Closed 08/25/2016 09/25/2017 1 1 Reason for Visit * Reason Onset Date Comments Appointment Request 08/25/2016 6 mo f/u; BL E venous duplex on 10/13/16 Encounter Details Date Type Department Care Team (Late st Contact Info) Description 08/25/2016 Telephone [facility] [address] [place] [address] Fercho Simon MD [address] [place] [address] Appointment Request (6 mo f/u; BLE venous duplex on 10/13/16) Social History Tobacco Use Types Packs/Day Years [...] encounter Progress Notes * Makenzie Joyce - 08/25/2016 11:09 AM CDT Call received from [facility] to schedule 6 mo f/u appt and BLE venous duplex. Scheduled duplex for 10/13/16 at 8 AM. Clinic on 9 AM. Reminder letter mailed. [facility] also requested last note be faxed to new PCP Dr. Camacho. Dr. Simmons is no longer PCP. Updated care team tab. documented in this encounter Plan of Treatment Scheduled Orders Name Type Priority Associated Diagnoses Orde r Schedule USV KEESHA DUPLEX LOW EXT JOHN US VASC Routine Acute deep vein thrombosis (DVT) of both lower extremities, unspecified vein (CMS/HCC HHS/HCC) Expected: 09/13/2016, Expires: 08/31/2017 documented as of this encounter Procedures Procedure Name Priority Date/Time Associated Diagnosis Comments USV KEESHA DUPLEX LOW EXT JOHN Routine 10/12/2016 Acute deep vein thrombosis (DVT) of both lower extremities, unspecified vein ([facility]/HCC) documented in this encounter Results * USV EKESHA DUPLEX LOW EXT JOHN (10/12/2016) Anatomical Region Laterality Modality Extremity Vascular Ultraso und Fercho Simon MD VASC Final Result documented in this encounter Visit Diagnoses Diagnosis Acute deep vein thrombosis (DVT) of both lower extremities, unspecified vein ([facility])- Primary documented in this encounter Care Teams Drying Machine Operator Package Yarns Relationship Specialty Start Date End Date Crescencio Camacho MD [address] [place] [phone] PCP - General FAMILY PRACTICE 08/25/16 Fercho Simon MD Vascular/Gas Operations Superintendent INTERNAL MEDICINE 11/01/15 documented as of this encounter
--- OUTSIDE RECORDS SUMMARY | 2024-03-19 13:12 | XMS_ITS | Encounter Summary ---
Author Organization [facility] Address [address] [place] [address] [place] [address] Care Team Providers Care Nurse Practitioner Physicians Assistant Name Role Phone Orville Simmons MD Primary Care Provider [phone] Fercho Simon MD Unavailable Crescencio Camacho MD Primary Care Provider [phone] Encounter Details Date Type Department Care Team (Late st Contact Info) Description 04/04/[address] [facility] [address] [place] [address] Crescencio Camacho MD [address] [place] [phone] Social History Tobacco Use Types Packs/Day Years Used Date Smoking Tobacco: Never Alcohol Use Standard Drinks/Week Comments [...] as of this encounter Visit Diagnoses Diagnosis Pain of right foot Pain in limb documented in this encounter Care Teams Nurse Practitioner Physicians Assistant Relationship Specialty Start Date End Date Orville Simmons MD [address] [place] [phone] PCP - General FAMILY PRACTICE 09/06/15 08/24/16 Crescencio Camacho MD [address] [place] [phone] PCP - General FAMILY PRACTICE 08/25/16 Fercho Simon MD [address] [place] [address] Vascular/Tobacco Checkout Clerk INTERNAL MEDICINE 11/01/15 documented as of this encounter
--- OUTSIDE RECORDS SUMMARY | 2024-03-19 13:12 | XMS_ITS | Encounter Summary ---
Author Organization [facility] Address [facility] [place] [address] [place] [address] Care Team Providers Care Flower Stripper Name Role Phone Fercho Simon MD Unavailable Crescencio Camacho MD Primary Care Provider [phone] Encounter Details Date Type Department Care Team (Late st Contact Info) Description 04/10/2017 Abstract [facility] [address] [facility], 2nd [place] [phone] Ricardo Lyn MD Social History Tobacco Use Types Packs/Day Years [...] Sign Reading Time Taken Comments Blood Pressure 165/96 04/10/2017 1:36 PM HEALTHCARE NETWORK PRICING CONSULTANT Pulse 79 04/10/2017 1:36 PM HEALTHCARE NETWORK PRICING CONSULTANT Temperature - - Respiratory Rate - - Oxygen Saturation - - Inhaled Oxygen Concentration - - Weight 124.3 kg (274 lb) 04/10/2017 1:37 PM HEALTHCARE NETWORK PRICING CONSULTANT Height 182.9 cm (6') 04/10/2017 1:37 PM HEALTHCARE NETWORK PRICING CONSULTANT Body Mass Index 37.16 04/10/2017 1:37 PM HEALTHCARE NETWORK PRICING CONSULTANT documented in this encounter Progress Notes * Ricardo Lyn MD - 04/10/2017 1:40 PM CST Reason For Visit New Patient Visit Referred By / Reason Last Date of Visit by PCP: 12/20/16 Name: Dr. Camacho Reason: Lipoma of upper back. Chief Complaint my lipoma back History of Present Illness HPI: This is 61 y.o. male pt. who had twice lipoma removed from lower posterior neck by PCP under local in office. Noticed that lump back. He would like lump removed. Denies any symptoms associated with lump except pressure pain when lying on it. Review of Systems See HPI for pertinent positives. Active Problems 1. Left shoulder pain (719.41) (M25.512) 2. Lipoma of back (214.8) (D17.1) 3. Lump of skin of back (782.2) (R22.2) 4. Rupture of left biceps tendon (840.8) (S46.212A) 5. Rupture of left distal biceps tendon, initial encounter (840.8) (S46.212A) 6. Rupture of left distal biceps tendon, sequela (905.8) (S46.212S) Past Medical History 1. History of cardiac disorder (V12.50) (Z86.79) 2. History of depression (V11.8) (Z86.59) 3. History of hypertension (V12.59) (Z86.79) 4. 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 Denied: History Of Prior Surgery Family History Mother 1. No pertinent family history Father 2. No pertinent family history Family History 3. No pertinent family history Social History ? Never a smoker ?? No alcohol use ?? Primary language is Mohawk ?? Retired Current Meds 1. Aspirin 81 MG Oral Tablet Delayed Release; TAKE 1 TABLET DAILY; Therapy: [id number] to Recorded 2. Eliquis 5 MG Oral Tablet; 1 tab bid; Therapy: [id number] to Recorded 3. Losartan Potassium 50 MG Oral Tablet; TAKE 1 TABLET DAILY; Therapy: [id number] to Recorded 4. Simvastatin 40 MG Oral Tablet; TAKE 1 TABLET DAILY DIRECTED; Therapy: [id number] to Recorded 5. Venlafaxine HCl - 75 MG Oral Tablet; TAKE 1 TABLET DAILY; Therapy: 15Sep2015 to Recorded Allergies 1. Codeine Derivatives Vitals Recorded: 10Apr2017 01:37PM Recorded: 10Apr2017 01:36PM Height 6 ft Weight 274 lb BMI Calculated 37.16 BSA Calculated 2.44 Temperature 97.5 F, Temporal Heart Rate 79 Systolic 165, RUE, Sitting Diastolic 96, RUE, Sitting O2 Saturation 96, RA Physical Exam Constitutional - General appearance: No acute distress, well appearing and well nourished.. Neck - Exam: Supple, symmetric, trachea midline, no masses.. Pulmonary - Respiratory effort: No increased work of breathing or signs of respiratory distress. Auscultation of lungs: Clear to auscultation.. Cardiovascular - Auscultation of heart: Normal rate and rhythm, normal S1 and S2, no murmurs.. Abdomen - Abdomen: Non-tender, no masses. Liver and spleen: No hepatomegaly or splenomegaly.. Lymphatic - Palpation of lymph nodes: No lymphadenopathy.. Skin - Skin and subcutaneous tissue: Normal without rashes or lesions. Palpation of skin and subcutaneous tissue: Abnormal. left lower posterior neck scar healed well. 3.5x3.5 cm soft mass under it. No skin changes... Psychiatric - Orientation to person, place, and time: Normal. Mood and affect: Normal.. Assessment 1. Lipoma of back (214.8) (D17.1) 2. 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 The planned procedure/s, the expected benefits,the associated risks,possible complications, and alternatives to the procedure/s have been discussed in detail with the patient or family. They state that they understand, have no further questions and agree to proceed with the procedure/s as outlined. Procedures/Surgery: 04/13/17 Discussion/Summary Nature of lipoma, excision, benefits, alternative, risks, indications, preop instruction discussed.Pt. will need hold eliquis for 48 hr. before procedure. Pt. verbilized understanding of discussionsand would like have surgery. Signatures Electronically signed by : Ricardo Lyn M.D.; Apr 10 2017 1:55PM HEALTHCARE NETWORK PRICING CONSULTANT (Author) documented in this encounter Plan of Treatment Not on file documented as of this encounter Visit Diagnoses Not on filedocumented in this encounter Care Teams Flower Stripper Relationship Specialty Start Date End Date Crescencio Camacho MD [address] [place] [address] PCP - General FAMILY PRACTICE 08/25/16 Fercho Simon MD Vascular/Beater Engineer INTERNAL MEDICINE 11/01/15 documented as of this encounter
--- OUTSIDE RECORDS SUMMARY | 2024-03-19 13:12 | XMS_ITS | Encounter Summary ---
Author Organization [facility] Address [facility] [place] [address] [place] [address] Care Team Providers Care Storage Wharfage Clerk Name Role Phone Fercho Simon MD Unavailable Crescencio Camacho MD Primary Care Provider Encounter Details Date Type Department Care Team (Late st Contact Info) Description 04/17/2017 Abstract [facility] [address] [place] [phone] Fercho Simon MD [address] [place], [place] [phone] Social History Tobacco Use Types Packs/Day Years [...] Procedure Name Priority Date/Time Associated Diagnosis Comments BMP WITHOUT GLUCOSE Routine 04/17/2017 CBC (OUTSIDE LAB) Routine 04/17/2017 documented in this encounter Results * BMP WITHOUT GLUCOSE (04/17/2017) 04/17/2017 Impressions Oneida Hoffman, PROCESS SERVER - 04/17/2017 Bun ?? 15 Creatinine 1.02 Potassium 3.9 Chloride ??106 CO2 ??27.0 Calcium ??9.3 GFR >60 GFR AFr Amer >60 Anion Gap 9.0 Fercho Simon MD LABORATORY Final Result * CBC (OUTSIDE LAB) (04/17/2017) WBC 6.6 HGB 15.1 HCT 44.2 PLT 181 RBC 4.74 04/17/2017 Fercho Simon MD LAB-OUTSIDE/ABSTRACTED Final Res ult documented in this encounter Visit Diagnoses Not on filedocumented in this encounter Care Teams Storage Wharfage Clerk Relationship Specialty Start Date End Date Cerscencio Camacho MD [address] [place] [phone] PCP - General FAMILY PRACTICE 08/25/16 Fercho Simon MD Vascular/Gas Welding Machine Operator INTERNAL MEDICINE 11/01/15 documented as of this encounter
--- OUTSIDE RECORDS SUMMARY | 2024-03-19 13:12 | XMS_ITS | Encounter Summary ---
Author Organization [facility] Address [facility]6 [facility] [place] [address] [place] [address] Care Team Providers Care Milk House Worker Name Role Phone Fercho Simon MD Unavailable Crescencio Camacho MD Primary Care Provider Encounter Details Date Type Department Care Team (Late st Contact Info) Description 11/03/2016 Abstract [facility] [address] [place] [address] Anderson Barboza MD Social History Tobacco Use Types Packs/Day [...] documented as of this encounter Care Teams Milk House Worker Relationship Specialty Start Date End Date Crescencio Camacho MD [address] [place] [phone] PCP - General FAMILY PRACTICE 08/25/16 Fercho Simon MD Vascular/Vertical Lathe Operator INTERNAL MEDICINE 11/01/15 documented as of this encounter
--- OUTSIDE RECORDS SUMMARY | 2024-03-19 13:12 | XMS_ITS | Encounter Summary ---
Author Organization [facility] Address [facility] [place] [address] [place] [address] Care Team Providers Care Six Pack Packer Name Role Phone Fercho Simon MD Unavailable Crescencio Camacho MD Primary Care Provider Encounter Details Date Type Department Care Team (Late st Contact Info) Description 04/17/2017 Abstract [facility] [address] [place] [address] Fercho Simon MD [address] [place] [address] Social History Tobacco Use Types Packs/Day Years [...] Associated Diagnosis Comments BASIC METABOLIC PANEL Routine 04/17/2017 9:16 AM MACHINE CONTAINER WASHER CBC, AUTO, NO DIFF Routine 04/17/2017 9: 16 AM MACHINE CONTAINER WASHER documented in this encounter Results * (ABNORMAL) CBC, AUTO, NO DIFF (04/17/2017 9:16 AM MACHINE CONTAINER WASHER) WBC 6.6 4.5 - 10.8 x10'3/uL 04/17/2017 9:37 AM [facility] RBC 4.74 4.50 - 6.10 x10'6/uL 04/17/2017 9:37 AM [facility] HGB 15.1 13.0 - 18.0 G/DL 04/17/2017 9:37 AM [facility] HCT 44.2 37.0 - 52.0 % 04/17/2017 9:37 AM [facility] MCV 93.2 78.0 - 100.0 FL 04/17/2017 9:37 AM [facility] MCH 31.9(H) 27.0 - 31.0 PG 04/17/2017 9:37 AM [facility] MCHC 34.2 33.0 - 36.0 G/DL 04/17/2017 9:37 AM [facility] RDW 12.2 11.5 - 14.5 % 04/17/2017 9:37 AM [facility] PLT 181 150 - 350 x10'3/uL 04/17/2017 9:37 AM [facility] MPV 10.6(H) 7.4 - 10.4 FL 04/17/2017 9:37 AM [facility] 04/17/2017 9:16 AM MACHINE CONTAINER WASHER 04/17/2017 9:19 AM [facility] us Generic Conversion Md [facility] Final R esult [facility] [address] [place] [address], * BASIC METABOLIC PANEL (04/17/2017 9:16 AM [facility]) GLUCOSE 96 70 - 99 MG/DL 04/17/2017 9:57 AM [facility] BUN 15 8 - 26 MG/DL 04/17/2017 9:57 AM [facility] CREATININE S/P/B 1.02 0.72 - 1.25 MG/DL 04/17/2017 9:57 AM [facility] SODIUM S/P/B 142 136 - 145 MMOL/L 04/17/2017 9:57 AM [facility] POTASSIUM S/P/B 3.9 3.5 - 5.1 MMOL/L 04/17/2017 9:57 AM [facility] CHLORIDE S/P/B 106 98 - 107 MMOL/L 04/17/2017 9:57 AM [facility] CO2 27.0 22.0 - 29.0 MMOL/L 04/17/2017 9:57 AM [facility] CALCIUM S/P/B 9.3 8.8 - 10.0 MG/DL 04/17/2017 9:57 AM [facility] EGFR NON-AFR. AMER. >60 >60 ML/MIN/1.7 3 M2 04/17/2017 9:57 AM [facility] EGFR AFR. AMER. >60 >60 ML/MIN/1.7 3 M2 04/17/2017 9:57 AM [facility] ANION GAP 9.0 7 - 16 MMOL/L 04/17/2017 9:57 AM [facility] 04/17/2017 9:16 AM MACHINE CONTAINER WASHER 04/17/2017 9:19 AM MACHINE CONTAINER WASHER us Generic Conversion Md [facility]AT[facility] Final R esult [facility] [employer] [address] [phone] documented in this encounter Visit Diagnoses Diagnosis rn long term care current use of anticoagulant Encounter for long-term (current) use of anticoagulants documented in this encounter Care Teams Six Pack Packer Relationship Specialty Start Date End Date Crescencio Camacho MD [address] [place] [phone] PCP - General FAMILY PRACTICE 08/25/16 Fercho Simon MD Vascular/Verifier INTERNAL MEDICINE 11/01/15 documented as of this encounter
--- OUTSIDE RECORDS SUMMARY | 2024-03-19 13:12 | XMS_ITS | Encounter Summary ---
Author Organization [facility] Address [facility]6 [facility] [address] [place] [address] Care Team Providers Care Associate Automation Engineer Name Role Phone Orville Simmons MD Primary Care Provider [phone] Fercho Simon MD Unavailable Crescencio Camacho MD Primary Care Provider [phone] Encounter Details Date Type Department Care Team (Late st Contact Info) Description 04/18/2016 Abstract [facility] [address] [place] [address] Fercho Simon MD [address] [place] [address] Social History Tobacco Use Types Packs/Day Years [...] as of this encounter Visit Diagnoses Diagnosis intermediate current use of anticoagulant Encounter for long-term (current) use of anticoagulants documented in this encounter Care Teams Associate Automation Engineer Relationship Specialty Start Date End Date Orville Simmons MD [address] [place] [phone] PCP - General FAMILY PRACTICE 09/06/15 08/24/16 Crescencio Camacho MD [address] [place] [phone] PCP - General FAMILY PRACTICE 08/25/16 Fercho Simon MD [address] [place] [address] [place] [address] Vascular/Turbine Operator INTERNAL MEDICINE 11/01/15 documented as of this encounter
--- OUTSIDE RECORDS SUMMARY | 2024-03-19 13:12 | XMS_ITS | Encounter Summary ---
Author Organization [facility] Address [facility]6 [place] [address] [place] [address] Care Team Providers Care Air Brush Operator Name Role Phone Orville Simmons MD Primary Care Provider [phone] Fercho Simon MD Unavailable Reason for Visit * Reason Onset Date Comments Refill Request 02/21/2016 Pt needs refill on Eliquis - check notes on dose please. Patient also needs rx for compression stockings Encounter Details Date Type Department Care Team (Late st Contact Info) Description 02/21/2016 [facility] [address] [place] [address] Fercho Simon MD [address] [place] [address] Refill Request (Pt needs refill on Eliquis - check notes on dose please. Patient also needs rx for compression stockings) Social History Tobacco Use Types Packs/Day Years [...] encounter Progress Notes * Makenzie Joyce - 02/21/2016 10:11 AM CST Patient called for refill on Eliquis. He is still taking 5 b.i.d. Check clinic note from October regarding decreasing dose. Please send correct dose and refill to [facility] in [place]. Patient is also requesting a new printed prescription for compression stockings that he can take to [facility] to have filled. He is not sure on the strength but they are knee high and closed toe. Message: Aurora cruz. SETTER documented in this encounter Plan of Treatment Not on file documented as of this encounter Visit Diagnoses Not on filedocumented in this encounter Care Teams Air Brush Operator Relationship Specialty Start Date End Date Orville Simmons MD [address] [place] [address] PCP - General FAMILY PRACTICE 09/06/15 08/24/16 Fercho Simon MD [address] [place] [address] Vascular/Venetian Blind Cleaner INTERNAL MEDICINE 11/01/15 documented as of this encounter
--- OUTSIDE RECORDS SUMMARY | 2024-03-19 13:12 | XMS_ITS | Encounter Summary ---
Author Organization [facility] Address [address] [facility] [place] [address] [place] [address] Care Team Providers Care Disease Management Nurse Name Role Phone Fercho Simon MD Unavailable Crescencio Camacho MD Primary Care Provider Encounter Details Date Type Department Care Team (Late st Contact Info) Description 04/20/2017 Abstract [facility] Surgical [facility] [address] [facility] 2nd [place] [phone] Ricardo Lyn MD Social History Tobacco Use [...] as of this encounter Progress Notes * Ricardo Lyn MD - 04/20/2017 3:00 PM CST Reason For Visit Post-Op Visit Chief Complaint doing well Post-Op this is 60 years old male patient status post recurrent posterior neck lipoma excision. Patient denies any symptoms associated with complications. Review of Systems See HPI for pertinent positives. Active Problems 1. 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 Left shoulder pain (719.41) (M25.512) 3. Lump of skin of back (782.2) (R22.2) 4. Rupture of left biceps tendon (840.8) (S46.212A) 5. Rupture of left distal biceps tendon, initial encounter (840.8) (S46.212A) 6. Rupture of left distal biceps tendon, sequela (905.8) (S46.212S) Social History ? Never a smoker ?? No alcohol use ?? Primary language is Zambian ?? Retired Current Meds 1. Aspirin 81 MG Oral Tablet Delayed Release; TAKE 1 TABLET DAILY; Therapy: [id number] to Recorded 2. Eliquis 5 MG Oral Tablet; 1 tab bid; Therapy: [id number] to Recorded 3. Losartan Potassium 50 MG Oral Tablet; TAKE 1 TABLET DAILY; Therapy: 15Sep2015 to Recorded 4. Simvastatin 40 MG Oral Tablet; TAKE 1 TABLET DAILY DIRECTED; Therapy: 27Oku8049 to Recorded 5. Venlafaxine HCl - 75 MG Oral Tablet; TAKE 1 TABLET DAILY; Therapy: 15Sep2015 to Recorded Allergies 1. Codeine Derivatives 2. Penicillins Physical Exam Constitutional General appearance: Normal. Neck incision healing well... Psychiatric Mood and affect: Normal. Results/Data Surgical Pathology 13Apr2017 12:00AM Ricardo Lyn Test Name Result Flag Reference Surgical Pathology (Report) SURG [facility] Department of Laboratory Medicine [address] [place] [phone] , extension [id number] Facsimile: Surgical Pathology Report Patient Name: ARSH MUELLER MR#: [id number] Specimen #[id number] Source: Soft tissue, left lower posterior neck Preoperative Diagnosis: Recurrent lipoma left lower posterior neck. Gross Description: Received in formalin, labeled with a patient label and as lower left posterior neck lipoma are four pieces of pale martini pink lobulated tissue. The pieces range from 1.2 to 4.5 cm and are 5 x 5 x 1.0 cm in aggregate. The pieces are all inked black and sectioned to reveal a pale martini pink uniform cut surface with a few fibromembranous areas. Director Of Promotions tissue is submitted in cassettes 1 and 2. Final Diagnosis: SOFT TISSUE, LEFT POSTERIOR NECK, RESECTION: - MATURE ADIPOSE TISSUE CONSISTENT WITH LIPOMA WITH ASSOCIATED AREAS OF DENSE FIBROSIS AND REACTIVE CHANGES. Electronically Signed Out Rafael Benjamin M.D., Ph.D. Assessment 1. Postoperative examination (V67.00) (Z09) status post recurrent lipoma excision. Plan followup p.r.n. Discussion/Summary intraoperative findings, path report, need for followup in event patient start to feel a bulge in the area discussed with patient. Patient verbalized understanding natural discussions. He is very happy with the treatment. Signatures Electronically signed by : Ricardo Lyn M.D.; Apr 20 2017 3:15PM ROASTER OPERATOR (Author) documented in this encounter Plan of Treatment Not on file documented as of this encounter Visit Diagnoses Not on filedocumented in this encounter Care Teams Disease Management Nurse Relationship Specialty Start Date End Date Crescencio Camacho MD [address] [place] [phone] PCP - General FAMILY PRACTICE 08/25/16 Fercho Simon MD Vascular/Maintenance Department Technician INTERNAL MEDICINE 11/01/15 documented as of this encounter
--- OUTSIDE RECORDS SUMMARY | 2024-03-19 13:12 | XMS_ITS | Encounter Summary ---
Author Organization [facility] Address [address] [place] [address] [place] [address] Care Team Providers Care Comprehensive Advisor Name Role Phone Fercho Simon MD Unavailable Crescencio Camacho MD Primary Care Provider Encounter Details Date Type Department Care Team (Late st Contact Info) Description 10/06/2016 Abstract [facility] [address] [place] [phone] Fercho Simon MD [address] [place], [place] [address] Social History Tobacco Use Types Packs/Day Years [...] on filedocumented in this encounter Care Teams Comprehensive Advisor Relationship Specialty Start Date End Date Crescencio Camacho MD [address] [place] [address] PCP - General FAMILY PRACTICE 08/25/16 Fercho Simon MD Vascular/Manager Social Services INTERNAL MEDICINE 11/01/15 documented as of this encounter
--- OUTSIDE RECORDS SUMMARY | 2024-03-19 13:12 | XMS_ITS | Encounter Summary ---
Author Organization [facility] Address [facility] [place] [address] [place] [address] Care Team Providers Care Mold Maker Plaster Name Role Phone Orville Simmons MD Primary Care Provider [phone] Fercho Simon MD Unavailable Reason for Visit * Reason Onset Date Comments Results 04/18/2016 Encounter Details Date Type Department Care Team (Late st Contact Info) Description 04/18/2016 Telephone [facility] [address] [place] [address] Fercho Simon MD [address] [place] [address] Results Social History Tobacco Use Types Packs/Day [...] as of this encounter Progress Notes * Oneida Hoffman LPN - 04/18/2016 5:[address] Simon had reviewed recent labs that revealed acceptable the patient v/u . LANE WOODWORKER documented in this encounter Plan of Treatment Not on file documented as of this encounter Visit Diagnoses Not on filedocumented in this encounter Care Teams Mold Maker Plaster Relationship Specialty Start Date End Date Orville Simmons MD [address] [place] [phone] PCP - General FAMILY PRACTICE 09/06/15 08/24/16 Fercho Simon MD [address] [place] [address] Vascular/Cardiology Nurse Practitioner INTERNAL MEDICINE 11/01/15 documented as of this encounter
--- OUTSIDE RECORDS SUMMARY | 2024-03-19 13:12 | XMS_ITS | Encounter Summary ---
Author Organization [facility] Address [facility]6 [facility] [place] [address] [place] [address] Care Team Providers Care Garage Manager Name Role Phone Fercho Simon MD Unavailable Crescencio Camacho MD Primary Care Provider Reason for Visit * Reason Onset Date Comments Appointment Request 04/05/2017 6 mo f/u; CB C, BMP prior Encounter Details Date Type Department Care Team (Late st Contact Info) Description 04/05/2017 Telephone [employer] [facility] [address] [place] [address] Fercho Simon MD [address] [place], [place] [phone] Appointment Request (6 mo f/u; CBC, BMP prior) Social History Tobacco Use Types Packs/Day Years [...] encounter Progress Notes * Makenzie Joyce - 04/05/2017 8:36 AM CST Patient called to schedule 6 month f/u in [place]. Appt scheduled for 05/08/2017 10:45 AM. Reminder letter, worksheet and lab orders (CBC, BMP) mailed to patient. MPER documented in this encounter Plan of Treatment Not on file documented as of this encounter Results * BASIC METABOLIC PANEL (04/17/2017) SODIUM S/P/B 142 POTASSIUM S/P/B 3.9 CO2 27 CHLORIDE S/P/B 106 GLUCOSE 96 mg/dL CALCIUM S/P/B 9.3 BUN 15 CREATININE S/P/B 1.02 0.7 - 1.3 EGFR AFR. AMER. >60 EGFR NON-AFR. AMER. >60 <=90 04/17/2017 Fercho Simon MD LABORATORY Final Result documented in this encounter Visit Diagnoses Diagnosis Long-term (current) use of anticoagulants- Primary Encounter for long-term (current) use of anticoagulants documented in this encounter Care Teams Garage Manager Relationship Specialty Start Date End Date Crescencio Camacho MD [address] [place] [phone] PCP - General FAMILY PRACTICE 08/25/16 Fercho Simon MD Vascular/Test Man INTERNAL MEDICINE 11/01/15 documented as of this encounter
--- OUTSIDE RECORDS SUMMARY | 2024-03-19 13:12 | XMS_ITS | Encounter Summary ---
Author Organization [facility] - [facility] Address [address] [facility] [address] [place] [address] Care Team Providers Care Awning Maker And Installer Name Role Phone Fercho Simon MD Unavailable Crescencio Camacho MD Primary Care Provider Encounter Details Date Type Department Care Team (Late st Contact Info) Description 05/08/2017 Abstract [facility] [address] [place] [phone] Fercho Simon MD [address], [place] [phone] Social History Tobacco Use Types Packs/Day Years [...] on filedocumented in this encounter Care Teams Awning Maker And Installer Relationship Specialty Start Date End Date Crescencio Camacho MD [address] [place] [address] PCP - General FAMILY PRACTICE 08/25/16 Fercho Simon MD Vascular/Dealership General Manager INTERNAL MEDICINE 11/01/15 documented as of this encounter
--- OUTSIDE RECORDS SUMMARY | 2024-03-19 13:12 | XMS_ITS | Encounter Summary ---
Author Organization [facility] - [facility] Address [facility] [facility] [place] [address] [place] [address] Care Team Providers Care Airport Control Operator Name Role Phone Orville Simmons MD Primary Care Provider [phone] Fercho Simon MD Unavailable Encounter Details Date Type Department Care Team (Late st Contact Info) Description 04/20/2016 Abstract [facility] [address] [place] [address] Fercho Simon MD [address] [place], [place] [address] Social History Tobacco Use Types Packs/Day Years [...] on filedocumented in this encounter Care Teams Airport Control Operator Relationship Specialty Start Date End Date Orville Simmons MD [address] [place] [address] PCP - General FAMILY PRACTICE 09/06/15 08/24/16 Fercho Simon MD [address] [place] [phone] Vascular/Dining Room Attendant Cafeteria INTERNAL MEDICINE 11/01/15 documented as of this encounter
--- OUTSIDE RECORDS SUMMARY | 2024-03-19 13:12 | XMS_ITS | Encounter Summary ---
Author Organization [facility] - [facility] Address [facility] [place] [address] [place] [address] Care Team Providers Care Commercial Instructor Supervisor Name Role Phone Fercho Simon MD Unavailable Crescencio Camacho MD Primary Care Provider Encounter Details Date Type Department Care Team (Latest Contact Info) Description 12/20/2016 Abstract [facility] Medical Group Social History Tobacco Use Types [...] on filedocumented in this encounter Care Teams Commercial Instructor Supervisor Relationship Specialty Start Date End Date Crescencio Camacho MD [address] [place] [address] PCP - General FAMILY PRACTICE 08/25/16 Fercho Simon MD Vascular/Body Man INTERNAL MEDICINE 11/01/15 documented as of this encounter
--- OUTSIDE RECORDS SUMMARY | 2024-03-19 13:12 | XMS_ITS | Encounter Summary ---
Author Organization [facility] - [facility] Address [facility] [place]6 [facility] [address] [place] [address] Care Team Providers Care Web Press Jogger Name Role Phone Orville Simmons MD Primary Care Provider [phone] Fercho Simon MD Unavailable Encounter Details Date Type Department Care Team (Late st Contact Info) Description 04/13/2016 Abstract [facility] [address] [place] [address] Fercho Simon MD [address] [place], [place] [address] Social History Tobacco Use Types Packs/Day Years [...] on filedocumented in this encounter Care Teams Web Press Jogger Relationship Specialty Start Date End Date Orville Simmons MD [address] [place] [address] PCP - General FAMILY PRACTICE 09/06/15 08/24/16 Fercho Simon MD [address] [facility] [place] [phone] Vascular/Emc Storage Architect INTERNAL MEDICINE 11/01/15 documented as of this encounter
--- OUTSIDE RECORDS SUMMARY | 2024-03-19 13:12 | XMS_ITS | Encounter Summary ---
Author Organization [facility] Address [facility] [place] [address] [place] [address] Care Team Providers Care Professional Soccer Player Name Role Phone Fercho Simon MD Unavailable Crescencio Camacho MD Primary Care Provider Encounter Details Date Type Department Care Team (Late st Contact Info) Description 04/13/2017 Abstract [facility] [address] [place] [address], [address] [place] [address] Belen Lyn MD Social History Tobacco Use Types [...] on file documented as of this encounter Procedure Notes * Belen Lyn MD - 04/13/2017 10:23 AM CST [address] [address] Patient: ARSH MUELLER Med Rec#: [id number] Birthdate: 1955 Admit/Svce Date: 04/13/2017 Disch Date: Attending Md: BELEN LYN MD OPERATIVE REPORT PATIENT: Arsh Mueller : 1955 MR #: [id number] Surgery Date: Chart Document DATE: 04/13/2017 Preoperative Diagnosis: Posterior neck recurrent lipoma. Postoperative Diagnosis: Posterior neck recurrent lipoma. Procedure: Neck recurrent lipoma excision. SURGEON: Belen Lyn MD Anesthesia: IV sedation plus local. Intravenous Fluids: 900 mL LR. Estimated Blood Loss: 3 mL. Findings: 5 x 4.5 x 1 cm lobulated fatty tissue with scarring. Specimen: 5 x 4.5 x 1 cm lobulated fatty tissue with scarring. Complications: None. Indication: This is very pleasant 61-year-old male patient, who had twice lipoma removal from posterior neck in the office by PCP. He subsequently noticed it again 1 up at his incision. He was examined and recurrent lipoma was suspected. I discussed with patient nature of lipoma, natural course of disease, nature of excision, indication, benefits, alternatives, risks, complications, preoperative instructions, postoperative course in deep details. In section of complication, I mentioned that patient is going to be at risk for infection, bleeding. He was on Eliquis, which was held for 2 days. Patient verbalized understanding nature of discussion. He accepted the risk factors and would like me to proceed with excision. Description of Procedure: Patient was seen in preoperative area. All questions were answered. Consent was signed. IV antibiotics were given. Then, patient was taken to operating room and put in right decubitus position. His posterior neck was prepared and draped in usual sterile fashion. Proper timeout was done. IV sedation was induced. Then, skin over and around it was infiltrated with 10 mL of Marcaine 0.25% with epinephrine. I did approximately 4 cm skin incision including most of the old skin scar. Then, it was taken down with Bovie electrocautery until lobulated fatty tissues were encountered, it was completely excised as well as some scar adjacent to it medially. It was measured 5 x 4.5 x 1 cm and submitted for pathology. Area was copiously irrigated. Small bleeders were stopped using Bovie electrocautery. space was obliterated and approximated with interrupted 2-0 Vicryl sutures and skin was closed with 4-0 Monocryl subcuticular sutures. Dermabond applied over. Patient tolerated procedure well and was transferred to recovery in stable condition. Instrument, lap, and needle count was correct. RO/ams [id number] RO/ams [id number] E-Signed By A Belen Lyn MD 04/13/2017 04:35 P P [id number] cc: MD Belen Aguilar MD Bruce F. Weber, MD documented in this encounter Plan of Treatment Not on file documented as of this encounter Visit Diagnoses Not on filedocumented in this encounter Care Teams Professional Soccer Player Relationship Specialty Start Date End Date Crescencio Camacho MD [address] [place] [phone] PCP - General FAMILY PRACTICE 08/25/16 Fercho Simon MD Vascular/Machine Worker INTERNAL MEDICINE 11/01/15 documented as of this encounter
--- OUTSIDE RECORDS SUMMARY | 2024-03-19 13:12 | XMS_ITS | Encounter Summary ---
Author Organization [facility] Address [facility]6 [facility]. [place], [place] [address] [place] [address] Care Team Providers Care Business Improvement Manager Name Role Phone Fercho Simon MD Unavailable Crescencio Camacho MD Primary Care Provider Encounter Details Date Type Department Care Team (Latest Contact Info) Description 04/13/2017 Abstract [facility] Medical Group Ricardo Lyn MD Social History Tobacco Use [...] Procedure Name Priority Date/Time Associated Diagnosis Comments PATHOLOGY Routine 04/13/2017 12:00 AM GEOLOGICAL TECHNICAL OFFICER documented in this encounter Results * Pathology (04/13/2017 12:00 AM GEOLOGICAL TECHNICAL OFFICER) COPATH REPORT SURG [facility] Department of Laboratory Medicine [address] [place] [address] , extension [phone] Facsimile: ?? Surgical Pathology Report Patient Name: ARSH MUELLER MR#: [id number] Specimen #[id number] Source: Soft tissue, left lower posterior neck Preoperative Diagnosis: Recurrent lipoma left lower posterior neck. Gross Description: Received in formalin, labeled with a patient label and as lower left posterior neck lipoma are four pieces of pale martini pink lobulated tissue. ??The pieces range from 1.2 to 4.5 cm and are 5 x 5 x 1.0 cm in aggregate. ??The pieces are all inked black and sectioned to reveal a pale martini pink uniform cut surface with a few fibromembranous areas. ??Inventory And Pricing Associate tissue is submitted in cassettes 1 and 2. Final Diagnosis: SOFT TISSUE, LEFT POSTERIOR NECK, RESECTION: ?- MATURE ADIPOSE TISSUE CONSISTENT WITH LIPOMA WITH ASSOCIATED AREAS OF DENSE ?FIBROSIS AND REACTIVE CHANGES. Electronically Signed Out Rafael Benjamin M.D., Ph.D. [facility] TO EPIC CONVERSION 04/13/2017 04/13/2017 Narrative [facility] TO EPIC CONVERSION - 04/13/2017 12:46 PM GEOLOGICAL TECHNICAL OFFICER Result Communication: No patient communication needed at this time us Ricardo Lyn MD PATHOLOGY/CYTOLOGY ORDERABLES Final Result [facility] TO [employer] CONVERSION documented in this encounter Visit Diagnoses Not on filedocumented in this encounter Care Teams Business Improvement Manager Relationship Specialty Start Date End Date Crescencio Camacho MD [address] [place] [phone] PCP - General FAMILY PRACTICE 08/25/16 Fercho iSmon MD Vascular/Vascular Surgeon INTERNAL MEDICINE 11/01/15 documented as of this encounter
--- OUTSIDE RECORDS SUMMARY | 2024-03-19 13:12 | XMS_ITS | Encounter Summary ---
Author Organization [facility] - [facility] Address [address] [place] [address] [place] [address] Care Team Providers Care Skin Peeling Machine Operator Name Role Phone Fercho Simon MD Unavailable Crescencio Camacho MD Primary Care Provider [phone] Encounter Details Date Type Department Care Team (Late st Contact Info) Description 04/06/2017 Abstract [facility] [address] [place] [phone] Fercho Simon MD [address] [place], [place] [address] Social History Tobacco Use Types Packs/Day Years [...] on filedocumented in this encounter Care Teams Skin Peeling Machine Operator Relationship Specialty Start Date End Date Crescencio Camacho MD [address] [place] [address] PCP - General FAMILY PRACTICE 08/25/16 Fercho Simon MD Vascular/Hydraulic Plumber INTERNAL MEDICINE 11/01/15 documented as of this encounter
--- OUTSIDE RECORDS SUMMARY | 2024-03-19 13:12 | XMS_ITS | Encounter Summary ---
Author Organization [facility] Address [facility] [place] [address] [place] [address] Care Team Providers Care Mechanical Process Engineer Name Role Phone Fercho Simon MD Unavailable Crescencio Camacho MD Primary Care Provider Encounter Details Date Type Department Care Team (Late st Contact Info) Description 04/08/2018 Orders Only [facility] [address] [place] [address] Fercho Simon MD [address] [place] [address] Social History Tobacco Use Types [...] documented in this encounter Visit Diagnoses Diagnosis computer terminal operator current use of anticoagulant therapy- Primary Monitoring for anticoagulant use Encounter for long-term (current) use of anticoagulants documented in this encounter Care Teams Mechanical Process Engineer Relationship Specialty Start Date End Date Crescencio Camacho MD [address] [place] [phone] PCP - General FAMILY PRACTICE 08/25/16 Fercho Simon MD Vascular/Autocad Operator INTERNAL MEDICINE 11/01/15 documented as of this encounter
--- OUTSIDE RECORDS SUMMARY | 2024-03-19 13:12 | XMS_ITS | Encounter Summary ---
Author Organization [facility] - [facility] Address [facility] [place] [address] [place] [address] Care Team Providers Care Survey Superintendent Name Role Phone Orville Simmons MD Primary Care Provider [phone] Fercho Simon MD Unavailable Encounter Details Date Type Department Care Team (Late st Contact Info) Description 04/18/2016 Orders Only [facility] [address] [place] [phone] Fercho Simon MD [address] [place], [place] [address] Social History Tobacco Use Types Packs/Day Years [...] on filedocumented in this encounter Care Teams Survey Superintendent Relationship Specialty Start Date End Date Orville Simmons MD [address] [place] [address] PCP - General FAMILY PRACTICE 09/06/15 08/24/16 Fercho Simon MD [address] [facility] [place] [phone] Vascular/Car Electronics Installer INTERNAL MEDICINE 11/01/15 documented as of this encounter
--- OUTSIDE RECORDS SUMMARY | 2024-03-19 13:12 | XMS_ITS | Encounter Summary ---
Author Organization [facility] Address [address] [facility] [place] [address] [place] [address] Care Team Providers Care Sugar Mill Worker Name Role Phone Orville Simmons MD Primary Care Provider [phone] Fercho Simon MD Unavailable Crescencio Camacho MD Primary Care Provider [phone] Encounter Details Date Type Department Care Team (Late st Contact Info) Description 03/08/[address] [facility] [address] [place] [address] Crescencio Camacho MD [address] [place] [phone] Social History Tobacco Use Types Packs/Day [...] as of this encounter Visit Diagnoses Diagnosis Embolism and thrombosis of right femoral vein (CMS/HCC HHS/HCC) Acute venous embolism and thrombosis of deep vessels of proximal lower extremity documented in this encounter Care Teams Sugar Mill Worker Relationship Specialty Start Date End Date Orville Simmons MD [address] [place] [phone] PCP - General FAMILY PRACTICE 09/06/15 08/24/16 Crescencio Camacho MD [address] [place] [phone] PCP - General FAMILY PRACTICE 08/25/16 Fercho Simon MD [address] [facility] [place] [place] [address] Vascular/Process Control Programmer INTERNAL MEDICINE 11/01/15 documented as of this encounter
--- OUTSIDE RECORDS SUMMARY | 2024-03-19 13:12 | XMS_ITS | Encounter Summary ---
Author Organization [facility] Address [facility] [place] [address] [place] [address] Care Team Providers Care Dean Of Graduate Studies Name Role Phone Fercho Simon MD Unavailable Crescencio Camacho MD Primary Care Provider Reason for Visit * Reason Onset Date Comments Medication Information 06/25/2017 Refill / Co-pay card Encounter Details Date Type Department Care Team (Late st Contact Info) Description 06/25/2017 Telephone [facility] [address] [place] [address] Fercho Simon MD [address] [place] [address] Medication Information (Refill / Co-pay card) Social History Tobacco Use Types Packs/Day Years [...] encounter Progress Notes * Makenzie Joyce - 06/25/2017 1:17 PM CDT Patient called re: refill on Eliquis. I informed patient that per EMR, it was refilled this morning. Patient asked about a co-pay card. I called [facility] and they confirmed the receipt of the refill and his co-pay for this burr picker is $10. I informed patient I would mail another card to him for future use. Patient understands he needs to activate card before using. Patient had no other questions. documented in this encounter Plan of Treatment Not on file documented as of this encounter Visit Diagnoses Not on filedocumented in this encounter Care Teams Dean Of Graduate Studies Relationship Specialty Start Date End Date Crescencio Camacho MD [address] [place] [phone] PCP - General FAMILY PRACTICE 08/25/16 Fercho Simon MD Vascular/Commercial Real Estate Broker INTERNAL MEDICINE 11/01/15 documented as of this encounter
--- OUTSIDE RECORDS SUMMARY | 2024-03-19 13:12 | XMS_ITS | Encounter Summary ---
Author Organization [facility] Address [facility] [place] [address] [place] [address] Care Team Providers Care Club Manager Name Role Phone Orville Simmons MD Primary Care Provider [phone] Fercho Simon MD Unavailable Crescencio Camacho MD Primary Care Provider [phone] Encounter Details Date Type Department Care Team (Late st Contact Info) Description 01/24/2016 Abstract [facility] [address] [place] [address] Claire Meng, [facility] [address] [place] [address] Social History Tobacco Use Types Packs/Day Years [...] as of this encounter Visit Diagnoses Diagnosis Strain of muscle, fascia and tendon of other parts of biceps, left arm, sequela documented in this encounter Care Teams Club Manager Relationship Specialty Start Date End Date Orville Simmons MD [address] [place] [address] PCP - General FAMILY PRACTICE 09/06/15 08/24/16 Crescencio Camacho MD [address] [place] [phone] PCP - General FAMILY PRACTICE 08/25/16 Fercho Simon MD [address] [place] [address] [place] [address] Vascular/Cmm Programmer INTERNAL MEDICINE 11/01/15 documented as of this encounter
--- OUTSIDE RECORDS SUMMARY | 2024-03-19 13:12 | XMS_ITS | Encounter Summary ---
Author Organization [facility] Address [facility] [place] [address] [place] [address] Care Team Providers Care Director Of Logistics Name Role Phone Orville Simmons MD Primary Care Provider [phone] Fercho Simon MD Unavailable Encounter Details Date Type Department Care Team (Late st Contact Info) Description 02/21/2016 Orders Only [facility] [address] [place] [address] Fercho Simon MD [address] [place], [place] [address] Social History Tobacco Use Types Packs/Day Years [...] as of this encounter Visit Diagnoses Diagnosis Varicose veins of both lower extremities with complications- Primary documented in this encounter Care Teams Director Of Logistics Relationship Specialty Start Date End Date Orville Simmons MD [address] [place] [address] PCP - General FAMILY PRACTICE 09/06/15 08/24/16 Fercho Simon MD [address] [place] [address] Vascular/Hide Washer INTERNAL MEDICINE 11/01/15 documented as of this encounter
--- OUTSIDE RECORDS SUMMARY | 2024-03-19 13:12 | XMS_ITS | Encounter Summary ---
Author Organization [facility] Address [address] [place] [address] [place] [address] Care Team Providers Care Insole Filler Name Role Phone Fercho Simon MD Unavailable Crescencio Camacho MD Primary Care Provider Reason for Visit * Reason Comments Follow Up Bilateral DVT Encounter Details Date Type Department Care Team (Latest Contact Info) Description 10/17/2016 9:00 AM CDT Office Visit [facility] AT [address] [place] [address] Fercho Simon MD [address] [place] [address] Follow Up (Bilateral DVT) Social History Tobacco Use Types Packs/Day Years [...] Sign Reading Time Taken Comments Blood Pressure 159/95 10/17/2016 9:16 AM CDT Pulse 92 10/17/2016 9:15 AM CDT Temperature - - Respiratory Rate 16 10/17/2016 9:15 AM CDT Oxygen Saturation - - Inhaled Oxygen Concentration - - Weight 125.6 kg (277 lb) 10/17/2016 9:15 AM CDT Height 182.9 cm (6') 10/17/2016 9:15 AM CDT Body Mass Index 37.57 10/17/2016 9:15 AM CDT documented in this encounter Progress Notes * Fercho Simon MD - 10/17/2016 9:00 AM CDT Reason for Visit: Follow Up (Bilateral DVT) History of Present Illness: A 61-year-old, male whose cardiovascular history consists of: 1. 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 2. Unprovoked right femoral vein DVT in 06/15. 3. Coronary artery disease. 4. Hypertension. 5. Hyperlipidemia. The patient continues to do well with edema seems well controlled with compression stockings. Duplex done recently shows chronic clot in right femoral and left popliteal veins. His last duplex with me showed occlusive clot in his right femoral vein which was done for his venous incomp testing. He has had history of multiple clots in his left leg, at least 3 times he tells me. He has been tolerating anticoagulation with Eliquis 2.5 well without any problem. Only issue is some on/off chest pain he has noticed for few months. ASSESSMENT AND PLAN: 1. Recurrent DVTs. He had multiple history of DVTs in his left leg and then unprovoked DVT in his right leg in June 2015. Detailed thrombophilia workup had been negative. Age appropriate cancer workup has been recommended, which I would defer to you. Will continue Eliquis at 2.5 b.i.d. Last Hb was14.5 and Cr ws 0.8 . 2. 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 Will continue anticoagulation. 3. Left leg edema with the right little more than left. This is consistent with postphlebitic syndrome from his venous insufficiency from his previous DVTs. Edema is well controlled with compression stockings. 4. Coronary artery disease, status post CABG. On/off chest pains. Used to see Dr. Moise. Will refer to [facility] colleague. On ASA, ARB and statins. Not on beta blockers, not sure why. 5. Hypertension and Hyperlipidemia. Will defer to you. He is on statins. Followup in 6 months with CBC and BMP since he is on chronic anticoagulation. Medications: Current Outpatient Prescriptions: ??? apixaban 2.5 [...] Vomiting Past Medical History: Diagnosis Date ??? Benign hypertension ??? CAD (coronary artery disease) CABG ??? DVT (deep venous thrombosis) Right femoral vein and left popliteal ??? Hx of CABG ??? Hyperlipemia, mixed Past Surgical History: Procedure Laterality Date ??? [...] Yes ??? Self-Exams Yes Social History Narrative Family History Problem Relation [...] polydipsia. Does not bruise/bleed easily. Filed Vitals: 10/17/16 0915 10/17/16 0916 BP: 151/80 (!) 159/95 Pulse: 92 Resp: 16 Weight: 125.6 kg (277 lb) Height: 6' (1.829 m) Physical Exam Constitutional: He is oriented [...] History of DVT (deep vein thrombosis) 2. Hx of CABG 3. Essential hypertension 4. Hyperlipidemia, unspecified hyperlipidemia type documented in this encounter Plan of Treatment Not on file documented as of this encounter Visit Diagnoses Diagnosis History of DVT (deep vein thrombosis)- Primary Personal history of venous thrombosis and embolism Hx of CABG Postsurgical aortocoronary bypass status Essential hypertension Unspecified essential hypertension Hyperlipidemia, unspecified hyperlipidemia type documented in this encounter Care Teams Insole Filler Relationship Specialty Start Date End Date Crescencio Camacho MD [address] [place] [address] PCP - General FAMILY PRACTICE 08/25/16 Fercho Simon MD Vascular/Hand Brush Filler INTERNAL MEDICINE 11/01/15 documented as of this encounter
--- OUTSIDE RECORDS SUMMARY | 2024-03-19 13:12 | XMS_ITS | Encounter Summary ---
Author Organization [facility] Address [address] [facility] [place] [address] [place] [address] Care Team Providers Care Mold Forms Builder Name Role Phone Fercho Simon MD Unavailable Crescencio Camacho MD Primary Care Provider Reason for Visit * Reason Onset Date Comments Appointment Request 05/08/2017 Encounter Details Date Type Department Care Team (Late st Contact Info) Description 05/08/2017 Telephone [facility] [address] [place] [address] Fercho Simon MD [address] [place] [address] Appointment Request Social History Tobacco Use Types [...] Progress Notes * Oneida Hoffman LPN - 05/08/2017 11:17 AM CST Please see patient to est CAD care pt request to be seen in [facility]. Thank you , Oneida / Dr Simon TENANCE MECHANIC ELEVATORS documented in this encounter Plan of Treatment Not on file documented as of this encounter Visit Diagnoses Not on filedocumented in this encounter Care Teams Mold Forms Builder Relationship Specialty Start Date End Date Crescencio Camacho MD [address] [place] [address] PCP - General FAMILY PRACTICE 08/25/16 Fercho Simon MD Vascular/Earth Science Technical Officer INTERNAL MEDICINE 11/01/15 documented as of this encounter
--- OUTSIDE RECORDS SUMMARY | 2024-03-19 13:12 | XMS_ITS | Encounter Summary ---
Author Organization [facility] Address [facility] [place] [address] [place] [address] Care Team Providers Care Narcotics And Vice Detective Name Role Phone Orville Simmons MD Primary Care Provider [phone] Fercho Simon MD Unavailable Crescencio Camacho MD Primary Care Provider [phone] Encounter Details Date Type Department Care Team (Late st Contact Info) Description 01/18/2016 Abstract [facility] [address] [place] [address] Orestes Layne MD [address] [place] [address] Social History Tobacco Use Types [...] of this encounter Visit Diagnoses Diagnosis Pain in left shoulder Pain in joint, shoulder region documented in this encounter Care Teams Narcotics And Vice Detective Relationship Specialty Start Date End Date Orville Simmons MD [address] [place] [phone] PCP - General FAMILY PRACTICE 09/06/15 08/24/16 Crescencio Camacho MD [address] [place] [phone] PCP - General FAMILY PRACTICE 08/25/16 Fercho Simon MD [address] [place] [address] Vascular/Morgue Technician INTERNAL MEDICINE 11/01/15 documented as of this encounter
--- OUTSIDE RECORDS SUMMARY | 2024-03-19 13:12 | XMS_ITS | Encounter Summary ---
Author Organization [facility] Address [facility] [place] [address] [place] [address] Care Team Providers Care Pipe Fitter Name Role Phone Fercho Simon MD Unavailable Crescencio Camacho MD Primary Care Provider Encounter Details Date Type Department Care Team (Late st Contact Info) Description 04/13/[address] [facility] [place] [address] [place] [address] Ricardo Lyn MD Social History Tobacco Use [...] as of this encounter Visit Diagnoses Diagnosis Benign lipomatous neoplasm of skin and subcutaneous tissue of head, face and neck documented in this encounter Care Teams Pipe Fitter Relationship Specialty Start Date End Date Crescencio Camacho MD [address] [place] [address] PCP - General FAMILY PRACTICE 08/25/16 Fercho Simon MD Vascular/Buncher Operator INTERNAL MEDICINE 11/01/15 documented as of this encounter
--- OUTSIDE RECORDS SUMMARY | 2024-03-19 13:12 | XMS_ITS | Encounter Summary ---
Author Organization [facility] Address [address] [facility] [place] [address] [place] [address] Care Team Providers Care Interior Design Assistant Name Role Phone Orville Simmons MD Primary Care Provider [phone] Fercho Simon MD Unavailable Reason for Referral * Imaging (Routine) - Completed Specialty Diagnoses / Procedures Referred By Contac t Referred To Contact CARDIOLOGY Diagnoses Deep vein thrombosis (DVT) of other vein of both lower extremities ([facility]/HCC HHS/HCC) Procedures USV KEESHA DUPLEX LOW EXT JHON Fercho Simon MD [address] [facility] [place] [address] Phone: tel: fax: [facility]- [address] [facility] [place] [address] Phone: tel: Referral ID Status Reason Start Date Expiration Date V isits Requested Visits Authorized [id number] Completed 04/17/2016 05/18/2017 1 1 KER HEATED [employer]MS Encounter Details Date Type Department Care Team (Late st Contact Info) Description 04/17/2016 Orders Only [facility] [address] [place] [phone] Fercho Simon MD [address] [place] [address] Social History Tobacco Use Types [...] USV KEESHA DUPLEX LOW EXT JOHN Routine 04/18/2016 Deep vein thrombosis (DVT) of other vein of both lower extremities ([facility] H[facility]) documented in this encounter Results * USV KEESHA DUPLEX LOW EXT JOHN (04/18/2016) Anatomical Region Laterality Modality Extremity Vascular Ultraso und Fercho Simon MD VASC Final Result documented in this encounter Visit Diagnoses Diagnosis Deep vein thrombosis (DVT) of other vein of both lower extremities ([facility] H[facility])- Primary documented in this encounter Care Teams Interior Design Assistant Relationship Specialty Start Date End Date Orville Simmons MD [address] [place] [address] PCP - General FAMILY PRACTICE 09/06/15 08/24/16 Fercho Simon MD [address] [place] [address] Vascular/University Counselor INTERNAL MEDICINE 11/01/15 documented as of this encounter
--- OUTSIDE RECORDS SUMMARY | 2024-03-19 13:12 | XMS_ITS | Encounter Summary ---
Author Organization [facility] Address [facility] [facility] [place] [address] [place] [address] Care Team Providers Care Case Investigator Name Role Phone Fercho Simon MD Unavailable Crescencio Camacho MD Primary Care Provider Reason for Visit * Reason Onset Date Comments Question 11/08/2016 Encounter Details Date Type Department Care Team (Late st Contact Info) Description 11/08/2016 Telephone [facility] [address] [place] [address] Anderson Barboza MD Question Social History Tobacco Use Types Packs/Day Years [...] on filedocumented in this encounter Care Teams Case Investigator Relationship Specialty Start Date End Date Crescencio Camacho MD [address] [place] [address] PCP - General FAMILY PRACTICE 08/25/16 Fercho Simon MD Vascular/Coil Binder INTERNAL MEDICINE 11/01/15 documented as of this encounter
--- OUTSIDE RECORDS SUMMARY | 2024-03-19 13:12 | XMS_ITS | Encounter Summary ---
Author Organization [facility] Address [facility] [facility] [place] [address] [place] [address] Care Team Providers Care Soybean Grower Name Role Phone Fercho Simon MD Unavailable Crescencio Camacho MD Primary Care Provider Reason for Visit * Reason Onset Date Comments Appointment Request 04/12/2018 1 year f/u w ith CBC, BMP Encounter Details Date Type Department Care Team (Late st Contact Info) Description 04/12/2018 Telephone [facility] [address] [place] [address] Fercho Simon MD [address] [place], [place] [address] Appointment Request (1 year f/u with CBC, BMP) Social History Tobacco Use Types Packs/Day Years [...] of this encounter Progress Notes * Makenzie Jocye - 04/12/2018 12:20 PM CST Patient called to schedule 1 year f/u in [place] with CBC, BMP. Patient has lab orders. Reminderletter and worksheet mailed for 05/07/18 appt. ANIST documented in this encounter Plan of Treatment Not on file documented as of this encounter Visit Diagnoses Not on filedocumented in this encounter Care Teams Soybean Grower Relationship Specialty Start Date End Date Crescencio Camacho MD [address] [place] [phone] PCP - General FAMILY PRACTICE 08/25/16 Fercho Simon MD Vascular/Weigh Box Tender INTERNAL MEDICINE 11/01/15 documented as of this encounter
--- OUTSIDE RECORDS SUMMARY | 2024-03-19 13:12 | XMS_ITS | Encounter Summary ---
Author Organization [facility] Address [facility] [facility] [place] [address] [place] [address] Care Team Providers Care Barn Operator Name Role Phone Fercho Simon MD Unavailable Crescencio Camacho MD Primary Care Provider [phone] Reason for Visit * Reason Onset Date Comments Appointment Request 10/17/2016 Encounter Details Date Type Department Care Team (Late st Contact Info) Description 10/17/2016 Telephone [facility] [employer] [facility] [address] [place] [address] Fercho Simon MD [address] [place] [address] Appointment Request Social History Tobacco [...] Progress Notes * Oneida Hoffman LPN - 10/17/2016 10:[address] Simon referral for CP I sent in a script for SL Nitro .former pt of Dr Moise . See in Miri . Thanks documented in this encounter Plan of Treatment Not on file documented as of this encounter Visit Diagnoses Not on filedocumented in this encounter Care Teams Barn Operator Relationship Specialty Start Date End Date Crescencio Camacho MD [address] [place] [address] PCP - General FAMILY PRACTICE 08/25/16 Fercho Simon MD Vascular/Graduate Intern INTERNAL MEDICINE 11/01/15 documented as of this encounter
--- OUTSIDE RECORDS SUMMARY | 2024-03-19 13:12 | XMS_ITS | Encounter Summary ---
Author Organization [facility] Address [facility] [facility] 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 AMER. >60 EGFR NON-AFR. AMER. >60 04/18/2016 Fercho Simon MD LABORATORY Edited Result - Final documented in this encounter Visit Diagnoses Diagnosis termite renewal inspector (current) use of anticoagulants- Primary Long-term (current) use of anticoagulants documented in this encounter Care Teams Customer Professional Relationship Specialty Start Date End Date Orville Simmons MD [address] [place] [phone] PCP - General FAMILY PRACTICE 09/06/15 08/24/16 Fercho Simon MD [address] [place] [address] Vascular/Paragliding Instructor INTERNAL MEDICINE 11/01/15 documented as of this encounter
--- OUTSIDE RECORDS SUMMARY | 2024-03-19 13:12 | XMS_ITS | Encounter Summary ---
Author Organization [facility] Address [facility] [place] [address] [place] [address] Care Team Providers Care Paper Bag Maker Name Role Phone Orville Simmons MD Primary Care Provider [phone] Fercho Simon MD Unavailable Crescencio Camacho MD Primary Care Provider [phone] Encounter Details Date Type Department Care Team (Late st Contact Info) Description 01/20/2016 Abstract [facility] [address] [place] [address] Orestes Layne MD [address] [place] [address] Social History Tobacco Use Types [...] of other parts of biceps, left arm, initial encounter documented in this encounter Care Teams Paper Bag Maker Relationship Specialty Start Date End Date Orville Simmons MD [address] [place] [address] PCP - General FAMILY PRACTICE 09/06/15 08/24/16 Crescencio Camacho MD [address] [place] [phone] PCP - General FAMILY PRACTICE 08/25/16 Fercho Simon MD [address] [place] [address] [place] [address] Vascular/[place]astal And Estuary Specialist INTERNAL MEDICINE 11/01/15 documented as of this encounter
--- OUTSIDE RECORDS SUMMARY | 2024-03-19 13:12 | XMS_ITS | Encounter Summary ---
Author Organization [facility] Address [facility] [place] [address] [place] [address] Care Team Providers Care Air Brake Tester Name Role Phone Fercho Simon MD Unavailable Crescencio Camacho MD Primary Care Provider Encounter Details Date Type Department Care Team (Late st Contact Info) Description 10/12/2016 Abstract [facility] [address] [place] [address] Fercho Simon MD [address] [place] [address] Social History Tobacco Use Types Packs/Day Years [...] of this encounter Visit Diagnoses Diagnosis Acute embolism and thrombosis of deep vein of both lower extremities (CMS/HCC HHS/HCC) Acute venous embolism and thrombosis of unspecified deep vessels of lower extremity documented in this encounter Care Teams Air Brake Tester Relationship Specialty Start Date End Date Crescencio Camacho MD [address] [place] [address] PCP - General FAMILY PRACTICE 08/25/16 Fercho Simon MD Vascular/User Experience Developer INTERNAL MEDICINE 11/01/15 documented as of this encounter
--- OUTSIDE RECORDS SUMMARY | 2024-03-19 13:12 | XMS_ITS | Encounter Summary ---
Author Organization [facility] Address [facility] [facility] [place] [address] [place] [address] Care Team Providers Care Concrete Journeyman Name Role Phone Fercho Simon MD Unavailable Crescencio Camacho MD Primary Care Provider Reason for Visit * Reason Comments Follow Up bilateral DVT Encounter Details Date Type Department Care Team (Latest Contact Info) Description 05/08/2017 10:45 AM MANUFACTURING MANAGER Office Visit [facility] AT [address] [place] [address] Fercho Simon MD [address] [place] [address] Follow Up (bilateral DVT ) Social History Tobacco Use Types Packs/Day [...] Sign Reading Time Taken Comments Blood Pressure 149/92 05/08/2017 10:37 AM MANUFACTURING MANAGER Pulse 76 05/08/2017 10:36 AM MANUFACTURING MANAGER Temperature - - Respiratory Rate 20 05/08/2017 10:36 AM MANUFACTURING MANAGER Oxygen Saturation - - Inhaled Oxygen Concentration - - Weight 125.6 kg (277 lb) 05/08/2017 10:36 AM MANUFACTURING MANAGER Height 180.3 cm (5' 11 ) 05/08/2017 10:36 AM MANUFACTURING MANAGER Body Mass Index 38.63 05/08/2017 10:36 AM MANUFACTURING MANAGER documented in this encounter Progress Notes * Fercho Simon MD - 05/08/2017 10:45 AM CST Reason for Visit: Follow Up (bilateral DVT ) History of Present Illness: 61-year-old, male whose cardiovascular history consists of: 1. 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 2. Unprovoked right femoral vein DVT in 06/15. 3. Coronary artery disease. 4. Hypertension. 5. Hyperlipidemia. The patient continues to do well with edema well controlled with compression stockings. Last venousduplex done recently shows chronic clot in right femoral and left popliteal veins. He has been tolerating anticoagulation with Eliquis 2.5 well without any problem. Recent Cr is 1.02 and Hb is 15. ASSESSMENT AND PLAN: 1. Recurrent DVTs. He had multiple history of DVTs in his left leg and then unprovoked DVT in his right leg in June 2015. Detailed thrombophilia workup had been negative. Age appropriate cancer workup has been recommended, which I would defer to you. Will continue Eliquis at 2.5 b.i.d.. 2. 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 Will continue anticoagulation. 3. Left leg edema with the right little more than left. 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 Edema is well controlled with compression stockings. 4. Coronary artery disease, status post CABG. On/off chest pains, but none in last six months. Usedto see Dr. Moise. Will refer to [facility] colleague. On ASA, ARB and statins. Not on beta blockers, not sure why. 5. Hypertension and Hyperlipidemia. BP is elevated, will add low dose HCTZ> He is on statins. Followup in one year with CBC and BMP. Medications: Current Outpatient Prescriptions: ??? apixaban 2.5 [...] mouth daily., Disp: , Rfl: ??? nitroGLYCERIN 0.4 MG SL tablet, Place 1 tablet (0.4 mg total) under the tongue every 5 (five) minutes as needed for Chest Pain. Maximum of 3 doses, one tablet every 5 minutes., Disp: 30 tablet, Rfl: 1 ??? simvastatin 40 MG tablet, Take 1 [...] Negative for cough, hemoptysis and wheezing. Cardiovascular: Positive for leg swelling. Negative for chest pain and palpitations. Gastrointestinal: Negative for blood in stool and melena. Genitourinary: Negative for dysuria. Musculoskeletal: Negative for joint pain and myalgias. Skin: Negative for rash. Neurological: Negative for tingling, sensory change, focal weakness and headaches. Endo/Heme/Allergies: Negative for polydipsia. Does not bruise/bleed easily. Filed Vitals: 05/08/17 1036 05/08/17 1037 BP: 154/87 (!) 149/92 Pulse: 76 Resp: 20 Weight: 125.6 kg (277 lb) Height: 5' 11 (1.803 m) Physical [...] is normal. Thought content normal. Diagnoses/Impression: 1. Essential hypertension 2. Long-term (current) use of anticoagulants FACTURING MANAGER documented in this encounter Plan of Treatment Not on file documented as of this encounter Procedures Procedure Name Priority Date/Time Associated Diagnosis Comments BASIC METABOLIC PANEL Routine 04/17/2017 Long-term (current) use of anticoagulants documented in this encounter Results * BASIC [...] Personal history of venous thrombosis and embolism Long-term (current) use of anticoagulants Encounter for long-term (current) use of anticoagulants Essential hypertension Unspecified essential hypertension documented in this encounter Care Teams Concrete Journeyman Relationship Specialty Start Date End Date Crescencio Camacho MD [address] [place] [phone] PCP - General FAMILY PRACTICE 08/25/16 Fercho Simon MD Vascular/Vice President Quality INTERNAL MEDICINE 11/01/15 documented as of this encounter
--- OUTSIDE RECORDS SUMMARY | 2024-03-19 13:12 | XMS_ITS | Encounter Summary ---
Author Organization [facility] Address [address] [facility] [place] [address] [place] [address] Care Team Providers Care Hoisting Machine Operator Name Role Phone Orville Simmons MD Primary Care Provider [phone] Fercho Simon MD Unavailable Crescencio Camacho MD Primary Care Provider [phone] Encounter Details Date Type Department Care Team (Late st Contact Info) Description 01/24/2016 Abstract [facility] [address] [place] [address] Claire Meng FNP-BC [address] [place] [address] Social History Tobacco Use Types [...] as of this encounter Progress Notes * JORGE Daniel - 01/24/2016 10:30 AM CDT Chief Complaint Chief Complaint: The patient presents to the office today with LEFT elbow MRI follow up. History of Present Illness HPI: Patient returns to clinic for follow up LEFT elbow MRI. He states that his pain is still the same. He has difficulty even lifting a gallon of milk with his left hand and unable to hold his 2 year old granddaughter. His sensation has not changed in his 4th and 5th fingers. PREVIOUS HISTORY 01-18-16 Patient comes to clinic today with complaints of LEFT shoulder and elbow pain. He reports that on 12-22-2015 he was lifting a barn door that shut quickly and injured his LEFTarm. He now has elbow and shoulder pain. He has pain with lifting. He is RIGHT hand. He reports decreased sensation in his 4th and 5th fingers. He has had some swelling at his elbow. He denies use of any ibuprofen. He has been using [place] but ran out. Review of Systems See HPI for pertinent positives. Active Problems 1. Left shoulder pain (719.41) (M25.512) 2. Rupture of left biceps tendon (840.8) (S46.112A) 3. Rupture of left distal biceps tendon, initial encounter (840.8) (S46.212A) Past Medical History 1. History of cardiac disorder (V12.50) (Z86.79) 2. History of depression (V11.8) (Z86.59) 3. History of hypertension (V12.59) (Z86.79) Surgical History 1. Denied: History Of Prior Surgery Family History Family History 1. No pertinent family history Social History ? Never a smoker ?? No alcohol use ?? Primary language is Yoruba ?? Retired Current Meds 1. Cyclobenzaprine HCl - 5 MG Oral Tablet; Therapy: 07Sep2015 to Recorded 2. Eliquis 5 MG Oral Tablet; Therapy: [id number] to Recorded 3. GaviLyte-N with Flavor Pack 420 GM Oral Solution Reconstituted; Therapy: 08Dec2015 to Recorded 4. Hydrocodone-Acetaminophen 5-325 MG Oral Tablet; Therapy: 07Sep2015 to Recorded 5. Hydrocodone-Acetaminophen 7.5-325 MG Oral Tablet; 1- 2 Q 4 - 6 HRS PRN PAIN; Therapy: 18Jan2016 to (Last Rx:18Jan2016) Ordered 6. Losartan Potassium 50 MG Oral Tablet; Therapy: 15Sep2015 to Recorded 7. Simvastatin 40 MG Oral Tablet; Therapy: 04Sep2015 to Recorded 8. Venlafaxine HCl - 75 MG Oral Tablet; Therapy: 15Sep2015 to Recorded Allergies 1. No Known Drug Allergies Physical Exam Constitutional: alert and in no acute distress. Neurological:. the patient was oriented to person, place, and time. mood and affect were appropriate. Eyes: pupils were equal in size, round, reactive to light, with normal accommodation. ENT: hearing was normal. Pulmonary: no respiratory distress. Abdomen: non-tender. Skin: no injuries or skin lesions on the left upper extremity. Left Elbow: EXAM reveals tenderness at the antecubital fossa, Full extension with painful extensionto 100, NVI, good capillary refill, pain with supination. Results/Data Exam description: left elbow MRI. MRI from 01-20-16 reveals moderate grade partial tear bicep tendon insertion at radial tuberosity Assessment 1. Rupture of left distal biceps tendon, sequela (905.8) (S46.212S) Plan Rupture of left distal biceps tendon, sequela 1. Occupational Therapy Referral Outpatient Left distal bicep tendon tear on 12-22-15 3 times a week for 4 weeks Status: Need Information - Financial Authorization Requested for: 24Jan2016 2. Continue with our present treatment plan.; Status:Complete; Done: 24Jan2016 3. You may continue or resume your normal level of activity.; Status:Complete; Done: 24Jan2016 Given script for OT and he will follow up in 4 weeks to reassess. Signatures Electronically signed by : NICOLE Mathis; Jan 24 2016 10:28AM LINE SERVICE TECHNICIAN (Author) documented in this encounter Plan of Treatment Not on file documented as of this encounter Visit Diagnoses Not on filedocumented in this encounter Care Teams Hoisting Machine Operator Relationship Specialty Start Date End Date Orville Simmons MD [address] [address] PCP - General FAMILY PRACTICE 09/06/15 08/24/16 Crescencio Camacho MD [address] [place] [phone] PCP - General FAMILY PRACTICE 08/25/16 Fercho Simon MD [address] [place] [phone] Vascular/Aircraft Load Controller INTERNAL MEDICINE 11/01/15 documented as of this encounter
--- OUTSIDE RECORDS SUMMARY | 2024-03-19 13:13 | XMS_ITS | Encounter Summary ---
Author Organization [facility] Address [address] [facility] [place] [address] [place] [address] Care Team Providers Care Paraprofessional Aide Name Role Phone Orville Simmons MD Primary Care Provider [phone] Fercho Simon MD Unavailable Crescencio Camacho MD Primary Care Provider [phone] Encounter Details Date Type Department Care Team (Late st Contact Info) Description 12/22/2015 Abstract [facility] [address] [place] [address] Arsh Millard MD [address] [place] [address] Social History Tobacco Use Types Packs/Day Years [...] as of this encounter Visit Diagnoses Diagnosis Other injury of unspecified body region documented in this encounter Care Teams Paraprofessional Aide Relationship Specialty Start Date End Date Orville Simmons MD [address] [place] [address] PCP - General FAMILY PRACTICE 09/06/15 08/24/16 Crescencio Camacho MD [address] [place] [address] PCP - General FAMILY PRACTICE 08/25/16 Fercho Simon MD [address] [facility] [place] [address] Vascular/Group Teacher INTERNAL MEDICINE 11/01/15 documented as of this encounter
--- OUTSIDE RECORDS SUMMARY | 2024-03-19 13:13 | XMS_ITS | Encounter Summary ---
Author Organization [facility] Address [address] [facility] [place] [address] [place] [address] Care Team Providers Care Teacher Asst Name Role Phone Orville Simmons MD Primary Care Provider [phone] Fercho Simon MD Unavailable Crescencio Camacho MD Primary Care Provider [phone] Encounter Details Date Type Department Care Team (Late st Contact Info) Description 12/10/[address] [facility] [place] [address] [place], [place] [phone] Crescencio Camacho MD [address] [place] [phone] Social History Tobacco Use Types Packs/Day [...] as of this encounter Visit Diagnoses Diagnosis Encounter for screening for malignant neoplasm of colon Special screening for malignant neoplasms, colon documented in this encounter Care Teams Teacher Asst Relationship Specialty Start Date End Date Orville Simmons MD [address] [place] [phone] PCP - General FAMILY PRACTICE 09/06/15 08/24/16 Crescencio Camacho MD [address] [place] [phone] PCP - General FAMILY PRACTICE 08/25/16 Fercho Simon MD [address] [place] [address] [place] [address] Vascular/Literary Agent INTERNAL MEDICINE 11/01/15 documented as of this encounter
--- OUTSIDE RECORDS SUMMARY | 2024-03-19 13:13 | XMS_ITS | Encounter Summary ---
Author Organization [facility] Address [address] [place] [address] [place] [address] Care Team Providers Care Meal Packer Name Role Phone Orville Simmons MD Primary Care Provider [phone] Encounter Details Date Type Department Care Team (Late st Contact Info) Description 10/25/2015 Abstract [facility] [address] [place] [phone] Fercho Simon MD [address] [place] [address] Social History Tobacco Use Types Packs/Day Years [...] on filedocumented in this encounter Care Teams Meal Packer Relationship Specialty [place] [address] [place] [address] [place] [phone] PCP - General FAMILY PRACTICE 09/06/15 08/24/16 documented as of this encounter
--- OUTSIDE RECORDS SUMMARY | 2024-03-19 13:13 | XMS_ITS | Encounter Summary ---
Author Organization [facility] Address [facility] [facility] [place] [address] [place] [address] Care Team Providers Care Running Specialist Name Role Phone Orville Simmons MD Primary Care Provider [phone] Fercho Simon MD Unavailable Reason for Visit * Reason Comments Leg Pain Encounter Details Date Type Department Care Team (Late st Contact Info) Description 11/02/2015 11:00 AM CDT Office Visit [facility] AT [address] [place] [address] Fercho Simon MD [address] [place], [place] [address] Leg Pain Social History Tobacco Use Types Packs/Day Years [...] Sign Reading Time Taken Comments Blood Pressure 154/87 11/02/2015 11:14 AM CDT Pulse 80 11/02/2015 11:09 AM CDT Temperature - - Respiratory Rate 16 11/02/2015 11:0 9 AM CDT Oxygen Saturation - - Inhaled Oxygen Concentration - - Weight 124.4 kg (274 lb 3.2 oz) 016 11:09 AM CDT Height 177.8 cm (5' 10 ) 11/02/2015 11: 09 AM CDT Body Mass Index 39.34 11/02/2015 11:09 AM CDT documented in this encounter Progress Notes * Fercho Simon MD - 11/02/2015 12:22 PM CDT Follow up Plan for BMI: Follow up reason overweight: Recommended patient increases physical activity and Recommended eating a balanced diet. * Fercho Simon MD - 11/02/2015 11:30 AM CDT HISTORY OF PRESENT ILLNESS: This is a 60-year-old male whose cardiovascular history consists of: 1. 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 2. Right unprovoked DVT in right proximal to distal femoral vein. 3. Coronary artery disease. 4. Hypertension. 5. Hyperlipidemia. The patient is tolerating Eliquis well without any problem. No bleeding. He has been tolerating anticoagulation without any problem. Overall doing well. ASSESSMENT AND PLAN: 1. Recurrent DVTs with multiple left leg DVTs. Last duplex showed left chronic popliteal DVT. He also had an unprovoked right femoral vein DVT after he was taken off of anticoagulation by Dr. Willis. He has been tolerating Eliquis well. He needs to be on long-term anticoagulation. He had thrombophilia workup done before that was negative. I have also made him aware that he needs to get age-appropriate cancer screening workup and I will defer to you. Will change his Eliquis to 2.5 b.i.d.after 6 months are over, which would be in December. 2. 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 We will recommend compression stockings. 3. Coronary artery disease status post CABG. 4. Hypertension. Well controlled. 5. Hyperlipidemia, on statin. Patient's CBC done recently. He is doing well. I will again change his Eliquis to 2.5 b.i.d. in December. Will followup in 6 months with bilateral lower extremity venous duplex. * Fercho Simon MD - 11/02/2015 11:18 AM CDT Chief Complaint: Leg Pain Recommendations/Plan: History of Present Illness: Medications: Current Outpatient Prescriptions: ??? apixaban (ELIQUIS) 5 MG tablet, Take 1 tablet (5 mg total) by mouth 2 (two) times daily., Disp:60 tablet, Rfl: 11 ??? aspirin 81 MG tablet, Take 1 tablet by mouth daily., Disp: , Rfl: ??? losartan 50 MG tablet, Take 1 tablet by mouth daily., Disp: , Rfl: ??? nitroGLYCERIN (NITROSTAT) 0.4 MG SL tablet, Nitrostat (nitroglycerin) Tablet, Sublingual 0.4 mg; take as needed for chest discomfort not relieved by GI cocktails; 1; 2; 28-May-2009; Active; refills per PCP, Disp: , Rfl: ??? simvastatin 40 MG tablet, Take 1 tablet by mouth daily., Disp: , Rfl: ??? venlafaxine 24 hr 75 MG 24 hr capsule, Take 1 tablet by mouth daily., Disp: , Rfl: Allergies Allergen Reactions ??? Codeine Unknown Past Medical History Diagnosis Date ??? CAD (coronary artery disease) ??? DVT (deep venous thrombosis) Right femoral vein and left popliteal ??? Hx of CABG ??? Hyperlipidemia ??? Hypertension Past Surgical History Procedure Laterality Date ??? Heart cath 05/28/2009 Left coronary angiography. Right coronary angiography.Left heart catheterization with ventriculography. ??? Coronary artery bypass graft Social History Social History ??? Marital status: N/A Spouse name: N/A ??? Number of children: 5 ??? Years of education: N/A Occupational History ??? Retired Social History Main Topics ??? Smoking status: Never Smoker ??? Smokeless tobacco: None ??? Alcohol use No ??? Drug use: No ??? Sexual activity: Not Asked Other Topics Concern ??? Exercise No ??? Special Diet No ??? Caffeine Concern No Social History Narrative Family History Problem Relation Age of Onset ??? Family history unknown: Yes No family status information on file. Review of Systems Constitutional: Negative for malaise/fatigue and weight loss. HENT: Negative for hearing loss. Eyes: Negative for blurred vision and double vision. Respiratory: Negative for cough, hemoptysis and wheezing. Cardiovascular: Negative for chest pain and palpitations. Gastrointestinal: Negative for blood in stool and melena. Genitourinary: Negative for dysuria. Musculoskeletal: Positive for joint pain (complains of bilateral joint stiffness and pain in knees). Negative for myalgias. Skin: Negative for rash. Neurological: Negative for tingling, sensory change, focal weakness and headaches. Endo/Heme/Allergies: Negative for polydipsia. Does not bruise/bleed easily. Filed Vitals: 11/02/15 1109 11/02/15 1114 BP: 160/89 154/87 Pulse: 80 Resp: 16 Weight: 124.4 kg (274 lb 3.2 oz) Height: 5' 10 (1.778 m) Physical Exam Constitutional: He is oriented [...] Musculoskeletal: Normal range of motion. He exhibits no deformity. Neurological: He is alert and oriented to person, place, and time. Skin: Skin is warm and dry. Psychiatric: He has a normal mood and affect. His behavior is normal. Thought content normal. No results found for this visit on 11/02/15. Diagnoses/Impression: 1. DVT (deep venous thrombosis), bilateral 2. Bilateral edema of lower extremity 3. Essential hypertension documented in this encounter Plan of Treatment Not on file documented as of this encounter Visit Diagnoses Diagnosis DVT (deep venous thrombosis), bilateral ([facility]/HCC HHS/HCC)- Primary Bilateral edema of lower extremity Edema Essential hypertension Unspecified essential hypertension documented in this encounter Care Teams Running Specialist Relationship Specialty Start Date End Date Orville Simmons MD [address] [place] [phone] PCP - General FAMILY PRACTICE 09/06/15 08/24/16 eFrcho Simon MD [address] [place] [address] Vascular/Principal Automation Engineer INTERNAL MEDICINE 11/01/15 documented as of this encounter
--- OUTSIDE RECORDS SUMMARY | 2024-03-19 13:13 | XMS_ITS | Encounter Summary ---
Author Organization [facility] Address [facility] [facility] [place] [address] [place] [address] Care Team Providers Care Engine Lathe Operator Name Role Phone Orville Simmons MD Primary Care Provider [phone] Fercho Simon MD Unavailable Crescencio Camacho MD Primary Care Provider [phone]- [phone] Encounter Details Date Type Department Care Team (Late st Contact Info) Description 01/18/2016 Abstract [facility] [address] [place] [address] Orestes Layne MD [address] [place] [address] Social History Tobacco Use Types [...] Sign Reading Time Taken Comments Blood Pressure 136/99 01/18/2016 9:28 AM CDT Pulse - - Temperature - - Respiratory Rate - - Oxygen Saturation - - Inhaled Oxygen Concentration - - Weight 119.3 kg (263 lb) 01/18/2016 9:28 AM CDT Height 182.9 cm (6') 01/18/2016 9:28 AM CDT Body Mass Index 35.67 01/18/2016 9:28 AM CDT documented in this encounter Progress Notes * Orestes Layne MD - 01/18/2016 8:30 AM CDT Referred By / Reason Patient was referred by Primary Care Physician Name: Dr. Camacho Reason: Chief Complaint 1. Shoulder Pain Chief Complaint: The patient presents to the office today with LEFT shoulder/elbow. History of Present Illness HPI: Patient comes to clinic today with complaints of LEFT shoulder and elbow pain. He reports thaton 12-22-2015 he was lifting a barn door that shut quickly and injured his LEFT arm. He now has elbow and shoulder pain. He has pain with lifiting. He is RIGHT hand. He reports decreased sensation in his 4th and 5th fingers. He has had some swelling at his elbow. He denies use of any ibuprofen. He has been using Palacios but ran out. Review of Systems See HPI for pertinent positives. Active Problems 1. Left shoulder pain (719.41) (M25.512) 2. Rupture of left distal biceps tendon, initial [...] 2. Eliquis 5 MG Oral Tablet; Therapy: [id number] to Recorded 3. GaviLyte-N with Flavor Pack 420 GM Oral Solution Reconstituted; Therapy: 08Dec2015 to Recorded 4. Hydrocodone-Acetaminophen 5-325 MG Oral Tablet; Therapy: 07Sep2015 to Recorded 5. Losartan Potassium 50 MG Oral Tablet; Therapy: 15Sep2015 to Recorded 6. Simvastatin 40 MG Oral Tablet; Therapy: 04Sep2015 to Recorded 7. Venlafaxine HCl - 75 MG Oral Tablet; Therapy: 15Sep2015 to Recorded Allergies 1. No Known Drug Allergies Vitals Recorded: 18Jan2016 09:28AM Systolic 136 Diastolic 99 Height 6 ft Weight 263 lb BMI Calculated 35.67 BSA Calculated 2.39 Physical Exam Constitutional: alert and in no acute distress. Neurological:. the patient was oriented to person, place, and time. mood and affect were appropriate. Eyes: pupils were equal in size, round, reactive to light, with normal accommodation. ENT: hearing was normal. Pulmonary: no respiratory distress. Abdomen: non-tender. Skin: no injuries or skin lesions on the left upper extremity. Left Elbow: EXAM today reveals pain with anticubital fossa, tender biceps, painful elbow range of motion, decreased sensation 4 and 5th fingers. Assessment 1. Rupture of left distal biceps tendon, initial encounter (840.8) (S46.769A) Plan Left shoulder pain 1. XR Shoulder 3 View Lt; Status:Active; Requested for:17Jan2016; Rupture of left distal biceps tendon, initial encounter 2. Hydrocodone-Acetaminophen 7.5-325 MG Oral Tablet (Palacios); 1- 2 Q 4 - 6 HRS PRN PAIN 3. Continue with our present treatment plan.; Status:Complete; Done: 18Jan2016 09:35AM I have recommended MRI fo his LEFT elbow. He'll return after MRI is completed. Signatures Electronically signed by : Orestes Layne M.D.; Jan 18 2016 9:35AM ANIMAL COP (Author) Electronically signed by : Orestes Layne M.D.; Jan 18 2016 9:36AM ANIMAL COP (Author) documented in this encounter Plan of Treatment Not on file documented as of this encounter Procedures Procedure Name Priority Date/Time Associated Diagnosis Comments MRI ELBOW LT WO CON Routine 01/20/2016 7 :36 PM CDT XR SHOULDER LT 3V Routine 01/18/2016 9:5 9 AM CDT documented in this encounter Results * MRI ELBOW LT WO CON (01/20/2016 7:36 PM CDT) Anatomical Region Laterality Modality Elbow Magnetic Resonan ce 01/20/2016 7:36 PM CDT 01/20/2016 7:36 PM CDT Narrative 01/20/2016 7:45 PM CDT [facility] ?? [address] [facility] ?? [place], [place] ? Patient Name: ARSH MUELLER Date of : 1955 ?? Med Rec #: [id number] ??Age/Sex: 60/M ?Pt. Location: MRI ?? Attending Provider: ORESTES LAYNE MD (TRACY) ?? Ordering Provider: ORESTES LAYNE MD (TRACY) ? Study Date Order Number Procedure ?? 01/20/16 [id number] MRI Elbow WO Lt ? Signed ? Date: 01/20/2016. ? Exam: MRI left elbow. ? Comparison: Left forearm radiography dated 12/22/2015. ? Technique: Multiplanar unenhanced sequencing was obtained with an MRI elbow protocol. ? History: Possible ruptured left biceps tendon. Injury 3 weeks ago. Pain. ? Findings: There is a moderate grade partial tear involving the insertion of the biceps tendon upon the radial tuberosity. This is best seen on series 4 image 32. There are tendon fibers remaining attached, but the torn fibers are retracted 4 to 5 mm as seen on this particular image. There is no gross retraction of the biceps tendon. The brachialis tendon appears normal. The triceps tendon is normal. There is mild degeneration at the origins of the common flexor and common extensor tendons, but no gross tear. The ulnar collateral ligament and radial collateral ligament are intact. There is mild to moderate arthritis involving the sublime tubercle articulation with the trochlea. There is a tiny olecranon enthesophyte. There is a scant elbow joint effusion. ? Impression: ?? 1. Moderate grade partial tear at the biceps tendon insertion upon the radial tuberosity as described. ?? 2. Arthritis as described. ?? 3. Scant elbow joint effusion. ?? 4. Mild degeneration at the origins of the common flexor and common extensor tendons. ? Electronically Signed By: CHANI MILLARD MD 01/20/161941 ? Dictated On: 01/20/161935 ?? Interpreted By: CHANI MILLARD MD ?? Transcribed On: 01/20/161935 - [facility] ?? Procedure Note Heide Santana MD - 01/23/[address] Patient Name: ARSH MUELLER Date of : 1955 Med Rec #: [id number] Age/Sex: 60/M Pt. Location: MRI Attending Provider: ORESTES LAYNE MD (TRACY) Ordering Provider: ORESTES LAYNE MD (TRACY) Study Date Order Number Procedure 01/20/16 [id number] MRI Elbow WO Lt Signed Date: 01/20/2016. Exam: MRI left elbow. Comparison: Left forearm radiography dated 12/22/2015. Technique: Multiplanar unenhanced sequencing was obtained with an MRIelbow protocol. History: Possible ruptured left biceps tendon. Injury 3 weeks ago. Pain. Findings: There is a moderate grade partial tear involving the insertionof the biceps tendon upon the radial tuberosity. This is best seen on series 4 image 32. There aretendon fibers remaining attached, but the torn fibers are retracted 4 to 5 mm as seen on thisparticular image. There is no gross retraction of the biceps tendon. The brachialis tendon appearsnormal. The triceps tendon is normal. There is mild degeneration at the origins of the common flexor andcommon extensor tendons, but no gross tear. The ulnar collateral ligament and radial collateralligament are intact. There is mild to moderate arthritis involving the sublime tubercle articulationwith the trochlea. There is a tiny olecranon enthesophyte. There is a scant elbow joint effusion. Impression: 1. Moderate grade partial tear at the biceps tendon insertion upon theradial tuberosity as described. 2. Arthritis as described. 3. Scant elbow joint effusion. 4. Mild degeneration at the origins of the common flexor and commonextensor tendons. Electronically Signed By: CHANI MILLARD MD 01/20/161941 Dictated On: 01/20/161935 Interpreted By: CHANI MILLARD MD Transcribed On: 01/20/161935 - [facility] us Orestes Layne MD MRI Final Result * XR SHOULDER LT 3V (01/18/2016 9:59 AM CDT) Anatomical Region Laterality Modality Shoulder Radiographic Kristina ging 01/18/2016 9:59 AM CDT 01/18/2016 9:59 AM CDT Narrative 01/18/2016 10:06 AM CDT [facility] ?? [address] ?? [place], [place] ? Patient Name: ARSH MUELLER Date of : 1955 ?? Med Rec #: [id number] ??Age/Sex: 60/M ?Pt. Location: ORTHO ?? Attending Provider: ORESTES LAYNE MD (TRACY) ?? Ordering Provider: ORESTES LAYNE MD (TRACY) ? Study Date Order Number Procedure ?? 01/18/16 [id number] XR Shoulder 3 Views Lt ? Signed ? Examination: X-ray left shoulder, 3 views. ? Exam time: 01/18/2016 ? Clinical history: Injured left shoulder while opening a barn door approximately one month ago. Left shoulder pain. ? Comparison: Left humerus on 12/22/2015. ? Technique: Grashey, scapular Y, and axillary views of left shoulder obtained. ? Findings: ?? No acute fracture. No dislocation. No evidence of bone destruction or erosive arthropathy. ? IMPRESSION: ?? No acute bony abnormality. ? Electronically Signed By: SOURAV MELGAR M.D 01/18/161001 ? Dictated On: 01/18/16958 ?? Interpreted By: SOURAV MELGAR M.D ?? Transcribed On: 01/18/16958 - [facility] ?? Procedure Note Heide Santana MD - 01/23/[address] Patient Name: ARSH MUELLER Date of : 1955 Med Rec #: [id number] Age/Sex: 60/M Pt. Location: ORTHO Attending Provider: ORESTES LAYNE MD (TRACY) Ordering Provider: ORESTES LAYNE MD (TRACY) Study Date Order Number Procedure 01/18/16 [id number] XR Shoulder 3 Views Lt Signed Examination: X-ray left shoulder, 3 views. Exam time: 01/18/2016 Clinical history: Injured left shoulder while opening a barn doorapproximately one month ago. Left shoulder pain. Comparison: Left humerus on 12/22/2015. Technique: Grashey, scapular Y, and axillary views of left shoulderobtained. Findings: No acute fracture. No dislocation. No evidence of bone destruction orerosive arthropathy. IMPRESSION: No acute bony abnormality. Electronically Signed By: SOURAV MELGAR M.D 01/18/16 1002 Dictated On: 01/18/16 0959 Interpreted By: SOURAV MELGAR M.D Transcribed On: 01/18/16 0959 - SONIA Orestes Layne MD GENERAL IMAGING Final Result documented in this encounter Visit Diagnoses Not on filedocumented in this encounter Care Teams Engine Lathe Operator Relationship Specialty Start Date End Date Orville Simmons MD [address] [place] [phone] PCP - General FAMILY PRACTICE 09/06/15 08/24/16 Crescencio Camacho MD [address] [place] [phone] PCP - General FAMILY PRACTICE 08/25/16 Fercho Simon MD [address] [place] [address] Vascular/Concreting Supervisor INTERNAL MEDICINE 11/01/15 documented as of this encounter
--- OUTSIDE RECORDS SUMMARY | 2024-03-19 13:13 | XMS_ITS | Encounter Summary ---
Author Organization [facility] Address [address] [place] [address]. [place] [address] [place] [address] Care Team Providers Care Cooler Worker Name Role Phone Orville Simmons MD Primary Care Provider [phone] Reason for Visit * Reason Onset Date Comments Question 10/19/2015 Encounter Details Date Type Department Care Team (Late st Contact Info) Description 10/19/2015 Telephone [facility] [address] [place] [phone] eFrcho Simon MD [address] [place] [address] Question Social History Tobacco Use Types Packs/Day [...] on filedocumented in this encounter Care Teams Cooler Worker Relationship Specialty Start Date End Date Orville Simmons MD [address] [place] [phone] PCP - General FAMILY PRACTICE 09/06/15 08/24/16 documented as of this encounter
--- OUTSIDE RECORDS SUMMARY | 2024-03-19 13:14 | XMS_ITS | Encounter Summary ---
Author Organization [facility] Address [address] [place] [place] [address] [place] [address] Care Team Providers Care Product Planner Name Role Phone Orville Simmons MD Primary Care Provider [phone]- [phone] Fercho Simon MD Unavailable Crescencio Camacho MD Primary Care Provider [phone]- [phone] Encounter Details Date Type Department Care Team (Late st Contact Info) Description 10/09/[address] [facility] [address] [place] [address] Orville Simmons MD [address] [place] [address] Social History Tobacco Use Types Packs/Day Years Used Date Smoking Tobacco: Never Assessed Sex and Gender Information Value Date Recorded Sex Assigned at Not on file Legal Sex Male 8:01 PM CDT Gender Identity Not on file Sexual Orientation Not on file documented as of this encounter Plan of Treatment Not on file documented as of this encounter Visit Diagnoses Diagnosis Pain in joint, ankle and foot documented in this encounter Care Teams Product Planner Relationship Specialty Start Date End Date Orville Simmons MD [address] [place] [phone] PCP - General FAMILY PRACTICE 09/06/15 08/24/16 Crescencio Camacho MD [address] [place] [phone] PCP - General FAMILY PRACTICE 08/25/16 Fercho Simon MD [address] [facility] [place] [address] Vascular/Floor Coverings Salesperson INTERNAL MEDICINE 11/01/15 documented as of this encounter
--- OUTSIDE RECORDS SUMMARY | 2024-03-19 13:14 | XMS_ITS | Encounter Summary ---
Author Organization [facility] - [facility] Address [facility] [place] [address] [place] [address] Care Team Providers Care Surveillance System Monitor Name Role Phone Orville Simmons MD Primary Care Provider [phone] Encounter Details Date Type Department Care Team (Late st Contact Info) Description 07/21/2014 Abstract [facility] [place] [address] [place] [phone] , Heide Romeo MD Social History Tobacco Use Types Packs/Day [...] on filedocumented in this encounter Care Teams Surveillance System Monitor Relationship Specialty Start Date End Date Orville Simmons MD [address] [place] [address] PCP - General FAMILY PRACTICE 09/06/15 08/24/16 documented as of this encounter
--- OUTSIDE RECORDS SUMMARY | 2024-03-19 13:14 | XMS_ITS | Encounter Summary ---
Author Organization [facility] Address [address] [facility] [place] [address] [place] [address] Care Team Providers Care Transfer Car Operator Drier Name Role Phone Orville Simmons MD Primary Care Provider [phone] Fercho Simon MD Unavailable Crescencio Camacho MD Primary Care Provider +- [phone] Encounter Details Date Type Department Care Team (Late st Contact Info) Description 10/06/2015 Abstract [facility] [address] [address] Fercho Simon MD [address] [place] [address] Social History Tobacco Use Types [...] Embolism and thrombosis of right femoral vein ([facility]/HCC HHS/HCC) Acute venous embolism and thrombosis of deep vessels of proximal lower extremity documented in this encounter Care Teams Transfer Car Operator Drier Relationship Specialty Start Date End Date Orville Simmons MD [address] [place] [phone] PCP - General FAMILY PRACTICE 09/06/15 08/24/16 Crescencio Camacho MD [address] [place] [address] PCP - General FAMILY PRACTICE 08/25/16 Fercho Simon MD [address] [facility] [address] [address] Vascular/Tin Cutter INTERNAL MEDICINE 11/01/15 documented as of this encounter
--- OUTSIDE RECORDS SUMMARY | 2024-03-19 13:14 | XMS_ITS | Encounter Summary ---
Author Organization [facility] - [facility] Address [facility]. [address] Care Team Providers Care Metallurgical Specialist Name Role Phone Orville Simmons MD Primary Care Provider [phone] Encounter Details Date Type Department Care Team (Late st Contact Info) Description 06/30/2013 [facility] [address] [place] [address] , Heide Romeo MD Social History Tobacco [...] on filedocumented in this encounter Care Teams Metallurgical Specialist Relationship Specialty Start Date End Date Orville Simmons MD [address] [place] [address] [place] [address] PCP - General FAMILY PRACTICE 09/06/15 08/24/16 documented as of this encounter
--- OUTSIDE RECORDS SUMMARY | 2024-03-19 13:14 | XMS_ITS | Encounter Summary ---
Author Organization [facility] - [facility] Address [facility] [place] [address] [place] [address] Care Team Providers Care Screw Machine Hand Name Role Phone Orville Simmons MD Primary Care Provider [phone] Fercho Simon MD Unavailable Encounter Details Date Type Department Care Team (Late st Contact Info) Description 06/04/2015 Abstract [facility] [address] [place] [address] , Heide Romeo MD Social History Tobacco [...] on filedocumented in this encounter Care Teams Screw Machine Hand Relationship Specialty Start Date End Date Orville Simmons MD [address] [place] [address] PCP - General FAMILY PRACTICE 09/06/15 08/24/16 Fercho Simon MD [address] [place] [address] Vascular/Wheel Truing Machine Tender INTERNAL MEDICINE 11/01/15 documented as of this encounter
--- OUTSIDE RECORDS SUMMARY | 2024-03-19 13:14 | XMS_ITS | Encounter Summary ---
Author Organization [facility] Address [facility]6 [facility] [place] [address] [place] [address] Care Team Providers Care Health Plan Manager Name Role Phone Orville Simmons MD Primary Care Provider [phone] Fercho Simon MD Unavailable Crescencio Camacho MD Primary Care Provider +- [phone] Encounter Details Date Type Department Care Team (Late st Contact Info) Description 12/07/2011 Abstract [facility] [address] [place], [place] [id number] Orville Simmons MD [address] [place] [address] Social History Tobacco Use Types Packs/Day Years Used Date Smoking Tobacco: Never Assessed Sex and Gender Information Value Date Recorded Sex Assigned at Not on file Legal Sex Male 8:01 PM CDT Gender Identity Not on file Sexual Orientation Not on file documented as of this encounter Plan of Treatment Not on file documented as of this encounter Visit Diagnoses Diagnosis Phlebitis or thrombophlebitis of other deep vessel of lower extremity (CMS/HCC HHS/HCC) documented in this encounter Care Teams Health Plan Manager Relationship Specialty Start Date End Date Orville Simmons MD [address] [place] [address] PCP - General FAMILY PRACTICE 09/06/15 08/24/16 Crescencio Camacho MD [address] [place] [address] PCP - General FAMILY PRACTICE 08/25/16 Fercho Simon MD [address] [facility] [address] Vascular/Lithographer Apprentice INTERNAL MEDICINE 11/01/15 documented as of this encounter
--- OUTSIDE RECORDS SUMMARY | 2024-03-19 13:14 | XMS_ITS | Encounter Summary ---
Author Organization [facility] - [facility] Address [address] [facility] [place] [address] [place] [address] Care Team Providers Care Assurance Officer Name Role Phone Orville Simmons MD Primary Care Provider [phone]- [phone] Fercho Simon MD Unavailable Crescencio Camacho MD Primary Care Provider +- [phone] Encounter Details Date Type Department Care Team (Late st Contact Info) Description 08/11/2012 Abstract [facility] [address] [place] [address] Carlos Bond MD [address] [place] [address] Social History Tobacco Use Types Packs/Day Years Used Date Smoking Tobacco: Never Assessed Sex and Gender Information Value Date Recorded Sex Assigned at Not on file Legal Sex Male 8:01 PM CDT Gender Identity Not on file Sexual Orientation Not on file documented as of this encounter Plan of Treatment Not on file documented as of this encounter Visit Diagnoses Diagnosis Esophageal reflux documented in this encounter Care Teams Assurance Officer Relationship Specialty Start Date End Date Orville Simmons MD [address] [place] [phone] PCP - General FAMILY PRACTICE 09/06/15 08/24/16 Crescencio Camacho MD [address] [place] [phone] PCP - General FAMILY PRACTICE 08/25/16 Fercho Simon MD [address] [facility] [place] [address] Vascular/Reptile Farmer INTERNAL MEDICINE 11/01/15 documented as of this encounter
--- OUTSIDE RECORDS SUMMARY | 2024-03-19 13:14 | XMS_ITS | Encounter Summary ---
Author Organization [facility] - [facility] Address [address] [place] [address] [place] [address] Care Team Providers Care Beading Sawyer Name Role Phone Orville Simmons MD Primary Care Provider [phone] Fercho Simon MD Unavailable Crescencio Camacho MD Primary Care Provider +- [phone] Encounter Details Date Type Department Care Team (Late st Contact Info) Description 09/16/2009 Abstract [facility] [address] [facility] [place] [address] Crescencio Oviedo MD [facility] [place] [address] Social History Tobacco Use Types Packs/Day Years Used Date Smoking Tobacco: Never Assessed Sex and Gender Information Value Date Recorded Sex Assigned at Not on file Legal Sex Male 8:01 PM CDT Gender Identity Not on file Sexual Orientation Not on file documented as of this encounter Plan of Treatment Not on file documented as of this encounter Visit Diagnoses Diagnosis Syncope and collapse documented in this encounter Care Teams Beading Sawyer Relationship Specialty Start Date End Date Orville Simmons MD [facility] [facility] [place] [address] PCP - General FAMILY PRACTICE 09/06/15 08/24/16 Crescencio Camacho MD [address] [place] [phone] PCP - General FAMILY PRACTICE 08/25/16 Fercho Simon MD [address] [address] Vascular/Hand Woodworking Sander INTERNAL MEDICINE 11/01/15 documented as of this encounter
--- OUTSIDE RECORDS SUMMARY | 2024-03-19 13:14 | XMS_ITS | Encounter Summary ---
Author Organization [facility] Address [address] [facility] [place] [address] [place] [address] Care Team Providers Care Rehab Therapist Name Role Phone Orville Simmons MD Primary Care Provider [phone] Fercho Simon MD Unavailable Crescencio Camacho MD Primary Care Provider +- [phone] Encounter Details Date Type Department Care Team (Late st Contact Info) Description 11/27/2014 Abstract [facility] [address] [place] [address] Fercho Simon MD [address] [place], [place] [address] Social History Tobacco Use Types Packs/Day Years [...] on filedocumented in this encounter Care Teams Rehab Therapist Relationship Specialty Start Date End Date rOville Simmons MD [address] [place] [address] PCP - General FAMILY PRACTICE 09/06/15 08/24/16 Crescencio Camacho MD [address] [place] [phone] PCP - General FAMILY PRACTICE 08/25/16 Fercho Simon MD [address] [facility] [place] [address] Vascular/Equestrian Trainer INTERNAL MEDICINE 11/01/15 documented as of this encounter
--- OUTSIDE RECORDS SUMMARY | 2024-03-19 13:14 | XMS_ITS | Encounter Summary ---
Author Organization [facility] - [facility] Address [facility] [place] [address] [place] [address] Care Team Providers Care Photocopying Equipment Mechanic Name Role Phone Orville Simmons MD Primary Care Provider [phone] Encounter Details Date Type Department Care Team (Late st Contact Info) Description 06/04/2015 [facility] [address] [place] [address] , Heide Romeo MD Social History Tobacco [...] on filedocumented in this encounter Care Teams Photocopying Equipment Mechanic Relationship Specialty Start Date End Date Orville Simmons MD [address] [place] [address] [place] [address] PCP - General FAMILY PRACTICE 09/06/15 08/24/16 documented as of this encounter
--- OUTSIDE RECORDS SUMMARY | 2024-03-19 13:14 | XMS_ITS | Encounter Summary ---
Author Organization [facility] Address [facility] [place] [address] [place] [address] Care Team Providers Care Property Utilization Officer Name Role Phone Orville Simmons MD Primary Care Provider [phone] Fercho Simon MD Unavailable Crescencio Camacho MD Primary Care Provider [phone] Encounter Details Date Type Department Care Team (Late st Contact Info) Description 02/20/[address] [facility] [address] [place], [place] [address] Orville Simmons MD [address] [place] [address] Social History Tobacco Use Types Packs/Day Years Used Date Smoking Tobacco: Never Assessed Sex and Gender Information Value Date Recorded Sex Assigned at Not on file Legal Sex Male 8:01 PM CDT Gender Identity Not on file Sexual Orientation Not on file documented as of this encounter Plan of Treatment Not on file documented as of this encounter Visit Diagnoses Diagnosis Thoracic or lumbosacral neuritis or radiculitis Thoracic or lumbosacral neuritis or radiculitis, unspecified documented in this encounter Care Teams Property Utilization Officer Relationship Specialty Start Date End Date Orville Simmons MD [address] [place] [address] PCP - General FAMILY PRACTICE 09/06/15 08/24/16 Crescencio Camacho MD [address] [place] [address] PCP - General FAMILY PRACTICE 08/25/16 Fercho Simon MD [address] [facility] [place] [address] Vascular/Director Multiple Sclerosis Center INTERNAL MEDICINE 11/01/15 documented as of this encounter
--- OUTSIDE RECORDS SUMMARY | 2024-03-19 13:14 | XMS_ITS | Encounter Summary ---
Author Organization [facility] Address [facility] [address] [place] [address] Care Team Providers Care Associate Professor Of English Name Role Phone Orville Simmons MD Primary Care Provider [phone] Fercho Simon MD Unavailable Crescencio Camacho MD Primary Care Provider +- [phone] Encounter Details Date Type Department Care Team (Late st Contact Info) Description 07/13/[address] [facility] [address] [place], [place] [address] Orville Simmons MD [address] [place] [address] Social History Tobacco Use Types [...] of this encounter Visit Diagnoses Diagnosis Acute thromboembolism of deep veins of lower extremity (CMS/HCC HHS/HCC) Acute venous embolism and thrombosis of unspecified deep vessels of lower extremity documented in this encounter Care Teams Associate Professor Of English Relationship Specialty Start Date End Date Orville Simmons MD [address] [place] [address] PCP - General FAMILY PRACTICE 09/06/15 08/24/16 Crescencio Camacho MD [address] [place] [address] PCP - General FAMILY PRACTICE 08/25/16 Fercho Simon MD [address] [facility] [place] [address] Vascular/Hand Method Lasting Machine Operator INTERNAL MEDICINE 11/01/15 documented as of this encounter
--- OUTSIDE RECORDS SUMMARY | 2024-03-19 13:14 | XMS_ITS | Encounter Summary ---
Author Organization [facility] - [facility] Address [facility]6 [facility] [place] [address] [place] [address] Care Team Providers Care Qa Test Lead Name Role Phone Orville Simmons MD Primary Care Provider [phone] Encounter Details Date Type Department Care Team (Late st Contact Info) Description 07/21/2014 [facility] [address] [place] [phone] , Heide Romeo MD Social History Tobacco [...] on filedocumented in this encounter Care Teams Qa Test Lead Relationship Specialty Start Date End Date Orville Simmons MD [address] [place] [address] [place] [address] PCP - General FAMILY PRACTICE 09/06/15 08/24/16 documented as of this encounter
--- OUTSIDE RECORDS SUMMARY | 2024-03-19 13:14 | XMS_ITS | Encounter Summary ---
Author Organization [facility] Address [facility] [place] [address] [place] [address] Care Team Providers Care Smoking Pipes Cleaner Name Role Phone Orville Simmons MD Primary Care Provider [phone] Fercho Simon MD Unavailable Crescencio Camacho MD Primary Care Provider +- [phone] Encounter Details Date Type Department Care Team (Late st Contact Info) Description 10/06/2014 Abstract [facility] [address] [place] [address] Fercho Simon MD [address] [place] [address] Social History Tobacco Use Types [...] extremity documented in this encounter Care Teams Smoking Pipes Cleaner Relationship Specialty Start Date End Date Orville Simmons MD [address] [place] [phone] PCP - General FAMILY PRACTICE 09/06/15 08/24/16 Crescencio Camacho MD [address] [place] [address] PCP - General FAMILY PRACTICE 08/25/16 Fercho Simon MD [address] [place] [address] Vascular/Cook Apprentice Pastry INTERNAL MEDICINE 11/01/15 documented as of this encounter
--- OUTSIDE RECORDS SUMMARY | 2024-03-19 13:14 | XMS_ITS | Encounter Summary ---
Author Organization [facility] Address [address] [facility] [place] [address] [place] [address] Care Team Providers Care Customer Quality Engineer Name Role Phone Orville Simmons MD Primary Care Provider [phone] Fercho Simon MD Unavailable Crescencio Camacho MD Primary Care Provider +- [phone] Encounter Details Date Type Department Care Team (Late st Contact Info) Description 05/05/2014 Abstract [facility] [address] [facility] [place] [address] Social History Tobacco Use Types Packs/Day Years Used Date Smoking Tobacco: Never Assessed Sex and Gender Information Value Date Recorded Sex Assigned at Not on file Legal Sex Male 8:01 PM CDT Gender Identity Not on file Sexual Orientation Not on file documented as of this encounter Plan of Treatment Not on file documented as of this encounter Visit Diagnoses Diagnosis Low back pain Lumbago documented in this encounter Care Teams Customer Quality Engineer Relationship Specialty Start Date End Date Orville Simmons MD [address] [place] [phone] PCP - General FAMILY PRACTICE 09/06/15 08/24/16 Crescencio Camacho MD [address] [place] [phone] PCP - General FAMILY PRACTICE 08/25/16 Fercho Simon MD [address] [place] [address] Vascular/Store Consultant INTERNAL MEDICINE 11/01/15 documented as of this encounter
--- OUTSIDE RECORDS SUMMARY | 2024-03-19 13:14 | XMS_ITS | Encounter Summary ---
Author Organization [facility] Address [address] [facility] [place] [address] [place] [address] Care Team Providers Care Weighter Name Role Phone Orville Simmons MD Primary Care Provider [phone] Fercho Simon MD Unavailable Crescencio Camacho MD Primary Care Provider +- [phone] Encounter Details Date Type Department Care Team (Late st Contact Info) Description 05/28/[address] [facility] [address] [place] [address] Orville Simmons MD [address] [place] [address] Social History Tobacco Use Types Packs/Day Years Used Date Smoking Tobacco: Never Assessed Sex and Gender Information Value Date Recorded Sex Assigned at Not on file Legal Sex Male 8:01 PM CDT Gender Identity Not on file Sexual Orientation Not on file documented as of this encounter Plan of Treatment Not on file documented as of this encounter Visit Diagnoses Diagnosis Cervicalgia documented in this encounter Care Teams Weighter Relationship Specialty Start Date End Date Orville Simmons MD [address] [place] [phone] PCP - General FAMILY PRACTICE 09/06/15 08/24/16 Crescencio Camacho MD [address] [place] [phone] PCP - General FAMILY PRACTICE 08/25/16 Fercho Simon MD [address] [facility] [place] [address] Vascular/Program Director Group Work INTERNAL MEDICINE 11/01/15 documented as of this encounter
--- OUTSIDE RECORDS SUMMARY | 2024-03-19 13:14 | XMS_ITS | Encounter Summary ---
Author Organization [facility] Address [facility]6 [facility] [place] [address] [place] [address] Care Team Providers Care Paster Hat Lining Name Role Phone Orville Simmons MD Primary Care Provider [phone] Fercho Simon MD Unavailable Crescencio Camacho MD Primary Care Provider +- [phone] Encounter Details Date Type Department Care Team (Late st Contact Info) Description 07/21/2014 Abstract [facility] [address] [place] [address] Fercho Simon MD [address] [place] [address] Social History Tobacco Use Types [...] extremity documented in this encounter Care Teams Paster Hat Lining Relationship Specialty Start Date End Date Orville Simmons MD [address] [place] [phone] PCP - General FAMILY PRACTICE 09/06/15 08/24/16 Crescencio Camacho MD [address] [place] [address] PCP - General FAMILY PRACTICE 08/25/16 Fercho Simon MD [address] [facility] [place] [address] Vascular/Stable Helper INTERNAL MEDICINE 11/01/15 documented as of this encounter
--- OUTSIDE RECORDS SUMMARY | 2024-03-19 13:14 | XMS_ITS | Encounter Summary ---
Author Organization [facility] Address [address] [facility] [place] [address] [place] [address] Care Team Providers Care Beauty Sales Consultant Name Role Phone Orville Simmons MD Primary Care Provider [phone] Fercho Simon MD Unavailable Crescencio Camacho MD Primary Care Provider [phone] Encounter Details Date Type Department Care Team (Late st Contact Info) Description 06/04/2015 Abstract [facility] [address] [place] [address] Fercho Simon MD [address] [place] [address] Social History Tobacco Use Types [...] on filedocumented in this encounter Care Teams Beauty Sales Consultant Relationship Specialty Start Date End Date Orville Simmons MD [address] [place] [phone] PCP - General FAMILY PRACTICE 09/06/15 08/24/16 Crescencio Camacho MD [address] [place] [phone] PCP - General FAMILY PRACTICE 08/25/16 Fercho Simon MD [address] [facility] [place] [address] Vascular/Service Desk Lead INTERNAL MEDICINE 11/01/15 documented as of this encounter
--- OUTSIDE RECORDS SUMMARY | 2024-03-19 13:14 | XMS_ITS | Encounter Summary ---
Author Organization [facility] Address [address] [place] [address] [place] [address] Care Team Providers Care Airline Radio Operator Name Role Phone Orville Simmons MD Primary Care Provider [phone] Fercho Simon MD Unavailable Crescencio Camacho MD Primary Care Provider +- [phone] Encounter Details Date Type Department Care Team (Late st Contact Info) Description 06/04/2015 Abstract [facility] [address] [place], [place] [address] Fercho Simon MD [address] [place], [place] [address] Social History Tobacco Use Types Packs/Day Years [...] encounter Visit Diagnoses Diagnosis Varicose veins of bilateral lower extremities with other complications documented in this encounter Care Teams Airline Radio Operator Relationship Specialty Start Date End Date Orville Simmons MD [address] [place] [phone] PCP - General FAMILY PRACTICE 09/06/15 08/24/16 Crescencio Camacho MD [address] [place] [address] PCP - General FAMILY PRACTICE 08/25/16 Fercho Simon MD [address] [place] [address] Vascular/Professor Of Mechanical Engineering INTERNAL MEDICINE 11/01/15 documented as of this encounter
--- OUTSIDE RECORDS SUMMARY | 2024-03-19 13:14 | XMS_ITS | Encounter Summary ---
Author Organization [facility] Address [address] [facility] [place] [address] [place] [address] Care Team Providers Care Juvenile Correctional Officer Name Role Phone Orville Simmons MD Primary Care Provider [phone] Fercho Simon MD Unavailable Crescencio Camacho MD Primary Care Provider +- [phone] Encounter Details Date Type Department Care Team (Late st Contact Info) Description 06/21/2009 Abstract [facility] [address] [place] [address] Social History Tobacco Use Types Packs/Day Years Used Date Smoking Tobacco: Never Assessed Sex and Gender Information Value Date Recorded Sex Assigned at Not on file Legal Sex Male 8:01 PM CDT Gender Identity Not on file Sexual Orientation Not on file documented as of this encounter Plan of Treatment Not on file documented as of this encounter Visit Diagnoses Diagnosis Shortness of breath documented in this encounter Care Teams Juvenile Correctional Officer Relationship Specialty Start Date End Date Orville Simmons MD [address] [facility] [address] [address] [place] [phone] PCP - General FAMILY PRACTICE 09/06/15 08/24/16 Crescencio Camacho MD [address] [place] [phone] PCP - General FAMILY PRACTICE 08/25/16 Fercho Simon MD [address] [place] [address] Vascular/Hoisting Machine Operator INTERNAL MEDICINE 11/01/15 documented as of this encounter
--- OUTSIDE RECORDS SUMMARY | 2024-03-19 13:14 | XMS_ITS | Encounter Summary ---
Author Organization [facility] Address [facility] [address] [place] [address] Care Team Providers Care Chiller Operator Name Role Phone Orville Simmons MD Primary Care Provider [phone] Encounter Details Date Type Department Care Team (Late st Contact Info) Description 10/06/2014 Abstract [facility] [place] [address] [place] [phone] , Heide Romeo MD Social History Tobacco [...] on filedocumented in this encounter Care Teams Chiller Operator Relationship Specialty Start Date End Date Orville Simmons MD [address] [place] [address] PCP - General FAMILY PRACTICE 09/06/15 08/24/16 documented as of this encounter
--- OUTSIDE RECORDS SUMMARY | 2024-03-19 13:14 | XMS_ITS | Encounter Summary ---
Author Organization [facility] Address [facility] [place] [address] [place] [address] Care Team Providers Care Director Information Security Name Role Phone Orville Simmons MD Primary Care Provider [phone] Encounter Details Date Type Department Care Team (Late st Contact Info) Description 10/06/2014 [facility] [address] [place] [address] , Heide Romeo MD Social History Tobacco [...] on filedocumented in this encounter Care Teams Director Information Security Relationship Specialty Start Date End Date Orville Simmons MD [address] [place] [address] [place] [address] PCP - General FAMILY PRACTICE 09/06/15 08/24/16 documented as of this encounter
--- OUTSIDE RECORDS SUMMARY | 2024-03-19 13:14 | XMS_ITS | Encounter Summary ---
Author Organization [facility] Address [facility] [place] [address] [place] [address] Care Team Providers Care Dragger Out Name Role Phone Orville Simmons MD Primary Care Provider [phone] Encounter Details Date Type Department Care Team (Late st Contact Info) Description 06/30/2013 [facility] [address] [place] [phone] , Heide Romeo MD Social History Tobacco [...] on filedocumented in this encounter Care Teams Dragger Out Relationship Specialty Start Date End Date Orville Simmons MD [address] [place] [address] [place] [address] PCP - General FAMILY PRACTICE 09/06/15 08/24/16 documented as of this encounter
--- OUTSIDE RECORDS SUMMARY | 2024-03-19 13:14 | XMS_ITS | Encounter Summary ---
Author Organization [facility] Address [address] [facility] [place] [address] [place] [address] Care Team Providers Care Lead Oracle Developer Name Role Phone Orville Simmons MD Primary Care Provider [phone] Fercho Simon MD Unavailable Crescencio Camacho MD Primary Care Provider +- [phone] Encounter Details Date Type Department Care Team (Late st Contact Info) Description 06/30/2013 Abstract [facility] [address] [place] [address] Orville Simmosn MD [address] [place] [address] Social History Tobacco Use Types Packs/Day Years Used Date Smoking Tobacco: Never Assessed Sex and Gender Information Value Date Recorded Sex Assigned at Not on file Legal Sex Male 8:01 PM CDT Gender Identity Not on file Sexual Orientation Not on file documented as of this encounter Plan of Treatment Not on file documented as of this encounter Visit Diagnoses Diagnosis Chest pain Chest pain, unspecified documented in this encounter Care Teams Lead Oracle Developer Relationship Specialty Start Date End Date Orville Simmons MD [address] [place] [phone] PCP - General FAMILY PRACTICE 09/06/15 08/24/16 Crescencio Camacho MD [address] [place] [phone] PCP - General FAMILY PRACTICE 08/25/16 Fercho Simon MD [address] [facility] [place] [address] Vascular/Professor Of Physical Education INTERNAL MEDICINE 11/01/15 documented as of this encounter
--- OUTSIDE RECORDS SUMMARY | 2024-03-19 13:14 | XMS_ITS | Encounter Summary ---
Author Organization [facility] Address [address] [facility] [place] [address] [place] [address] Care Team Providers Care Deputy Sheriff Civil Division Name Role Phone Orville Simmons MD Primary Care Provider +- [phone] Fercho Simon MD Unavailable Crescencio Camacho MD Primary Care Provider +- [phone] Encounter Details Date Type Department Care Team (Late st Contact Info) Description 12/19/2010 Abstract [facility] [address] [place] [address] Finesse Dobbs MD [address], [place] [phone] Social History Tobacco Use Types Packs/Day Years Used Date Smoking Tobacco: Never Assessed Sex and Gender Information Value Date Recorded Sex Assigned at Not on file Legal Sex Male 8:01 PM CDT Gender Identity Not on file Sexual Orientation Not on file documented as of this encounter Plan of Treatment Not on file documented as of this encounter Visit Diagnoses Diagnosis Abdominal pain of other specified site documented in this encounter Care Teams Deputy Sheriff Civil Division Relationship Specialty Start Date End Date Orville Simmons MD [address] [place] [phone] PCP - General FAMILY PRACTICE 09/06/15 08/24/16 Crescencio Camacho MD [address] [place] [phone] PCP - General FAMILY PRACTICE 08/25/16 Fercho Simon MD [address] [facility] [place] [phone] Vascular/Labor/Excavator INTERNAL MEDICINE 11/01/15 documented as of this encounter
--- OUTSIDE RECORDS SUMMARY | 2024-03-19 13:14 | XMS_ITS | Encounter Summary ---
Author Organization [facility] Address [address] [facility] [place] [address] [place] [address] Care Team Providers Care Back Filler Operator Name Role Phone Orville Simmons MD Primary Care Provider [phone] Fercho Simon MD Unavailable Crescencio Camacho MD Primary Care Provider +- [phone] Encounter Details Date Type Department Care Team (Late st Contact Info) Description 06/30/[address] [facility] [address] [place], [place] [phone] Orville Simmons MD [address] [place] [address] Social History Tobacco Use Types [...] on filedocumented in this encounter Care Teams Back Filler Operator Relationship Specialty Start Date End Date Orville Simmons MD [address] [place] [phone] PCP - General FAMILY PRACTICE 09/06/15 08/24/16 Crescencio Camacho MD [address] [place] [phone] PCP - General FAMILY PRACTICE 08/25/16 Fercho Simon MD [address] [facility] [place] [phone] Vascular/Aoc Airspace Control Officer INTERNAL MEDICINE 11/01/15 documented as of this encounter
--- OUTSIDE RECORDS SUMMARY | 2024-03-19 13:14 | XMS_ITS | Encounter Summary ---
Author Organization [facility] Address [facility] [place] [address] [place] [address] Care Team Providers Care Music Therapy Specialist Name Role Phone Orville Simmons MD Primary Care Provider [phone] Encounter Details Date Type Department Care Team (Late st Contact Info) Description 06/07/2015 Abstract [facility] [address] [place] [address] , Generic ConversionMD Social History Tobacco Use Types Packs/Day Years Used Date Smoking Tobacco: Never Assessed Sex and Gender Information Value Date Recorded Sex Assigned at Not on file Legal Sex Male 8:01 PM CDT Gender Identity Not on file Sexual Orientation Not on file documented as of this encounter Last Filed Vital Signs Vital Sign Reading Time Taken Comments Blood Pressure 110/74 06/07/2015 8:14 AM [facility] Pulse 72 06/07/2015 8:13 AM [facility] Temperature - - Respiratory Rate 16 06/07/2015 8:13 AM [facility] Oxygen Saturation - - Inhaled Oxygen Concentration - - Weight 122.5 kg (270 lb) 06/07/2015 8:13 AM [facility] Height 181 cm (5' 11.25 ) 06/07/2015 8:13 AM [facility] Body Mass Index 37.39 06/07/2015 8:13 AM [facility] documented in this encounter Plan of Treatment Not on file documented as of this encounter Procedures Procedure Name Priority Date/Time Associated Diagnosis Comments CBC,CONVERSION Routine 06/07/2015 8:40 AM [facility] COMPREHENSIVE METABOLIC PANEL Routine 06/07/2015 8:40 AM [facility] documented in this encounter Results * COMPREHENSIVE METABOLIC PANEL (06/07/2015 8:40 AM [facility]) SODIUM S/P/B 143 135 - 146 meq/l MEDINFORMATIX TO EPIC CONVERSION POTASSIUM S/P/B 4.5 3.5 - 5.3 meq/l MEDINFORMATIX TO EPIC CONVERSION CHLORIDE S/P/B 108 95 - 108 meq/l MEDINFORMATIX TO EPIC CONVERSION CO2 26 17 - 31 meq/l MEDINFORMATIX TO EPIC CONVERSION GLUCOSE 98 70 - 125 mg/dl MEDINFORMATIX TO EPIC CONVERSION BUN 13 7 - 25 mg/dl MEDINFORMATIX TO EPIC CONVERSION CREATININE S/P/B 0.99 0.5 - 1.4 mg/dl MEDINFORMATIX TO EPIC CONVERSION CALCIUM S/P/B 9.4 8.5 - 10.3 mg/dl MEDINFORMATIX TO EPIC CONVERSION EGFR NON-AFR. AMER. 82 >60 ml/min/1.7 3 sq.m MEDINFORMATIX TO EPIC CONVERSION 06/07/2015 8:40 AM [facility] 06/07/2015 8:40 AM [facility] us Generic Conversion Md [facility] Final R esult MEDINFORMATIX TO EPIC CONVERSION * CBC,CONVERSION (06/07/2015 8:40 AM [facility]) WBC 5.4 3.8 - 10.8 thous/mcl MEDINFORMATIX TO EPIC CONVERSION RBC 4.62 3.90 - 5.20 mill/mcl MEDINFORMATIX TO EPIC CONVERSION HGB 14.2 12.0 - 15.6 g/dl MEDINFORMATIX TO EPIC CONVERSION HCT 44.9 35.0 - 46.0 % MEDINFORMATIX TO EPIC CONVERSION MCV 97.1 80.0 - 100.0 FL MEDINFORMATIX TO EPIC CONVERSION MCH 30.6 27.0 - 33.0 PG MEDINFORMATIX TO EPIC CONVERSION MCHC 31.5 32.0 - 36.0 % MEDINFORMATIX TO EPIC CONVERSION RDW 14.1 9.0 - 15.0 % MEDINFORMATIX TO EPIC CONVERSION PLATELET COUNT 185 130 - 400 thous/mcl MEDINFORMATIX TO EPIC CONVERSION ABS. NEUTROPHILS 3,127 1,500 - 7,800 cells/mcl MEDINFORMATIX TO EPIC CONVERSION ABS. NEUTROPHILS CALCULATED 57.9 % MEDINFORMATIX T O EPIC CONVERSION ABS. LYMPHOCYTES 1,847 850 - 4,100 cells/mcl MEDINFORMATIX TO EPIC CONVERSION LYMPHOCYTES 34.2 % MEDINFOR MATIX TO EPIC CONVERSION ABS. MONOCYTES 308 200 - 1,100 cells/mcl MEDINFORMATIX TO EPIC CONVERSION ABS. MONOCYTES 5.7 % MEDIN FORMATIX TO EPIC CONVERSION ABS. EOSINOPHILS 86 50 - 550 cells/mcl MEDINFORMATIX TO EPIC CONVERSION EOSINOPHILS 1.6 % MEDINFOR MATIX TO EPIC CONVERSION ABS. BASOPHILS 32 0 - 200 cells/mcl MEDINFORMATIX TO EPIC CONVERSION BASOPHILS % 0.6 % MEDINFOR MATIX TO EPIC CONVERSION 06/07/2015 8:40 AM [facility] 06/07/2015 8:40 AM [facility] us Generic Conversion Md [facility] Final R esult MEDINFORMATIX TO EPIC CONVERSION documented in this encounter Visit Diagnoses Not on filedocumented in this encounter Care Teams Music Therapy Specialist Relationship Specialty Start Date End Date Orville Simmons MD [address] [place] [address] PCP - General FAMILY PRACTICE 09/06/15 08/24/16 documented as of this encounter
--- OUTSIDE RECORDS SUMMARY | 2024-03-19 13:14 | XMS_ITS | Encounter Summary ---
Author Organization [facility] Address [facility] [place] [address] [place] [address] Care Team Providers Care Retail Leader Name Role Phone Orville Simmons MD Primary Care Provider +- [phone] Fercho Simon MD Unavailable Crescencio Camacho MD Primary Care Provider +- [phone] Encounter Details Date Type Department Care Team (Late st Contact Info) Description 04/21/2013 Abstract [facility] [address] [place], [place] [phone] Orville Simmons MD [address] [place] [address] Social History Tobacco Use Types Packs/Day Years Used Date Smoking Tobacco: Never Assessed Sex and Gender Information Value Date Recorded Sex Assigned at Not on file Legal Sex Male 8:01 PM CDT Gender Identity Not on file Sexual Orientation Not on file documented as of this encounter Plan of Treatment Not on file documented as of this encounter Visit Diagnoses Diagnosis Myalgia and myositis Mylagia and myositis, unspecified documented in this encounter Care Teams Retail Leader Relationship Specialty Start Date End Date Orville Simmons MD [address] [place] [address] PCP - General FAMILY PRACTICE 09/06/15 08/24/16 Crescencio Camacho MD [address] [place] [address] PCP - General FAMILY PRACTICE 08/25/16 Fercho Simon MD [address] [facility] [place] [address] Vascular/First Mate INTERNAL MEDICINE 11/01/15 documented as of this encounter
--- OUTSIDE RECORDS SUMMARY | 2024-03-19 13:14 | XMS_ITS | Encounter Summary ---
Author Organization [facility] Address [facility] [place] [address] [place] [address] Care Team Providers Care Motor Vehicle Representative Name Role Phone Orville Simmons MD Primary Care Provider [phone] Fercho Simon MD Unavailable Crescencio Camacho MD Primary Care Provider +- [phone] Encounter Details Date Type Department Care Team (Late st Contact Info) Description 07/27/[address] [facility] [address] [place] [address] Orville Simmons MD [address] [place] [address] Social History Tobacco Use Types [...] encounter Visit Diagnoses Diagnosis Pain in joint, upper arm documented in this encounter Care Teams Motor Vehicle Representative Relationship Specialty Start Date End Date Orville Simmons MD [address] [place] [phone] PCP - General FAMILY PRACTICE 09/06/15 08/24/16 Crescencio Camacho MD [address] [place] [phone] PCP - General FAMILY PRACTICE 08/25/16 Fercho Simon MD [address] [facility] [place] [address] Vascular/Associate Justice INTERNAL MEDICINE 11/01/15 documented as of this encounter
--- OUTSIDE RECORDS SUMMARY | 2024-03-19 13:14 | XMS_ITS | Encounter Summary ---
Author Organization [facility] Address [address] [facility] [address] [place] [address] Care Team Providers Care Oil Field Technician Name Role Phone Orville Simmons MD Primary Care Provider [phone] Fercho Simon MD Unavailable Crescencio Camacho MD Primary Care Provider +- [phone] Encounter Details Date Type Department Care Team (Late st Contact Info) Description 12/20/2011 Abstract [facility] [address] [facility] [place] [address] Social History Tobacco Use Types Packs/Day Years Used Date Smoking Tobacco: Never Assessed Sex and Gender Information Value Date Recorded Sex Assigned at Not on file Legal Sex Male 8:01 PM CDT Gender Identity Not on file Sexual Orientation Not on file documented as of this encounter Plan of Treatment Not on file documented as of this encounter Visit Diagnoses Diagnosis Other ill-defined and unknown causes of morbidity and mortality documented in this encounter Care Teams Oil Field Technician Relationship Specialty Start Date End Date Orville Simmons MD [address] [place] [phone] PCP - General FAMILY PRACTICE 09/06/15 08/24/16 Crescencio Camacho MD [address] [place] [phone] PCP - General FAMILY PRACTICE 08/25/16 Fercho Simon MD [address] [facility] [place] [address] Vascular/Computer Forensic Examiner INTERNAL MEDICINE 11/01/15 documented as of this encounter
--- OUTSIDE RECORDS SUMMARY | 2024-03-19 13:14 | XMS_ITS | Encounter Summary ---
Author Organization [facility] Address [address] [facility] [place] [address] [place] [address] Care Team Providers Care Orange Picker Machine Operator Name Role Phone Orville Simmons MD Primary Care Provider [phone] Fercho Simon MD Unavailable Crescencio Camacho MD Primary Care Provider +- [phone] Encounter Details Date Type Department Care Team (Late st Contact Info) Description 10/15/2015 Abstract [facility] [address] [place] [address] Fercho Simon MD [address] [place] [address] Social History Tobacco Use Types [...] on filedocumented in this encounter Care Teams Orange Picker Machine Operator Relationship Specialty Start Date End Date Orville Simmons MD [address] [place] [address] PCP - General FAMILY PRACTICE 09/06/15 08/24/16 Crescencio Camacho MD [address] [place] [phone] PCP - General FAMILY PRACTICE 08/25/16 Fercho Simon MD [address] [facility] [address] Vascular/Census Clerk INTERNAL MEDICINE 11/01/15 documented as of this encounter
--- OUTSIDE RECORDS SUMMARY | 2024-03-19 13:14 | XMS_ITS | Encounter Summary ---
Author Organization [facility] - [facility] Address [address] [facility] [place] [address] [place] [address] Care Team Providers Care Night Shift Manager Name Role Phone Orville Simmons MD Primary Care Provider [phone] Fercho Simon MD Unavailable Crescencio Camacho MD Primary Care Provider +- [phone] Encounter Details Date Type Department Care Team (Late st Contact Info) Description 07/25/2012 Abstract [facility] [address] [facility] [place] [address] Crescencio Oviedo MD [address] [place] [address] Social History Tobacco Use Types [...] arm documented in this encounter Care Teams Night Shift Manager Relationship Specialty Start Date End Date Orville Simmons MD [address] [place] [phone] PCP - General FAMILY PRACTICE 09/06/15 08/24/16 Crescencio Camacho MD [address] [place] [phone] PCP - General FAMILY PRACTICE 08/25/16 Fercho Simon MD [address] [facility] [place] [address] Vascular/Fire Sprinkler Fitter INTERNAL MEDICINE 11/01/15 documented as of this encounter
--- OUTSIDE RECORDS SUMMARY | 2024-03-19 13:14 | XMS_ITS | Encounter Summary ---
Author Organization [facility] Address [address] [place] [address] [place] [address] Care Team Providers Care Instructional Design Specialist Name Role Phone Orville Simmons MD Primary Care Provider +- [phone] Fercho Simon MD Unavailable Crescencio Camacho MD Primary Care Provider +- [phone] Encounter Details Date Type Department Care Team (Late st Contact Info) Description 06/26/2013 Abstract [facility] [address] [place] [address] Orville Simmons MD [address] [place] [address] Social History Tobacco Use Types [...] Cervicalgia documented in this encounter Care Teams Instructional Design Specialist Relationship Specialty Start Date End Date Orville Simmons MD [address] [place] [phone] PCP - General FAMILY PRACTICE 09/06/15 08/24/16 Crescencio Camacho MD [address] [place] [phone] PCP - General FAMILY PRACTICE 08/25/16 Fercho Simon MD [address] [facility] [place] [phone] Vascular/Commutator Tester INTERNAL MEDICINE 11/01/15 documented as of this encounter
--- OUTSIDE RECORDS SUMMARY | 2024-03-19 13:15 | XMS_ITS | Encounter Summary ---
Author Organization [facility] Address [address] [facility] [address] [place] [address] Care Team Providers Care Business Management Professor Name Role Phone Orville Simmons MD Primary Care Provider [phone] Fercho Simon MD Unavailable Crescencio Camacho MD Primary Care Provider +- [phone] Encounter Details Date Type Department Care Team (Late st Contact Info) Description 04/30/2007 Abstract [facility] [address] [place], [place] [phone] Crescencio Camacho MD [address] [place] [phone] Social History Tobacco Use Types Packs/Day [...] filedocumented in this encounter Care Teams Business Management Professor Relationship Specialty Start Date End Date Orville Simmons MD [address] [place] [phone] PCP - General FAMILY PRACTICE 09/06/15 08/24/16 Crescencio Camacho MD [address] [place] [phone] PCP - General FAMILY PRACTICE 08/25/16 Fercho Simon MD [address] [facility] [place] [phone] Vascular/Chief Engineering Division INTERNAL MEDICINE 11/01/15 documented as of this encounter
--- OUTSIDE RECORDS SUMMARY | 2024-03-19 13:15 | XMS_ITS | Encounter Summary ---
Author Organization [facility] Address [facility] [place] [address] [place] [address] Care Team Providers Care Amalgamator Name Role Phone Orville Simmons MD Primary Care Provider +- [phone] Fercho Simon MD Unavailable Crescencio Camacho MD Primary Care Provider +-[phone] Encounter Details Date Type Department Care Team (Late st Contact Info) Description 05/26/2009 Abstract [facility] Unit [address] [place] [address] LATONIA MOISE Social History Tobacco Use Types Packs/Day Years Used Date Smoking Tobacco: Never Assessed Sex and Gender Information Value Date Recorded Sex Assigned at Not on file Legal Sex Male 8:01 PM CDT Gender Identity Not on file Sexual Orientation Not on file documented as of this encounter Plan of Treatment Pending Results Name Type Priority Associated Diagnoses Date /Time ECG 12 lead EKG-NonRad Routine 05/26/2009 5: 55 PM WATER PLANT OPERATOR documented as of this encounter Procedures Procedure Name Priority Date/Time Associated Diagnosis Comments ECG 12-LEAD Routine 05/26/2009 5:55 PM WATER PLANT OPERATOR Procedure Note - 05/26/2009 5:55 PM CSTThis note is in progress. [facility] Test Date: 2009-05-26 Pat Name: ARSH MUELLER Department: -1 Room: [address] [place] [address] Gender: M Butting Saw Operator: CONSUELO : 1955 Requested By: Latonia M Moise Order Number: Reading MD: Latonia Friedman Measurements Intervals [place] Rate: 79 P: 63 AK: 142 QRS: 36 QRSD: 80 T: 37 QT: 368 QTc: 421 Interpretive Statements Normal sinus rhythm Normal ECG documented in this encounter Visit Diagnoses Diagnosis Coronary atherosclerosis of [place]-c[place] coronary artery documented in this encounter Care Teams Amalgamator Relationship Specialty Start Date End Date Orville Simmons MD [address] [place] [address] PCP - General FAMILY PRACTICE 09/06/15 08/24/16 Crescencio Camacho MD [address] [place] [phone] PCP - General FAMILY PRACTICE 08/25/16 Fercho Simon MD [address] [place] [address] Vascular/Industrial Painter INTERNAL MEDICINE 11/01/15 documented as of this encounter
--- OUTSIDE RECORDS SUMMARY | 2024-03-19 13:15 | XMS_ITS | Encounter Summary ---
Author Organization [facility] - [facility] Address [address] [facility] [place] [address] [place] [address] Care Team Providers Care Monument Mason Name Role Phone Orville Simmons MD Primary Care Provider [phone] Fercho Siomn MD Unavailable Crescencio Camacho MD Primary Care Provider +- [phone] Encounter Details Date Type Department Care Team (Late st Contact Info) Description 09/17/2004 Abstract [facility] [address] [place] [address] Kushal Fontenot DO [address] [place] [address] Social History Tobacco Use Types [...] on filedocumented in this encounter Care Teams Monument Mason Relationship Specialty Start Date End Date Orville Simmons MD [facility] [place] [phone] PCP - General FAMILY PRACTICE 09/06/15 08/24/16 Crescencio Camacho MD [address] [place] [phone] PCP - General FAMILY PRACTICE 08/25/16 Fercho Simon MD [address] [place] [address] Vascular/Recycling Tech INTERNAL MEDICINE 11/01/15 documented as of this encounter
--- OUTSIDE RECORDS SUMMARY | 2024-03-19 13:15 | XMS_ITS | Encounter Summary ---
Author Organization [facility] Address [address] [facility] [place] [address] [place] [address] Care Team Providers Care Drapery Counselor Name Role Phone Orville Simmons MD Primary Care Provider [phone] Fercho Simon MD Unavailable Crescencio Camacho MD Primary Care Provider +- [phone] Encounter Details Date Type Department Care Team (Late st Contact Info) Description 05/16/1994 Abstract [facility] [address] [place] [address] , Generic MD Ousmane Social History Tobacco Use Types Packs/Day Years [...] on filedocumented in this encounter Care Teams Drapery Counselor Relationship Specialty Start Date End Date Orville Simmons MD [address] [place] [phone] PCP - General FAMILY PRACTICE 09/06/15 08/24/16 Crescencio Camacho MD [address] [place] [address] PCP - General FAMILY PRACTICE 08/25/16 Fercho Simon MD [address] [place] [address] Vascular/Financial Aid INTERNAL MEDICINE 11/01/15 documented as of this encounter
--- OUTSIDE RECORDS SUMMARY | 2024-03-19 13:15 | XMS_ITS | Encounter Summary ---
Author Organization [facility] - [facility] Address [address] [facility] [place] [address] [place] [address] Care Team Providers Care Cake Froster Name Role Phone Orville Simmons MD Primary Care Provider [phone] Fercho Simon MD Unavailable Crescencio Camacho MD Primary Care Provider +- [phone] Encounter Details Date Type Department Care Team (Late st Contact Info) Description 09/26/2004 Abstract [facility] [address] [place] [address] Christian Hanson MD [address] [place] [phone] Social History Tobacco Use Types Packs/Day Years [...] on filedocumented in this encounter Care Teams Cake Froster Relationship Specialty Start Date End Date Orville Simmons MD [address] [place] [phone] PCP - General FAMILY PRACTICE 09/06/15 08/24/16 Crescencio Camacho MD [address] [place] [phone] PCP - General FAMILY PRACTICE 08/25/16 Fercho Simon MD [address] [facility] [place] [address] Vascular/Quality Compliance Consultant INTERNAL MEDICINE 11/01/15 documented as of this encounter
--- OUTSIDE RECORDS SUMMARY | 2024-03-19 13:15 | XMS_ITS | Encounter Summary ---
Author Organization [facility] - [facility] Address [facility] [place] [address] [place] [address] Care Team Providers Care Frog Or Oyster Farmworker Name Role Phone Orville Simmons MD Primary Care Provider [phone] Fercho Simon MD Unavailable Crescencio Camacho MD Primary Care Provider +- [phone] Encounter Details Date Type Department Care Team (Late st Contact Info) Description 01/09/2006 Abstract [facility] [address] [place], [place] [phone] Demian Pan MD [address] [place] [phone] Social History Tobacco Use Types Packs/Day [...] on filedocumented in this encounter Care Teams Frog Or Oyster Farmworker Relationship Specialty Start Date End Date Orville Simmons MD [address] [place] [phone] PCP - General FAMILY PRACTICE 09/06/15 08/24/16 Crescencio Camacho MD [address] [place] [phone] PCP - General FAMILY PRACTICE 08/25/16 Fercho Simon MD [address] [facility] [place] [address] Vascular/Party Plan Sales Director INTERNAL MEDICINE 11/01/15 documented as of this encounter
--- OUTSIDE RECORDS SUMMARY | 2024-03-19 13:15 | XMS_ITS | Encounter Summary ---
Author Organization [facility] Address [facility] [facility] [place] [address] [place] [address] Care Team Providers Care Immigration Patrol Inspector Name Role Phone Orville Simmons MD Primary Care Provider +- [phone] Fercho Simon MD Unavailable Crescencio Camacho MD Primary Care Provider +- [phone] Encounter Details Date Type Department Care Team (Late st Contact Info) Description 05/27/2009 Abstract [facility] [address] [place] [address] , Generic Conversion, Social History Tobacco Use [...] Date /Time ECG 12 lead EKG-NonRad Routine 05/27/2009 7: 08 AM WELLNESS COACH documented as of this encounter Procedures Procedure Name Priority Date/Time Associated Diagnosis Comments ECG 12-LEAD Routine 05/27/2009 7:08 AM WELLNESS COACH Procedure Note - 05/27/2009 7:08 AM CSTThis note is in progress. [facility] Test Date: 2009-05-27 Pat Name: ARSH MUELLER Department: -1 Room: [address] [place] [address] Gender: M Potato Chip Fryer: SG/C : 1955 Requested By: Breezy Moise Order Number: Reading MD: Breezy Friedman Measurements Intervals [place] Rate: 66 P: 43 [place]: 132 QRS: 24 QRSD: 82 T: 23 QT: 394 QTc: 413 Interpretive Statements Normal sinus rhythm Normal ECG documented in this encounter Visit Diagnoses Not on filedocumented in this encounter Care Teams Immigration Patrol Inspector Relationship Specialty Start Date End Date Orville Simmons MD [address] [place] [address] PCP - General FAMILY PRACTICE 09/06/15 08/24/16 Crescencio Camacho MD [address] [place] [phone] PCP - General FAMILY PRACTICE 08/25/16 Fercho Simon MD [address] [place] [address] Vascular/Pizza Delivery Driver INTERNAL MEDICINE 11/01/15 documented as of this encounter
--- OUTSIDE RECORDS SUMMARY | 2024-03-19 13:15 | XMS_ITS | Encounter Summary ---
Author Organization [facility] Address [facility] [facility] [place] [address] [place] [address] Care Team Providers Care Criminal Intelligence Analyst Name Role Phone Orville Simmons MD Primary Care Provider [phone] Encounter Details Date Type Department Care Team (Late st Contact Info) Description 05/28/2009 Abstract [facility] [address] [place] [address] , Heide Romeo MD Social History Tobacco [...] Procedure Name Priority Date/Time Associated Diagnosis Comments EXTERNAL EJECTION FRACTION Routine 05/28/2009 12:00 AM HAZARDOUS WASTE REMOVER EXTERNAL EJECTION FRACTION Routine 05/28/2009 12:00 AM HAZARDOUS WASTE REMOVER documented in this encounter Results * EXTERNAL EJECTION FRACTION (05/28/2009 12:00 AM HAZARDOUS WASTE REMOVER) EJECTION FRACTION 60 [facility] Comment: The left ventricle cavity size is normal.EF is 60%.The left atrium cavity size is mildly enlarged.The right ventricle cavity size is normal.The right ventricle global systolic function is normal.The right atrium cavity size is normal.There is no evidence of aortic regurgitation.There is trace tricuspid regurgitation present.The pulmonic valve is not well visualized.There is no dilatation of the aortic root.There is no pericardial effusion.This is a technically difficult study due to body habitus. Anatomical Region Laterality Modality Other 05/28/2009 05/28/2009 Narrative 05/28/2009 12:00 AM HAZARDOUS WASTE REMOVER Echocardiogram, Breezy Moise M.D. us Generic Conversion Md TONY OTHER Final R esult * EXTERNAL EJECTION FRACTION (05/28/2009 12:00 AM HAZARDOUS WASTE REMOVER) EJECTION FRACTION 60 [facility] Comment: --CARDIAC STRUCTURES:--EF was estimated at 60 %. --CORONARY CIRCULATION:--The coronary circulation is right dominant.--Left main: Angiographically normal.--Proximal LAD: There was a 60 % plus stenosis.--Mid LAD: Angiography showed minor luminal irregularities.--Distal LAD: Angiography showed minor luminal irregularities.--Circumflex: Angiography showed minor luminal irregularities.--RCA: Angiography showed minor luminal irregularities. --COMMENTS:--Estimate blood loss: minimal.--Specimens removed: none. Prepared and signed by Elena De Leon 06/02/2009 06:45:16 HEMODYNAMIC TABLES Pressures:BaselinePressures:- HR: 86Pressures:- Rhythm:Pressures:-- Aortic Pressure (S/D/M): 125/79/131Pressures:-- Left Ventricle (s/edp): 135/16/--Pressures:PullbackPressures:- HR: 90Pressures:- Rhythm:Pressures:-- Aortic Pressure (S/D/M): 138/84/109Pressures:-- Left Ventricle (s/edp): 137/20/-- Outputs:NO PHASEOutputs:-- CALCULATIONS: [age] in [age]Outputs:-- CALCULATIONS: Body Surface Area: 2.30Outputs:-- CALCULATIONS: Height in cm: 175.00Outputs:-- CALCULATIONS: Sex: MaleOutputs:-- CALCULATIONS: Weight in k.00 Anatomical Region Laterality Modality Other 05/28/2009 05/28/2009 Narrative 05/28/2009 12:00 AM HAZARDOUS WASTE REMOVER ?Left coronary angiography.?Right coronary angiography.?Left heart catheterization with ventriculography. PROCEDURE: Prior to the procedure, the risks and alternatives of the proceduresand conscious sedation were explained to th, Breezy Moise M.D. us Generic Conversion Md TONY OTHER Final R esult documented in this encounter Visit Diagnoses Not on filedocumented in this encounter Care Teams Criminal Intelligence Analyst Relationship Specialty Start Date End Date Orville Simmons MD [address] [facility] [place] [address] PCP - General FAMILY PRACTICE 09/06/15 08/24/16 documented as of this encounter
--- OUTSIDE RECORDS SUMMARY | 2024-03-19 13:15 | XMS_ITS | Encounter Summary ---
Author Organization [facility] Address [address] [facility] [place] [address] [place] [address] Care Team Providers Care Slicing Machine Feeder Name Role Phone Orville Simmons MD Primary Care Provider [phone] Fercho Simon MD Unavailable Crescencio Camacho MD Primary Care Provider +- [phone] Encounter Details Date Type Department Care Team (Late st Contact Info) Description 09/06/1995 Abstract [facility] [address] [place] [address] , Generic ConversionMD Social History Tobacco Use [...] on filedocumented in this encounter Care Teams Slicing Machine Feeder Relationship Specialty Start Date End Date Orville Simmons MD [address] [place] [phone] PCP - General FAMILY PRACTICE 09/06/15 08/24/16 Crescencio Camacho MD [address] [place] [address] PCP - General FAMILY PRACTICE 08/25/16 Fercho Simon MD [address] [place] [address] Vascular/Safety Spec INTERNAL MEDICINE 11/01/15 documented as of this encounter
--- OUTSIDE RECORDS SUMMARY | 2024-03-19 13:15 | XMS_ITS | Encounter Summary ---
Author Organization [facility] - [facility] Address [address] [facility] [place] [address] [place] [address] Care Team Providers Care Barrel Lathe Operator Outside Name Role Phone Orville Simmons MD Primary Care Provider [phone] Fercho Simon MD Unavailable Crescencio Camacho MD Primary Care Provider +- [phone] Encounter Details Date Type Department Care Team (Late st Contact Info) Description 09/27/2006 Abstract [facility] [address] [place] [address] Sotero Johnson MD [facility] [place] [phone] Social History Tobacco Use Types Packs/Day Years [...] on filedocumented in this encounter Care Teams Barrel Lathe Operator Outside Relationship Specialty Start Date End Date Orville Simmons MD [address] [place] [phone] PCP - General FAMILY PRACTICE 09/06/15 08/24/16 Crescencio Camacho MD [address] [place] [phone] PCP - General FAMILY PRACTICE 08/25/16 Fercho Smion MD [address] [facility] [place] [address] Vascular/Sound Cutter INTERNAL MEDICINE 11/01/15 documented as of this encounter
--- OUTSIDE RECORDS SUMMARY | 2024-03-19 13:15 | XMS_ITS | Encounter Summary ---
Author Organization [facility] Address [address] [facility] [place] [address] [place] [address] Care Team Providers Care Deckhand Maintenance Name Role Phone Orville Simmons MD Primary Care Provider [phone] Fercho Simon MD Unavailable Crescencio Camacho MD Primary Care Provider +- [phone] Encounter Details Date Type Department Care Team (Late st Contact Info) Description 11/26/2002 Abstract [facility] [address] [place] [address] , Generic ConversionMD Social History Tobacco Use [...] on filedocumented in this encounter Care Teams Deckhand Maintenance Relationship Specialty Start Date End Date Orville Simmons MD [address] [place] [phone] PCP - General FAMILY PRACTICE 09/06/15 08/24/16 Crescencio Camacho MD [address] [place] [address] PCP - General FAMILY PRACTICE 08/25/16 Fercho Simon MD [address] [place] [address] Vascular/Patient Services Assistant INTERNAL MEDICINE 11/01/15 documented as of this encounter
--- OUTSIDE RECORDS SUMMARY | 2024-03-19 13:15 | XMS_ITS | Encounter Summary ---
Author Organization [facility] Address [address] [facility] [place] [address] [place] [address] Care Team Providers Care Kiln Stacker Name Role Phone Orville Simmons MD Primary Care Provider [phone] Fercho Simon MD Unavailable Crescencio Camacho MD Primary Care Provider +- [phone] Encounter Details Date Type Department Care Team (Late st Contact Info) Description 11/26/2002 Abstract [facility] [address] [place] [address] , Generic ConversionMD Social History Tobacco Use [...] on filedocumented in this encounter Care Teams Kiln Stacker Relationship Specialty Start Date End Date Orville Simmons MD [address] [place] [phone] PCP - General FAMILY PRACTICE 09/06/15 08/24/16 Crescencio Camacho MD [address] [place] [address] PCP - General FAMILY PRACTICE 08/25/16 Fercho Simon MD [address] [place] [address] Vascular/Lighting Engineering Technician INTERNAL MEDICINE 11/01/15 documented as of this encounter
--- OUTSIDE RECORDS SUMMARY | 2024-03-19 13:15 | XMS_ITS | Encounter Summary ---
Author Organization [facility] - [facility] Address [address] [facility] [place] [address] [place] [address] Care Team Providers Care Satellite Dish Installer Name Role Phone Orville Simmons MD Primary Care Provider [phone] Fercho Simon MD Unavailable Crescencio Camacho MD Primary Care Provider +- [phone] Encounter Details Date Type Department Care Team (Late st Contact Info) Description 11/13/2006 Abstract [facility] [address] [place] [address] Carter Barreto MD [address] [place] [phone] Social History Tobacco Use Types Packs/Day Years [...] on filedocumented in this encounter Care Teams Satellite Dish Installer Relationship Specialty Start Date End Date Orville Simmons MD [address] [place] [phone] PCP - General FAMILY PRACTICE 09/06/15 08/24/16 Crescencio Camacho MD [address] [place] [phone] PCP - General FAMILY PRACTICE 08/25/16 Fercho Simon MD [address] [facility] [place] [address] Vascular/Grading Machine Feeder INTERNAL MEDICINE 11/01/15 documented as of this encounter
--- OUTSIDE RECORDS SUMMARY | 2024-03-19 13:15 | XMS_ITS | Encounter Summary ---
Author Organization [facility] Address [address] [facility] [place] [place] [address] [place] [address] Care Team Providers Care Pizza Driver Name Role Phone Orville Simmons MD Primary Care Provider [phone] Fercho Simon MD Unavailable Crescencio Camacho MD Primary Care Provider +- [phone] Encounter Details Date Type Department Care Team (Late st Contact Info) Description 12/27/[address] [facility] [address] [place] [phone] Crescencio Camacho MD [address] [place] [phone] Social History Tobacco Use Types Packs/Day [...] on filedocumented in this encounter Care Teams Pizza Driver Relationship Specialty Start Date End Date Orville Simmons MD [address] [place] [phone] PCP - General FAMILY PRACTICE 09/06/15 08/24/16 Crescencio Camacho MD [address] [place] [phone] PCP - General FAMILY PRACTICE 08/25/16 Fercho Simon MD [address] [facility] [place] [address] Vascular/Drill Setup Operator INTERNAL MEDICINE 11/01/15 documented as of this encounter
--- OUTSIDE RECORDS SUMMARY | 2024-03-19 13:15 | XMS_ITS | Encounter Summary ---
Author Organization [facility] - [facility] Address [address] [facility] [place] [address] [place] [address] Care Team Providers Care Chief Operator Reformer Name Role Phone Orville Simmons MD Primary Care Provider [phone] Fercho Simon MD Unavailable Crescencio Camacho MD Primary Care Provider +- [phone] Encounter Details Date Type Department Care Team (Late st Contact Info) Description 08/14/2006 Abstract [facility] [address] [place] [address] Finesse Dobbs MD [address], [place] [phone] Social History Tobacco Use Types Packs/Day Years [...] on filedocumented in this encounter Care Teams Chief Operator Reformer Relationship Specialty Start Date End Date Orville Simmons MD [address] [place] [phone] PCP - General FAMILY PRACTICE 09/06/15 08/24/16 Crescencio Camacho MD [address] [place] [phone] PCP - General FAMILY PRACTICE 08/25/16 Fercho Simon MD [address] [facility] [place] [address] Vascular/Assistant Professor Of English INTERNAL MEDICINE 11/01/15 documented as of this encounter
--- OUTSIDE RECORDS SUMMARY | 2024-03-19 13:15 | XMS_ITS | Encounter Summary ---
Author Organization [facility] Address [address] [facility] [place] [address] [place] [address] Care Team Providers Care Fast Brim Pouncer Name Role Phone Orville Simmons MD Primary Care Provider [phone] Fercho Simon MD Unavailable Crescencio Camacho MD Primary Care Provider +- [phone] Encounter Details Date Type Department Care Team (Late st Contact Info) Description 11/30/1998 Abstract [facility] [address] [place] [address] , Generic ConversionMD Social History Tobacco Use [...] on filedocumented in this encounter Care Teams Fast Brim Pouncer Relationship Specialty Start Date End Date Orville Simmons MD [address] [place] [phone] PCP - General FAMILY PRACTICE 09/06/15 08/24/16 Crescencio Camacho MD [address] [place] [address] PCP - General FAMILY PRACTICE 08/25/16 Fercho Simon MD [address] [place] [address] Vascular/Optometric Technologist INTERNAL MEDICINE 11/01/15 documented as of this encounter
--- OUTSIDE RECORDS SUMMARY | 2024-03-19 13:15 | XMS_ITS | Encounter Summary ---
Author Organization [facility] Address [address] [facility] [place] [address] [place] [address] Care Team Providers Care Worm Sorter Name Role Phone Orville Simmons MD Primary Care Provider [phone] Fercho Simon MD Unavailable Crescencio Camacho MD Primary Care Provider +- [phone] Encounter Details Date Type Department Care Team (Late st Contact Info) Description 06/23/2003 Abstract [facility] [address] [place] [address] Carter Casas MD Replaced by [facility] [place] [address] Social History Tobacco Use Types Packs/Day Years [...] on filedocumented in this encounter Care Teams Worm Sorter Relationship Specialty Start Date End Date Orville Simmons MD [address] [place] [phone] PCP - General FAMILY PRACTICE 09/06/15 08/24/16 Crescencio Camacho MD [address] [place] [phone] PCP - General FAMILY PRACTICE 08/25/16 Fercho Simon MD [address] [facility] [place] [phone] Vascular/Loading Supervisor INTERNAL MEDICINE 11/01/15 documented as of this encounter
--- OUTSIDE RECORDS SUMMARY | 2024-03-19 13:15 | XMS_ITS | Encounter Summary ---
Author Organization [facility] Address [address] [facility] [place] [address] [place] [address] Care Team Providers Care Bonding And Composite Fabricator Name Role Phone Orville Simmons MD Primary Care Provider [phone] Fercho Simon MD Unavailable Crescencio Camacho MD Primary Care Provider +- [phone] Encounter Details Date Type Department Care Team (Late st Contact Info) Description 02/04/2002 Abstract [facility] [address] [place] [address] , Generic ConversionMD Social History Tobacco Use [...] on filedocumented in this encounter Care Teams Bonding And Composite Fabricator Relationship Specialty Start Date End Date Orville Simmons MD [address] [place] [address] PCP - General FAMILY PRACTICE 09/06/15 08/24/16 Crescencio Camacho MD 5 [place] [address] PCP - General FAMILY PRACTICE 08/25/16 Fercho Simon MD [address] [place] [address] Vascular/Uat Tester INTERNAL MEDICINE 11/01/15 documented as of this encounter
--- OUTSIDE RECORDS SUMMARY | 2024-03-19 13:15 | XMS_ITS | Encounter Summary ---
Author Organization [facility] Address [address] [facility] [place] [address] [place] [address] Care Team Providers Care Division Controller Name Role Phone Orville Simmons MD Primary Care Provider [phone] Fercho Simon MD Unavailable Crescencio Camahco MD Primary Care Provider +- [phone] Encounter Details Date Type Department Care Team (Late st Contact Info) Description 12/13/1998 Abstract [facility] [address] [place] [address] , Generic MD Ousmane Social History Tobacco [...] on filedocumented in this encounter Care Teams Division Controller Relationship Specialty Start Date End Date Orville Simmons MD [address] [place] [address] PCP - General FAMILY PRACTICE 09/06/15 08/24/16 Crescencio Camacho MD 5 [place] [address] PCP - General FAMILY PRACTICE 08/25/16 Fercho Simon MD [address] [place] [address] Vascular/Emergency Detail Driver INTERNAL MEDICINE 11/01/15 documented as of this encounter
--- OUTSIDE RECORDS SUMMARY | 2024-03-19 13:15 | XMS_ITS | Encounter Summary ---
Author Organization [facility] Address [address] [facility] [place] [address] [place] [address] Care Team Providers Care Napper Fixer Name Role Phone Orville Simmons MD Primary Care Provider [phone] Fercho Simon MD Unavailable Crescencio Camacho MD Primary Care Provider +- [phone] Encounter Details Date Type Department Care Team (Late st Contact Info) Description 03/17/1999 Abstract [facility] [address] [place] [address] , Generic ConversionMD Social History Tobacco Use [...] on filedocumented in this encounter Care Teams Napper Fixer Relationship Specialty Start Date End Date Orivlle Simmons MD [address] [place] [address] PCP - General FAMILY PRACTICE 09/06/15 08/24/16 Crescencio Camacho MD 5 [place] [address] PCP - General FAMILY PRACTICE 08/25/16 Fercho Simon MD [address] [place] [address] Vascular/Medical Massage Therapist INTERNAL MEDICINE 11/01/15 documented as of this encounter
--- OUTSIDE RECORDS SUMMARY | 2024-03-19 13:15 | XMS_ITS | Encounter Summary ---
Author Organization [facility] Address [facility] [place] [address] [place] [address] Care Team Providers Care Budget Controller Name Role Phone Orville Simmons MD Primary Care Provider [phone] Fercho Simon MD Unavailable Crescencio Camacho MD Primary Care Provider +- [phone] Encounter Details Date Type Department Care Team (Late st Contact Info) Description 09/14/[address] [facility] [address] [place] [address] Demian Pan MD [address] [place] [phone] Social History Tobacco Use Types Packs/Day [...] on filedocumented in this encounter Care Teams Budget Controller Relationship Specialty Start Date End Date Orville Simmons MD [address] [place] [address] PCP - General FAMILY PRACTICE 09/06/15 08/24/16 Crescencio Camacho MD [address] [place] [address] PCP - General FAMILY PRACTICE 08/25/16 Fercho Simon MD [address] [facility] [place] [address] Vascular/Glass Block Bender INTERNAL MEDICINE 11/01/15 documented as of this encounter
--- OUTSIDE RECORDS SUMMARY | 2024-03-19 13:15 | XMS_ITS | Encounter Summary ---
Author Organization [facility] Address [address] [facility] [place] [address] [place] [address] Care Team Providers Care Weekend Caregiver Name Role Phone Orville Simmons MD Primary Care Provider [phone] Fercho Simon MD Unavailable Crescencio Camacho MD Primary Care Provider +- [phone] Encounter Details Date Type Department Care Team (Late st Contact Info) Description 01/07/2003 Abstract [facility] [address] [place] [address] , Generic ConversionMD Social History Tobacco Use [...] on filedocumented in this encounter Care Teams Weekend Caregiver Relationship Specialty Start Date End Date Orville Simmons MD [address] [place] [address] PCP - General FAMILY PRACTICE 09/06/15 08/24/16 Crescencio Camacho MD 5 [place] [address] PCP - General FAMILY PRACTICE 08/25/16 Fercho Simon MD [address] [place] [address] Vascular/Epic Application Coordinator INTERNAL MEDICINE 11/01/15 documented as of this encounter
--- OUTSIDE RECORDS SUMMARY | 2024-03-19 13:15 | XMS_ITS | Encounter Summary ---
Author Organization [facility] Address [address] [facility] [place] [address] [place] [address] Care Team Providers Care Assembler Sandal Parts Name Role Phone Orville Simmons MD Primary Care Provider [phone] Fercho Simon MD Unavailable Crescencio Camacho MD Primary Care Provider +- [phone] Encounter Details Date Type Department Care Team (Late st Contact Info) Description 12/02/1998 Abstract [facility] [address] [place] [address] , Generic ConversionMD Social History Tobacco Use [...] on filedocumented in this encounter Care Teams Assembler Sandal Parts Relationship Specialty Start Date End Date Orville Simmons MD [address] [place] [address] PCP - General FAMILY PRACTICE 09/06/15 08/24/16 Crescencio Camacho MD 5 [place] [address] PCP - General FAMILY PRACTICE 08/25/16 Fercho Simon MD [address] [place] [address] Vascular/Lens Coater INTERNAL MEDICINE 11/01/15 documented as of this encounter
--- OUTSIDE RECORDS SUMMARY | 2024-03-19 13:15 | XMS_ITS | Encounter Summary ---
Author Organization [facility] Address [address] [place] [address] [place] [address] Care Team Providers Care Senior Telecommunications Consultant Name Role Phone Orville Simmons MD Primary Care Provider [phone] Fercho Simon MD Unavailable Crescencio Camacho MD Primary Care Provider +- [phone] Encounter Details Date Type Department Care Team (Late st Contact Info) Description 05/26/2005 Abstract [facility] [address] [place] [address] Christian Hanson MD [address] [place] [phone] Social History Tobacco Use Types Packs/Day [...] on filedocumented in this encounter Care Teams Senior Telecommunications Consultant Relationship Specialty Start Date End Date Orville Simmons MD [address] [place] [address] PCP - General FAMILY PRACTICE 09/06/15 08/24/16 Crescencio Camacho MD [address] [place] [phone] PCP - General FAMILY PRACTICE 08/25/16 Fercho Simon MD [address] [facility] [place] [address] Vascular/Truck Chauffeur INTERNAL MEDICINE 11/01/15 documented as of this encounter
--- OUTSIDE RECORDS SUMMARY | 2024-03-19 13:15 | XMS_ITS | Encounter Summary ---
Author Organization [facility] Address [address] [facility] [place] [address] [place] [address] Care Team Providers Care Braid Pattern Setter Name Role Phone Orville Simmons MD Primary Care Provider [phone] Fercho Simon MD Unavailable Crescencio Camacho MD Primary Care Provider +- [phone] Encounter Details Date Type Department Care Team (Late st Contact Info) Description 11/23/2002 Abstract [facility] [address] [place] [address] , Generic ConversionMD Social History Tobacco Use [...] on filedocumented in this encounter Care Teams Braid Pattern Setter Relationship Specialty Start Date End Date Orville Simmons MD [address] [place] [address] PCP - General FAMILY PRACTICE 09/06/15 08/24/16 Crescencio Camacho MD 5 [place] [address] PCP - General FAMILY PRACTICE 08/25/16 Fercho Simon MD [address] [place] [address] Vascular/Director Of Contracts INTERNAL MEDICINE 11/01/15 documented as of this encounter
--- OUTSIDE RECORDS SUMMARY | 2024-03-19 13:15 | XMS_ITS | Encounter Summary ---
Author Organization [facility] Address [address] [facility] [place] [address] [place] [address] Care Team Providers Care Facility Maintenance Supervisor Name Role Phone Orville Simmons MD Primary Care Provider [phone] Fercho Simon MD Unavailable Crescencio Camacho MD Primary Care Provider +- [phone] Encounter Details Date Type Department Care Team (Late st Contact Info) Description 11/28/1995 Abstract [facility] [address] [place] [address] , Generic ConversionMD Social History Tobacco Use [...] on filedocumented in this encounter Care Teams Facility Maintenance Supervisor Relationship Specialty Start Date End Date Orville Simmons MD [address] [place] [address] PCP - General FAMILY PRACTICE 09/06/15 08/24/16 Crescencio Camacho MD 5 [place] [address] PCP - General FAMILY PRACTICE 08/25/16 Fercho Simon MD [address] [place] [address] Vascular/Development Planner INTERNAL MEDICINE 11/01/15 documented as of this encounter
--- OUTSIDE RECORDS SUMMARY | 2024-03-19 13:15 | XMS_ITS | Encounter Summary ---
Author Organization [facility] Address [address] [facility] [place] [address] [place] [address] Care Team Providers Care Adjunct Philosophy Faculty Name Role Phone Orville Simmons MD Primary Care Provider [phone] Fercho Simon MD Unavailable Crescencio Camacho MD Primary Care Provider +- [phone] Encounter Details Date Type Department Care Team (Late st Contact Info) Description 11/13/2001 Abstract [facility] [address] [place] [address] , Generic ConversionMD Social History Tobacco Use [...] on filedocumented in this encounter Care Teams Adjunct Philosophy Faculty Relationship Specialty Start Date End Date Orville Simmons MD [address] [place] [address] PCP - General FAMILY PRACTICE 09/06/15 08/24/16 Crescencio Camacho MD 5 [place] [address] PCP - General FAMILY PRACTICE 08/25/16 Fercho Simon MD [address] [place] [address] Vascular/Stone Setter Apprentice INTERNAL MEDICINE 11/01/15 documented as of this encounter
--- OUTSIDE RECORDS SUMMARY | 2024-03-19 13:15 | XMS_ITS | Encounter Summary ---
Author Organization [facility] Address [address] [place] [address] [place] [address] Care Team Providers Care Scrap Bunch Maker Name Role Phone Orville Simmons MD Primary Care Provider [phone] Fercho Simon MD Unavailable Crescencio Camacho MD Primary Care Provider +- [phone] Encounter Details Date Type Department Care Team (Late st Contact Info) Description 05/14/1994 Abstract [facility] [address] [place] [address] , Generic ConversionMD Social History Tobacco Use [...] on filedocumented in this encounter Care Teams Scrap Bunch Maker Relationship Specialty Start Date End Date Orville Simmons MD [address] [place] [address] PCP - General FAMILY PRACTICE 09/06/15 08/24/16 Crescencio Camacho MD 5 [place] [address] PCP - General FAMILY PRACTICE 08/25/16 Fercho Simon MD [address] [place] [address] Vascular/High Lead Yarder INTERNAL MEDICINE 11/01/15 documented as of this encounter
--- OUTSIDE RECORDS SUMMARY | 2024-03-19 13:15 | XMS_ITS | Encounter Summary ---
Author Organization [facility] Address [address] [facility] [place] [address] [place] [address] Care Team Providers Care Complex Commercial Litigation Paralegal Name Role Phone Orville Simmons MD Primary Care Provider [phone] Fercho Simon MD Unavailable Crescencio Camacho MD Primary Care Provider +- [phone] Encounter Details Date Type Department Care Team (Late st Contact Info) Description 04/26/2002 Abstract [facility] [address] [place] [address] , Generic ConversionMD Social History Tobacco Use [...] on filedocumented in this encounter Care Teams Complex Commercial Litigation Paralegal Relationship Specialty Start Date End Date Orville Simmons MD [address] [place] [address] PCP - General FAMILY PRACTICE 09/06/15 08/24/16 Crescencio Camacho MD 5 [place] [address] PCP - General FAMILY PRACTICE 08/25/16 Fercho Simon MD [address] [place] [address] Vascular/Airplane Rigger INTERNAL MEDICINE 11/01/15 documented as of this encounter
--- OUTSIDE RECORDS SUMMARY | 2024-03-19 13:15 | XMS_ITS | Encounter Summary ---
Author Organization [facility] Address [address] [facility] [place] [address] [place] [address] Care Team Providers Care Geothermal Plant Manager Name Role Phone Orville Simmons MD Primary Care Provider [phone] Fercho Simon MD Unavailable Crescencio Camacho MD Primary Care Provider +- [phone] Encounter Details Date Type Department Care Team (Late st Contact Info) Description 08/26/2006 Abstract [facility] [address] [place] [address] Tho Lucas MD [address] [place] [address] Social History Tobacco Use Types Packs/Day Years [...] on filedocumented in this encounter Care Teams Geothermal Plant Manager Relationship Specialty Start Date End Date Orville Simmons MD [address] [place] [address] PCP - General FAMILY PRACTICE 09/06/15 08/24/16 Crescencio Camacho MD [address] [place] [phone] PCP - General FAMILY PRACTICE 08/25/16 Fercho Simon MD [address] [facility] [place] [address] Vascular/Knit Goods Cutter Hand INTERNAL MEDICINE 11/01/15 documented as of this encounter
--- OUTSIDE RECORDS SUMMARY | 2024-03-19 13:15 | XMS_ITS | Encounter Summary ---
Author Organization [facility] Address [facility] [facility] [place] [address] [place] [address] Care Team Providers Care Retail Property Manager Name Role Phone Orville Simmons MD Primary Care Provider [phone] Encounter Details Date Type Department Care Team (Late st Contact Info) Description 06/21/2009 Abstract [facility] [address] [place] [address] , Heide Romeo MD Social [...] Associated Diagnosis Comments EXTERNAL EJECTION FRACTION Routine 06/21/2009 12:00 AM CDT documented in this encounter Results * EXTERNAL EJECTION FRACTION (06/21/2009 12:00 AM CDT) EJECTION FRACTION [facility] Comment: 1.The baseline 12 lead ECG is abnormal as described above. ??2.The stress ECG shows no significant changes over baseline. 3.The Regadenoson tomographic dual isotope scan is overall within normal limits and shows no reversible ischemia. 4.The quantitative left ventricular ejection fraction is 69%. Anatomical Region Laterality Modality Other 06/21/2009 06/21/2009 Narrative 06/21/2009 12:00 AM CDT Regadenoson nuclear stress test, Breezy Moise M.D. us Generic Conversion Md TONY OTHER Final R esult documented in this encounter Visit Diagnoses Not on filedocumented in this encounter Care Teams Retail Property Manager Relationship Specialty Start Date End Date Orville Simmons MD [address] [facility] [address] PCP - General FAMILY PRACTICE 09/06/15 08/24/16 documented as of this encounter
--- OUTSIDE RECORDS SUMMARY | 2024-03-19 13:15 | XMS_ITS | Encounter Summary ---
Author Organization [facility] Address [address] [facility] [place] [address] [place] [address] Care Team Providers Care Automatic Pinsetter Adjuster Name Role Phone Orville Simmons MD Primary Care Provider [phone] Fercho Simon MD Unavailable Crescencio Camacho MD Primary Care Provider +- [phone] Encounter Details Date Type Department Care Team (Late st Contact Info) Description 09/27/2006 Abstract [facility] [address] [place] [address] [address] [facility] [place] [address] Social History Tobacco Use Types Packs/Day Years [...] on filedocumented in this encounter Care Teams Automatic Pinsetter Adjuster Relationship Specialty Start Date End Date Orville Simmons MD [address] [place] [address] PCP - General FAMILY PRACTICE 09/06/15 08/24/16 Crescencio Camacho MD [address] [place] [phone] PCP - General FAMILY PRACTICE 08/25/16 Fercho Simon MD [address] [facility] [place] [address] Vascular/Cracker Sprayer INTERNAL MEDICINE 11/01/15 documented as of this encounter
--- OUTSIDE RECORDS SUMMARY | 2024-03-19 13:15 | XMS_ITS | Encounter Summary ---
Author Organization [facility] Address [address] [facility] [place] [address] [place] [address] Care Team Providers Care Mixed Livestock Farmer Name Role Phone Orville Simmons MD Primary Care Provider [phone] Fercho Simon MD Unavailable Crescencio Camacho MD Primary Care Provider +- [phone] Encounter Details Date Type Department Care Team (Late st Contact Info) Description 11/01/2006 Abstract [facility] [address] [place] [address] Sotero Johnson MD [facility] [place] [address] Social History Tobacco Use Types Packs/Day Years [...] on filedocumented in this encounter Care Teams Mixed Livestock Farmer Relationship Specialty Start Date End Date Orville Simmons MD [address] [place] [address] PCP - General FAMILY PRACTICE 09/06/15 08/24/16 Crescencio Camacho MD [address] [place] [phone] PCP - General FAMILY PRACTICE 08/25/16 Fercho Simon MD [address] [facility] [place] [address] Vascular/Boarder Hand INTERNAL MEDICINE 11/01/15 documented as of this encounter
--- OUTSIDE RECORDS SUMMARY | 2024-03-19 13:15 | XMS_ITS | Encounter Summary ---
Author Organization [facility] Address [address] [place] [address] [place] [address] Care Team Providers Care Box Tender Name Role Phone Orville Simmons MD Primary Care Provider [phone] Fercho Simon MD Unavailable Crescencio Camacho MD Primary Care Provider +- [phone] Encounter Details Date Type Department Care Team (Late st Contact Info) Description 10/26/1995 Abstract [facility] [address] [place] [address] , Generic ConversionMD Social History Tobacco Use [...] on filedocumented in this encounter Care Teams Box Tender Relationship Specialty Start Date End Date Orville Simmons MD [address] [place] [address] PCP - General FAMILY PRACTICE 09/06/15 08/24/16 Crescencio Camacho MD [address] [place] [address] PCP - General FAMILY PRACTICE 08/25/16 Fercho Simon MD [address] [place] [address] Vascular/Customer Management Specialist INTERNAL MEDICINE 11/01/15 documented as of this encounter
--- OUTSIDE RECORDS SUMMARY | 2024-03-19 13:15 | XMS_ITS | Encounter Summary ---
Author Organization [facility] Address [address] [facility] [place] [address] [place] [address] Care Team Providers Care Instant Potato Processing Supervisor Name Role Phone Orville Simmons MD Primary Care Provider [phone] Fercho Simon MD Unavailable Crescencio Camacho MD Primary Care Provider +- [phone] Encounter Details Date Type Department Care Team (Late st Contact Info) Description 11/18/2001 Abstract [facility] [address] [place] [address] , Generic ConversionMD Social History Tobacco Use [...] on filedocumented in this encounter Care Teams Instant Potato Processing Supervisor Relationship Specialty Start Date End Date Orville Simmons MD [address] [place] [address] PCP - General FAMILY PRACTICE 09/06/15 08/24/16 Crescencio Camacho MD 5 [place] [address] PCP - General FAMILY PRACTICE 08/25/16 Fercho Simon MD [address] [place] [address] Vascular/Grain Farmworker INTERNAL MEDICINE 11/01/15 documented as of this encounter
--- OUTSIDE RECORDS SUMMARY | 2024-03-19 13:15 | XMS_ITS | Encounter Summary ---
Author Organization [facility] Address [address] [facility] [place] [address] [place] [address] Care Team Providers Care Social Service Worker Name Role Phone Orville Simmons MD Primary Care Provider [phone] Fercho Simon MD Unavailable Crescencio Camacho MD Primary Care Provider +- [phone] Encounter Details Date Type Department Care Team (Late st Contact Info) Description 12/15/[address] [facility] [address] [place], [place] [id number] Crescencio Camacho MD [address] [place] [phone] Social History Tobacco Use Types Packs/Day [...] on filedocumented in this encounter Care Teams Social Service Worker Relationship Specialty Start Date End Date Orville Simmons MD [address] [place] [address] PCP - General FAMILY PRACTICE 09/06/15 08/24/16 Crescencio Camacho MD [address] [place] [phone] PCP - General FAMILY PRACTICE 08/25/16 Fercho Simon MD [address] [facility] [place] [address] Vascular/Furniture Finisher Apprentice INTERNAL MEDICINE 11/01/15 documented as of this encounter
--- OUTSIDE RECORDS SUMMARY | 2024-03-19 13:15 | XMS_ITS | Encounter Summary ---
Author Organization [facility] Address [address] [facility] [place] [address] [place] [address] Care Team Providers Care Janitorial Cleaner Name Role Phone Orville Simmons MD Primary Care Provider [phone] Fercho Simon MD Unavailable Crescencio Camacho MD Primary Care Provider +- [phone] Encounter Details Date Type Department Care Team (Late st Contact Info) Description 10/02/[address] [facility] [address] [place], [place] [address] Sotero Johnson MD [facility] [place] [address] Social History Tobacco Use Types Packs/Day Years [...] on filedocumented in this encounter Care Teams Janitorial Cleaner Relationship Specialty Start Date End Date Orville Simmons MD [address] [place] [address] PCP - General FAMILY PRACTICE 09/06/15 08/24/16 Crescencio Camacho MD [address] [place] [phone] PCP - General FAMILY PRACTICE 08/25/16 Fercho Simon MD [address] [facility] [place] [address] Vascular/Hop Trainer INTERNAL MEDICINE 11/01/15 documented as of this encounter
--- OUTSIDE RECORDS SUMMARY | 2024-03-19 13:16 | XMS_ITS | Encounter Summary ---
Author Organization [facility] Address [address] [place] [address] [place] [address] Care Team Providers Care Astrochemist Name Role Phone Orville Simmons MD Primary Care Provider [phone] Fercho Simon MD Unavailable Crescencio Camacho MD Primary Care Provider [phone] Encounter Details Date Type Department Care Team (Late st Contact Info) Description 12/31/1993 Abstract SFL CONVERSION [address] [place] [address] , Generic MD Ousmane Social History Tobacco [...] on filedocumented in this encounter Care Teams Astrochemist Relationship Specialty Start Date End Date Orville Simmons MD [address] [place] [phone] PCP - General FAMILY PRACTICE 09/06/15 08/24/16 Crescencio Camacho MD [address] [place] [phone] PCP - General FAMILY PRACTICE 08/25/16 Fercho Simon MD [address] [place] [address] Vascular/Capacity Planning Analyst INTERNAL MEDICINE 11/01/15 documented as of this encounter
== END 2024-03-15 13:30 | disposition home or self-care (01) ==
PROVIDERS: Emergency Provider Internal Medicine Critical Care Medicine; PCP Family Medicine
DX: K12.2 Cellulitis and abscess of mouth (principal); J02.8 Acute pharyngitis due to other specified organisms; I10 Essential (primary) hypertension; E78.5 Hyperlipidemia, unspecified; I25.10 Atherosclerotic heart disease of native coronary artery without angina pectoris; Z79.899 Other long term (current) drug therapy; Z79.82 Long term (current) use of aspirin; Z79.01 Long term (current) use of anticoagulants; Z20.822 Contact with and (suspected) exposure to COVID-19
CPT/HCPCS: 87637; 87651; 96372; 99283; J2919

== ENCOUNTER 2024-09-10 18:38 | Emergency (ER) | payer MEDICARE, MEDICAID, SELFPAY ==
[2024-09-10 18:39] VITALS: BP 156/80; PULSE 92; RESP 20; TEMP 36.8; O2SAT 95
--- NOTE | 2024-09-10 18:46 | ED.EAR ---
HPI - Ear Problem General Chief complaint: Ear Stated complaint: sore throat & left ear pain Time Seen by Provider: 09/10/24 18:44 Source: patient Mode of arrival: ambulatory Limitations: no limitations History of Present Illness HPI Narrative: 69-year-old male with a history of hypertension, dyslipidemia, nonocclusive coronary artery, BPH, DVT on anticoagulation, WIN on CPAP for the past 1 month presents to the ED with -- sore throat / odynophagia which started around 3 days ago -- left ear pain. no ear discharge. No fever or chills. No chest pain or shortness of breath MD Complaint: ear pain ( left ear pain) Location: left ear Duration: constant Severity: moderate Relieving factors: nothing Exacerbating factors: nothing Discharge from ear: Reports no Treatment prior to arrival: none Related Data Home Medications ?Medication ?Instructions ?Recorded ?Confirmed ?Last Taken ?Type apixaban 2.5 mg tablet (Eliquis) 2.5 mg PO BID 09/08/20 03/15/24 Unknown History finasteride 5 mg tablet 5 mg PO DAILY 09/08/20 03/15/24 Unknown History losartan 100 mg tablet 50 mg PO DAILY 09/08/20 03/15/24 Unknown History simvastatin 40 mg tablet 40 mg PO DAILY 09/08/20 03/15/24 Unknown History venlafaxine 75 mg tablet 75 mg PO DAILY 09/08/20 03/15/24 11/09/20 History amlodipine 10 mg tablet (Norvasc) 10 mg PO DAILY 11/16/21 03/15/24 Unknown History aspirin 81 mg tablet,delayed 81 mg PO DAILY 11/16/21 03/15/24 Unknown History release (Adult Aspirin Regimen) tamsulosin 0.4 mg capsule (Flomax) 0.4 mg PO DAILY 11/16/21 03/15/24 Unknown History Allergies Allergy/AdvReac Type Severity Reaction Status Date / Time acetaminophen Allergy Severe RESP. Verified 09/10/24 19:19 DIFFICULTY codeine Allergy Severe RESP. Verified 09/10/24 19:19 DIFFICULTY Review of Systems Review of Systems: All systems reviewed & are unremarkable except as noted in HPI and below Constitutional: Constitutional: Reports as per HPI and Reports no additional constitutional complaints Eyes: Eyes: Reports as per HPI and Reports no additional eye complaints ENT: Reports system reviewed and no additional complaints, except as documented, Reports as per HPI and Reports sore throat Comments: left ear pain Cardiovascular: Cardiovascular: Reports as per HPI and Reports no additional cardiovascular complaints Respiratory: Respiratory: Reports as per HPI and Reports no additional respiratory complaints Gastrointestinal: Gastrointestinal: Reports as per HPI and Reports no additional gastrointestinal complaints Genitourinary: Genitourinary: Reports no additional male genitourinary complaints and Reports as per HPI Musculoskeletal: Musculoskeletal: Reports no additional musculoskeletal complaints and Reports as per HPI Integumentary/Breasts: Skin/Breast: Reports system reviewed and no additional complaints, except as docu and Reports as per HPI Neurologic: Reports system reviewed and no additional complaints, except as documented and Reports as per HPI Psychiatric: Psychiatric: Reports no additional psychiatric complaints and Reports as per HPI Endocrine: Endocrine: Reports no additional endocrine complaints and Reports as per HPI Hematologic/Lymphatic: Hematologic/Lymphatic: Reports no additional hematologic/lymphatic complaints and Reports as per HPI Allergic/Immunologic: Allergic/Immunologic: Reports no additional allergic/immunologic complaints and Reports as per HPI PMFSH Past Medical History Medical History BPH (benign prostatic hyperplasia) Mood disorder CAD (coronary artery disease) Hyperlipidemia Hypertension History of DVT (deep vein thrombosis) Surgical History Surgical History Hx of cardiac cath Family History Family History Mother Breast cancer Alzheimer disease Father Throat cancer Malignant neoplasm of prostate Bone cancer Lymph node cancer Social History Social History Smoking status: Never smoker Alcohol intake: former Substance use: never Substance use type: does not use Living arrangements: with family Gender identity (if verbalized by the patient): Male Sexual Orientation (if Verbalized by the Patient): Straight or Heterosexual Spiritual care concerns: No Exam Narrative: vitals are stable. Const: General: no acute distress Nutritional Appearance: well nourished Orientation/consciousness: patient oriented x3 Limitations: no limitations HENMT: Head: normal to inspection Ears: external ears normal and TM's normal bilaterally Face/Nose/Sinus: Normal external nose present Face and sinus: normal facial exam Mouth: Yes Normal oral and palatal mucosa present Throat: posterior oropharynx normal ( Unable to visualize pharynx. Tenderness over the left TMJ) Eyes: Conjunctivae: conjunctivae normal Pupils: Equal, round and reactive pupils present EOM: EOMs intact bilaterally Direct Ophthalmoscopy: no photophobia Neck: Neck: normal visual inspection, no lymphadenopathy and no meningeal signs Chest: Chest palpation & inspection: normal inspection of the chest Resp: Effort & Inspection: normal respiratory effort Auscultation: clear to auscultation bilaterally Cardio: Rate: regular rate Rhythm: regular rhythm GI: GI Palp: Yes Soft to palpation Auscultation: normal bowel sounds Other: no tenderness/ rigidity / rebound. : General: Yes no CVA tenderness Back/Spine/Pelvis: Back: no CVA tenderness Skin: General skin exam: normal color Rashes: no rashes Wounds: no wounds Neuro: General: patient oriented x3, moves all extremities, no meningeal signs, no focal motor deficits and CN's II-XI intact bilaterally Cranial nerves: Yes Nystagmus not present Speech: normal speech Extrem: General: normal to inspection and no clubbing, cyanosis or edema Psych: Mental Status: mental status grossly normal Affect: normal affect Attitude: cooperative Course Course Emergency Course: Pharyngitis- tested negative for RSV / influenza/ COVID and strep left TMJ arthralgia Vital Signs Vital signs: Vital Signs Temperature 36.8 C 09/10/24 18:39 Pulse Rate 92 09/10/24 18:39 Respiratory Rate 09/10/24 18:39 Blood Pressure 156/80 H 09/10/24 18:39 Pulse Oximetry 95 09/10/24 18:39 Oxygen Delivery Room Air 09/10/24 18:39 Temperature 36.8 C 09/10/24 18:39 Pulse Rate 92 09/10/24 18:39 Respiratory Rate 09/10/24 18:39 Blood Pressure 156/80 H 09/10/24 18:39 Pulse Oximetry 95 09/10/24 18:39 Oxygen Delivery Room Air 09/10/24 18:39 Medical Decision Making [facility] Narrative Medical decision making narrative: pharyngitis/ upper respiratory tract infection-- patient uses CPAP. Will treat with Z-Rubén right TMJ arthralgia Differential Diagnosis Differential Diagnosis: COVID/RSV Vital Signs Vital Signs: Vital Signs Temperature 36.8 C 09/10/24 18:39 Pulse Rate 92 09/10/24 18:39 Respiratory Rate 20 09/10/25 18:39 Blood Pressure 156/80 H 09/10/24 18:39 Pulse Oximetry 95 09/10/24 18:39 Oxygen Delivery Room Air 09/10/24 18:39 Temperature 36.8 C 09/10/24 18:39 Pulse Rate 92 09/10/24 18:39 Respiratory Rate 20 09/10/24 18:39 Blood Pressure 156/80 H 09/10/24 18:39 Pulse Oximetry 95 09/10/24 18:39 Oxygen Delivery Room Air 09/10/24 18:39 Lab Data Labs: Lab Results 09/10/24 Range/Units 18:58 Influenza A (RT-PCR) Negative (Negative) Influenza B (RT-PCR) Negative (Negative) RSV (RT-PCR) Negative (Negative) SARS-CoV-2 RNA (RT-PCR) Negative (Negative) Group A Strep (PCR) Not detected (Negative) Discharge Plan Discharge Clinical Impression: Pharyngitis Qualifiers: Pharyngitis/tonsillitis etiology: unspecified etiology Qualified Code(s): J02.9 - Acute pharyngitis, unspecified TMJ arthralgia Qualifiers: Laterality: left Qualified Code(s): M26.622 - Arthralgia of left temporomandibular joint Patient Disposition: Home Condition: Stable Instructions: Antibiotic Form, Pharyngitis (ED) Patient Language: Bangladeshi Prescriptions: New azithromycin [Zithromax] 250 mg tablet See Rx Instructions .ROUTE .COMPLEX Qty: 6 0RF Rx Instructions: For 250 mg dose pack: take 500 mg today (day 1), then 250 mg for 4 days (days 2-5) No Action venlafaxine 75 mg tablet 75 mg PO DAILY simvastatin 40 mg tablet 40 mg PO DAILY losartan 100 mg tablet 50 mg PO DAILY finasteride 5 mg tablet 5 mg PO DAILY Eliquis 2.5 mg tablet 2.5 mg PO BID Claritin-D 24 Hour 10-240 mg tablet extended release 24 hr 1 tablet PO DAILY PRN (Reason: cold symptoms) Qty: 14 0RF fluticasone propionate [Flonase Allergy Relief] 50 mcg/actuation spray,suspension 1 spray intranasal DAILY Qty: 16 0RF Rx Instructions: administer into each nostril amoxicillin-pot clavulanate [Augmentin] 500-125 mg tablet 1 tablet PO TID Qty: 20 0RF prednisone 20 mg tablet 20 mg PO DAILY 5 Days Qty: 5 0RF amoxicillin-pot clavulanate 875-125 mg tablet 1 tablet PO Q12H Qty: 14 0RF aspirin [Adult Aspirin Regimen] 81 mg tablet,delayed release (DR/EC) 81 mg PO DAILY amlodipine [Norvasc] 10 mg tablet 10 mg PO DAILY tamsulosin [Flomax] 0.4 mg capsule 0.4 mg PO DAILY Follow-up/Referrals: Doug,MD Crescencio [Primary Care Provider] - Time of Disposition: 19:59
--- NOTE | 2024-09-10 19:02 | PC.NURSE ---
Dio sent to lab
--- NOTE | 2024-09-10 19:07 | PC.NURSE ---
report to julissa willson
[2024-09-10 19:36] LABS: Strep Group A RT-PCR NOT DETECTED (Negative)
[2024-09-10 19:48] LABS: Influenza A QL RT-PCR Negative (Negative); Influenza B QL RT-PCR Negative (Negative); RSV RNA, RT-PCR Negative (Negative); SARS-CoV-2 RNA PCR Negative (Negative)
== END 2024-09-10 20:07 | disposition home or self-care (01) ==
PROVIDERS: Emergency Provider Internal Medicine Critical Care Medicine; PCP Family Medicine
DX: J02.9 Acute pharyngitis, unspecified (principal); M26.622 Arthralgia of left temporomandibular joint; I10 Essential (primary) hypertension; E78.5 Hyperlipidemia, unspecified; I25.10 Atherosclerotic heart disease of native coronary artery without angina pectoris; Z86.718 Personal history of other venous thrombosis and embolism; Z20.822 Contact with and (suspected) exposure to COVID-19
CPT/HCPCS: 87637; 87651; 99283

== ENCOUNTER 2025-03-03 15:18 | Emergency (ER) | payer MEDICARE, MEDICAID, SELFPAY ==
--- NOTE | ~2025-03-03 | XR_ITS ---
XR lumbar spine min 4V Indication: back pain Comparison: None Findings: Moderate loss of vertebral height throughout, no fracture or subluxation. Moderate to severe loss of disc height throughout. Soft tissues unremarkable Impression: No acute abnormality. Reviewed, dictated and finalized at location P. CATCHER Impression: No acute abnormality.
[2025-03-03 15:18] VITALS: BP 168/72; PULSE 80; RESP 16; TEMP 37; O2SAT 97
--- NOTE | 2025-03-03 15:30 | PC.NURSE ---
PATIENT TAKEN DOWN TO RADIOLOGY
[2025-03-03 16:01] LABS: Add Urine Microscopic? NO; Appearance Urine Clear (Clear); Glucose Urine UA Negative (Negative); Leukocyte Esterase Ur Negative (Negative); Nitrate Urine Negative (Negative); Specific Grav Ur 1.025 (1.010-1.020)
--- NOTE | 2025-03-03 16:09 | ED.BACK ---
HPI - Back Pain/Injury General Chief Complaint: Back Pain/Injury Stated Complaint: BACK PAIN Time Seen by Provider: 03/03/25 15:19 Related Data Home Medications ?Medication ?Instructions ?Recorded ?Confirmed ?Last Taken ?Type apixaban 2.5 mg tablet (Eliquis) 2.5 mg PO BID 09/08/20 03/15/24 Unknown History finasteride 5 mg tablet 5 mg PO DAILY 09/08/20 03/15/24 Unknown History losartan 100 mg tablet 50 mg PO DAILY 09/08/20 03/15/24 Unknown History simvastatin 40 mg tablet 40 mg PO DAILY 09/08/20 03/15/24 Unknown History venlafaxine 75 mg tablet 75 mg PO DAILY 09/08/20 03/15/24 11/09/20 History amlodipine 10 mg tablet (Norvasc) 10 mg PO DAILY 11/16/21 03/15/24 Unknown History aspirin 81 mg tablet,delayed 81 mg PO DAILY 11/16/21 03/15/24 Unknown History release (Adult Aspirin Regimen) tamsulosin 0.4 mg capsule (Flomax) 0.4 mg PO DAILY 11/16/21 03/15/24 Unknown History Allergies Allergy/AdvReac Type Severity Reaction Status Date / Time acetaminophen Allergy Severe RESP. Verified 03/03/25 15:18 DIFFICULTY codeine Allergy Severe RESP. Verified 03/03/25 15:18 DIFFICULTY PMFSH Past Medical History Medical History BPH (benign prostatic hyperplasia) Mood disorder CAD (coronary artery disease) Hyperlipidemia Hypertension History of DVT (deep vein thrombosis) Surgical History Surgical History Hx of cardiac cath Family History Family History Mother Breast cancer Alzheimer disease Father Throat cancer Malignant neoplasm of prostate Bone cancer Lymph node cancer Social History Social History Smoking status: Never smoker Alcohol intake: former Substance use: never Substance use type: does not use Living arrangements: with family Gender identity (if verbalized by the patient): Male Sexual Orientation (if Verbalized by the Patient): Straight or Heterosexual Spiritual care concerns: No Course Vital Signs Vital signs: Vital Signs Temperature 37.0 C 03/03/25 15:18 Pulse Rate 80 03/03/25 15:18 Respiratory Rate 16 03/03/25 15:18 Blood Pressure 168/72 H 03/03/25 15:18 Pulse Oximetry 97 03/03/25 15:18 Oxygen Delivery Room Air 03/03/25 15:18 Temperature 37.0 C 03/03/25 15:18 Pulse Rate 80 03/03/25 15:18 Respiratory Rate 16 03/03/25 15:18 Blood Pressure 168/72 H 03/03/25 15:18 Pulse Oximetry 97 03/03/25 15:18 Oxygen Delivery Room Air 03/03/25 15:18 MDM Differential Diagnosis Differential Diagnosis: Lumbar strain, compression fracture, UTI, kidney stone Lab Data Labs: Lab Results 03/03/25 Range/Units 15:56 Urine Color Yellow (Yellow) Urine Appearance Clear (Clear) Urine pH 6.0 (5.0-8.0) Ur Specific [place] 1.025 H (1.010-1.020) Urine Protein Negative (Negative) Urine Glucose (UA) Negative (Negative) Urine Ketones Negative (Negative) Ur Blood (Man) Negative (Negative) Urine Nitrate Negative (Negative) Urine Bilirubin Negative (Negative) Urine Urobilinogen 1.0 (0.2-1.0) mg/dL Ur Leukocyte Esterase Negative (Negative) Imaging Data Radiologist's impression: ITS Impressions Lumbar Spine X-Ray 03/03/25 15:48 Impression: No acute abnormality. Discharge Plan Discharge Clinical Impression: Back pain Qualifiers: Back pain location: low back pain Chronicity: acute Back pain laterality: left Sciatica presence: without sciatica Qualified Code(s): M54.50 - Low back pain, unspecified Patient Disposition: Home Condition: Stable Instructions: Back Pain (ED) Patient Language: Welsh Prescriptions: New tramadol 50 mg tablet 50 mg PO Q6H PRN (Reason: pain) Qty: 20 0RF No Action venlafaxine 75 mg tablet 75 mg PO DAILY simvastatin 40 mg tablet 40 mg PO DAILY losartan 100 mg tablet 50 mg PO DAILY finasteride 5 mg tablet 5 mg PO DAILY Eliquis 2.5 mg tablet 2.5 mg PO BID Claritin-D 24 Hour 10-240 mg tablet extended release 24 hr 1 tablet PO DAILY PRN (Reason: cold symptoms) Qty: 14 0RF fluticasone propionate [Flonase Allergy Relief] 50 mcg/actuation spray,suspension 1 spray intranasal DAILY Qty: 16 0RF Rx Instructions: administer into each nostril amoxicillin-pot clavulanate [Augmentin] 500-125 mg tablet 1 tablet PO TID Qty: 20 0RF prednisone 20 mg tablet 20 mg PO DAILY 5 Days Qty: 5 0RF amoxicillin-pot clavulanate 875-125 mg tablet 1 tablet PO Q12H Qty: 14 0RF azithromycin [Zithromax] 250 mg tablet See Rx Instructions .ROUTE .COMPLEX Qty: 6 0RF Rx Instructions: For 250 mg dose pack: take 500 mg today (day 1), then 250 mg for 4 days (days 2-5) aspirin [Adult Aspirin Regimen] 81 mg tablet,delayed release (DR/EC) 81 mg PO DAILY amlodipine [Norvasc] 10 mg tablet 10 mg PO DAILY tamsulosin [Flomax] 0.4 mg capsule 0.4 mg PO DAILY Follow-up/Referrals: Doug,MD Crescencio [Primary Care Provider, Family Practice] Time of Disposition: 16:15
[2025-03-03 16:26] VITALS: BP 153/88; PULSE 75; RESP 16; TEMP 37; O2SAT 98
--- OUTSIDE RECORDS SUMMARY | 2025-03-03 16:54 | XMS_ITS | Encounter Summary ---
Author Organization [facility] Address [facility] [place] [address] Care Team Providers Care Community Outreach Coordinator Name Role Phone Fercho Simon MD Unavailable Crescencio Camacho MD Primary Care Provider [phone] Encounter Details Date Type Department Care Team (Late st Contact Info) Description 09/07/2018 Abstract SFL CONVERSION [address] [place] [address] , Generic ConversionMD Social History Tobacco Use Types Packs/Day Years Used Date Smoking Tobacco: Never Smokeless Tobacco: Never Alcohol Use Standard Drinks/Week Comments No 0 (1 standard drink = 0.6 oz pur e alcohol) Sex and Gender Information Value Date Recorded Sex Assigned at Male 05/15/2024 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
--- OUTSIDE RECORDS SUMMARY | 2025-03-03 16:54 | XMS_ITS | Encounter Summary ---
Author Organization [facility] Address [facility] [place] [address] Care Team Providers Care Access Service Representative Name Role Phone Fercho Simon MD Unavailable Crescencio Camacho MD Primary Care Provider Encounter Details Date Type Department Care Team (Late st Contact Info) Description 11/18/2019 Abstract [facility] [address] [place] [phone] Fercho Simon MD [address] [facility], [address] [place] [address] Social History Tobacco Use Types Packs/Day Years Used Date Smoking Tobacco: Never Smokeless Tobacco: Never Alcohol Use Standard Drinks/Week Comments No 0 (1 standard drink = 0.6 oz pur e alcohol) Sex and Gender Information Value Date Recorded Sex Assigned at Male 05/15/2024 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
--- OUTSIDE RECORDS SUMMARY | 2025-03-03 16:54 | XMS_ITS | Encounter Summary ---
Author Organization [facility] Address [address] [place] [address] Care Team Providers Care Vp Client Services Name Role Phone Fercho Simon MD Unavailable Crescencio Camacho MD Primary Care Provider Encounter Details Date Type Department Care Team (Late st Contact Info) Description 11/03/2016 Abstract [facility] [address] [place] [phone] Anderson Barboza MD Social History Tobacco Use Types Packs/Day Years Used Date Smoking Tobacco: Never Smokeless Tobacco: Never Alcohol Use Standard Drinks/Week Comments No 0 (1 standard drink = 0.6 oz pur e alcohol) Sex and Gender Information Value Date Recorded Sex Assigned at Male 05/15/2024 9:11 AM SEO COORDINATOR Legal Sex Male 8:01 PM CDT Gender [...] documented as of this encounter Care Teams Vp Client Services Relationship Specialty Start Date End Date Crescencio Camacho MD [address] [place] [phone] PCP - General FAMILY PRACTICE 08/25/16 Fercho Simon MD Vascular/Weaving Inspector INTERNAL MEDICINE 11/01/15 documented as of this encounter
--- OUTSIDE RECORDS SUMMARY | 2025-03-03 16:54 | XMS_ITS | Clinical Summary ---
Author Organization [facility] Address [facility] [place] [address] Care Team Providers Care Technology Resource Teacher Name Role Phone Fercho Simon MD Unavailable Crescencio Camacho MD Primary Care Provider Allergies Active Allergy Reactions Criticality Noted Date Comments Codeine Shortness of Breath High 10/18/2015 Medications aspirin 81 MG tablet Take 1 tablet (81 mg total) by mouth daily. 05/28/2009 Active venlafaxine 24 hr 75 MG 24 hr capsule Take 1 tablet by mouth daily. 06/04/2015 Active losartan 50 MG tablet Take 1 tablet (50 mg total) by mouth daily. 06/04/2015 Active simvastatin 40 MG tablet Take 1 tablet (40 mg total) by mouth daily. 06/04/2015 Active ELIQUIS 2.5 MG tablet TAKE 1 TABLET BY MOUTH TWICE A DAY 180 tablet 3 10/14/2020 Active tamsulosin 0.4 MG Cap Take 1 capsule (0.4 mg total) by mouth daily. 15 capsule 10/17/2020 Active amLODIPine (NORVASC) 10 MG tablet Take 1 tablet (10 mg total) by mouth daily. 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 10/07/2020 Enchondroma of right humerus 10/07/2020 Osteoarthritis of left index finger 03/18/2020 Osteoarthritis of left middle finger 03/18/2020 Primary osteoarthritis of left hip 11/07/2019 Monitoring for anticoagulant use 04/08/2018 senior care current use of anticoagulant therapy 0 05/08/2017 Artemio lipomatous neoplm of skin, subcu of head, fa ce and neck 04/10/2017 Lump of skin of back 01/02/2017 History of DVT (deep vein thrombosis) 10/17/2016 Essential hypertension 10/17/2016 Hyperlipidemia, unspecified hyperlipidemia type 10/17/2016 Localized edema 04/13/2016 Rupture of biceps tendon 01/18/2016 Left shoulder pain 01/17/2016 DVT (deep venous thrombosis) Overview (10/18/2015): Right femoral vein and left popliteal Hx of CABG CAD (coronary artery disease) Lower extremity edema Family History Medical History Relation Comments No [...] Date Smoking Tobacco: Never Smokeless Tobacco: Never Tobacco Cessation:Counseling Given: Not Answered Alcohol Use Standard Drinks/Week Comments No 0 (1 standard drink = 0.6 oz pur e alcohol) Sex and Gender Information Value Date Recorded Sex Assigned at Male 05/15/2024 9: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 Legal Sex Male 8:01 PM CDT Gender Identity Not on file Sexual Orientation Not on file Occupation Industry Job Start Date Job End Date Retired Not on file Not on file Not on file Last Filed Vital Signs Vital Sign Reading Time Taken Comments Blood Pressure 160/87 05/21/2021 3:27 AM DANCE INSTRUCTOR Pulse 85 05/21/2021 3:27 AM DANCE INSTRUCTOR Temperature 36.2 C (97.1 F) 05/21/2021 3:27 AM DANCE INSTRUCTOR Respiratory Rate 20 05/21/2021 3:27 AM DANCE INSTRUCTOR Oxygen Saturation 98% 05/21/2021 3:27 AM DANCE INSTRUCTOR Inhaled Oxygen Concentration - - Weight 136.1 kg (300 lb) 05/15/2024 9:16 AM DANCE INSTRUCTOR Height 180.3 cm (5' 11) 05/15/2024 9:16 AM DANCE INSTRUCTOR Body Mass Index 41.84 05/15/2024 9:16 AM DANCE INSTRUCTOR Plan of Treatment Health Maintenance Due Date Last Done Comments ASCVD LDL 1955 ASCVD Statin 1955 Colorectal Cancer Screening Colonoscopy (10 Years) 1955 Hepatitis C 08/28/1971 DTaP, Tdap and Td Vaccines ( 1 - Tdap) 1972 Pneumococcal Vaccine: 50+ Ye ars (1 of 2 - PCV) 1972 Zoster Vaccines (1 of 2) 08/28/2003 RSV Immunization or 60+ Years (1 - Risk 60-74 years 1-dose series) 2013 Annual Medicare Wellness Visit 2018 COVID-19 Vaccine (1 - 2024-2 6 season) 2024 Influenza Adult (#1) 2024 12/09/2019 Hepatitis A Vaccines Aged Out No long er eligible based on patient's age to complete this topic Meningococcal B Vaccine Aged Out No l onger eligible based on patient's age to complete this topic Meningococcal Vaccine Aged Out No kishor mitch eligible based on patient's age to complete this topic RSV Immunizations Under 20 Months Aged Out No longer eligible based on patient's age to complete this topic Insurance MEDICAID MEDICARE Care Teams Technology Resource Teacher Relationship Specialty Start Date End Date Crescencio Camacho MD [address] [place] [phone] PCP - General FAMILY PRACTICE 08/25/16 Fercho Simon MD Vascular/Bicycle Mechanic INTERNAL MEDICINE 11/01/15
== END 2025-03-03 16:26 | disposition home or self-care (01) ==
PROVIDERS: Emergency Provider Family Medicine; PCP Family Medicine
DX: M54.50 Low back pain, unspecified (principal); I25.10 Atherosclerotic heart disease of native coronary artery without angina pectoris; E78.5 Hyperlipidemia, unspecified; I10 Essential (primary) hypertension; Z86.718 Personal history of other venous thrombosis and embolism
CPT/HCPCS: 72110; 81003; 99283